=== PATIENT | female | born 1985 | race Caucasian/White ===

== ENCOUNTER 2020-11-23 03:04 | Emergency (ER) | payer MEDICAID, SELFPAY ==
[2020-11-23 03:16] VITALS: BP 142/90; PULSE 90; RESP 16; TEMP 36.8; O2SAT 96; BMI 31.1
--- NOTE | 2020-11-23 04:06 | ED.SKABFB ---
HPI - Skin/Abscess/Foreign Bdy General Chief complaint: Skin/Abscess/Foreign Body Stated complaint: abscess Time Seen by Provider: 11/23/20 04:06 Source: patient Mode of arrival: ambulatory History of Present Illness HPI narrative: 35-year-old female without significant past medical history presents with 1 month of noticing a small lump on her left back that has been evaluated by her primary care provider who states that they are unable to address it further. Patient states that this bump it is painful but has not been associated with any fevers, chills, shortness of breath. Related Data Allergies Allergy/AdvReac Type Severity Reaction Status Date / Time adhesive [ADHESIVE] Allergy Unknown RASH, SKIN Unverified 02/05/20 16:37 BREAKDOWN SEASONAL ALLERGIES Allergy Unknown RUNNY Uncoded 02/05/20 16:37 NOSE, CONGESTION, WATERY EYES Review of Systems Review of Systems: Pertinent positives and negatives as stated in HPI 10 point review of systems is otherwise negative. PMFSH Past Medical History Source: nursing notes reviewed Medical History No known health problems Social History Social History Advance Directives: No Patient : No Physical Exam Vital Signs: Vital Signs: Last Vital Signs Temp 98.3 F 11/23/20 03:16 Pulse 90 11/23/20 03:16 Resp 16 11/23/20 03:16 BP 142/90 H 11/23/20 03:16 Pulse Ox 96 11/23/20 03:16 Body Mass Index 31.1 VITAL SIGNS: Reviewed. GENERAL: Well developed, well nourished, in no acute distress. HEAD: Normocephalic/atraumatic EYES: PERRLA, EOMI EARS: Ext canals without abnormality OROPHARYNX: no oral lesions noted, posterior pharynx clear LUNGS: Normal breath sounds. No adventitious sounds or accessory muscle use. SpO2<96> CARDIOVASCULAR: Regular rate and rhythm without noted murmurs ABDOMEN: Soft, non-tender, non-distended with bowel sounds. BACK: There is a 1 cm, spherical bump to the lateral mid back without corresponding erythema, induration, fluctuance SKIN: Inspection of the skin reveals no rashes NEUROLOGIC: Alert and oriented x 4. Strength and sensation to light touch were grossly intact x 4. Course Course Course Narrative: 35-year-old female with history and clinical presence patient consistent with early lump, 1 cm, at left lateral mid back without evidence of infection or abscess and in consistent with lipoma or sebaceous cyst. Patient was reassured that she could follow-up with the referral to Surgical Services that we would provide. Discharge Plan Discharge Clinical Impression: Lump of skin of back Patient Disposition: Home, Self-Care Instructions: Soft Tissue Mass (ED) Additional Instructions: Please follow-up with the referral that is provided below by calling in the morning. Return to the ER for acute worsening of symptoms. Referrals: Rusty Tao MD [Physician] - 2 days ( Evaluation and treatment as indicated for approximate 1 cm, spherical, soft tissue mass that is located at left lateral mid back without evidence of infection and not consistent with lipoma/ sebaceous cyst.)
== END 2020-11-23 04:35 | disposition home or self-care (01) ==
PROVIDERS: Emergency Provider Student in an Organized Health Care Education/Training Program
DX: R22.2 Localized swelling, mass and lump, trunk (principal)
CPT/HCPCS: 99283

== ENCOUNTER → 2020-11-24 15:32 | Outpatient (BNVA) | payer MEDICAID, SELFPAY | PROVIDERS: PCP Family Medicine; Referring Provider Family Medicine; Visit Provider Surgery | DX: L98.9 Disorder of the skin and subcutaneous tissue, unspecified (principal) | CPT/HCPCS: 99202 ==

== ENCOUNTER 2020-12-15 12:24 | Outpatient (REF) | payer MEDICAID, SELFPAY ==
[2020-12-15 12:54] VITALS: BP 147/94; PULSE 91; RESP 18; TEMP 36.4; O2SAT 97; BMI 30.7
[2020-12-15 13:15] VITALS: BP 139/76; PULSE 95; RESP 16; O2SAT 96
--- NOTE | 2020-12-15 13:20 | W.PM.OPN ---
Operative Note Operative Note Date of Service: 12/15/20 Narrative: Preop diagnosis: Skin lesion, back Postop diagnose: Skin lesion, back, rule out epidermal inclusion cyst Procedure: Excision of skin lesion, from the back under local anesthesia Surgeon: Rusty Tao MD The patient is a 35-year-old female with a lesion on the back measuring about 1 cm in diameter, elevated, that appeared to be an inclusion cyst. She wanted to proceed with excision. She understood technique of excision under local anesthesia and was aware of the risks, benefits, and alternatives She was brought to the operating room placed in prone position. The area of the cyst on the back was prepped and draped. Lidocaine 1% was used for local anesthesia. I made an elliptical incision around this lesion using a blade 15. And this was carried down through the full-thickness skin subcutaneous fat to excise the entire indurated area. This was sent as specimen. The incision was closed with full-thickness nylon 3-0 interrupted sutures. Dressings were applied She tolerated procedure well. There were no complications noted.
--- NOTE | 2020-12-15 13:23 | P.BOP_ITS ---
Brief Operative Note Date of Service: 12/15/20 Pre-op diagnosis: Skin lesion back Post-op diagnosis: same (Rule out epidermal inclusion cyst) Procedure: Excision of skin lesion from the back under local anesthesia Surgeon: Rusty Tao MD Was an Senior Nuclear Medicine Technologist used for this Procedure?: No Estimated blood loss (mL): 1 Pathology: other (Skin lesion rule out cyst) Condition: stable Disposition: other (Home)
== END 2020-12-15 12:25 | disposition home or self-care (01) ==
LOC: HO.MS 12:24
PROVIDERS: Visit Provider Surgery
PROC: (CPT 11402; principal; 2020-12-15 12:30)
DX: L72.0 Epidermal cyst (principal); J30.2 Other seasonal allergic rhinitis; Z79.899 Other long term (current) drug therapy; Z91.040 Latex allergy status
CPT/HCPCS: 11402; 88304

== ENCOUNTER 2021-10-11 03:06 | Emergency (ER) | payer MEDICAID, SELFPAY ==
--- NOTE | ~2021-10-11 | XR_ITS ---
EXAMINATION: XR WRIST, LEFT CLINICAL INFORMATION: Pain after fall COMPARISON: None TECHNIQUE: Four views of the left wrist. FINDINGS: Alignment across the wrist is anatomic. No acute fracture is seen. No significant focal soft tissue abnormality identified. XR/XR wrist LT min 3V IMPRESSION: No acute findings identified.
--- NOTE | ~2021-10-11 | XR_ITS ---
EXAMINATION: XR ELBOW, LEFT CLINICAL INFORMATION: Pain after fall COMPARISON: None TECHNIQUE: AP, lateral, and oblique views of the left elbow. FINDINGS: Alignment appears anatomic. There is subtle cortical irregularity of the radial head and neck, suspicious for nondisplaced fractures in the setting of trauma. Associated joint effusion is present. XR/XR elbow LT min 3V IMPRESSION: Suspect nondisplaced fracture of the radial head/neck, with associated joint effusion.
[2021-10-11 03:40] VITALS: BP 140/86; PULSE 84; RESP 14; TEMP 36.8; O2SAT 96; BMI 30.7
--- NOTE | 2021-10-11 04:27 | ED.FALL ---
HPI - Fall General Chief Complaint: Fall Stated Complaint: Fall/Arm pain Time Seen by Provider: 10/11/21 03:44 Source: patient Mode of arrival: ambulatory Limitations: no limitations History of Present Illness MD complaint: fall Onset (ago): hour(s) (today) Fall from: standing Fall witnessed: no Place fall occurred: home Loss of consciousness: none Prolonged down time: no Symptoms prior to fall: none Context: other (was pulling at weeds - fell backwards) Location of injury - extremities: left: elbow (elbow and wrist) Severity: moderate Quality: dull and aching Associated symptoms (after fall): denies Related Data Home Medications Medication Instructions Recorded Confirmed colestipol 1 gram tablet 1 g PO BID 11/24/20 11/24/20 venlafaxine 75 mg capsule,extended 75 mg PO DAILY 11/24/20 11/24/20 release 24 hr Previous Rx's Medication Instructions Recorded cyclobenzaprine 10 mg tablet 10 mg PO TID PRN #14 tab 10/11/21 ibuprofen 600 mg tablet 600 mg PO Q6H PRN #30 tab 10/11/21 prednisone 20 mg tablet 40 mg PO DAILY 5 Days #10 tab 10/11/21 Allergies Allergy/AdvReac Type Severity Reaction Status Date / Time adhesive [ADHESIVE] Allergy Unknown RASH, SKIN Verified 11/24/20 16:05 BREAKDOWN SEASONAL ALLERGIES Allergy Unknown RUNNY Uncoded 02/05/20 16:37 NOSE, CONGESTION, WATERY EYES Review of Systems Review of Systems: Constitutional : No Fever, No Chills ENT/Mouth : No Ear Pain, No Hoarseness, No sore throat Eyes: No Eye Pain, No Swelling, No Redness, No Foreign Body Cardiovascular : No Chest Pain, No SOB Respiratory : No Cough, No Dyspnea Gastrointestinal : No Nausea, No Vomiting, No Diarrhea, No abdominal Pain Genitourinary : No Dysuria, No Hematuria Musculoskeletal : positive joint pain, No Myalgias, No Joint Swelling Skin : No Skin lacerations, No rash Neuro : No Weakness, No Numbness, No Loss of Consciousness, No Dizziness, No Headache PMFSH Past Medical History Attestation statement: The following information was validated with the patient. Medical History No known health problems Skin lesion of back Social History Social History (Updated 10/11/21 @ 04:30 by Yuni Jones DO) Patient Tobacco Use Status: Never used Tobacco Advance Directives: No Physical Exam Vital Signs: Vital Signs: Last Vital Signs Temp 98.3 F 10/11/21 03:40 Pulse 84 10/11/21 03:40 Resp 14 10/11/21 03:40 BP 140/86 H 10/11/21 03:40 Pulse Ox 96 10/11/21 03:40 BMI result Body Mass Index 30.7 Appearance: Alert. Oriented X3. No acute distress. Eyes: Pupils equal, round and reactive to light. ENT: Pharynx normal. R TM no erythema normal light reflex no perforation clear effusion seen Neck: Normal inspection. CVS: Pulses normal. Respiratory: No respiratory distress. Abdomen: Soft and nontender. Skin: Skin warm and dry. Normal skin color. Extremities: No lower extremity edema. L arm ttp along L wrist and L elbow - distal NV intact, no deformity of hand, L shoulder no ttp able to range the shoulder Neuro: Oriented X 3. No motor deficit. No sensory deficit. Procedures Orthopedic Splinting/Casting Injury #1: Side: left Upper Extremity Injury Location: upper arm and elbow Upper Extremity Immobilizer: sling/shoulder immobilizer Additional Comments: NV intact after application MDM - Fall MDM Narrative Medical decision making narrative: 36 yo female no sig PMH here with c/o L elbow and L wrist pain s/p fall with arm extended behind her. At this time she is NV intact - xrays of elbow and wrist for fracture ordered. Will give motrin and possible sling. Dispo per results and findings. Also just completed zpak for R AOM ? no prior ear infections still feels clogged has otitis effusion but no signs of infection will dose with prednisone Discharge Plan Discharge Clinical Impression: Acute effusion of right ear Closed fracture of radial head Qualifiers: Encounter type: initial encounter Fracture alignment: displaced Laterality: left Qualified Code(s): S52.122A - Displaced fracture of head of left radius, initial encounter for closed fracture Patient Disposition: Home, Self-Care Instructions: Arm Fracture in Adults (ED) Additional Instructions: return to ED for any worsening symptoms or concerns wear sling until you see orthopedic doctor rest ice elevate Prescriptions: New cyclobenzaprine 10 mg tablet 10 mg PO TID PRN (Reason: muscle spasm) Qty: 14 0RF prednisone 20 mg tablet 40 mg PO DAILY 5 Days Qty: 10 0RF ibuprofen 600 mg tablet 600 mg PO Q6H PRN (Reason: pain) Qty: 30 0RF No Action venlafaxine 75 mg capsule,extended release 24hr 75 mg PO DAILY 0RF colestipol 1 gram tablet 1 g PO BID 0RF Referrals: Kevin Gomez MD [Physician] - 1 week
[2021-10-11 04:59] VITALS: BP 142/86; PULSE 82; RESP 18; TEMP 36.8; O2SAT 97
== END 2021-10-11 05:00 | disposition home or self-care (01) ==
PROVIDERS: Emergency Provider Emergency Medicine; PCP Family Medicine
DX: S52.122A Displaced fracture of head of left radius, initial encounter for closed fracture (principal); W01.0XXA Fall on same level from slipping, tripping and stumbling without subsequent striking against object, initial encounter; Y93.9 Activity, unspecified; Y92.007 Garden or yard of unspecified non-institutional (private) residence as the place of occurrence of the external cause; Y99.9 Unspecified external cause status; Z79.899 Other long term (current) drug therapy
CPT/HCPCS: 29105; 73080; 73110; 99282; 99284

== ENCOUNTER 2021-10-24 07:38 | Outpatient (REF) | payer MEDICAID, SELFPAY | END 2021-10-24 07:39 | disposition home or self-care (01) | LOC: HO.HOSX 07:38 | PROVIDERS: Visit Provider Physician Assistant | DX: Z13.89 Encounter for screening for other disorder (principal) ==

== ENCOUNTER 2021-10-31 07:28 | Outpatient (REF) | payer MEDICAID, SELFPAY ==
--- NOTE | ~2021-10-31 | XR_ITS ---
EXAMINATION: XR ELBOW, LEFT CLINICAL INFORMATION: Pain COMPARISON: Previous x-ray September 2021 TECHNIQUE: AP, lateral, and oblique views of the left elbow. FINDINGS: There is again question of a nondisplaced fracture of the radial head and neck. This appears similar to September 2021 exam. No other fracture is seen. The joint spaces are normal. There is no joint effusion. XR/XR elbow LT min 3V IMPRESSION: Probable nondisplaced fracture of the radial head/neck.
== END 2021-10-31 07:29 | disposition home or self-care (01) ==
LOC: HO.HOSX 07:28
PROVIDERS: Visit Provider Physician Assistant
DX: S52.122A Displaced fracture of head of left radius, initial encounter for closed fracture (principal); F17.200 Nicotine dependence, unspecified, uncomplicated; Z71.6 Tobacco abuse counseling
CPT/HCPCS: 73080; 99202

== ENCOUNTER 2021-11-28 12:30 | Outpatient (REF) | payer MEDICAID, SELFPAY | END 2021-11-28 12:31 | disposition home or self-care (01) | LOC: HO.HOSX 12:30 | PROVIDERS: Visit Provider Physician Assistant | DX: Z13.89 Encounter for screening for other disorder (principal) ==

== ENCOUNTER 2022-09-10 00:24 | Emergency (ER) | payer OTHER, SELFPAY ==
--- NOTE | ~2022-09-10 | XR_ITS ---
EXAMINATION: XR LUMBOSACRAL SPINE CLINICAL INFORMATION: 1 week lumbar back pain COMPARISON: CT 10/06/2019 TECHNIQUE: Three views of the lumbosacral spine. FINDINGS: There is anatomic alignment of the lumbar vertebral bodies and posterior elements. Vertebral body heights are maintained. Intervertebral disc spaces appear relatively well-preserved. No acute fracture is seen. Sacroiliac joints are intact. Calcification noted along the aorta. Cholecystectomy clips are present in the right upper quadrant. XR/XR lumbar spine 2-3V IMPRESSION: No acute findings identified.
[2022-09-10 00:29] VITALS: BP 146/96; PULSE 97; RESP 20; TEMP 36.3; O2SAT 97; BMI 29.7
[2022-09-10] MEDS: Acetaminophen 325 MG TABLET 975 MG PO (01:50)
--- NOTE | 2022-09-10 02:35 | ED_ITS ---
HPI - Back Pain/Injury General Chief Complaint: Back Pain/Injury Stated Complaint: back pain radiates to hip pain Time Seen by Provider: 09/10/22 00:56 Source: patient Mode of arrival: ambulatory Limitations: no limitations History of Present Illness MD elicited complaint: back pain Onset (ago): week(s) (1) Timing: constant Severity: severe Similar Symptoms Previously: Yes Quality: aching Location: lumbar spine Radiation: left upper leg and right upper leg Exacerbating factors: movement and lifting Relieving factors: none Context: while lifting, turning/twisting and bending Associated symptoms: denies other symptoms Treatments prior to arrival: cold therapy, heat therapy, NSAIDS and acetaminophen Related Data Home Medications Medication Instructions Recorded Confirmed colestipol 1 gram tablet 1 g PO BID 11/24/20 11/24/20 venlafaxine 75 mg capsule,extended 75 mg PO DAILY 11/24/20 11/24/20 release 24 hr norethindrone (contraceptive) 0.35 0.35 mg PO DAILY 10/31/21 mg tablet Previous Rx's Medication Instructions Recorded cyclobenzaprine 10 mg tablet 10 mg PO TID PRN muscle spasm #14 10/11/21 tabs ibuprofen 600 mg tablet 600 mg PO Q6H PRN pain #30 tabs 10/11/21 cyclobenzaprine 10 mg tablet 10 mg PO TID PRN muscle spasm #10 09/10/22 tabs gabapentin 300 mg capsule 300 mg PO TID #14 caps 09/10/22 meloxicam 15 mg tablet 15 mg PO DAILY #14 tabs 09/10/22 prednisone 20 mg tablet 20 mg PO DAILY #7 tabs 09/10/22 Allergies Allergy/AdvReac Type Severity Reaction Status Date / Time adhesive [ADHESIVE] Allergy Unknown RASH, SKIN Verified 10/31/21 15:16 BREAKDOWN SEASONAL ALLERGIES Allergy Unknown RUNNY Uncoded 10/31/21 15:16 NOSE, CONGESTION, WATERY EYES PMFSH Past Medical History Medical History Multiple sclerosis No known health problems Skin lesion of back Surgical History H/O removal of cyst History of cholecystectomy Social History Social History Alcohol intake: current Alcohol intake frequency: holidays/special occasions only Patient Tobacco Use Status: Current everyday Tobacco user Smoked in Last 30 Days: Yes Use of substances other than those prescribed or required for medical reasons: No Advance Directives: No Advance Directives Information Provided: Yes Patient : No Current occupational status: employed 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, 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 Physical Exam Vital Signs: Vital Signs: Last Vital Signs Temp 97.4 F 09/10/22 00:29 Pulse 97 09/10/22 00:29 Resp 20 09/10/22 00:29 BP 146/96 H 09/10/22 00:29 Pulse Ox 97 09/10/22 00:29 O2 Del Method Room Air 09/10/22 00:29 BMI result Body Mass Index 29.7 GEN: Well developed, no acute distress, alert, oriented HEENT: Normocephalic, atraumatic, normal external ears, nose appears normal Eyes: Normal to appearance Neck: Supple, no lymphadenopathy Respiratory: Talks in complete sentences, no respiratory distress Extremities: No clubbing cyanosis or edema Neurologic: No focal neurologic deficits, cranial nerves 2-12 intact, gait normal, sensation intact bilaterally Skin: No rash Back: Mild midline tenderness, no paraspinous tenderness, no step-off, Course Course Course Narrative: 37-year-old female presents with low back pain, radiating to bilateral lower extremities, no loss of bowel or bladder control or saddle paresthesias. No intravenous drug abuse, no acute trauma. Doubt acute cauda equina syndrome or epidural abscess. Suspect lumbar radiculopathy, strain, sprain, spasm. Will obtain an x-ray to rule out fracture. Reevaluation(s) Reevaluation #1: X-ray reveals no acute fracture. Will discharge at this time with gabapentin meloxicam, Tylenol Time: 02:41 Medications Administered Discontinued Medications Generic Name Dose Route Start Last Admin Trade Name Freq PRN Reason Stop Dose Admin Acetaminophen 975 mg 09/10/22 01:42 09/10/22 01:50 Acetaminophen 325 Mg Tablet PO 09/10/22 01:43 975 mg ONCE ONE Administration Medical Decision Making Medical Decision Making MDM Narrative: 37-year-old female presents with low back pain radiating to the upper leg area bilaterally. Exam was benign. There is mild midline tenderness but no step- off. She has no history of IV drug abuse or fever to suggest epidural abscess. She denies any loss of bowel or bladder control or saddle paresthesias to suggest acute cauda equina syndrome. Her exam is nonfocal. Will obtain an x- ray to rule out compression fracture. Suspect lumbar radiculopathy. Differential Diagnosis Differential Diagnoses: The differential diagnosis associated with the presentation includes (Lumbar radiculopathy, sprain, strain, spasm, spinal stenosis, compression fracture, degenerative disc disease) Independent Interpretation I performed an independent interpretation of an: Plain X-Ray (XR lumbar no acute traumatic injury) Tests considered The following testing was considered but not selected: CT scan/MRI lumbar spine Prescription Management I considered prescription management with: Pain Medication Discharge Plan Discharge Clinical Impression: Lumbar radiculopathy Patient Disposition: Home, Self-Care Instructions: Lumbar Radiculopathy (ED) Prescriptions: New prednisone 20 mg tablet 20 mg PO DAILY Qty: 7 0RF gabapentin 300 mg capsule 300 mg PO TID Qty: 14 0RF cyclobenzaprine 10 mg tablet 10 mg PO TID PRN (Reason: muscle spasm) Qty: 10 0RF meloxicam 15 mg tablet 15 mg PO DAILY Qty: 14 0RF No Action cyclobenzaprine 10 mg tablet 10 mg PO TID PRN (Reason: muscle spasm) Qty: 14 0RF ibuprofen 600 mg tablet 600 mg PO Q6H PRN (Reason: pain) Qty: 30 0RF venlafaxine 75 mg capsule,extended release 24hr 75 mg PO DAILY colestipol 1 gram tablet 1 g PO BID norethindrone (contraceptive) 0.35 mg tablet 0.35 mg PO DAILY Referrals: Physician,Unknown J [Primary Care Provider] - 10 days
[2022-09-10] MEDS: predniSONE 20 MG TABLET 60 MG PO (03:05)
[2022-09-10 03:16] VITALS: BP 126/81; PULSE 74; RESP 16; TEMP 36.7; O2SAT 97
--- NOTE | 2022-09-10 03:17 | PC.NURSE ---
vss. pt medicated according to jul. pt reports 7/10 pain at this time. pt ambulatory at discharge. pt provided with discharge packet. pt verbalized understanding of discharge
== END 2022-09-10 03:18 | disposition home or self-care (01) ==
PROVIDERS: Emergency Provider Emergency Medicine
DX: M54.16 Radiculopathy, lumbar region (principal); M54.50 Low back pain, unspecified; M25.551 Pain in right hip; M79.604 Pain in right leg; F17.210 Nicotine dependence, cigarettes, uncomplicated; Z71.6 Tobacco abuse counseling; Z79.899 Other long term (current) drug therapy
CPT/HCPCS: 72100; 99283; 99284

== ENCOUNTER 2022-10-14 17:18 | Emergency (ER) | payer OTHER, SELFPAY ==
[2022-10-14 17:29] VITALS: BP 141/87; PULSE 121; RESP 20; TEMP 36.9; O2SAT 99; BMI 35.4
--- NOTE | 2022-10-14 17:31 | ED_ITS ---
HPI - General Adult General Chief complaint: Dental/Oral Stated complaint: tooth pain Time Seen by Provider: 10/14/22 17:34 Source: patient Mode of arrival: ambulatory Limitations: no limitations History of Present Illness HPI narrative: Patient is a 37 year old assigned female at with a history of anxiety pres enting to the emergency department today with right sided dental pain. Patient states that over the last few days she has had right sided dental pain. Patient denies any dizziness, lightheadedness, abdominal pain, nausea, vomiting, fever, chills, blurry vision, double vision, loss of vision, chest pain, difficulty breathing, shortness of breath, back pain, night sweats, pain with urination, increased urinary frequency, increased urinary urgency, blood in her urine or stool, syncope or a near syncopal episode, recent trauma or falls, bowel incontinence, bladder incontinence, bowel retention, bladder retention, or any other complaints at this time. Onset (ago): day(s) Location: mouth Severity: mild Severity scale (1-10): 2 Quality: dull Pain Consistency: constant Relieving factors: none Exacerbating factors: none Associated symptoms: denies other symptoms Treatments prior to arrival: none Related Data Home Medications Medication Instructions Recorded Confirmed colestipol 1 gram tablet 1 g PO BID 11/24/20 11/24/20 venlafaxine 75 mg capsule,extended 75 mg PO DAILY 11/24/20 11/24/20 release 24 hr norethindrone (contraceptive) 0.35 0.35 mg PO DAILY 10/31/21 mg tablet Previous Rx's Medication Instructions Recorded cyclobenzaprine 10 mg tablet 10 mg PO TID PRN muscle spasm #14 10/11/21 tabs ibuprofen 600 mg tablet 600 mg PO Q6H PRN pain #30 tabs 10/11/21 cyclobenzaprine 10 mg tablet 10 mg PO TID PRN muscle spasm #10 09/10/22 tabs gabapentin 300 mg capsule 300 mg PO TID #14 caps 09/10/22 meloxicam 15 mg tablet 15 mg PO DAILY #14 tabs 09/10/22 prednisone 20 mg tablet 20 mg PO DAILY #7 tabs 09/10/22 chlorhexidine gluconate 0.12 % 15 ml buccal BID #118 mL 10/14/22 mouthwash (Peridex) naproxen 500 mg tablet 500 mg PO BID 7 days #14 tabs 10/14/22 penicillin V potassium 500 mg 500 mg PO BID 10 days #20 tabs 10/14/22 tablet Allergies Allergy/AdvReac Type Severity Reaction Status Date / Time adhesive [ADHESIVE] Allergy Unknown RASH, SKIN Verified 10/31/21 15:16 BREAKDOWN SEASONAL ALLERGIES Allergy Unknown RUNNY Uncoded 10/31/21 15:16 NOSE, CONGESTION, WATERY EYES Review of Systems Constitutional: Constitutional: Reports no additional constitutional complaints, Denies chills, Denies fever(s) and Denies night sweats Eyes: Eyes: Reports no additional eye complaints, Denies blurry vision, Denies change in vision, Denies diplopia, Denies eye discharge, Denies loss of vision and Denies eye pain ENT: Denies dizziness and Reports mouth pain Cardiovascular: Cardiovascular: Reports no additional cardiovascular complaints, Denies chest pain, Denies lightheadedness, Denies Loss of Consciousness and Denies dyspnea Respiratory: Respiratory: Reports no additional respiratory complaints and Denies dyspnea Gastrointestinal: Gastrointestinal: Reports no additional gastrointestinal complaints, Denies abdominal pain, Denies melena, Denies hematochezia, Denies change in bowel habits and Denies change in stool character Genitourinary: Genitourinary: Denies hematuria, Denies urinary frequency, Denies dysuria, Denies urinary incontinence, Denies urinary hesitancy and Denies urinary urgency Musculoskeletal: Musculoskeletal: Reports no additional musculoskeletal complaints, Denies numbness and Denies tingling Neurologic: Denies dizziness, Denies loss of vision, Denies numbness and Denies tingling Psychiatric: Psychiatric: Reports no additional psychiatric complaints Endocrine: Endocrine: Reports no additional endocrine complaints Hematologic/Lymphatic: Hematologic/Lymphatic: Reports no additional hematologic/lymphatic complaints Allergic/Immunologic: Allergic/Immunologic: Reports no additional allergic/immunologic complaints PMF Past Medical History Attestation statement: The following information was validated with the patient. 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 Physical Exam ED Vital Signs: Vital Signs - 24 hr 10/14/22 17:29 Temperature 98.4 F Pulse Rate 121 H Respiratory Rate 20 Blood Pressure 141/87 H Pulse Oximetry 99 Oxygen Delivery Method Room Air BMI result Body Mass Index 35.4 Const General: cooperative, no acute distress, alert and awake Nutritional Appearance: well nourished Orientation/consciousness: patient oriented x3 Limitations: no limitations HENMT Head: Yes normal to inspection and Yes atraumatic Ears: hearing grossly normal bilaterally and external ears normal General nose exam: Normal external nose present, no nasal discharge noted and no epistaxis Face and sinus: Yes normal facial exam, No abrasion and No laceration Mouth: Normal oral and palatal mucosa present, no drooling and no muffled voice Teeth image: 1. swelling around tooth #1, no fluctuance felt Eyes General: appearance normal, both eyes and all related structures Periorbital: periorbital findings normal Eyelids: Yes eyelids normal Conjunctivae: conjunctivae normal Pupils: Equal, round and reactive pupils present EOM: EOMs intact bilaterally Neck Neck: Yes normal visual inspection, Yes full ROM and Yes no lymphadenopathy Chest Chest palpation & inspection: normal inspection of the chest Resp Effort & Inspection: normal respiratory effort and able to speak in complete sentences GI Inspection: Yes normal to inspection Neuro General: patient oriented x3 and moves all extremities Cranial nerves: Yes Equal, round and reactive pupils present Cognition (Neuro): normal cognition Motor exam (neuro): 5/5 motor strength present throughout Sensory Exam: Normal double simultaneous stimulation for sensation Coordination: [id number] test normal Extrem General: Yes normal to inspection, Yes full ROM and Yes capillary refill normal Psych Appearance: grossly normal Mental Status: mental status grossly normal Affect: normal affect Attitude: cooperative Thought process: Normal thought process present Thought content: Normal thought content present Insight: Good insight present (Psych) Medical Decision Making Medical Decision Making MDM Narrative: Patient is a 37 year old assigned female at with a history of anxiety presenting to the emergency department today with right sided mouth pain. Patient's physical exam showed minimal swelling around the #1 tooth, no fluctua nce felt. I explained my physical exam findings to the patient. I answered all questions asked by the patient. I stressed the importance of the patient taking her medication as prescribed. I stressed the importance of the patient following up with her primary care provider and a dentist. I stressed the importance of the patient returning to the emergency department immediately if her symptoms were to worsen or if she were to develop any dizziness, shortness of breath, difficulty breathing, chest pain, blurry vision, loss of vision, nausea, vomiting, abdominal pain, fever, chills, back pain, or any other complaints. Patient verbalized agreement and understanding with this treatment plan and d ischarge. Differential Diagnosis Differential Diagnoses: The differential diagnosis associated with the presentation includes Dental abscess Discharge Plan Discharge Clinical Impression: Abscess, dental Patient Disposition: Home, Self-Care Instructions: Dental Abscess (ED) Additional Instructions: Follow up with your primary care provider and your dentist. Return to the emergency department immediately if your symptoms worsen or if you develop any dizziness, shortness of breath, difficulty breathing, chest pain, blurry vision, loss of vision, nausea, vomiting, abdominal pain, fever, chills, back pain, or any other complaints. Call or visit any of the clinics below to establish with a dentist: [facility] [address] [place] [address] [address] [facility] [address] [place] [id number] [facility] [address] [place], [place] [id number] [place] [address] [place] [address] Prescriptions: New penicillin V potassium 500 mg tablet 500 mg PO BID 10 Days Qty: 20 0RF naproxen 500 mg tablet 500 mg PO BID 7 Days Qty: 14 0RF chlorhexidine gluconate [Peridex] 0.12 % mouthwash 15 ml buccal BID Qty: 118 0RF No Action cyclobenzaprine 10 mg tablet 10 mg PO TID PRN (Reason: muscle spasm) Qty: 14 0RF ibuprofen 600 mg tablet 600 mg PO Q6H PRN (Reason: pain) Qty: 30 0RF prednisone 20 mg tablet 20 mg PO DAILY Qty: 7 0RF gabapentin 300 mg capsule 300 mg PO TID Qty: 14 0RF cyclobenzaprine 10 mg tablet 10 mg PO TID PRN (Reason: muscle spasm) Qty: 10 0RF meloxicam 15 mg tablet 15 mg PO DAILY Qty: 14 0RF venlafaxine 75 mg capsule,extended release 24hr 75 mg PO DAILY colestipol 1 gram tablet 1 g PO BID norethindrone (contraceptive) 0.35 mg tablet 0.35 mg PO DAILY Referrals: [facility] Family Medicine [Provider Group] (Call to establish and follow up with a [facility] care provider. If you already have a primary care provider, please follow up with them.) [facility] Primary Care, [place] [Provider Group] (Call to establish and follow up with a primary care provider. If you already have a primary care provider, please follow up with them.) [facility] Primary Care,[place] [Provider Group] (Call to establish and follow up with a primary care provider. If you already have a primary care provider, please follow up with them.) [facility] [Physician] - (Call to establish and follow up with a primary care provider. If you already have a primary care provider, please follow up with them.) Interventions: ED Discharge Assessment Last Done: 10/14/22 17:42 Discharge Date/Time: 10/14/22 17:42 Print Language: Monegasque
--- OUTSIDE RECORDS SUMMARY | 2022-10-14 17:39 | XMS_ITS | Continuity of Care Document ---
Author Name Unknown Organization [facility] Tra[address] Address [address] [place] [address]- Care Team Providers Care Strength And Conditioning Coach Name Role Phone Jana MUNGUIA, Ian Mae Primary Care Physician [phone] Encounter [facility] Date(s): 09/15/21 - 10/15/21 [facility] Adult [address] [place] [address]- Allergies, Adverse Reactions, Alerts Substance Reaction Severity Status Adhesive Bandage HIVES Active Fish Active Immunizations Given and Recorded Vaccine Date Status Refusal Reason tetanus/diphtheria/pertussis, acel(Tdap) 08/10/14 Given Not Given Vaccine Date Status Refusal Reason Influenza Virus Vaccine (oldterm) 04/08/19 Not Giv en Parent Or Guardian Refuses Medications Azithromycin 5 Day Dose Pack 250 mg oral tablet 1 pack/packet, By Mouth, Once, # 1 pack/packet, 0 Refills, Soft Stop, 09/21/21 6:23:00 EDT, Tablet,[id number], Partial fill upon patient request if the prescription is for a schedule II opioid drug., 158, cm, 08/02/21 14:11:00 EDT, Height, 76... Start Date: 09/21/21 Status: Ordered colestipol 1 gm oral tablet 3 tablet, By Mouth, 2 times a day, # 540 tablet, 3 Refills, Maintenance, 07/20/21 11:29:00 EST, [id number], If insurance won't cover 90d fine to change to 30d supply, thx, 158, cm, 06/27/21 8:42:00 EST, Height, 76.1, kg, 03/19/21 10:19:00 EDT,... Start Date: 07/20/21 Stop Date: 07/15/22 Status: Ordered Daily Tamir oral tablet 1 tablet, By Mouth, Daily, # 90 tablet, 4 Refills, [id number], 90, TAKE 1 TABLET BY MOUTH EVERY DAY, 158, cm, 04/11/21 16:19:00 EST, Height, 76.1, kg, 03/19/21 10:19:00 EDT, Dry Weight Start Date: 06/14/21 Status: Ordered fluconazole 150 mg oral tablet 1 tablet = 150 mg, By Mouth, Once, # 1 tablet, 0 Refills, Soft Stop, 03/02/21 7:04:00 EDT, Tablet, [facility]/pharmacy #[id number], Partial fill upon patient request if the prescription is for a schedule II opioid drug., 158, cm, 03/02/21 6:37:00 EDT, Height, 73.2... Start Date: 03/02/21 Status: Ordered LORazepam 0.5 mg oral tablet 0.5 tablet = 0.25 mg, By Mouth, Daily, PRN as needed for anxiety, # 20 tablet, 0 Refills, Soft Stop, 11/25/20 17:12:00 EDT, Tablet, [facility]/pharmacy #[id number], Partial fill upon patient request if the prescription is for a schedule II opioid drug., 158, cm, 0... Start Date: 11/25/20 Status: Ordered Mirena 52 mg intrauteral device 1 each = 52 mg, Once, 0 Refills, Maintenance, 12/30/14 11:21:54 Start Date: 12/30/14 Status: Ordered omeprazole 20 mg oral delayed release tablet 1 tablet = 20 mg, By Mouth, Daily, # 30 tablet, 5 Refills, Maintenance, 09/06/21 10:59:00 EDT, CR Tablet, [facility]/pharmacy #[id number], Partial fill upon patient request if the prescription is for a schedule II opioid drug., 158, cm, 08/02/21 14:11:00 EDT, Heig... Start Date: 09/06/21 Status: Ordered traZODone 50 mg oral tablet 25 mg, 0.5, tablet, By Mouth, Daily at bedtime, PRN, after meals for sleep as needed, half a tabletat bedtime., # 15 tablet, Refills 2, Tot. Refills 2, Maintenance, Sleep, 11/25/20 17:20:00 EDT, Route to Pharmacy Electronically, [facility]/pharmacy #[id number], P... Start Date: 11/25/20 Status: Ordered venlafaxine 75 mg oral capsule, extended release 1 capsule, By Mouth, Daily, # 90 capsule, 1 Refills, 09/16/21 17:24:00 EDT, [facility]/pharmacy #[id number], 158, cm, 08/02/21 14:11:00 EDT, Height, 76.1, kg, 03/19/21 10:19:00 EDT, Dry Weight Start Date: 09/16/21 Status: Ordered Problem List Condition Effective Dates Status Health Status Inform ant Acute gastritis(Confirmed) Active Acute viral pharyngitis(Confirmed) Active Anterior chest wall pain(Confirmed) Active Anxiety(Confirmed) Active History of JUAN III (cervical intraepithelial neoplasia grade III) with severe dysplasia. Had CKC that showed JUAN II, ectocervical and endocervical margins negative. Endocervical curettage negative. Last pap smear 01/03/16 negative with negative HPV(Confirmed) Active Depression(Confirmed) Active Bile acid esophageal reflux(Confirmed) Active 4, para 3013. TAb at age 13 by D&C at 9 weeks. 03/08/04 . 09/30/08 . 10/27/14 .(Confirmed) Active S/P cholecystectomy(Confirmed) Active ASCUS with positive high ris k HPV(Confirmed) Active Low HDL (under 40)(Confirmed) Active IUD (intrauterine device) in place - Mirena 12/30/14(Confirmed) Active Multiple sclerosis - not on medications since 2009. Occasionally gets tingly fingers but it doesn't hold her back much(Confirmed) Active Obese class I(Confirmed) Active Otalgia(Confirmed) Active Panic attacks(Confirmed) Active Abdominal pain, acute, right lower quadrant(Confirmed) Active Seasonal allergies(Confirmed) Active Current smoker(Confirmed) Active Strain of left trapezius muscle(Confirmed) Active Left peroneal tendinosis(Confirmed) Active Otalgia of right ear(Confirmed) Active Social History Social History Type Response Smoking Status Current every day tameka andre entered on: 08/17/16 Sex Female
--- OUTSIDE RECORDS SUMMARY | 2022-10-14 17:39 | XMS_ITS | Continuity of Care Document ---
Author Name Unknown Organization [facility] Tra[address] Address [address] [place] [address]- Care Team Providers Care Special Inspector Name Role Phone Jana MUNGUIA, Ian Mae Primary Care Physician Encounter [facility] Date(s): 01/26/21 - 02/25/21 [facility] Adult [address] [place] [address]- Allergies, Adverse Reactions, Alerts Substance Reaction Severity Status Adhesive Bandage HIVES Active Fish Active Immunizations Given and Recorded Vaccine Date Status Refusal Reason tetanus/diphtheria/pertussis, acel(Tdap) 08/10/14 Given Not Given Vaccine Date Status Refusal Reason Influenza Virus Vaccine (oldterm) 04/08/19 Not Giv en Parent Or Guardian Refuses Medications cholestyramine 4 g/5.7 g oral powder for reconstitution = 4 Gm, By Mouth, 2 times a day, dissolve in water or juice May take 2-3x daily, # 60 each, 6 Refills, Maintenance, 11/12/20 12:49:00 EDT, REC Powder, [id number], Partial fill upon patient request if the prescription is for a schedule II opi... Start Date: 11/12/20 Status: Ordered colestipol 1 gm oral tablet 3 tablet, By Mouth, 2 times a day, # 180 tablet, 5 Refills, Maintenance, 01/21/21 11:29:00 EDT, [id number], 158, cm, 11/25/20 15:32:00 EDT, Height, 73.2, kg, 08/01/20 10:43:00 EDT, Dry Weight Start Date: 01/21/21 Stop Date: 07/20/21 Status: Ordered LORazepam 0.5 mg oral tablet 0.5 tablet = 0.25 mg, By Mouth, Daily, PRN as needed for anxiety, # 20 tablet, 0 Refills, Soft Stop, 11/25/20 17:12:00 EDT, Tablet, [facility]/pharmacy #[id number], Partial fill upon patient request if the prescription is for a schedule II opioid drug., 158, cm, 0... Start Date: 11/25/20 Status: Ordered Mirena 52 mg intrauteral device 1 each = 52 mg, Once, 0 Refills, Maintenance, 12/30/14 11:21:54 Start Date: 12/30/14 Status: Ordered multivitamin Multiple Vitamins oral tablet 1 tablet, By Mouth, Daily, # 100 tablet, 3 Refills, Maintenance, 08/23/20 15:33:00 EDT, Tablet, [facility]/pharmacy #[id number], Partial fill upon patient request if the prescription is for a schedule II opioid drug., 1 tablet By Mouth Daily, 158, cm, 08/01/20 15:... Start Date: 08/23/20 Status: Ordered traZODone 50 mg oral tablet 25 mg, 0.5, tablet, By Mouth, Daily at bedtime, PRN, after meals for sleep as needed, half a tabletat bedtime., # 15 tablet, Refills 2, Tot. Refills 2, Maintenance, Sleep, 11/25/20 17:20:00 EDT, Route to Pharmacy Electronically, [facility]/pharmacy #[id number], P... Start Date: 11/25/20 Status: Ordered venlafaxine 150 mg oral capsule, extended release 150 mg, 1, capsule, By Mouth, Daily, # 30 capsule, Refills 2, Tot. Refills 2, Maintenance, 09/21/2115:25:00 EDT, Route to Pharmacy Electronically, [facility]/pharmacy #[id number], Partial fill upon patient request if the prescription is for a schedule II opioid d... Start Date: 09/20/20 Status: Ordered venlafaxine 37.5 mg oral capsule, extended release 37.5 mg, 1, capsule, By Mouth, Daily, start at 112.5mg daily (one 75mg capsule + one 37.5mg capsule), for 4 weeks or until no withdrawal symptoms. Then alternate 112.5mg (75 + 37.5mg) and 75mg capsule every other day (one day 75mg, next day 112.5mg)... Start Date: 10/27/20 Status: Ordered venlafaxine 75 mg oral capsule, extended release 75 mg, 1, capsule, By Mouth, Daily, start at 112.5mg daily (one 75mg capsule + one 37.5mg capsule),for 4 weeks or until no withdrawal symptoms. Then alternate 112.5mg (75 + 37.5mg) and 75mg capsule every other day (one day 75mg, next day 112.5mg) fo... Start Date: 10/27/20 Status: Ordered venlafaxine 75 mg oral capsule, extended release 75 mg, 1, capsule, By Mouth, Daily, Replaces 150 mg, # 30 capsule, Refills 5, Tot. Refills 5, Maintenance, 08/23/20 15:32:00 EDT, Route to Pharmacy Electronically, [facility]/pharmacy #[id number], Partial fill upon patient request if the prescription is for a sche... Start Date: 08/23/20 Status: Ordered Problem List Condition Effective Dates [...] it doesn't hold her back much(Confirmed) Active Otalgia(Confirmed) Active Panic attacks(Confirmed) Active Abdominal pain, acute, right lower quadrant(Confirmed) Active Seasonal allergies(Confirmed) Active Current smoker(Confirmed) Active Strain of left trapezius muscle(Confirmed) Active Left peroneal tendinosis(Confirmed) Active Otalgia of right ear(Confirmed) Active Social History Social History Type Response Smoking Status Current every day tameka andre entered on: 08/17/16 Sex
--- OUTSIDE RECORDS SUMMARY | 2022-10-14 17:39 | XMS_ITS | Continuity of Care Document ---
Author Name Unknown Organization [facility] ter Address [address] [place] [address]- Care Team Providers Care Bar Gauger And Lubricator Tender Name Role Phone Jana MUNGUIA, Ian Mae Primary Care Physician [place] [facility] [id number] Date(s): 11/24/20 - 03/03/[address] [address] Attending Physician: Michael Lovett MD Admitting Physician: Michael Lovett MD Referring Physician: Michael Lovett MD Allergies, Adverse Reactions, Alerts Substance Reaction Severity Status Adhesive Bandage HIVES Active Fish Active Immunizations Given and Recorded Vaccine Date Status Refusal Reason tetanus/diphtheria/pertussis, acel(Tdap) 08/10/14 Given Not Given Vaccine Date Status Refusal Reason Influenza Virus Vaccine (oldterm) 04/08/19 Not Giv en Parent Or Guardian Refuses Medications Augmentin 875 mg-125 mg oral tablet 1 tablet, By Mouth, Every 12 hours, for 7 days, # 14 tablet, 0 Refills, Acute 03/09/21 7:00:00 EDT,03/02/21 7:00:00 EDT, Tablet, [facility]/pharmacy #[id number], Partial fill upon patient request if the prescription is for a schedule II opioid drug., 158, cm, .. Start Date: 03/02/21 Stop Date: 03/09/21 Status: Ordered cholestyramine 4 g/5.7 g oral powder for [...] Date: 01/21/21 Stop Date: 07/20/21 Status: Ordered fluconazole 150 mg oral tablet 1 tablet = 150 mg, By Mouth, Once, # 1 tablet, 0 Refills, Soft Stop, 03/02/21 7:04:00 EDT, Tablet, [facility]/pharmacy #[id number], Partial fill upon patient request if the prescription is for a schedule II opioid drug., 158, cm, 03/02/21 6:37:00 EDT, Height, 73.2... Start Date: 03/02/21 Status: Ordered LORazepam 0.5 mg oral tablet 0.5 tablet = 0.25 mg, By Mouth, Daily, PRN as needed for anxiety, # 20 tablet, 0 Refills, Soft Stop, 11/25/20 17:12:00 EDT, Tablet, [id number], Partial fill upon patient request [...] 3 Refills, Maintenance, 08/23/20 15:33:00 EDT, Tablet, [id number], Partial fill upon patient request [...] 11/25/20 17:20:00 EDT, Route to Pharmacy Electronically, [facility]/pharmacy #[id number], P... Start Date: 11/25/20 Status: Ordered venlafaxine 150 mg oral capsule, extended release 150 mg, 1, capsule, By Mouth, Daily, # 30 capsule, Refills 2, Tot. Refills 2, Maintenance, 09/21/2115:25:00 EDT, Route to Pharmacy Electronically, [facility]/pharmacy #[id number], Partial fill upon patient request [...] 08/23/20 15:32:00 EDT, Route to Pharmacy Electronically, [facility]/pharmacy #[id number], Partial fill upon patient request [...]
--- OUTSIDE RECORDS SUMMARY | 2022-10-14 17:39 | XMS_ITS | Continuity of Care Document ---
Author Name [facility] Organization [facility] Address [address] [place] [address]- Care Team Providers Care Oil Well Pumper Name Role Phone Jana MUNGUIA, Ian Mae Primary Care Physician [phone] [place] [facility] [place] 09/14/21 - 10/14/21 [facility] Adult [address] [place] [address]- Allergies, Adverse Reactions, Alerts Substance Reaction Severity [...] # 90 tablet, 4 Refills, [id number], 90, TAKE 1 TABLET BY MOUTH EVERY DAY, 158, cm, 04/11/21 16:19:00 EST, Height, 76.1, kg, 03/19/21 10:19:00 EDT, Dry Weight Start Date: 06/14/21 Status: Ordered fluconazole 150 mg oral tablet 1 tablet = 150 mg, By Mouth, Once, # 1 tablet, 0 Refills, Soft Stop, 03/02/21 7:04:00 EDT, Tablet, [facility]/pharmacy #[id number], Partial fill upon patient request if the prescription is for a schedule II opioid drug., 158, cm, 03/02/21 6:37:00 EDT, Height, 73.2... Start Date: 03/02/21 Status: Ordered LORazepam 0.5 mg oral tablet 0.5 tablet = 0.25 mg, By Mouth, Daily, PRN as needed for anxiety, # 20 tablet, 0 Refills, Soft Stop, 11/25/20 17:12:00 EDT, Tablet, [facility]/pharmacy #[id number], Partial fill upon patient request [...] Refills, Maintenance, 09/06/21 10:59:00 EDT, CR Tablet, [facility]/pharmacy #[id number], Partial fill upon patient request [...] 11/25/20 17:20:00 EDT, Route to Pharmacy Electronically, [facility]/pharmacy #[id number], P... Start Date: 11/25/20 Status: Ordered venlafaxine 75 mg oral capsule, extended release 1 capsule, By Mouth, Daily, # 90 capsule, 1 Refills, 09/16/21 17:24:00 EDT, [facility]/pharmacy #[id number], 158, cm, 08/02/21 14:11:00 EDT, [...]
--- OUTSIDE RECORDS SUMMARY | 2022-10-14 17:39 | XMS_ITS | Continuity of Care Document ---
Author Name Unknown Organization [facility] Address [address] [place] [address]- Care Team Providers Care Fruit Harvest Machine Operator Name Role Phone Jana MUNGUIA, Ian Mae Primary Care Physician [phone] Encounter [place] Date(s): 11/04/19 - 12/04/19 [facility] [address] [place] [address]- [facility] Attending Physician: Admtr, Ar8 Admitting Physician: Admtr, Ar8 Referring Physician: Admtr, Ar8 Allergies, Adverse Reactions, Alerts Substance Reaction Severity Status Adhesive Bandage HIVES Active Immunizations Given and Recorded Vaccine Date Status Refusal Reason tetanus/diphtheria/pertussis, acel(Tdap) 08/10/14 Given Not Given Vaccine Date Status Refusal Reason Influenza Virus Vaccine (oldterm) 04/08/19 Not Giv en Parent Or Guardian Refuses Medications albuterol CFC free 90 mcg/inh inhalation aerosol 2, puffs, Inhalation, 4 times a day, PRN, # 1 each, Refills 0, Tot. Refills 0, Soft Stop, 06/28/17 10:48:11, Aerosol, Route to Pharmacy Electronically, [id number], [facility]/pharmacy #[id number], Compound Start Date: 06/28/17 Stop Date: 07/28/17 Status: Ordered colestipol 1 gm oral tablet 3 tablets, By Mouth, Daily, # 90 tablet, 5 Refills, Maintenance, 11/20/19 14:09:00 EDT, Tablet, [facility]/pharmacy #[id number], 158, cm, 11/04/19 13:42:00 EDT, Height, 63.5, kg, 04/10/19 22:37:00 EST, Dry Weight Start Date: 11/20/19 Stop Date: 05/18/20 Status: Ordered duloxetine 20 mg oral enteric coated capsule 1 capsule = 20 mg, By Mouth, Daily, # 30 capsule, 0 Refills, Maintenance, 11/04/19 15:25:00 EDT Start Date: 11/04/19 Status: Ordered LORazepam 0.5 mg oral tablet 1 tablet, By Mouth, Daily, PRN NEEDED, # 30 tablet, 0 Refills, Acute 12/14/19 15:46:00 EDT, 11/14/19 15:46:00 EDT, [facility]/pharmacy #[id number], 158, cm, 11/04/19 13:42:00 EDT, Height, 63.5, kg, 04/10/19 22:37:00 EST, Dry Weight Start Date: 11/14/19 Stop Date: 12/14/19 Status: Ordered Mirena 52 mg intrauteral device 1 each = 52 mg, Once, 0 Refills, Maintenance, 12/30/14 11:21:54 Start Date: 12/30/14 Status: Ordered pantoprazole 40 mg oral delayed release tablet 1 tablet = 40 mg, By Mouth, Daily, # 30 tablet, 0 Refills, Maintenance, 11/09/19 9:24:00 EDT, EC Tablet, 158, cm, 11/04/19 13:42:00 EDT, Height, 63.5, kg, 04/10/19 22:37:00 EST, Dry Weight Start Date: 11/09/19 Status: Ordered predniSONE 20 mg oral tablet See Instructions, 3 tabs daily for 2 days, 2 tabs daily for 2 days, 1 tab daily for 2 days with food or milk, # 12 tablet, 0 Refills, Acute 12/10/19 16:54:00 EDT, 12/04/19 16:53:00 EDT, [id number], 158, cm, 11/04/19 13:42:00 EDT, Height, 63.5... Start Date: 12/04/19 Stop Date: 12/10/19 Status: Ordered ZyrTEC 10 mg oral tablet 1 tablet = 10 mg, By Mouth, Daily, PRN for allergy symptoms, # 30 tablet, 3 Refills, Maintenance, 10/04/18 15:22:16 EDT, Tablet Start Date: 10/04/18 Stop Date: 02/01/19 Status: Ordered Problem List Condition Effective Dates Status Health Status Inform ant Acute gastritis(Confirmed) Active Acute viral pharyngitis(Confirmed) Active Anterior chest wall pain(Confirmed) Active Anxiety(Confirmed) Active History of JUAN III (cervical intraepithelial neoplasia grade III) with severe dysplasia. Had CKC that showed JUAN II, ectocervical and endocervical margins negative. Endocervical curettage negative. Last pap smear 01/03/16 negative with negative HPV(Confirmed) Active Depression(Confirmed) Active 4, para 3013. TAb at age 13 by D&C at 9 weeks. 03/08/04 . 09/30/08 . 10/27/14 .(Confirmed) Active ASCUS with positive high ris k [...]
--- OUTSIDE RECORDS SUMMARY | 2022-10-14 17:39 | XMS_ITS | Continuity of Care Document ---
Author Name Unknown Organization [facility] Address [address] [facility], [address] Floor, [address] [place] [address]- Care Team Providers Care Literacy Teacher Name Role Phone Jana MUNGUIA, Ian Mae Primary Care Physician [phone] Encounter [facility] [place] Date(s): 12/28/21 - 01/27/22 [facility] [address], [address], [address] [place] [address]- Attending Physician: Cornelius Kelly Admitting Physician: Cornelius Kelly Referring Physician: AdmCornelius fragoso Allergies, Adverse Reactions, Alerts Substance Reaction Severity [...] Mouth, Daily, # 90 tablet, 4 Refills, [facility], 90, TAKE 1 TABLET BY MOUTH EVERY DAY, 158, cm, 04/11/21 16:19:00 EST, Height, 76.1, kg, 03/19/21 10:19:00 EDT, Dry Weight Start Date: 06/14/21 Status: Ordered fluconazole 150 mg oral tablet 1 tablet = 150 mg, By Mouth, Once, # 1 tablet, 0 Refills, Soft Stop, 03/02/21 7:04:00 EDT, Tablet, [id number], Partial fill upon [...] 12/30/14 11:21:54 Start Date: 12/30/14 Status: Ordered norethindrone 0.35 mg oral tablet 0 Refills, Maintenance, 12/09/21 16:10:00 EDT, Partial fill upon patient request if the prescription is for a schedule II opioid drug. Start Date: 12/09/21 Status: Ordered omeprazole 20 mg oral delayed release tablet 1 tablet = 20 mg, By Mouth, Daily, # 30 tablet, 5 Refills, Maintenance, 09/06/21 10:59:00 EDT, CR Tablet, [id number], Partial fill upon patient request if the prescription is for a schedule II opioid drug., 158, cm, 08/02/21 14:11:00 EDT, He[facility]... Start Date: 09/06/21 Status: Ordered predniSONE 20 mg oral tablet 1 tablet = 20 mg, By Mouth, Daily, take 3 tablets daily for 2 days, 2 tablets daily for 2 days, 1 tablet daily for 2 days for MS exacerbation with eye pain/pressure with food or milk, # 12 tablet, 0 Refills, Acute 02/05/22 6:28:00 EDT, 01/05/22 6:28:0... Start Date: 01/05/22 Stop Date: 02/05/22 Status: Ordered traZODone 50 mg oral tablet 25 mg, 0.5, tablet, By Mouth, Daily at bedtime, PRN, after meals for sleep as needed, half a tabletat bedtime., # 15 tablet, Refills 2, Tot. Refills 2, Maintenance, Sleep, 11/25/20 17:20:00 EDT, Route to Pharmacy Electronically, [facility]/pharmacy #[id number], P... Start Date: 11/25/20 Status: Ordered venlafaxine 75 mg oral capsule, extended release 1 capsule, By Mouth, Daily, # 90 capsule, 1 Refills, 09/16/21 17:24:00 EDT, [facility]/pharmacy #[id number], 158, cm, 08/02/21 14:11:00 EDT, Height, [...] tameka andre entered on: 08/17/16 Sex Female Care Team Personnel Name: Ian Bates MD Address: [address] [place] [address] [place] [address]-
--- OUTSIDE RECORDS SUMMARY | 2022-10-14 17:39 | XMS_ITS | Continuity of Care Document ---
Author Name Unknown Organization [facility] Address [address], [address], [address] [place] [address]- Care Team Providers Care Sales And Marketing Coordinator Name Role Phone Saul NAIK, Chandrika Yan Primary Care Physician [place] [facility] [place] 08/03/22 - 09/02/22 [facility] [address], [address], [address] [place] [address]- Attending Physician: Cornelius eKlly Admitting Physician: Cornelius Kelly Referring Physician: AdmCornelius fragoso Allergies, Adverse Reactions, Alerts Substance Reaction Severity Status Adhesive Bandage HIVES Active Fish Active Immunizations Given and Recorded Vaccine Date Status Refusal Reason tetanus/diphtheria/pertussis, acel(Tdap) 08/10/14 Given Not Given Vaccine Date Status Refusal Reason Influenza Virus Vaccine (oldterm) 04/08/19 Not Giv en Parent Or Guardian Refuses Medications chantix 1mg tablet See Instructions, take 1/2 tab daily for 3 days then increase to 1/2 tab twice daily for 3 days, then increase to 1 tab By Mouth 2 times a day x 12 weeks, # 168 tablet, 0 Refills, Acute 09/15/22 9:00:00 EDT, 06/30/22 8:58:00 EST, [id number] Start Date: 06/30/22 Stop Date: 09/15/22 Status: Ordered colestipol 1 gm oral tablet 3 tablet, By Mouth, 2 times a day, # 540 tablet, 3 Refills, Maintenance, 06/09/22 8:28:00 EST, [id number], If insurance won't cover 90d fine to change to 30d supply, thx, 158, cm, 12/09/21 16:02:00 EDT, Height, 76.1, kg, 03/19/21 10:19:00 EDT,... Start Date: 06/09/22 Status: Ordered Daily Tamir oral tablet 1 tablet, By Mouth, Daily, # 90 tablet, 3 Refills, Maintenance, 08/14/22 12:20:00 EDT, [facility], 90, TAKE 1 TABLET BY MOUTH EVERY DAY, 158, cm, 06/30/22 8:28:00 EST, Height, 76.1, kg, 03/19/2110:19:00 EDT, Dry Weight Start Date: 08/14/22 Status: Ordered LORazepam 0.5 mg oral tablet 0.5 tablet = 0.25 mg, By Mouth, Daily, PRN as needed for anxiety, # 15 tablet, 2 Refills, Soft Stop, 06/30/22 8:43:00 EST, Tablet, [facility]/pharmacy #[id number], Partial fill upon patient request if the prescription is for a schedule II opioid drug., 158, cm, 02... Start Date: 06/30/22 Stop Date: 09/28/22 Status: Ordered norethindrone 0.35 mg oral tablet 0 Refills, Maintenance, 12/09/21 16:10:00 EDT, Partial fill upon patient request if the prescription is for a schedule II opioid drug. Start Date: 12/09/21 Status: Ordered nystatin 311267 u/ml oral suspension 5 mL = 500,000 units, By Mouth, 4 times a day, for 7 days, swish and swallow, # 140 mL, 0 Refills, Acute 09/04/22 15:05:00 EDT, 08/28/22 15:05:00 EDT, Suspension, [facility]/pharmacy #[id number], Partial fill upon patient request if the prescription is for a sched... Start Date: 08/28/22 Stop Date: 09/04/22 Status: Ordered predniSONE 20 mg oral tablet See Instructions, take 3 tablets daily for 2 days, 2 tablets daily for 2 days, 1 tablet daily for 2days for MS exacerbation with eye pain/pressure with food or milk, # 12 tablet, 0 Refills, Acute 09/07/22 8:00:00 EDT, 08/31/22 13:38:00 EDT, [facility] Start Date: 08/31/22 Stop Date: 09/07/22 Status: Ordered venlafaxine 150 mg oral capsule, extended release 150 mg, 1, capsule, By Mouth, Daily, replace 75mg, # 30 capsule, Refills 3, Tot. Refills 3, Maintenance, 06/30/22 8:42:00 EST, Route to [facility], [id number], Partial fill upon patient request if the prescription is for a schedul... Start Date: 06/30/22 Status: Ordered Problem List Condition Confirmation Course Effective Dates Status H ealth Status Informant Anxiety Confirmed Active History of JUAN III (cervical intraepithelial neoplasia grade III) with severe dysplasia. Had CKC that showed JUAN II, ectocervical and endocervical margins negative. Endocervical curettage negative. Last pap smear 01/03/16 negative with negative HPV Confirmed Active Depression Confirmed Active S/P cholecystectomy Confirmed Active ASCUS with positive high risk HPV Confirmed Active Low HDL (under 40) Confirmed Active Multiple sclerosis - not on medications since 2009. Occasionally gets tingly fingers but it doesn't hold her back much Confirmed Active Panic attacks Confirmed Active Seasonal allergies Confirmed Active Current smoker Confirmed Active Social History Social History Type Response Smoking Status Current every day sm thai entered on: 08/17/16 Sex Female Patient Care team information Care Team Personnel Name: Anh Victoria RN Position: S RN Member Role: Primary Care Nurse Name: Iva Liu RN Position: S RN Member Role: Primary Care Nurse Name: Chandrika Hughes NP Position: [facility] Associate Professional Member Role: PCP Address: Address: [address] [place], [place] - Name: Merna Manzano RN Position: S RN Member Role: Primary Care Nurse Care Team Related Persons Name: HALIMA JARAMILLO Address: home [address], [place] Name: LISA AUGUST Address: home [address], [place] Name: NONE, NONE Name: CHATA EATON Address: home [address], [place] Name: REBECCA EATON Address: home [address], [place]
--- OUTSIDE RECORDS SUMMARY | 2022-10-14 17:39 | XMS_ITS | Continuity of Care Document ---
Author Name Unknown Organization [facility] Trae Address [address] [place] [address]- Care Team Providers Care Equine Pharmacology Technician Name Role Phone Jana MUNGUIA, Ian Mae Primary Care Physician [place] [facility] [place] 02[place]19/21 [facility] Adult [address] [place] [address]- Allergies, Adverse Reactions, Alerts Substance Reaction Severity [...] Refills, Soft Stop, 11/25/20 17:12:00 EDT, Tablet, [facility]/pharmacy #[id number], Partial fill upon patient request [...] 3 Refills, Maintenance, 08/23/20 15:33:00 EDT, Tablet, [facility]/pharmacy #[id number], Partial fill upon patient request [...] 11/25/20 17:20:00 EDT, Route to Pharmacy Electronically, [facility]/pharmacy #[id number], P... Start Date: 11/25/20 Status: Ordered venlafaxine 150 mg oral capsule, extended release 150 mg, 1, capsule, By Mouth, Daily, # 30 capsule, Refills 2, Tot. Refills 2, Maintenance, 09/21/2115:25:00 EDT, Route to Pharmacy Electronically, [facility]/pharmacy #[id number], Partial fill upon patient request [...] 08/23/20 15:32:00 EDT, Route to Pharmacy Electronically, [facility]/pharmacy #[id number], Partial fill upon patient request if the [...]
--- OUTSIDE RECORDS SUMMARY | 2022-10-14 17:39 | XMS_ITS | Continuity of Care Document ---
Author Name Unknown Organization [facility] Trae lt Address [address] [place] [address]- Care Team Providers Care High School Auto Repair Teacher Name Role Phone Jana MUNGUIA, Ian Mae Primary Care Physician En[place] [facility] [place] Date(s): 12/04/19 - 01/03/20 [facility] Adult [address] [place] [address]- [facility] Allergies, Adverse Reactions, Alerts Substance Reaction Severity [...] 06/28/17 10:48:11, Aerosol, Route to Pharmacy Electronically, [id number], [facility]/pharmacy #[id number], Compound Start Date: 06/28/17 Stop Date: 07/28/17 Status: Ordered colestipol 1 gm oral tablet 3 tablets, By Mouth, Daily, # 90 tablet, 5 Refills, Maintenance, 11/20/19 14:09:00 EDT, Tablet, [facility]/pharmacy #[id number], 158, cm, 11/04/19 13:42:00 EDT, Height, 63.5, kg, 04/10/19 22:37:00 EST, Dry Weight Start Date: 11/20/19 Stop Date: 05/18/20 Status: Ordered duloxetine 20 mg oral enteric coated capsule 1 capsule = 20 mg, By Mouth, Daily, # 30 capsule, 0 Refills, Maintenance, 11/04/19 15:25:00 EDT Start Date: 11/04/19 Status: Ordered Mirena 52 mg intrauteral device 1 each = 52 mg, Once, 0 Refills, Maintenance, 12/30/14 11:21:54 Start Date: 12/30/14 Status: Ordered pantoprazole 40 mg oral delayed release tablet 1 tablet = 40 mg, By Mouth, Daily, # 30 tablet, 2 Refills, Maintenance, 12/05/19 8:34:00 EDT, EC Tablet, 158, cm, 11/04/19 13:42:00 EDT, Height, 63.5, kg, 04/10/19 22:37:00 EST, Dry Weight Start Date: 12/05/19 Status: Ordered ZyrTEC 10 mg oral tablet [...]
--- OUTSIDE RECORDS SUMMARY | 2022-10-14 17:39 | XMS_ITS | Continuity of Care Document ---
Author Name Unknown Organization [facility] Trae lt Address [address] [place] [address]- Care Team Providers Care Linemarker Name Role Phone Saul NAIK, Chandrika Yan Primary Care Physician Encounter [facility] [place] Date(s): 08/25/22 - 09/24/22 [facility] Adult [address] [place] [address]- Allergies, Adverse Reactions, Alerts Substance Reaction Severity Status Adhesive Bandage HIVES Active Fish Active Immunizations Given and Recorded Vaccine Date Status Refusal Reason tetanus/diphtheria/pertussis, acel(Tdap) 08/10/14 Given Not Given Vaccine Date Status Refusal Reason Influenza Virus Vaccine (oldterm) 04/08/19 Not Giv en Parent Or Guardian Refuses Medications colestipol 1 gm oral tablet 3 tablet, [...] tablet, 3 Refills, Maintenance, 08/14/22 12:20:00 EDT, [facility], 90, TAKE 1 TABLET BY MOUTH EVERY DAY, 158, cm, 06/30/22 8:28:00 EST, Height, 76.1, kg, 03/19/2110:19:00 EDT, Dry Weight Start Date: 08/14/22 Status: Ordered LORazepam 0.5 mg oral tablet 0.5 tablet = 0.25 mg, By Mouth, Daily, PRN as needed for anxiety, # 15 tablet, 2 Refills, Soft Stop, 06/30/22 8:43:00 EST, Tablet, [facility]/pharmacy #[id number], Partial fill upon patient request if the prescription is for a schedule II opioid drug., 158, cm, 02... Start Date: 06/30/22 Stop Date: 09/28/22 Status: Ordered norethindrone 0.35 mg oral tablet 0 Refills, Maintenance, 12/09/21 16:10:00 EDT, Partial fill upon patient request if the prescription is for a schedule II opioid drug. Start Date: 12/09/21 Status: Ordered varenicline 1mg tablet See Instructions, TAKE 1/2 TAB BY MOUTH DAILY FOR 3 DAYS THEN INCREASE TO 1/2 TAB TWICE DAILY FOR 3DAYS, THEN INCREASE TO 1 TAB BY MOUTH 2 TIMES A DAY X 12 WEEKS, # 168 tablet, 0 Refills, Maintenance, 09/18/22 14:39:00 EDT, [id number], 158, cm,... Start Date: 09/18/22 Status: Ordered venlafaxine 150 mg oral capsule, extended release 150 mg, 1, capsule, By Mouth, Daily, replace 75mg, # 30 capsule, Refills 3, Tot. Refills 3, Maintenance, 09/19/22 16:33:00 EDT, Route to Pharmacy Electronically, [facility]/pharmacy #[id number], Partial fill uponpatient request if the prescription is for a schedu... Start Date: 09/19/22 Status: Ordered Problem List Condition Confirmation Course [...] tameka andre entered on: 08/17/16 Sex Female Patient Care team information Care Team Personnel Name: Anh Victoria RN Position: S RN Member Role: Primary Care Nurse Name: Iva Liu RN Position: S RN Member Role: Primary Care Nurse Name: Chandrika Hughes NP Position: [facility] Associate Professional Member Role: PCP Address: Address: [address] [place] [id number] Name: Merna Manzano RN Position: S RN Member Role: Primary Care Nurse Care Team Related Persons Name: HALIMA JARAMILLO Address: home [address] [place], [place] Name: LISA AUGUST Address: home [address] [place], [place] Name: NONE, NONE Name: CHATA EATON Address: home [address] [place], [place] Name: REBECCA EATON Address: home [address], [place]
--- OUTSIDE RECORDS SUMMARY | 2022-10-14 17:39 | XMS_ITS | Continuity of Care Document ---
Author Name Unknown Organization [facility] Angelantoni [employer] Address [address] [place] [address]- Care Team Providers Care Calker Name Role Phone Jana MUNGUIA, Ian Mae Primary Care Physician [phone] [id number] Date(s[facility]/07/19 - 02/29/20 [facility] [employer] [facility] [address], [address] [place] [address]- [facility] Attending Physician: Not on Staff, Attending MD Referring Physician: Not on Staff, Referring MD Allergies, Adverse Reactions, Alerts Substance Reaction Severity Status Adhesive Bandage HIVES Active Immunizations Given and Recorded Vaccine Date Status Refusal Reason tetanus/diphtheria/pertussis, acel(Tdap) 08/10/14 Given Not Given Vaccine Date Status Refusal Reason Influenza Virus Vaccine (oldterm) 04/08/19 Not Giv en Parent Or Guardian Refuses Medications colestipol 1 gm oral tablet 3 tablets, By Mouth, Daily, # 90 tablet, 5 Refills, Maintenance, 01/13/20 11:06:00 EDT, Tablet, [facility]/pharmacy #[id number], 158, cm, 01/13/20 10:02:00 EDT, Height, 63.5, kg, 04/10/19 22:37:00 EST, Dry Weight Start Date: 01/13/20 Stop Date: 07/11/20 Status: Ordered LORazepam 0.5 mg oral tablet 0.5 tablet = 0.25 mg, By Mouth, Once, 0 Refills, Maintenance, 01/10/20 9:27:00 EDT, Tablet Start Date: 01/10/20 Status: Ordered Mirena 52 mg intrauteral device 1 each = 52 mg, Once, 0 Refills, Maintenance, 12/30/14 11:21:54 Start Date: 12/30/14 Status: Ordered pantoprazole 40 mg oral delayed release tablet 1 tablet = 40 mg, By Mouth, Daily, # 30 tablet, 5 Refills, Maintenance, 01/13/20 11:05:00 EDT, EC Tablet, 158, cm, 01/13/20 10:02:00 EDT, Height, 63.5, kg, 04/10/19 22:37:00 EST, Dry Weight Start Date: 01/13/20 Status: Ordered venlafaxine 37.5 mg oral capsule, extended release See Instructions, 1 capsule By Mouth Daily for 2 weeks, then two caps daily, # 60 capsule, Refills 2, Tot. Refills 2, Maintenance, 01/13/20 11:07:00 EDT, Instructions Replace Required Details, Route to Pharmacy Electronically, [facility]/pharmacy #[id number], 158,... Start Date: 01/13/20 Status: Ordered ZyrTEC 10 mg oral tablet [...]
--- OUTSIDE RECORDS SUMMARY | 2022-10-14 17:39 | XMS_ITS | Continuity of Care Document ---
Author Name Unknown Organization [facility] Trae Address [address] [place] [address]- Care Team Providers Care Generation Engineer Name Role Phone Ian Bates MD Primary Care Physician [phone] [id number] Date(s): 01/27/21 - 02/03/21 [facility] Adult [address] [place] [address]- Attending Physician: Not on Staff, Attending MD Referring Physician: Ian Bates MD Allergies, Adverse Reactions, Alerts Substance Reaction [...] Refills, Soft Stop, 11/25/20 17:12:00 EDT, Tablet, [facility]/pharmacy #[id number], Partial fill upon patient request if [...] 11/25/20 17:20:00 EDT, Route to Pharmacy Electronically, [facility]/pharmacy #[id number], P... Start Date: 11/25/20 Status: Ordered venlafaxine 150 mg oral capsule, extended release 150 mg, 1, capsule, By Mouth, Daily, # 30 capsule, Refills 2, Tot. Refills 2, Maintenance, 09/21/2115:25:00 EDT, [facility], [id number], Partial fill upon patient request [...] 08/23/20 15:32:00 EDT, Route to Pharmacy Electronically, [facility]/pharmacy #[id number], Partial fill upon patient request if the [...] tendinosis(Confirmed) Active Otalgia of right ear(Confirmed) Active Vital Signs Most recent to oldest [Reference Range]: 1 Height 158 cm (01/27/21 2:24 PM) Weight 77.2 kg (01/27/21 2:24 PM) Body Mass Index [18.5-24.99] 30.92 *>HHI* (01/27/21 2:24 PM) Social History Social History Type Response Smoking Status Current every day tameka andre entered on: 08/17/16 Sex
--- OUTSIDE RECORDS SUMMARY | 2022-10-14 17:39 | XMS_ITS | Continuity of Care Document ---
Author Name Unknown Organization [facility] Jose Angelantoni Harris [facility] [email or web address] Address [address] [place] [address]- Care Team Providers Care Ice Cream Dispenser Name Role Phone Jana MUNGUIA, Ian Mae Primary Care Physician [place] [facility] [place] 10[place]/20 [facility] [address] [place] [address]- Allergies, Adverse Reactions, Alerts Substance Reaction Severity Status Adhesive Bandage HIVES Active Immunizations Given and Recorded Vaccine Date Status Refusal Reason tetanus/diphtheria/pertussis, acel(Tdap) 08/10/14 Given Not Given Vaccine Date Status Refusal Reason Influenza Virus Vaccine (oldterm) 04/08/19 Not Giv en Parent Or Guardian Refuses Medications colestipol 1 gm oral tablet 3 tablet, By Mouth, Daily, # 90 tablet, 5 Refills, Maintenance, 07/31/20 19:31:00 EST, [id number], 158, cm, 06/28/20 9:12:00 EST, Height, 63.5, kg, 04/10/19 22:37:00 EST, Dry Weight Start Date: 07/31/20 Status: Ordered LORazepam 0.5 mg oral tablet 0.5 tablet = 0.25 mg, By Mouth, Daily, PRN as needed for anxiety, # 15 tablet, 2 Refills, Soft Stop, 05/25/20 7:36:00 EST, Tablet, [id number], Partial fill upon patient request if the prescription is for a schedule II opioid drug., 158, cm, 09... Start Date: 05/25/20 Status: Ordered Mirena 52 mg intrauteral device [...] 08/01/20 15:... Start Date: 08/23/20 Status: Ordered venlafaxine 150 mg oral capsule, extended release 150 mg, 1, capsule, By Mouth, Daily, # 30 capsule, Refills 2, Tot. Refills 2, Maintenance, 09/21/2115:25:00 EDT, Route to Pharmacy Electronically, [id number], Partial fill upon patient request if the prescription is for a schedule II opioid d... Start Date: 09/20/20 Status: Ordered venlafaxine 75 mg oral capsule, extended release 75 mg, 1, capsule, By Mouth, Daily, Replaces 150 mg, # 30 capsule, Refills 5, Tot. Refills 5, Maintenance, 08/23/20 15:32:00 EDT, Route to Pharmacy Electronically, [id number], [...]
--- OUTSIDE RECORDS SUMMARY | 2022-10-14 17:39 | XMS_ITS | Continuity of Care Document ---
Author Name Unknown Organization [facility] Address [address] [place] [address]- Care Team Providers Care Channel Account Manager Name Role Phone Jana MUNGUIA, Ian Mae Primary Care Physician [phone] [place] [facility] [place](s): 06/02/19 - 06/09/19 [facility] Adult [address] [place] [address]- [facility] Encounter Diagnosis Strain of left trapezius muscle(Discharge Diagnosis) - 06/02/19 Attending Physician: Afshan PROGRAM MEDICAL DIRECTOR, Joana Doshi Allergies, Adverse Reactions, Alerts Substance Reaction Severity [...] 06/28/17 10:48:11, Aerosol, Route to Pharmacy Electronically, [id number], [facility]/pharmacy #[id number], Compound Start Date: 06/28/17 Stop Date: 07/28/17 Status: Ordered escitalopram 5 mg oral tablet 1 tablet = 5 mg, By Mouth, Daily, # 30 tablet, 5 Refills, Maintenance, 03/06/19 16:58:33 EDT, Tablet Start Date: 03/06/19 Status: Ordered LORazepam 0.5 mg oral tablet 1 tablet = 0.5 mg, By Mouth, Daily, PRN as needed for anxiety, # 30 tablet, 1 Refills, Acute 07/09/19 8:46:00 EST, 05/08/19 8:43:00 EST, [facility]/pharmacy #[id number], 158, cm, 05/08/19 8:17:00 EST, Height, 63.5, kg, 04/10/19 22:37:00 EST, Dry Weight Start Date: 05/08/19 Stop Date: 07/09/19 Status: Ordered Mirena 52 mg intrauteral device 1 each = 52 mg, Once, 0 Refills, Maintenance, 12/30/14 11:21:54 Start Date: 12/30/14 Status: Ordered Robaxin 500 mg oral tablet 2 tablet = 1,000 mg, By Mouth, 3 times a day, for 14 days, # 84 tablet, 0 Refills, Acute 06/16/19 16:32:00 EST, 06/02/19 16:32:00 EST, Tablet, [facility]/pharmacy #[id number], 158, cm, 06/02/19 15:58:00 EST, Height, 63.5, kg, 04/10/19 22:37:00 EST, Dry Weight Start Date: 06/02/19 Stop Date: 06/16/19 Status: Ordered ZyrTEC 10 mg oral tablet [...] tendinosis(Confirmed) Active Otalgia of right ear(Confirmed) Active Diagnosis Diagnosis Type Effective Dates Health Status Cl inical Service Informant Strain of left trapezius muscle Discharge Diagnosis 06/02/19 Vital Signs Most recent to oldest [Reference Range]: 1 Height 158 cm (06/02/19 3:58 PM) Weight 65.1 kg (06/02/19 3:58 PM) Oxygen Saturation [94-100 %] 98 % (06/02/19 3:58 PM) Pulse Rate [55-90 bpm] 74 bpm (06/02/19 3:58 PM) Body Mass Index [18.5-24.99] 26.08 *H* (06/02/19 3:58 PM) Blood Pressure [90-138/55-84 mm Hg] 108/ 74mm Hg (06/02/19 3:58 PM) Respiratory Rate [16-30 br/min] 12 br/mi n *L* (06/02/19 3:58 PM) Temperature [96.8-100.4 DegF] 98.1 DegF (06/02/19 3:58 PM) Mode of Delivery (Oxygen) Room air (06/02/19 3:58 PM) Blood pressure sites Arm, left (06/02/19 3:58 PM) Temperature Route Oral (06/02/19 3:58 PM) Weight Obtained Via Standing scale (06/02/19 3:58 PM) Social History Social History Type Response Smoking Status Current every day tameka andre entered on: 08/17/16 Sex
--- OUTSIDE RECORDS SUMMARY | 2022-10-14 17:39 | XMS_ITS | Continuity of Care Document ---
Author Name Unknown Organization [facility] Address [address] [place] [address]- Care Team Providers Care Production Floater Name Role Phone Jana MUNGUIA, Ian Mae Primary Care Physician [phone] Encounter [facility] [place] Date(s): 06/11/19 - 06/21/19 [facility] [place] Adult [address] [place] [address]- [facility] Attending Physician: Admtr, Ar8 Admitting [...] 06/28/17 10:48:11, Aerosol, Route to Pharmacy Electronically, [id number], [facility]/pharmacy #[id number], Compound Start Date: 06/28/17 Stop Date: [...] Acute 07/09/19 8:46:00 EST, 05/08/19 8:43:00 EST, [facility]/pharmacy #[id number], 158, cm, 05/08/19 8:17:00 EST, Height, 63.5, kg, 04/10/19 22:37:00 EST, Dry Weight Start Date: 05/08/19 Stop Date: 07/09/19 Status: Ordered Mirena 52 mg intrauteral device 1 each = 52 mg, Once, 0 Refills, Maintenance, 12/30/14 11:21:54 Start Date: 12/30/14 Status: Ordered ZyrTEC 10 mg oral tablet [...]
--- OUTSIDE RECORDS SUMMARY | 2022-10-14 17:39 | XMS_ITS | Continuity of Care Document ---
Author Name Unknown Organization [facility] Address [address] [place] [address]- Care Team Providers Care Journalism Teacher Name Role Phone Ian Bates MD Primary Care Physician Encounter [facility] [place] Date(s): 05/08/19 - 05/15/19 [facility] Adult [address] [place] [address]- [facility] Attending Physician: Ian Bates MD Allergies, Adverse Reactions, [...] 06/28/17 10:48:11, Aerosol, Route to Pharmacy Electronically, [id number], [facility]/pharmacy #[id number], Compound Start Date: 06/28/17 Stop Date: 07/28/17 Status: Ordered Colace sodium 100 mg oral capsule 100 mg, 1, capsule, By Mouth, 2 times a day, PRN, while taking oxycodone, # 8 capsule, Refills 0, Tot. Refills 0, Maintenance, for constipation, 04/12/19 7:35:04 EST, Print Requisition Start Date: 04/12/19 Stop Date: 04/16/19 Status: Ordered escitalopram 5 mg oral tablet 1 tablet = 5 mg, By Mouth, Daily, # 30 tablet, 5 Refills, Maintenance, 03/06/19 16:58:33 EDT, Tablet Start Date: 03/06/19 Status: Ordered FLUoxetine 40 mg oral capsule 1 capsule = 40 mg, By Mouth, Daily, # 30 capsule, 0 Refills, Maintenance, 12/12/18 15:06:44 EDT, Capsule Start Date: 12/12/18 Status: Ordered Lorazepam = 0.5 mg, By Mouth, Daily, PRN as needed for anxiety, 0 Refills, Maintenance, 04/10/19 22:21:12 EST Start Date: 04/10/19 Status: Ordered LORazepam 0.5 mg oral tablet 1 tablet = 0.5 mg, By Mouth, Daily, PRN as needed for anxiety, # 30 tablet, 1 Refills, Acute 07/09/19 8:46:00 EST, 05/08/19 8:43:00 EST, [facility]/pharmacy #[id number], 158, cm, 05/08/19 8:17:00 EST, Height, 63.5, kg, 04/10/19 22:37:00 EST, Dry Weight Start Date: 05/08/19 Stop Date: 07/09/19 Status: Ordered Metamucil 3.4 gm/5.2 gm oral powder for reconstitution = 1.7 Gm, By Mouth, 3 times a day, PRN as needed for constipation, # 1,042 Gm, 1 Refills, Maintenance, 05/08/19 14:30:00 EST, REC Powder Start Date: 05/08/19 Status: Ordered Mirena 52 mg intrauteral device 1 each = 52 mg, Once, 0 Refills, Maintenance, 12/30/14 11:21:54 Start Date: 12/30/14 Status: Ordered PriLOSEC OTC 20 mg oral delayed release tablet 1 tablet = 20 mg, By Mouth, 2 times a day, # 30 tablet, 0 Refills, Maintenance, 04/08/19 16:40:29 EST, EC Tablet Start Date: 04/08/19 Status: Ordered ZyrTEC 10 mg oral tablet [...] Active Seasonal allergies(Confirmed) Active Current smoker(Confirmed) Active Left peroneal tendinosis(Confirmed) Active Otalgia of right ear(Confirmed) Active Vital Signs Most recent to oldest [Reference Range]: 1 Height 158 cm (05/08/19 8:17 AM) Weight 63.7 kg (05/08/19 8:17 AM) Oxygen Saturation [94-100 %] 98 % (05/08/19 8:17 AM) Pulse Rate [55-90 bpm] 79 bpm (05/08/19 8:17 AM) Body Mass Index [18.5-24.99] 25.52 *H* (05/08/19 8:17 AM) Blood Pressure [90-138/55-84 mm Hg] 118/ 82mm Hg (05/08/19 8:17 AM) Mode of Delivery (Oxygen) Room air (05/08/19 8:17 AM) Blood pressure sites Arm, right (05/08/19 8:17 AM) Weight Obtained Via Standing scale (05/08/19 8:17 AM) Social History Social History Type Response Smoking Status Current every day tameka andre entered on: 08/17/16 Sex
--- OUTSIDE RECORDS SUMMARY | 2022-10-14 17:39 | XMS_ITS | Continuity of Care Document ---
Author Name Unknown Organization [facility] Address [address] [place] [address]- Care Team Providers Care Retail Beauty Specialist Name Role Phone Jana MUNGUIA, Ian Mae Primary Care Physician [phone] Encounter [facility] [place] Date(s): 03/01/21 - 03/31/21 [facility] Adult [address] [place] [address]- Allergies, Adverse Reactions, Alerts Substance Reaction Severity [...] 3 Refills, Maintenance, 08/23/20 15:33:00 EDT, Tablet, [facility]/pharmacy #[id number], Partial fill upon patient [...] 11/25/20 17:20:00 EDT, Route to Pharmacy Electronically, [facility]/pharmacy #[id number], P... Start Date: 11/25/20 [...] 08/23/20 15:32:00 EDT, Route to Pharmacy Electronically, [facility]/pharmacy #[id number], Partial fill upon patient request if the [...]
--- OUTSIDE RECORDS SUMMARY | 2022-10-14 17:39 | XMS_ITS | Continuity of Care Document ---
Author Name Unknown Organization [facility] Address [address] [place] [address]- Care Team Providers Care Glove Presser Name Role Phone Jana MUNGUIA, Ian Mae Primary Care Physician Encounter [facility] [place] [facility] [id number] Date(s): 05/31/22 - 06/30/22 [facility] Adult [address] [place] [address]- Allergies, Adverse Reactions, Alerts Substance Reaction Severity [...] Acute 09/15/22 9:00:00 EDT, 06/30/22 8:58:00 EST, [facility]/pharmacy #[id number],... Start Date: 06/30/22 Stop Date: 09/15/22 Status: Ordered colestipol 1 gm oral tablet 3 tablet, By Mouth, 2 times a day, # 540 tablet, 3 Refills, Maintenance, 06/09/22 8:28:00 EST, [id number], If insurance won't cover 90d fine to change to 30d supply, thx, 158, cm, 12/09/21 16:02:00 EDT, Height, 76.1, kg, 03/19/21 10:19:00 EDT,... Start Date: 06/09/22 Status: Ordered colestipol 1 gm oral tablet 3 tablet, By Mouth, 2 times a day, # 540 tablet, 3 Refills, Hard Stop 07/15/22 11:29:00 EST, 07/20/21 11:29:00 EST, [facility]/pharmacy #[id number], If insurance won't cover 90d fine to change to 30d supply, thx,158, cm, 06/27/21 8:42:00 EST, Height, 76.1, kg, 10... Start Date: 07/20/21 Stop Date: 07/15/22 Status: Ordered Daily Tamir oral tablet 1 tablet, By Mouth, Daily, # 90 tablet, 4 Refills, [id number], 90, TAKE 1 TABLET BY MOUTH EVERY DAY, 158, cm, 04/11/21 16:19:00 EST, Height, 76.1, kg, 03/19/21 10:19:00 EDT, Dry Weight Start Date: 06/14/21 Status: Ordered LORazepam 0.5 mg oral tablet 0.5 tablet = 0.25 mg, By Mouth, Daily, PRN as needed for anxiety, # 15 tablet, 2 Refills, Soft Stop, 06/30/22 8:43:00 EST, Tablet, [facility]/pharmacy #[id number], Partial fill upon patient request if the prescription is for a schedule II opioid drug., 158, cm, 02... Start Date: 06/30/22 Stop Date: 09/28/22 Status: Ordered norethindrone 0.35 mg oral tablet 0 Refills, Maintenance, 12/09/21 16:10:00 EDT, Partial fill upon patient request if the prescription is for a schedule II opioid drug. Start Date: 12/09/21 Status: Ordered venlafaxine 150 mg oral capsule, extended release 150 mg, 1, capsule, By Mouth, Daily, replace 75mg, # 30 capsule, Refills 3, Tot. Refills 3, Maintenance, 06/30/22 8:42:00 EST, Route to Pharmacy Electronically, [facility]/pharmacy #[id number], Partial fill upon patient request [...] RN Member Role: Primary Care Nurse Name: Ian Bates MD Position: [facility] Primary Care Physician Member Role: PCP Address: Address: [address] [place] [address] [facility] Name: Maggie Rogel RN Position: S RN Member Role: Primary Care Nurse Name: Merna Manzano RN Position: S RN Member Role: Primary Care Nurse Care Team Related Persons Name: HALIMA JARAMILLO Address: home [address], [place] Name: LISA LETY Address: home [address], [place] Name: NONE, NONE Name: CHATA EATON Address: home [address], [place] Name: REBECCA EATON Address: home [address], [place]
--- OUTSIDE RECORDS SUMMARY | 2022-10-14 17:39 | XMS_ITS | Continuity of Care Document ---
Author Name Unknown Organization [facility] Address [address] [place] [address]- Care Team Providers Care Computer Programming Manager Name Role Phone Ian Bates MD Primary Care Physician Encounter [facility] [place] Date(s): 05/08/19 - 07/11/19 [facility] Adult [address] [place] [address]- [facility] Attending Physician: Ian Bates MD Allergies, Adverse [...] 06/28/17 10:48:11, Aerosol, Route to Pharmacy Electronically, [id number], [facility]/pharmacy #[id number], Compound Start Date: 06/28/17 Stop Date: 07/28/17 Status: Ordered escitalopram 5 mg oral tablet 1 tablet = 5 mg, By Mouth, Daily, # 30 tablet, 5 Refills, Maintenance, 03/06/19 16:58:33 EDT, Tablet Start Date: 03/06/19 Status: Ordered Mirena 52 mg intrauteral device 1 each = 52 mg, Once, 0 Refills, Maintenance, 12/30/14 11:21:54 Start Date: 12/30/14 Status: Ordered pantoprazole 40 mg oral delayed release tablet 1 tablet = 40 mg, By Mouth, 2 times a day, # 60 tablet, 0 Refills, Maintenance, 06/30/19 7:47:00 EST, CR Tablet, 158, cm, 06/02/19 15:58:00 EST, Height, 63.5, kg, 04/10/19 22:37:00 EST, Dry Weight Start Date: 06/30/19 Status: Ordered ZyrTEC 10 mg oral tablet [...]
--- OUTSIDE RECORDS SUMMARY | 2022-10-14 17:39 | XMS_ITS | Continuity of Care Document ---
Author Name Unknown Organization [facility] Address [address] [place] [address]- Care Team Providers Care Outreach Associate Name Role Phone Jana MUNGUIA, Ian Mae Primary Care Physician [phone] En[place] [facility] [place] Date(s): 11/20/19 - 12/20/19 [facility] [address] [place] [address]- [facility] Allergies, Adverse Reactions, Alerts Substance Reaction Severity [...] 06/28/17 10:48:11, Aerosol, Route to Pharmacy Electronically, [id number], [facility]/pharmacy #[id number], Compound Start Date: 06/28/17 Stop Date: 07/28/17 Status: Ordered colestipol 1 gm oral tablet 3 tablets, By Mouth, Daily, # 90 tablet, 5 Refills, Maintenance, 11/20/19 14:09:00 EDT, Tablet, [facility]/pharmacy #[id number], 158, cm, 11/04/19 [...]
--- OUTSIDE RECORDS SUMMARY | 2022-10-14 17:39 | XMS_ITS | Continuity of Care Document ---
Author Name Unknown Organization [facility] Address [address] [place] [address]- Care Team Providers Care Synthetic Soil Blocks Pulper Name Role Phone Ian Bates MD Primary Care Physician [phone] [id number]25[facility] - 01/27/[facility] Adult [address] [place] [address]- Attending Physician: Ian Bates MD Allergies, Adverse [...] Refills, Maintenance, 11/12/20 12:49:00 EDT, REC Powder, [facility]/pharmacy #[id number], Partial fill upon patient request if the prescription is for a schedule II opi... Start Date: 11/12/20 Status: Ordered clotrimazole 10 mg oral lozenge 10 mg, 1, lozenge, By Mouth, 5 times a day, for 7 days, # 35 lozenge, Refills 0, Tot. Refills 0, Acute 02/03/21 14:37:00 EDT, 01/27/21 14:37:00 EDT, Route to Pharmacy Electronically, [facility]/pharmacy #[id number], Partial fill upon patient request if the prescri... Start Date: 01/27/21 Stop Date: 02/03/21 Status: Ordered colestipol 1 gm oral tablet 3 tablet, By Mouth, 2 times a day, # 180 tablet, 5 Refills, Maintenance, 01/21/21 11:29:00 EDT, [facility]/pharmacy #[id number], 158, cm, 11/25/20 15:32:00 EDT, Height, 73.2, kg, 08/01/20 10:43:00 EDT, Dry Weight Start Date: 01/21/21 Stop Date: 07/20/21 Status: Ordered LORazepam 0.5 mg oral tablet 0.5 tablet = 0.25 mg, By Mouth, Daily, PRN as needed for anxiety, # 20 tablet, 0 Refills, Soft Stop, 11/25/20 17:12:00 EDT, Tablet, [facility]/pharmacy #[id number], Partial fill upon patient request [...] 3 Refills, Maintenance, 08/23/20 15:33:00 EDT, Tablet, [facility]/pharmacy #[id number], Partial fill upon patient request if the prescription is for a schedule II opioid drug., 1 tablet By Mouth Daily, 158, cm, 08/01/20 15:... Start Date: 08/23/20 Status: Ordered predniSONE 20 mg oral tablet 1 tablet = 20 mg, By Mouth, Daily, take 3 tablets daily for 2 days, 2 tablets daily for 2 days, 1 tablet daily for 2 days for MS exacerbation with eye pain/pressure with food or milk, # 12 tablet, 0 Refills, Acute 01/28/21 18:00:00 EDT, 01/20/21 9:28:... Start Date: 01/20/21 Stop Date: 01/28/21 Status: Ordered traZODone 50 mg oral tablet 25 mg, 0.5, tablet, By Mouth, Daily at bedtime, PRN, after meals for sleep as needed, half a tabletat bedtime., # 15 tablet, Refills 2, Tot. Refills 2, Maintenance, Sleep, 11/25/20 17:20:00 EDT, Route to Pharmacy Electronically, [facility]/pharmacy #[id number], P... Start Date: 11/25/20 Status: Ordered venlafaxine 150 mg oral capsule, extended release 150 mg, 1, capsule, By Mouth, Daily, # 30 capsule, Refills 2, Tot. Refills 2, Maintenance, 09/21/2115:25:00 EDT, Route to Pharmacy Electronically, [facility]/pharmacy #[id number], Partial fill upon patient request [...] 15:32:00 EDT, Route to Pharmacy Electronically, [facility]/pharmacy #[id number], Partial fill upon patient request [...]
--- OUTSIDE RECORDS SUMMARY | 2022-10-14 17:39 | XMS_ITS | Continuity of Care Document ---
Author Name Unknown Organization [facility] Address [address] [place] [address]- Care Team Providers Care First Helper Name Role Phone Jana MUNGUIA, Ian Mae Primary Care Physician [phone] Encounter [facility] [place] Date(s): 09/22/19 - 09/29/19 [facility] Adult [address] [place] [address]- [facility] Encounter Diagnosis Sacroiliitis(Discharge Diagnosis) - 09/22/19 Attending Physician: Samuel Stephenson MD Allergies, Adverse Reactions, Alerts Substance Reaction [...] 06/28/17 10:48:11, Aerosol, Route to Pharmacy Electronically, [id number], [facility]/pharmacy #[id number], Compound Start Date: 06/28/17 Stop Date: 07/28/17 Status: Ordered duloxetine 20 mg oral enteric coated capsule 1 capsule = 20 mg, By Mouth, 2 times a day, Increase in dose, # 60 capsule, 5 Refills, Maintenance,09/23/19 17:25:00 EDT, [id number], 158, cm, 06/02/19 15:58:00 EST, Height, 63.5, kg, 04/10/19 22:37:00 EST, Dry Weight Start Date: 09/23/19 Status: Ordered LORazepam 0.5 mg oral tablet 1 tablet = 0.5 mg, By Mouth, Daily, PRN as needed for anxiety, # 30 tablet, 1 Refills, Acute 11/23/19 17:25:00 EDT, 09/23/19 17:25:00 EDT, [facility]/pharmacy #[id number], 158, cm, 06/02/19 15:58:00 EST, Height, 63.5, kg, 04/10/19 22:37:00 EST, Dry Weight Start Date: 09/23/19 Stop Date: 11/23/19 Status: Ordered Mirena 52 mg intrauteral device 1 each = 52 mg, Once, 0 Refills, Maintenance, 12/30/14 11:21:54 Start Date: 12/30/14 Status: Ordered pantoprazole 40 mg oral delayed release tablet 1 tablet = 40 mg, By Mouth, 2 times a day, # 180 tablet, 3 Refills, Maintenance, 07/29/19 7:31:00 EDT, CR Tablet, 158, cm, 06/02/19 15:58:00 EST, Height, 63.5, kg, 04/10/19 22:37:00 EST, Dry Weight Start Date: 07/29/19 Status: Ordered ZyrTEC 10 mg oral tablet [...] age 13 by D&C at 9 weeks. 10/19/04 . 09/30/08 . 10/27/14 .(Confirmed) Active ASCUS [...] Dates Health Status Cl inical Service Informant Sacroiliitis Discharge Diagnosis 09/22/19 Social History Social History Type Response Smoking Status Current every day tameka andre entered on: 08/17/16 Sex
--- OUTSIDE RECORDS SUMMARY | 2022-10-14 17:40 | XMS_ITS | Continuity of Care Document ---
Author Name Unknown Organization [facility] Address [address] [place] [address]- Care Team Providers Care Medical Billing Coordinator Name Role Phone Jana MUNGUIA, Ian Mae Primary Care Physician Encounter [facility] [place] Date(s): 07/01/21 - 07/31/21 [facility] [address] [place] [address]- Attending Physician: Cornelius Kelly Admitting Physician: Cornelius Kelly Referring Physician: AdmtrCornelius Allergies, Adverse Reactions, Alerts Substance Reaction Severity [...] # 90 tablet, 4 Refills, [id number], 90, TAKE 1 TABLET BY MOUTH EVERY DAY, 158, cm, 04/11/21 16:19:00 EST, Height, 76.1, kg, 03/19/21 10:19:00 EDT, Dry Weight Start Date: 06/14/21 Status: Ordered fluconazole 150 mg oral tablet 1 tablet = 150 mg, By Mouth, Once, # 1 tablet, 0 Refills, Soft Stop, 03/02/21 7:04:00 EDT, Tablet, [facility]/pharmacy #[id number], Partial fill upon patient request if the prescription is for a schedule II opioid drug., 158, cm, 03/02/21 6:37:00 EDT, Height, 73.2... Start Date: 03/02/21 Status: Ordered LORazepam 0.5 mg oral tablet 0.5 tablet = 0.25 mg, By Mouth, Daily, PRN as needed for anxiety, # 20 tablet, 0 Refills, Soft Stop, 11/25/20 17:12:00 EDT, Tablet, [facility]/pharmacy #[id number], Partial fill upon patient request if the prescription is for a schedule II opioid drug., 158, cm, 0... Start Date: 11/25/20 Status: Ordered Mirena 52 mg intrauteral device 1 each = 52 mg, Once, 0 Refills, Maintenance, 12/30/14 11:21:54 Start Date: 12/30/14 Status: Ordered traZODone 50 mg oral tablet 25 mg, 0.5, tablet, By Mouth, Daily at bedtime, PRN, after meals for sleep as needed, half a tabletat bedtime., # 15 tablet, Refills 2, Tot. Refills 2, Maintenance, Sleep, 11/25/20 17:20:00 EDT, Route to Pharmacy Electronically, [facility]/pharmacy #[id number], P... Start Date: 11/25/20 Status: Ordered venlafaxine 75 mg oral capsule, extended release 1 capsule, By Mouth, Daily, # 90 capsule, 0 Refills, [id number], 158, cm, 04/11/21 16:19:00 EST, Height, 76.1, kg, 03/19/21 10:19:00 EDT, Dry Weight Start Date: 04/26/21 Status: Ordered Problem List Condition Effective Dates [...]
--- OUTSIDE RECORDS SUMMARY | 2022-10-14 17:40 | XMS_ITS | Continuity of Care Document ---
Author Name Unknown Organization [facility] Trae lt Address [address] [place] [address]- Care Team Providers Care Alumni Coordinator Name Role Phone Jana MUNGUIA, Ian Mae Primary Care Physician En[place] [facility] [place] Date(s): 12/26/21 - 01/25/22 [facility] Adult [address] [place] [address]- Allergies, Adverse Reactions, Alerts Substance Reaction Severity [...] Mouth, Daily, # 90 tablet, 4 Refills, [facility] STORE 32220, 90, TAKE 1 TABLET BY MOUTH EVERY [...] 11/25/20 17:20:00 EDT, Route to Pharmacy Electronically, [facility]/pharmacy #[id number], P... Start Date: 11/25/20 Status: Ordered venlafaxine 75 mg oral capsule, extended release 1 capsule, By Mouth, Daily, # 90 capsule, 1 Refills, 09/16/21 17:24:00 EDT, [facility]/pharmacy #[id number], 158, cm, 08/02/21 14:11:00 EDT, Height, [...] 08/17/16 Sex Female Care Team Personnel Name: Jana MUNGUIA, Ian Mae Address: [address] [place] [address]-
--- OUTSIDE RECORDS SUMMARY | 2022-10-14 17:40 | XMS_ITS | Continuity of Care Document ---
Author Name Unknown Organization [facility] Trae Address [address] [place] [address]- Care Team Providers Care Ophthalmic Tech Name Role Phone aJna MUNGUIA, Ian Mae Primary Care Physician [phone] Encounter [facility] Date(s): 04/07/21 - 05/07/21 [facility] Adult [address] [place] [address]- Allergies, Adverse Reactions, Alerts Substance Reaction Severity [...] Refills, Soft Stop, 03/02/21 7:04:00 EDT, Tablet, [facility]/pharmacy #[id number], Partial fill upon patient request if the prescription is for a schedule II opioid drug., 158, cm, 03/02/21 6:37:00 EDT, Height, 73.2... Start Date: 03/02/21 Status: Ordered LORazepam 0.5 mg oral tablet 0.5 tablet = 0.25 mg, By Mouth, Daily, PRN as needed for anxiety, # 20 tablet, 0 Refills, Soft Stop, 11/25/20 17:12:00 EDT, Tablet, [facility]/pharmacy #[id number], Partial fill upon [...] 3 Refills, Maintenance, 08/23/20 15:33:00 EDT, Tablet, [facility]/pharmacy #[id number], Partial fill upon [...] 11/25/20 17:20:00 EDT, Route to Pharmacy Electronically, [facility]/pharmacy #[id number], P... Start Date: 11/25/20 Status: Ordered venlafaxine 75 mg oral capsule, extended release 1 capsule, By Mouth, Daily, # 90 capsule, 0 Refills, [facility] STORE 79244, 158, cm, 04/11/21 16:19:00 EST, Height, 76.1, [...]
--- OUTSIDE RECORDS SUMMARY | 2022-10-14 17:40 | XMS_ITS | Continuity of Care Document ---
Author Name Unknown Organization [facility] Trae Address [address] [place] [address]- Care Team Providers Care Instructor Wastewater Treatment Plant Name Role Phone Jana MUNGUIA, Ian Mae Primary Care Physician [phone] Encounter [facility] [place] Date(s): 09/07/20 - 10/07/20 [facility] Adult [address] [place] [address]- Allergies, Adverse Reactions, Alerts Substance Reaction Severity [...] Refills, Maintenance, 07/31/20 19:31:00 EST, [facility], 158, cm, 06/28/20 9:12:00 EST, Height, 63.5, kg, 04/10/19 22:37:00 EST, Dry Weight Start Date: 07/31/20 Status: Ordered LORazepam 0.5 mg oral tablet 0.5 tablet = 0.25 mg, By Mouth, Daily, PRN as needed for anxiety, # 15 tablet, 2 Refills, Soft Stop, 05/25/20 7:36:00 EST, Tablet, [id number], Partial fill upon patient [...]
--- OUTSIDE RECORDS SUMMARY | 2022-10-14 17:40 | XMS_ITS | Continuity of Care Document ---
Author Name Unknown Organization [facility] Trae Address [address] [place] [address]- Care Team Providers Care Golf Technician Name Role Phone Jana MUNGUIA, Ian Mae Primary Care Physician Encounter [facility] Date(s): 04/11/21 - 05/11/21 [facility] Adult [address] [place] [address]- Attending Physician: Cornelius Kelly Admitting Physician: AdmCornelius fragoso Referring Physician: AdmtrCornelius Allergies, Adverse Reactions, Alerts [...] Refills, Soft Stop, 03/02/21 7:04:00 EDT, Tablet, [facility]/pharmacy #[id number], Partial fill upon patient request if the prescription is for a schedule II opioid drug., 158, cm, 03/02/21 6:37:00 EDT, Height, 73.2... Start Date: 03/02/21 Status: Ordered LORazepam 0.5 mg oral tablet 0.5 tablet = 0.25 mg, By Mouth, Daily, PRN as needed for anxiety, # 20 tablet, 0 Refills, Soft Stop, 11/25/20 17:12:00 EDT, Tablet, [facility]/pharmacy #[id number], Partial fill upon patient request if [...] 3 Refills, Maintenance, 08/23/20 15:33:00 EDT, Tablet, [facility]/pharmacy #[id number], Partial fill upon patient request if [...] 11/25/20 17:20:00 EDT, Route to Pharmacy Electronically, [facility]/pharmacy #[id number], P... Start Date: 11/25/20 Status: Ordered venlafaxine 75 mg oral capsule, extended release 1 capsule, By Mouth, Daily, # 90 capsule, 0 Refills, [facility] STORE 34945, 158, cm, 04/11/21 16:19:00 EST, Height, 76.1, [...]
--- OUTSIDE RECORDS SUMMARY | 2022-10-14 17:40 | XMS_ITS | Continuity of Care Document ---
Author Name Unknown Organization [facility] Trae lt Address [address] [place] [address]- Care Team Providers Care Parts Counter Representative Name Role Phone Jana MUNGUIA, Ian Mae Primary Care Physician Encounter [facility] [place] Date(s): 11/24/20 - 12/24/20 [facility] Adult [address] [place] [address]- Allergies, Adverse Reactions, Alerts Substance Reaction Severity [...] Refills, Maintenance, 11/12/20 12:49:00 EDT, REC Powder, [facility]/pharmacy #[id number], Partial fill upon patient request if the prescription is for a schedule II opi... Start Date: 11/12/20 Status: Ordered colestipol 1 gm oral tablet 3 tablet, By Mouth, Daily, # 90 tablet, 5 Refills, Maintenance, 10/19/20 9:47:00 EDT, [id number], 158, cm, 08/01/20 15:12:00 EDT, Height, 73.2, kg, 08/01/20 10:43:00 EDT, Dry Weight Start Date: 10/19/20 Status: Ordered LORazepam 0.5 mg oral tablet 0.5 tablet = 0.25 mg, By Mouth, Daily, PRN as needed for anxiety, # 20 tablet, 0 Refills, Soft Stop, 11/25/20 17:12:00 EDT, Tablet, [facility]/pharmacy #[id number], Partial fill upon patient request [...] 3 Refills, Maintenance, 08/23/20 15:33:00 EDT, Tablet, [facility]/pharmacy #[id number], Partial fill upon patient request [...] milk, # 12 tablet, 0 Refills, Acute 11/25/21 18:00:00 EDT, 11/25/20 17:15... Start Date: 11/25/20 Stop Date: 11/25/21 Status: Ordered traZODone 50 mg oral tablet 25 mg, 0.5, tablet, By Mouth, Daily at bedtime, PRN, after meals for sleep as needed, half a tabletat bedtime., # 15 tablet, Refills 2, Tot. Refills 2, Maintenance, Sleep, 11/25/20 17:20:00 EDT, Route to Pharmacy Electronically, [facility]/pharmacy #[id number], P... Start Date: 11/25/20 Status: Ordered venlafaxine 150 mg oral capsule, extended release 150 mg, 1, capsule, By Mouth, Daily, # 30 capsule, Refills 2, Tot. Refills 2, Maintenance, 09/21/2115:25:00 EDT, Route to Pharmacy Electronically, [facility]/pharmacy #[id number], Partial fill upon patient request [...] 08/23/20 15:32:00 EDT, Route to Pharmacy Electronically, [facility]/pharmacy #[id number], Partial fill upon patient request if the [...]
--- OUTSIDE RECORDS SUMMARY | 2022-10-14 17:40 | XMS_ITS | Continuity of Care Document ---
Author Name Unknown Organization [facility] Trae Address [address] [place] [address]- Care Team Providers Care Mail Handler Name Role Phone Jana MUNGUIA, Ian Mae Primary Care Physician Encounter [facility] [id number] Date(s): 06/28/20 - 07/05/20 [facility] Adult [address] [place] [address]- Encounter Diagnosis Elevated blood pressure reading(Discharge Diagnosis) - 06/28/20 Attending Physician: Not on Staff, Attending MD Allergies, Adverse Reactions, Alerts Substance Reaction [...] 5 Refills, Maintenance, 01/13/20 11:06:00 EDT, Tablet, [id number], 158, cm, 01/13/20 10:02:00 EDT, Height, [...] 11:21:54 Start Date: 12/30/14 Status: Ordered pantoprazole 20 mg oral delayed release tablet 1 tablet = 20 mg, By Mouth, Daily, # 30 tablet, 5 Refills, Maintenance, 05/25/20 7:35:00 EST, CR Tablet, 158, cm, 02/13/20 11:47:00 EDT, Height, 63.5, kg, 04/10/19 22:37:00 EST, Dry Weight Start Date: 05/25/20 Status: Ordered venlafaxine 150 mg oral capsule, extended release 150 mg, 1, capsule, By Mouth, Daily, # 30 capsule, Refills 5, Tot. Refills 5, Maintenance, 03/24/2014:06:00 EST, Route to Pharmacy Electronically, [facility]/pharmacy #[id number], 158, cm, 02/13/20 11:47:00 EDT,Height, 63.5, kg, 04/10/19 22:37:00 EST, Dry Weight Start Date: 03/24/20 Status: Ordered ZyrTEC 10 mg oral tablet [...] Dates Health Status Cl inical Service Informant Elevated blood pressure reading Discharge Diagnosis 06/28/20 Vital Signs Most recent to oldest [Reference Range]: 1 Height 158 cm (06/28/20 9:12 AM) Blood Pressure [90-138/55-84 mm Hg] 121/ 90mm Hg (06/28/20 9:12 AM) Blood pressure sites Arm, left (06/28/20 9:12 AM) Social History Social History Type Response Smoking Status Current every day tameka andre entered on: 08/17/16 Sex
--- OUTSIDE RECORDS SUMMARY | 2022-10-14 17:40 | XMS_ITS | Continuity of Care Document ---
Author Name Unknown Organization [facility] Trae lt Address [address] [place] [address]- Care Team Providers Care Assembler Erector Name Role Phone Ian Bates MD Primary Care Physician [phone] [place] [facility] [place] Date(s): 10/02/19 - 10/09/19 [facility] Adult [address] [place] [address]- [facility] Attending Physician: Ian Bates MD Allergies, Adverse [...] 06/28/17 10:48:11, Aerosol, Route to Pharmacy Electronically, [id number], [id number], Compound Start Date: 06/28/17 Stop Date: 07/28/17 Status: Ordered Carafate 1 gm/10 ml oral suspension 10 mL = 1 Gm, By Mouth, 2 times a day, # 560 mL, 0 Refills, Maintenance, 10/02/19 14:45:00 EDT, [id number], 158, cm, 10/02/19 13:04:00 EDT, Height, 63.5, kg, 04/10/19 22:37:00 EST, Dry Weight Start Date: 10/02/19 Stop Date: 10/30/19 Status: Ordered colestipol 1 gm oral tablet 2 tablet = 2 Gm, By Mouth, Daily, take 1 tablet daily for a week and if no constipation can increase to 2 tablets daily, # 60 tablet, 5 Refills, Maintenance, 10/07/19 15:22:00 EDT, Tablet, [facility]/pharmacy #[id number], 158, cm, 10/02/19 13:04:00 EDT, Height, 63... Start Date: 10/07/19 Status: Ordered duloxetine 20 mg oral enteric coated capsule 1 capsule = 20 mg, By Mouth, 2 times a day, Increase in dose, # 60 capsule, 5 Refills, Maintenance,09/23/19 17:25:00 EDT, [facility]/pharmacy #[id number], 158, cm, 06/02/19 15:58:00 EST, Height, 63.5, kg, 04/10/19 22:37:00 EST, Dry Weight Start Date: 09/23/19 Status: Ordered LORazepam 0.5 mg oral tablet 1 tablet = 0.5 mg, By Mouth, Daily, PRN as needed for anxiety, # 30 tablet, 1 Refills, Acute 11/23/19 17:25:00 EDT, 09/23/19 17:25:00 EDT, [facility]/pharmacy #[id number], 158, cm, 06/02/19 15:58:00 EST, Height, [...] oldest [Reference Range]: 1 Height 158 cm (10/02/19 1:04 PM) Social History Social History Type Response Smoking Status Current every day tameka andre entered on: 08/17/16 Sex
--- OUTSIDE RECORDS SUMMARY | 2022-10-14 17:40 | XMS_ITS | Continuity of Care Document ---
Author Name Unknown Organization [facility] Address Unknown Care Team Providers Care Shot Man Name Role Phone Jana MUNGUIA, Ian Mae Primary Care Physician Encounter [facility] [place] Date(s): 06/22/21 - 10/20/21 [facility] Attending Physician: Jocelynn Coates NP Admitting Physician: Al Navarro NP, Jocelynn Referring Physician: Saul NAIK, Chandrika Yan Allergies, Adverse Reactions, Alerts Substance Reaction Severity [...] Mouth, Daily, # 90 tablet, 4 Refills, [facility] 30080, 90, TAKE 1 TABLET BY MOUTH EVERY DAY, 158, cm, 04/11/21 16:19:00 EST, Height, 76.1, kg, 03/19/21 10:19:00 EDT, Dry Weight Start Date: 06/14/21 Status: Ordered fluconazole 150 mg oral tablet 1 tablet = 150 mg, By Mouth, Once, # 1 tablet, 0 Refills, Soft Stop, 03/02/21 7:04:00 EDT, Tablet, [facility]/pharmacy #[id number], Partial fill upon patient request if the prescription is for a schedule II opioid drug., 158, cm, 03/02/21 6:37:00 EDT, Height, 73.2... Start Date: 03/02/21 Status: Ordered LORazepam 0.5 mg oral tablet 0.5 tablet = 0.25 mg, By Mouth, Daily, PRN as needed for anxiety, # 20 tablet, 0 Refills, Soft Stop, 11/25/20 17:12:00 EDT, Tablet, [facility]/pharmacy #[id number], Partial fill upon patient request if [...] Refills, Maintenance, 09/06/21 10:59:00 EDT, CR Tablet, [facility]/pharmacy #[id number], Partial fill upon patient request if [...] 17:20:00 EDT, Route to Pharmacy Electronically, [facility]/pharmacy #[id number], P... Start Date: 11/25/20 Status: Ordered venlafaxine 75 mg oral capsule, extended release 1 capsule, By Mouth, Daily, # 90 capsule, 1 Refills, 09/16/21 17:24:00 EDT, [facility]/pharmacy #[id number], 158, cm, 08/02/21 14:11:00 EDT, Height, [...]
--- OUTSIDE RECORDS SUMMARY | 2022-10-14 17:40 | XMS_ITS | Continuity of Care Document ---
Author Name Unknown Organization [facility] [place] Trae Address [address] [place] [address]- Care Team Providers Care Change Attendant Name Role Phone Jana MUNGUIA, Ian Mae Primary Care Physician [phone] Encounter [facility] [place] Date(s): 09/13/20 - 10/13/20 [facility] [place] Adult [address] [place] [address]- Allergies, Adverse Reactions, Alerts Substance Reaction Severity [...] Refills, Maintenance, 07/31/20 19:31:00 EST, [id number], 158, cm, 06/28/20 9:12:00 EST, Height, 63.5, [...]
--- OUTSIDE RECORDS SUMMARY | 2022-10-14 17:40 | XMS_ITS | Continuity of Care Document ---
Author Name Unknown Organization [facility] Trae Address [address] [place] [address]- Care Team Providers Care Information Security Director Name Role Phone Jana MUNGUIA, Ian Mae Primary Care Physician [phone] Encounter [facility] Date(s): 04/12/21 - 05/12/21 [facility] Adult [address] [place] [address]- Allergies, Adverse Reactions, Alerts Substance Reaction Severity [...] Refills, Soft Stop, 03/02/21 7:04:00 EDT, Tablet, [facility]/pharmacy #[id number], Partial fill upon patient request if the prescription is for a schedule II opioid drug., 158, cm, 03/02/21 6:37:00 EDT, Height, 73.2... Start Date: 03/02/21 Status: Ordered LORazepam 0.5 mg oral tablet 0.5 tablet = 0.25 mg, By Mouth, Daily, PRN as needed for anxiety, # 20 tablet, 0 Refills, Soft Stop, 11/25/20 17:12:00 EDT, Tablet, [facility]/pharmacy #[id number], Partial fill upon patient [...] Refills, Maintenance, 08/23/20 15:33:00 EDT, Tablet, [facility]/pharmacy #[id number], Partial fill upon patient [...] EDT, Route to Pharmacy Electronically, [facility]/pharmacy #[id number], P... Start Date: 11/25/20 Status: Ordered venlafaxine 75 mg oral capsule, extended release 1 capsule, By Mouth, Daily, # 90 capsule, 0 Refills, [facility] STORE [id number], 158, cm, 04/11/21 16:19:00 EST, Height, 76.1, [...]
--- OUTSIDE RECORDS SUMMARY | 2022-10-14 17:40 | XMS_ITS | Continuity of Care Document ---
Author Name Unknown Organization [facility] Address [address] [place] [address]- Care Team Providers Care Energy Crop Farmer Name Role Phone Jana MUNGUIA, Ian Mae Primary Care Physician Encounter [facility] Date(s): 04/09/20 - 05/09/20 [facility] [address] [place] [address]- Attending Physician: Cornelius Kelly Admitting Physician: Cornelius Kelly Referring Physician: AdmtrCornelius Allergies, Adverse Reactions, Alerts Substance Reaction Severity Status Adhesive Bandage HIVES Active Immunizations Given and Recorded Vaccine Date Status Refusal Reason tetanus/diphtheria/pertussis, acel(Tdap) 08/10/14 Given Not Given Vaccine Date Status Refusal Reason Influenza Virus Vaccine (oldterm) 04/08/19 Not Giv en Parent Or Guardian Refuses Medications azithromycin 250 mg oral tablet 1 tablet = 250 mg, By Mouth, Daily, 2 tablets on first day, then one tablet daily for 4 days, # 6 tablet, 0 Refills, Acute 09/21/20 14:06:00 EDT, 03/24/20 14:05:00 EST, Tablet, [id number], 158, cm, 02/13/20 11:47:00 EDT, Height, 63.5, kg, 03/22... Start Date: 03/24/20 Stop Date: 09/21/20 Status: Ordered colestipol 1 gm oral tablet [...] Weight Start Date: 01/13/20 Status: Ordered venlafaxine 150 mg oral capsule, extended release 150 mg, 1, capsule, By Mouth, Daily, # 30 capsule, Refills 5, Tot. Refills 5, Maintenance, 03/24/2014:06:00 EST, Route to Pharmacy Electronically, [facility]/pharmacy #[id number], 158, cm, 02/13/20 11:47:00 EDT,Height, 63.5, kg, 04/10/19 22:37:00 EST, Dry Weight Start Date: 03/24/20 Status: Ordered venlafaxine 37.5 mg oral capsule, extended release See Instructions, 1 capsule By Mouth Daily for 2 weeks, then two caps daily, # 60 capsule, Refills 2, Tot. Refills 2, Maintenance, 01/13/20 11:07:00 EDT, Instructions Replace Required Details, Route to Pharmacy Electronically, [facility]/pharmacy #[id number], 158,... Start Date: 01/13/20 Status: Ordered ZyrTEC [...]
--- OUTSIDE RECORDS SUMMARY | 2022-10-14 17:40 | XMS_ITS | Continuity of Care Document ---
Author Name Unknown Organization [facility] Trae lt Address [address] [place] [address]- Care Team Providers Care Butcher Chicken And Fish Name Role Phone Jana MUNGUIA, Ian Mae Primary Care Physician Encounter [facility] R [id number] Date(s): 05/26/20 - 06/02/20 [facility] Adult [address] [place] [address]- Attending Physician: Ben MUNGUIA, Dom Nielsen Allergies, Adverse Reactions, Alerts Substance Reaction Severity [...] 5 Refills, Maintenance, 01/13/20 11:06:00 EDT, Tablet, [facility]/pharmacy #[id number], 158, cm, 01/13/20 10:02:00 EDT, Height, 63.5, kg, 04/10/19 22:37:00 EST, Dry Weight Start Date: 01/13/20 Stop Date: 07/11/20 Status: Ordered gabapentin 100 mg oral capsule 100 mg, 1, capsule, By Mouth, Daily at bedtime, # 30 capsule, Refills 0, Tot. Refills 0, Maintenance, 06/02/20 8:49:00 EST, Route to Pharmacy Electronically, [facility]/pharmacy #[id number], Partial fill upon patient request if the prescription is for a schedule I... Start Date: 06/02/20 Status: Ordered LORazepam 0.5 mg oral tablet 0.5 tablet = 0.25 mg, By Mouth, Daily, PRN as needed for anxiety, # 15 tablet, 2 Refills, Soft Stop, 05/25/20 7:36:00 EST, Tablet, [facility]/pharmacy #[id number], Partial fill upon patient request if [...] Dry Weight Start Date: 05/25/20 Status: Ordered Tessalon Perles 100 mg oral capsule 1 capsule = 100 mg, By Mouth, 3 times a day, for 7 days, # 21 capsule, 0 Refills, Acute 06/09/20 8:50:00 EST, 06/02/20 8:50:00 EST, Capsule, [facility]/pharmacy #[id number], Partial fill upon patient request if the prescription is for a schedule II opioid drug., 1... Start Date: 06/02/20 Stop Date: 06/09/20 Status: Ordered venlafaxine 150 mg oral capsule, extended release 150 mg, 1, capsule, By Mouth, Daily, # 30 capsule, Refills 5, Tot. Refills 5, Maintenance, 03/24/2014:06:00 EST, Route to Pharmacy Electronically, [facility]/pharmacy #[id number], 158, cm, 02/13/20 11:47:00 EDT,Height, 63.5, [...] oldest [Reference Range]: 1 Height 158 cm (05/26/20 9:15 AM) Social History Social History Type Response Smoking Status Current every day tameka andre entered on: 08/17/16 Sex
--- OUTSIDE RECORDS SUMMARY | 2022-10-14 17:40 | XMS_ITS | Continuity of Care Document ---
Author Name Unknown Organization [facility] Address [address] [facility], [address], [address] [place] [address]- Care Team Providers Care Forensic Materials Engineer Name Role Phone Jana MUNGUIA, Ian R Primary Care Physician [phone] [id number] Date(s[facility] 10/21/21 - 01/27/22 [facility] [address], [address], [address] [place] [address]- Attending Physician: Lakisha Puga Admitting Physician: Lakisha Puga Referring Physician: Saul NAIK, Chandrika Yan Allergies, [...] # 90 tablet, 4 Refills, [facility], 90, TAKE 1 TABLET BY MOUTH EVERY [...] 11/25/20 17:20:00 EDT, Route to Pharmacy Electronically, [facility]/pharmacy #[id number], P... Start Date: 11/25/20 Status: Ordered venlafaxine 75 mg oral capsule, extended release 1 capsule, By Mouth, Daily, # 90 capsule, 1 Refills, 09/16/21 17:24:00 EDT, [facility]/pharmacy #[id number], 158, cm, 08/02/21 14:11:00 EDT, [...] Type Response Smoking Status Current every day taemka andre entered on: 08/17/16 Sex Female Care Team Personnel Name: Ian Bates MD Address: [address] [place] [id number]-
--- OUTSIDE RECORDS SUMMARY | 2022-10-14 17:40 | XMS_ITS | Continuity of Care Document ---
Author Name Unknown Organization [facility] Address [address] [place] [address]- Care Team Providers Care Cellophane Bag Machine Operator Name Role Phone Jana MUNGUIA, Ian Mae Primary Care Physician En[place] [facility] [place] Date(s): 05/31/21 - 06/30/21 [facility] Adult [address] [place] [address]- Allergies, Adverse Reactions, Alerts Substance Reaction Severity [...] Date: 01/21/21 Stop Date: 07/20/21 Status: Ordered cyclobenzaprine 5 mg oral tablet 1 tablet = 5 mg, By Mouth, 3 times a day, for 7 days, # 21 tablet, 0 Refills, Acute 07/04/21 9:13:00 EST, 06/27/21 9:13:00 EST, Tablet, [id number], Partial fill upon patient request if the prescription is for a schedule II opioid drug., 158, c... Start Date: 06/27/21 Stop Date: 07/04/21 Status: Ordered Daily Tamir oral tablet 1 tablet, By Mouth, Daily, # 90 tablet, 4 Refills, [facility] STORE 13442, 90, TAKE 1 TABLET BY MOUTH EVERY [...] 12/30/14 11:21:54 Start Date: 12/30/14 Status: Ordered predniSONE 20 mg oral tablet 1 tablet = 20 mg, By Mouth, 2 times a day, # 10 tablet, 0 Refills, Acute 07/02/21 9:12:00 EST, 06/27/21 9:11:00 EST, [id number], Partial fill upon patient request if the prescription is for aschedule II opioid drug., 158, cm, 06/27/21 8:42:00... Start Date: 06/27/21 Stop Date: 07/02/21 Status: Ordered traZODone 50 mg oral tablet 25 mg, 0.5, tablet, By Mouth, Daily at bedtime, PRN, after meals for sleep as needed, half a tabletat bedtime., # 15 tablet, Refills 2, Tot. Refills 2, Maintenance, Sleep, 11/25/20 17:20:00 EDT, Route to Pharmacy Electronically, [facility]/pharmacy #[id number], P... Start Date: 11/25/20 Status: Ordered venlafaxine 75 mg oral capsule, extended release 1 capsule, By Mouth, Daily, # 90 capsule, 0 Refills, [facility] ST[facility] [id number], 158, cm, 04/11/21 16:19:00 EST, Height, 76.1, [...]
--- OUTSIDE RECORDS SUMMARY | 2022-10-14 17:40 | XMS_ITS | Continuity of Care Document ---
Author Name Unknown Organization [facility] Tra[facility] Address [address] [place] [address]- Care Team Providers Care Cuff Setter Name Role Phone Ian Bates MD Primary Care Physician [place] [facility] [id number] Date(s): 01/13/20 - 01/20/20 [facility] Adult [address] [place] [address]- [facility] Attending Physician: Ian Bates MD Allergies, Adverse [...] Replace Required Details, Route to Pharmacy Electronically, [facility]/pharmacy #[id number], 158,... Start Date: 01/13/20 Status: Ordered ZyrTEC [...] oldest [Reference Range]: 1 Height 158 cm (01/13/20 10:02 AM) Social History Social History Type Response Smoking Status Current every day tameka andre entered on: 08/17/16 Sex
--- OUTSIDE RECORDS SUMMARY | 2022-10-14 17:40 | XMS_ITS | Continuity of Care Document ---
Author Name Unknown Organization [facility] Tra[facility] Address [address] [place] [address]- Care Team Providers Care Coil Winder Hand Name Role Phone Jana MUNGUIA, Ian Mae Primary Care Physician Encounter [facility] [place] Date(s): 01/05/21 - 02/04/21 [facility] Adult [address] [place] [address]- Allergies, Adverse Reactions, Alerts Substance Reaction Severity [...] Refills, Soft Stop, 11/25/20 17:12:00 EDT, Tablet, [facility]/pharmacy #[id number], Partial fill upon patient request [...] 3 Refills, Maintenance, 08/23/20 15:33:00 EDT, Tablet, [facility]/pharmacy #[id number], Partial fill upon patient request [...] 11/25/20 17:20:00 EDT, Route to Pharmacy Electronically, [facility]/pharmacy #[id number], P... Start Date: 11/25/20 Status: Ordered venlafaxine 150 mg oral capsule, extended release 150 mg, 1, capsule, By Mouth, Daily, # 30 capsule, Refills 2, Tot. Refills 2, Maintenance, 09/21/2115:25:00 EDT, Route to Pharmacy Electronically, [facility]/pharmacy #[id number], Partial fill upon patient request [...] 08/23/20 15:32:00 EDT, Route to Pharmacy Electronically, [facility]/pharmacy #[id number], Partial fill upon patient request if the [...]
--- OUTSIDE RECORDS SUMMARY | 2022-10-14 17:40 | XMS_ITS | Continuity of Care Document ---
Author Name Unknown Organization [facility] lt Address [address] [place] [address]- Care Team Providers Care Manager Hotel Name Role Phone Jana MUNGUIA, Ian Mae Primary Care Physician [phone] [place] [facility] [place]/22 [facility] [place] Adult [address] [place] [address]- Allergies, Adverse Reactions, Alerts Substance Reaction Severity [...] Mouth, Daily, # 90 tablet, 4 Refills, [facility] ST[facility] [id number], 90, TAKE 1 TABLET BY MOUTH EVERY [...] Route to Pharmacy Electronically, [facility]/pharmacy #[id number], P... Start Date: 11/25/20 Status: Ordered venlafaxine 75 mg oral capsule, extended release 1 capsule, By Mouth, Daily, # 90 capsule, 1 Refills, 09/16/21 17:24:00 EDT, [facility]/pharmacy #[id number], 158, cm, 08/02/21 14:11:00 EDT, Height, 76.1, kg, 03/19/21 10:19:00 EDT, Dry Weight Start Date: 09/16/21 Status: Ordered Problem List Condition Confirmation Course Effective Dates Status H ealth Status Informant Acute gastritis Confirmed Active Acute viral pharyngitis Confirmed Active Anterior chest wall pain Confirmed Active Anxiety Confirmed Active History of JUAN III (cervical intraepithelial neoplasia grade III) with severe dysplasia. Had CKC that showed JUAN II, ectocervical and endocervical margins negative. Endocervical curettage negative. Last pap smear 01/03/16 negative with negative HPV Confirmed Active Depression Confirmed Active Bile acid esophageal reflux Confirmed Active 4, para 3013. TAb at age 13 by D&C at 9 weeks. 03/08/04 . 09/30/08 . 10/27/14 . Confirmed Active S/P cholecystectomy Confirmed Active ASCUS with positive high risk HPV Confirmed Active Low HDL (under 40) Confirmed Active IUD (intrauterine device) in place - Mirena 12/30/14 Confirmed Active Multiple sclerosis - not on medications since 2009. Occasionally gets tingly fingers but it doesn't hold her back much Confirmed Active Obese class I Confirmed Active Otalgia Confirmed Active Panic attacks Confirmed Active Abdominal pain, acute, right lower quadrant Confirmed Active Seasonal allergies Confirmed Active Current smoker Confirmed Active Strain of left trapezius muscle Confirmed Active Left peroneal tendinosis Confirmed Active Otalgia of right ear Confirmed Active Social History Social History Type Response Smoking Status Current every day tameka andre entered on: 08/17/16 Sex Female Patient Care team information Care Team Personnel Name: Anh Victoria RN Position: S RN Member Role: Primary Care Nurse Name: Iva Liu RN Position: S RN Member Role: Primary Care Nurse Name: Ian Bates MD Position: [facility] Primary Care Physician Member Role: PCP Address: Address: [address] [place] [id number] Name: Maggie Rogel RN Position: S RN Member Role: Primary Care Nurse Name: Merna Manzano RN Position: [facility] RN Member Role: Primary Care Nurse Care Team Related Persons Name: HALIMA JARAMILLO Address: home [address], [place] Name: LISA AUGUST Address: home [address], [place] Name: NONE, NONE Name: CHATA EATON Address: home [address], [place] Name: REBECCA EATON Address: home [address], [place]
--- OUTSIDE RECORDS SUMMARY | 2022-10-14 17:40 | XMS_ITS | Continuity of Care Document ---
Author Name Unknown Organization [facility] Address [address] [place] [address]- Care Team Providers Care Healthcare Representative Name Role Phone Jana MUNGUIA, Ian Mae Primary Care Physician Encounter [facility] Date(s): 03/01/21 - 03/31/21 [facility] Adult [address] [place] [address]- Allergies, Adverse Reactions, Alerts Substance Reaction Severity [...] 3 Refills, Maintenance, 08/23/20 15:33:00 EDT, Tablet, [facility]/pharmacy #[id number], Partial fill upon patient request [...] 11/25/20 17:20:00 EDT, Route to Pharmacy Electronically, [facility]/pharmacy #[id number], P... Start Date: 11/25/20 Status: [...] 08/23/20 15:32:00 EDT, Route to Pharmacy Electronically, [facility]/pharmacy #[id number], Partial fill upon patient request if the [...]
--- OUTSIDE RECORDS SUMMARY | 2022-10-14 17:40 | XMS_ITS | Continuity of Care Document ---
Author Name Unknown Organization [facility] Tra[facility] lt Address [address] [place] [address]- Care Team Providers Care Donor Technician Name Role Phone Jana MUNGUIA, Ian Mae Primary Care Physician [phone] [place] [facility] [place]21 - 02/26/21 [facility] Adult [address] [place] [address]- Attending Physician: Cornelius Kelly Admitting Physician: AdmCornelius [...] Refills, Soft Stop, 11/25/20 17:12:00 EDT, Tablet, [facility]/pharmacy #[id number], Partial fill upon patient request [...] 11/25/20 17:20:00 EDT, Route to Pharmacy Electronically, [facility]/pharmacy #[id number], P... Start Date: 11/25/20 Status: [...] 08/23/20 15:32:00 EDT, Route to Pharmacy Electronically, [facility]/pharmacy #[id number], Partial fill upon patient request if the [...]
--- OUTSIDE RECORDS SUMMARY | 2022-10-14 17:40 | XMS_ITS | Continuity of Care Document ---
Author Name Unknown Organization [facility] Tra[facility] Address [address] [place] [address]- Care Team Providers Care Professor Of Philosophy Name Role Phone Jana MUNGUIA, Ian Mae Primary Care Physician Encounter [facility] [place] Date(s): 06/28/20 - 07/28/20 [facility] Adult [address] [place] [address]- Allergies, Adverse Reactions, Alerts Substance Reaction Severity [...] Maintenance, 03/24/2014:06:00 EST, Route to Pharmacy Electronically, [facility]/pharmacy #[id number], 158, cm, 02/13/20 11:47:00 EDT,Height, 63.5, [...]
--- OUTSIDE RECORDS SUMMARY | 2022-10-14 17:40 | XMS_ITS | Continuity of Care Document ---
Author Name Unknown Organization [facility] Tra[facility] Address [address] [place] [address]- Care Team Providers Care Reeling And Tubing Machine Operator Name Role Phone Jana MUNGUIA, Ian Mae Primary Care Physician En[facility] [id number] Date(s): 06/30/22 - 07/07/22 [facility] Adult [address] [place] [address]- Encounter Diagnosis Anxiety(Discharge Diagnosis) - 06/30/22 Tobacco abuse(Discharge Diagnosis) - 06/30/22 Attending Physician: Not on Staff, Attending MD [...] change to 30d supply, thx, 158, cm, 07/22/22 16:02:00 EDT, Height, 76.1, kg, 03/19/21 10:19:00 EDT,... Start Date: 06/09/22 Status: Ordered colestipol 1 gm oral tablet 3 tablet, By Mouth, 2 times a day, # 540 tablet, 3 Refills, Hard Stop 07/15/22 11:29:00 EST, 07/20/21 11:29:00 EST, [facility]/pharmacy #[id number], If insurance won't cover 90d fine to change to 30d supply, thx,158, cm, 06/27/21 8:42:00 EST, Height, 76.1, kg, 10... Start Date: 07/20/21 Stop Date: 07/15/22 Status: Ordered Daily Tamir oral tablet 1 tablet, By Mouth, Daily, # 90 tablet, 4 Refills, [facility] STORE 97938, 90, TAKE 1 TABLET BY MOUTH EVERY DAY, 158, cm, 04/11/21 16:19:00 EST, Height, 76.1, kg, 03/19/21 10:19:00 EDT, Dry Weight Start Date: 06/14/21 Status: Ordered LORazepam 0.5 mg oral tablet 0.5 tablet = 0.25 mg, By Mouth, Daily, PRN as needed for anxiety, # 15 tablet, 2 Refills, Soft Stop, 06/30/22 8:43:00 EST, Tablet, [facility]/pharmacy #[id number], Partial fill upon patient [...] 06/30/22 8:42:00 EST, Route to Pharmacy Electronically, [facility]/pharmacy #[id number], Partial fill upon patient [...] allergies Confirmed Active Current smoker Confirmed Active Diagnosis Diagnosis Type Effective Dates Health Status Cl inical Service Informant Anxiety Discharge Diagnosis 06/30/22 Tobacco abuse Discharge Diagnosis 06/30/22 Vital Signs Most recent to oldest [Reference Range]: 1 Height 158 cm (06/30/22 8:28 AM) Weight 74.2 kg (06/30/22 8:28 AM) Oxygen Saturation [94-100 %] 97 % (06/30/22 8:28 AM) Pulse Rate [55-90 bpm] 119 bpm *H* (06/30/22 8:28 AM) Body Mass Index [18.5-24.99 kg/m2] 29.72 kg/m2 *H* (06/30/22 8:28 AM) Blood Pressure [90-138/55-84 mm Hg] 135/ 85mm Hg (06/30/22 8:28 AM) Blood pressure sites Arm, right (06/30/22 8:28 AM) Weight Obtained Via Standing scale (06/30/22 8:28 AM) Social History Social History Type Response Smoking Status Current every day tameka andre entered on: 08/17/16 Sex Female Note * Effie Bee: PERFORM, SIGN, VERIFY Event Display: Patient Education/Instruction Authored Date: [id number] [facility] *ALO Brizuela Clinical Summary Name EL PRADO Age 37 Years 1985 PCP Jana MUNGUIA, Ian Mae PCP Visit Date 06/30/2022 08:24:00 Additional Instructions: Scheduled Appointments?? Future Appointments ?*[facility] ?[address]??[facility] ?Phone:??--?Fax:??-- ?Appt. Date:??07/21/2022?11:05 AM ?Scheduled Provider:??Jana MUNGUIA, Ian Mae ?*[facility] ?[address] ?[place],??[place],??[address] ?Phone:??--?Fax:??-- ?Appt. Date:??08/03/2022?8:00 AM ?Scheduled Provider:??Ramon NAIK, Jocelynn Melendez Follow-Up Instructions ?? With: Address: When: Félix NAIK, Leta Calderón [address] [facility] [place] [facility] GUERA Williamson [id number] 06/30/2022 12:00 AM Comments: 6 week f/u anxiety, phone visit Diagnosis Tobacco use; Anxiety disorder, unspecified Medications: Please continue your medications until treatment is completed or stopped by your provider. Discuss any questions related to medications with your provider. New Medications [id number], [address] [place] [id number], [phone] Varenicline (chantix 1mg tablet) take 1/2 tab daily for 3 days then increase to 1/2 tab twice dailyfor 3 days, then increase to 1 tab By Mouth 2 times a day x 12 weeks. Refills: 0. Next Dose: Medications to Continue Taking That Have Changed [facility]/pharmacy #[id number], [address] [place], [place] [id number], [phone] - Lorazepam (LORazepam 0.5 mg oral tablet) 0.5 tab(s) Oral Daily as needed as needed for anxiety for 30 Days. Refills: 2. Next Dose: - Venlafaxine (venlafaxine 150 mg oral capsule, extended release) 1 capsule Oral Daily. replace 75mg. Refills: 3. Next Dose: Medications to Continue with No Changes These medications were not printed or sent to your pharmacy Amoxicillin-Clavulanate (Augmentin 875 mg-125 mg oral tablet) 1 tab(s) Oral every 12 hours for 7 Days. Refills: 0. Next Dose: Colestipol (colestipol 1 gm oral tablet) 3 tab(s) Oral twice a day. Refills: 3. Next Dose: Colestipol (colestipol 1 gm oral tablet) 3 tab(s) Oral twice a day. Refills: 3. Next Dose: Multivitamin (Daily Tamir oral tablet) 1 tab(s) Oral Daily. Refills: 4. Next Dose: Norethindrone (norethindrone 0.35 mg oral tablet) Next Dose: No Longer Take the Following Medications Azithromycin (Azithromycin 5 Day Dose Pack 250 mg oral tablet) 1 pack/packet Oral once. Refills: 0. Fluconazole (fluconazole 150 mg oral tablet) 1 tab(s) Oral once. Refills: 0. Levonorgestrel (Mirena 52 mg intrauteral device) 1 Each once. Omeprazole (omeprazole 20 mg oral delayed release tablet) 1 tab(s) Oral Daily. Refills: 5. Trazodone (traZODone 50 mg oral tablet) 0.5 tab(s) Oral Daily at Bedtime as needed Sleep. after meals for sleep as needed, half a tablet at bedtime.. Refills: 2. Allergy Info:?? Fish; Adhesive Bandage Medications Given This Visit Future Orders ?No future orders Vital Signs Height 158 cm Weight 74.2 kg BMI 29.72 kg/m2 Blood Pressure 135 mm Hg/85 mm Hg Temperature Pulse Rate 119 bpm Respiratory Rate 02 Sat Mode of Delivery 97 %/ You can now view a summary of your hospital visit from the comfort of your home through a free online portal called [employer]. [employer] is a website that allows you to securely view your medical information including discharge summary, medications and follow-up visits. ??You can alsosend a secure electronic message to your doctor???s office to request appointments, renew medications or just ask a question. You can enroll at [email or web address] or register during your next office visit. Disclaimer:?? The information provided is of a general nature and is intended to be used in conjunction with the recommendations and advice of your health care practitioner. ??Every effort has been made to ensure that the information provided is accurate and complete at the time it is provided to you however, as your needs change, or, as new ??information becomes available, different or additional instructions may be required. If you have questions, please consult with your primary care provider or pharmacist, as appropriate. ??This information is not intended to serve as substitution for assessment and evaluation by a qualified health care provider. If you do not have a primary care provider, you may find a [facility] provider by calling [facility] at [phone]. For information about the plan of care including goals and instructions for your diagnosis, please see the patient education orders section of this document. Patient Education Materials?? The content of this educational material or handout may have been modified, supplemented, or adapted from its original content and format to support your individualized medical care. * Janina Arrieta: PERFORM, SIGN, VERIFY Event Display: Patient Education/Instruction Authored Date: [id number] [facility] *BMP So [place] Brizuela Clinical Summary Name EL PRADO Age 37 Years 1985 PCP Jana MUNGUIA, Ian Mae PCP Visit Date 06/30/2022 08:24:00 Additional Instructions: Scheduled Appointments?? Future Appointments ?*[facility] ?[address] ?Phone:??--?Fax:??-- ?Appt. Date:??07/21/2022?11:05 AM ?Scheduled Provider:??Ian Bates MD ?*[facility] ?[address] ?[place],??[place],??[address] ?Phone:??--?Fax:??-- ?Appt. Date:??08/03/2022?8:00 AM ?Scheduled Provider:??Ramon NAIK, Jocelynn Melendez Follow-Up Instructions ?? With: Address: When: Félix NAIK, Leta Calderón [address] [place] [address] [place] [address] 06/30/2022 12:00 AM Comments: 6 week f/u anxiety, phone visit Diagnosis Tobacco use; Anxiety disorder, unspecified Medications: Please continue your medications until treatment is completed or stopped by your provider. Discuss any questions related to medications with your provider. Medications to Continue Taking That Have Changed [facility]/pharmacy #[id number], [address] [place] [phone], [phone] - Lorazepam (LORazepam 0.5 mg oral tablet) 0.5 tab(s) Oral Daily as needed as needed for anxiety for 30 Days. Refills: 2. Next Dose: - Venlafaxine (venlafaxine 150 mg oral capsule, extended release) 1 capsule Oral Daily. replace 75mg. Refills: 3. Next Dose: Medications to Continue with No Changes These medications were not printed or sent to your pharmacy Amoxicillin-Clavulanate (Augmentin 875 mg-125 mg oral tablet) 1 tab(s) Oral every 12 hours for 7 Days. Refills: 0. Next Dose: Colestipol (colestipol 1 gm oral tablet) 3 tab(s) Oral twice a day. Refills: 3. Next Dose: Colestipol (colestipol 1 gm oral tablet) 3 tab(s) Oral twice a day. Refills: 3. Next Dose: Multivitamin (Daily Tamir oral tablet) 1 tab(s) Oral Daily. Refills: 4. Next Dose: Norethindrone (norethindrone 0.35 mg oral tablet) Next Dose: No Longer Take the Following Medications Azithromycin (Azithromycin 5 Day Dose Pack 250 mg oral tablet) 1 pack/packet Oral once. Refills: 0. Fluconazole (fluconazole 150 mg oral tablet) 1 tab(s) Oral once. Refills: 0. Levonorgestrel (Mirena 52 mg intrauteral device) 1 Each once. Omeprazole (omeprazole 20 mg oral delayed release tablet) 1 tab(s) Oral Daily. Refills: 5. Trazodone (traZODone 50 mg oral tablet) 0.5 tab(s) Oral Daily at Bedtime as needed Sleep. after meals for sleep as needed, half a tablet at bedtime.. Refills: 2. Allergy Info:?? Fish; Adhesive Bandage Medications Given This Visit Future Orders ?No future orders Vital Signs Height 158 cm Weight 74.2 kg BMI 29.72 kg/m2 Blood Pressure 135 mm Hg/85 mm Hg Temperature Pulse Rate 119 bpm Respiratory Rate 02 Sat Mode of Delivery 97 %/ You can now view a summary of your hospital visit from the comfort of your home through a free online portal called [employer]. [employer] is a website that allows you to securely view your medical information including discharge summary, medications and follow-up visits. ??You can alsosend a secure electronic message to your doctor???s office to request appointments, renew medications or just ask a question. You can enroll at [email or web address] or register during your next office visit. Disclaimer:?? The information provided is of a general nature and is intended to be used in conjunction with the recommendations and advice of your health care practitioner. ??Every effort has been made to ensure that the information provided is accurate and complete at the time it is provided to you however, as your needs change, or, as new ??information becomes available, different or additional instructions may be required. If you have questions, please consult with your primary care provider or pharmacist, as appropriate. ??This information is not intended to serve as substitution for assessment and evaluation by a qualified health care provider. If you do not have a primary care provider, you may find a [facility] provider by calling [facility] at [phone]. For information about the plan of care including goals and instructions for your diagnosis, please see the patient education orders section of this document. Patient Education Materials?? The content of this educational material or handout may have been modified, supplemented, or adapted from its original content and format to support your individualized medical care. Patient Care team information Care Team Personnel Name: Anh Victoria RN Position: S RN Member Role: Primary Care Nurse Name: Iva Liu RN Position: [facility] RN Member Role: Primary Care Nurse Name: Ian Bates MD Position: [facility] Primary Care Physician Member Role: PCP Address: Address: [address] [place] [address] [facility] Name: Maggie Rogel RN Position: [facility] RN Member Role: Primary Care Nurse Name: Merna Manzano RN Position: [facility] RN Member Role: Primary Care Nurse Care Team Related Persons Name: HALIMA JARAMILLO Address: home [address] [place], [place] Name: LISA AUGUST Address: home [address], [place] Name: NONE, NONE Name: CHATA EATON Address: home [address], [place] Name: REBECCA EATON Address: home [address] [place], [place]
--- OUTSIDE RECORDS SUMMARY | 2022-10-14 17:40 | XMS_ITS | Continuity of Care Document ---
Author Name Unknown Organization [facility] Tra[facility] Address [address] [place] [address]- Care Team Providers Care Help Desk Analyst Name Role Phone Jana MUNGUIA, Ian Mae Primary Care Physician Encounter [facility] [place] Date(s): 01/04/21 - 02/03/21 [facility] Adult [address] [place] [address]- Allergies, Adverse Reactions, Alerts Substance Reaction Severity [...] 09/21/2115:25:00 EDT, [facility] #[id number], Partial fill upon patient request if the [...]
--- OUTSIDE RECORDS SUMMARY | 2022-10-14 17:40 | XMS_ITS | Continuity of Care Document ---
Author Name Unknown Organization [facility] lt Address [address] [place] [address]- Care Team Providers Care Painter Set Name Role Phone Jana MUNGUIA, Ian Mae Primary Care Physician Encounter [facility] [place] Date(s): 08/02/21 - 09/01/21 [facility] Adult [address] [place] [address]- Attending Physician: Cornelius Kelly Admitting Physician: AdmCornelius [...] tablet 1 pack/packet, By Mouth, Once, # 6 tablet, 0 Refills, Soft Stop, 08/02/21 14:47:00 EDT, Tablet, [id number], Partial fill upon patient request if the prescription is for a schedule II opioid drug., 158, cm, 08/02/21 14:11:00 EDT, Height, 76.1,... Start Date: 08/02/21 Status: Ordered colestipol 1 gm oral tablet [...] # 90 tablet, 4 Refills, [facility], 90, TAKE 1 TABLET BY MOUTH EVERY DAY, 158, cm, 04/11/21 16:19:00 EST, Height, 76.1, kg, 03/19/21 10:19:00 EDT, Dry Weight Start Date: 06/14/21 Status: Ordered fluconazole 150 mg oral tablet 1 tablet = 150 mg, By Mouth, Once, # 1 tablet, 0 Refills, Soft Stop, 03/02/21 7:04:00 EDT, Tablet, [facility]/pharmacy #[id number], Partial fill upon patient request if the prescription is for a schedule II opioid drug., 158, cm, 03/02/21 6:37:00 EDT, Height, 73.2... Start Date: 03/02/21 Status: Ordered LORazepam 0.5 mg oral tablet 0.5 tablet = 0.25 mg, By Mouth, Daily, PRN as needed for anxiety, # 20 tablet, 0 Refills, Soft Stop, 11/25/20 17:12:00 EDT, Tablet, [facility]/pharmacy #[id number], Partial fill upon [...] 11/25/20 17:20:00 EDT, Route to Pharmacy Electronically, [facility]/pharmacy #[id number], P... Start Date: 11/25/20 Status: Ordered venlafaxine 75 mg oral capsule, extended release 1 capsule, By Mouth, Daily, # 90 capsule, 0 Refills, [facility], 158, cm, 04/11/21 16:19:00 EST, Height, 76.1, [...]
--- OUTSIDE RECORDS SUMMARY | 2022-10-14 17:40 | XMS_ITS | Continuity of Care Document ---
Author Name Unknown Organization [facility] Trae lt Address [address] [place] [address]- Care Team Providers Care Boat Worker Name Role Phone Ian Bates MD Primary Care Physician [phone] Encounter [facility] [place] Date(s): 11/25/20 - 12/02/20 [facility] Adult [address] [place] [address]- Encounter Diagnosis Elevated blood pressure, situational(Discharge Diagnosis) - 11/28/20 Attending Physician: Ian Bates MD Allergies, Adverse [...] Refills, Soft Stop, 11/25/20 17:12:00 EDT, Tablet, [facility]/pharmacy #[id number], Partial fill upon patient request [...] 3 Refills, Maintenance, 08/23/20 15:33:00 EDT, Tablet, [facility]/pharmacy #[id number], Partial fill upon patient request [...] 11/25/20 17:20:00 EDT, Route to Pharmacy Electronically, [facility]/pharmacy #[id number], P... Start Date: 11/25/20 Status: Ordered venlafaxine 150 mg oral capsule, extended release 150 mg, 1, capsule, By Mouth, Daily, # 30 capsule, Refills 2, Tot. Refills 2, Maintenance, 09/21/2115:25:00 EDT, Route to Pharmacy Electronically, [facility]/pharmacy #[id number], Partial fill upon patient request if the [...] 08/23/20 15:32:00 EDT, Route to Pharmacy Electronically, [facility]/pharmacy #[id number], Partial fill upon patient request if the [...] at 9 weeks. 03/08/04 . 09/30/08 . 6/9/15 .(Confirmed) Active S/P cholecystectomy(Confirmed) Active ASCUS with [...] Diagnosis Diagnosis Type Effective Dates Health Status Clinical Service Informant Elevated blood pressure, situational Discharge Diagnosis 11/28/20 Vital Signs Most recent to oldest [Reference Range]: 1 Height 158 cm (11/25/20 3:32 PM) Weight 76.7 kg (11/25/20 3:32 PM) Oxygen Saturation [94-100 %] 97 % (11/25/20 3:32 PM) Pulse Rate [55-90 bpm] 100 bpm *H* (11/25/20 3:32 PM) Body Mass Index [18.5-24.99] 30.72 *>HHI* (11/25/20 3:32 PM) Blood Pressure [90-138/55-84 mm Hg] 116/ 78mm Hg (11/25/20 3:32 PM) Temperature [96.8-100.4 DegF] 98.6 DegF (11/25/20 3:32 PM) Mode of Delivery (Oxygen) Room air (11/25/20 3:32 PM) Blood pressure sites Arm, left (11/25/20 3:32 PM) Temperature Route Oral (11/25/20 3:32 PM) Weight Obtained Via Standing scale (11/25/20 3:32 PM) Social History Social History Type Response Smoking Status Current every day tameka andre entered on: 08/17/16 Sex
--- OUTSIDE RECORDS SUMMARY | 2022-10-14 17:40 | XMS_ITS | Continuity of Care Document ---
Author Name Unknown Organization [facility] Trae Address [address] [place] [address]- Care Team Providers Care Data Management Consultant Name Role Phone Ian Bates MD Primary Care Physician [id number]09[facility] Adult [address] [place] [address]- Encounter Diagnosis Current smoker(Discharge Diagnosis) - 06/02/20 Post herpetic neuralgia(Discharge Diagnosis) - 06/02/20 Cough(Discharge Diagnosis) - 06/02/20 Attending Physician: Rebekah Mccracken NP Referring Physician: Ian Bates MD Allergies, Adverse [...] days, # 6 tablet, 0 Refills, Acute 06/13/20 17:01:00 EST, 06/08/20 17:01:00 EST, Tablet, [id number], 158, cm, 06/02/20 8:10:00 EST, Height, 63.5, kg, 04/10... Start Date: 06/08/20 Stop Date: 06/13/20 Status: Ordered colestipol 1 gm oral tablet 3 tablets, By Mouth, Daily, # 90 tablet, 5 Refills, Maintenance, 01/13/20 11:06:00 EDT, Tablet, [facility]/pharmacy #[id number], 158, cm, 01/13/20 10:02:00 EDT, Height, 63.5, kg, 04/10/19 22:37:00 EST, Dry Weight Start Date: 01/13/20 Stop Date: 07/11/20 Status: Ordered gabapentin 100 mg oral capsule 100 mg, 1, capsule, By Mouth, Daily at bedtime, # 30 capsule, Refills 0, Tot. Refills 0, Maintenance, 06/02/20 8:49:00 EST, Route to Pharmacy Electronically, [facility]/pharmacy #[id number], Partial fill upon patient request if the prescription is for a schedule I... Start Date: 06/02/20 Status: Ordered LORazepam 0.5 mg oral tablet 0.5 tablet = 0.25 mg, By Mouth, Daily, PRN as needed for anxiety, # 15 tablet, 2 Refills, Soft Stop, 05/25/20 7:36:00 EST, Tablet, [facility]/pharmacy #[id number], Partial fill upon patient [...] Maintenance, 03/24/2014:06:00 EST, Route to Pharmacy Electronically, [facility]/pharmacy #[id number], 158, cm, 02/13/20 11:47:00 [...] Dates Health Status Cl inical Service Informant Current smoker Discharge Diagnosis 06/02/20 Post herpetic neuralgia Discharge Diagnosis 06/02/20 Cough Discharge Diagnosis 06/02/20 Vital Signs Most recent to oldest [Reference Range]: 1 Height 158 cm (06/02/20 8:10 AM) Social History Social History Type Response Smoking Status Current every day tameka andre entered on: 08/17/16 Sex
--- OUTSIDE RECORDS SUMMARY | 2022-10-14 17:40 | XMS_ITS | Continuity of Care Document ---
Author Name Unknown Organization [facility] Address [address] [place] [address]- Care Team Providers Care Drywall Hanger Framer Name Role Phone Jana MUNGUIA, Ian Mae Primary Care Physician [phone] [place] [facility] Date[place]s): 10/07/19 - 11/06/19 [facility] [address] [place] [address]- [facility] Attending Physician: Cornelius Kelly Admitting Physician: Cornelius Kelly Referring Physician: Cornelius Kelly Allergies, Adverse Reactions, Alerts Substance Reaction Severity [...] 06/28/17 10:48:11, Aerosol, Route to Pharmacy Electronically, [id number], [facility]/pharmacy #[id number], Compound Start Date: 06/28/17 Stop Date: 07/28/17 Status: Ordered colestipol 1 gm oral tablet 2 tablet = 2 Gm, By Mouth, Daily, take 1 tablet daily for a week and if no constipation can increase to 2 tablets daily, # 60 tablet, 5 Refills, Maintenance, 10/07/19 15:22:00 EDT, Tablet, [id number], 158, cm, 10/02/19 13:04:00 EDT, [...] Acute 11/23/19 17:25:00 EDT, 09/23/19 17:25:00 EDT, [facility]/pharmacy #[id number], 158, cm, 06/02/19 15:58:00 EST, Height, [...] Daily, # 30 tablet, 0 Refills, Maintenance, 11/04/19 15:24:00 EDT, EC Tablet Start Date: 11/04/19 Status: Ordered ZyrTEC 10 mg oral tablet [...]
--- OUTSIDE RECORDS SUMMARY | 2022-10-14 17:40 | XMS_ITS | Continuity of Care Document ---
Author Name Unknown Organization [facility] Tra[facility] Address [address] [place] [address]- Care Team Providers Care Storeroom Supervisor Name Role Phone Jana MUNGUIA, Ian Mae Primary Care Physician [place] [facility] [place] Date(s): 11/12/20 - 12/12/20 [facility] Adult [address] [place] [address]- Allergies, Adverse Reactions, Alerts Substance Reaction Severity [...] Refills, Maintenance, 11/12/20 12:49:00 EDT, REC Powder, [facility]/pharmacy #[id number], Partial fill upon patient request [...] Refills, Soft Stop, 11/25/20 17:12:00 EDT, Tablet, [facility]/pharmacy #[id number], Partial fill upon patient request [...] 3 Refills, Maintenance, 08/23/20 15:33:00 EDT, Tablet, [facility]/pharmacy #[id number], Partial fill upon patient request [...] 11/25/20 17:20:00 EDT, Route to Pharmacy Electronically, [facility]/pharmacy #[id number], P... Start Date: 11/25/20 Status: Ordered venlafaxine 150 mg oral capsule, extended release 150 mg, 1, capsule, By Mouth, Daily, # 30 capsule, Refills 2, Tot. Refills 2, Maintenance, 09/21/2115:25:00 EDT, Route to Pharmacy Electronically, [facility]/pharmacy #[id number], Partial fill upon patient request [...] 08/23/20 15:32:00 EDT, Route to Pharmacy Electronically, [facility]/pharmacy #[id number], Partial fill upon patient request if the [...]
--- OUTSIDE RECORDS SUMMARY | 2022-10-14 17:40 | XMS_ITS | Continuity of Care Document ---
Author Name Unknown Organization [facility] Trae Address [address] [place] [address]- Care Team Providers Care Colleter Name Role Phone Ian Bates MD Primary Care Physician Encounter [facility] Date(s): 04/06/21 - 05/06/21 [facility] Adult [address] [place] [address]- Attending Physician: Saul NAIK, Chandrika Yan Referring Physician: Ian Bates MD Allergies, Adverse [...] Refills, Soft Stop, 03/02/21 7:04:00 EDT, Tablet, [facility]/pharmacy #[id number], Partial fill upon patient request if the prescription is for a schedule II opioid drug., 158, cm, 03/02/21 6:37:00 EDT, Height, 73.2... Start Date: 03/02/21 Status: Ordered LORazepam 0.5 mg oral tablet 0.5 tablet = 0.25 mg, By Mouth, Daily, PRN as needed for anxiety, # 20 tablet, 0 Refills, Soft Stop, 11/25/20 17:12:00 EDT, Tablet, [facility]/pharmacy #[id number], Partial fill upon patient request if [...] 3 Refills, Maintenance, 08/23/20 15:33:00 EDT, Tablet, [facility]/pharmacy #[id number], Partial fill upon patient request if [...] 11/25/20 17:20:00 EDT, Route to Pharmacy Electronically, [facility]/pharmacy #[id number], P... Start Date: 11/25/20 Status: Ordered venlafaxine 75 mg oral capsule, extended release 1 capsule, By Mouth, Daily, # 90 capsule, 0 Refills, [id number], 158, cm, 04/11/21 16:19:00 EST, Height, 76.1, [...]
--- OUTSIDE RECORDS SUMMARY | 2022-10-14 17:40 | XMS_ITS | Continuity of Care Document ---
Author Name Unknown Organization [facility] Address [address] [facility] [address] [facility], [address], [address] [place] [address]- Care Team Providers Care Sales Representative Meats Name Role Phone Saul NAIK, Chandrika Yan Primary Care Physician Encounter [facility] Date(s): 06/27/22 - 09/02/22 [facility] [address], [address], [address] [place] [address]- Attending Physician: Jocelynn Norton NP Admitting Physician: Jocelynn Norton NP Referring Physician: Ian Bates MD Allergies, [...] Refills, Maintenance, 08/14/22 12:20:00 EDT, [facility], 90, TAKE 1 TABLET BY MOUTH EVERY DAY, 158, cm, 06/30/22 8:28:00 EST, Height, 76.1, kg, 03/19/2110:19:00 EDT, Dry Weight Start Date: 08/14/22 Status: Ordered LORazepam 0.5 mg oral tablet 0.5 tablet = 0.25 mg, By Mouth, Daily, PRN as needed for anxiety, # 15 tablet, 2 Refills, Soft Stop, 06/30/22 8:43:00 EST, Tablet, [facility]/pharmacy #[id number], Partial fill upon patient request if the prescription is for a schedule II opioid drug., 158, cm, 02... Start Date: 06/30/22 Stop Date: 09/28/22 Status: Ordered norethindrone 0.35 mg oral tablet 0 Refills, Maintenance, 12/09/21 16:10:00 EDT, Partial fill upon patient request if the prescription is for a schedule II opioid drug. Start Date: 12/09/21 Status: Ordered nystatin 010853 u/ml oral suspension 5 mL = 500,000 units, By Mouth, 4 times a day, for 7 days, swish and swallow, # 140 mL, 0 Refills, Acute 09/04/22 15:05:00 EDT, 08/28/22 15:05:00 EDT, Suspension, [facility]/pharmacy #[id number], Partial fill upon patient request if [...] 06/30/22 8:42:00 EST, Route to Pharmacy Electronically, [facility]/pharmacy #[id number], Partial fill upon patient request if the [...] Response Smoking Status Current every day tameka thai entered on: 08/17/16 Sex Female Patient Care team information Care Team Personnel Name: Anh Victoria RN Position: S RN Member Role: Primary Care Nurse Name: Iva Liu RN Position: S RN Member Role: Primary Care Nurse Name: Chandrika Hughes NP Position: [facility] PCO Associate Professional Member Role: PCP Address: Address: [address] [place] [address] - Name: Merna Manzano RN Position: S RN Member Role: Primary Care Nurse Care Team Related Persons Name: HALIMA JARAMILLO Address: home [address], [place] Name: LISA AUGUST Address: home [address], [place] Name: NONE, NONE Name: CHATA EATON Address: home [address], [place] Name: REBECCA EATON Address: home [address], [place]
--- OUTSIDE RECORDS SUMMARY | 2022-10-14 17:40 | XMS_ITS | Continuity of Care Document ---
Author Name Unknown Organization [facility] Trae Address [address] [place] [address]- Care Team Providers Care Transportation Coordinator Name Role Phone Jana MUNGUIA, Ian Mae Primary Care Physician Encounter [facility] Date(s): 09/20/20 - 10/20/20 [facility] Adult [address] [place] [address]- Allergies, Adverse Reactions, Alerts Substance Reaction Severity [...] = 52 mg, Once, 0 Refills, Maintenance, 08/12/15 11:21:54 Start Date: 12/30/14 Status: Ordered multivitamin [...] Type Response Smoking Status Current every day tmaeka andre entered on: 08/17/16 Sex
--- OUTSIDE RECORDS SUMMARY | 2022-10-14 17:40 | XMS_ITS | Continuity of Care Document ---
Author Name Unknown Organization [facility] Trae Address [address] [place] [address]- Care Team Providers Care Lorry Weigher Name Role Phone Jana MUNGUIA, Ian Mae Primary Care Physician Encounter [facility] [place] Date(s): 03/02/21 - 04/01/21 [facility] Adult [address] [place] [address]- Allergies, Adverse Reactions, Alerts Substance Reaction Severity [...] 3 Refills, Maintenance, 08/23/20 15:33:00 EDT, Tablet, [facility]/pharmacy #[id number], Partial fill upon patient request [...] 11/25/20 17:20:00 EDT, Route to Pharmacy Electronically, [facility]/pharmacy #[id number], P... Start Date: 11/25/20 Status: [...] 08/23/20 15:32:00 EDT, Route to Pharmacy Electronically, [facility]/pharmacy #[id number], Partial fill upon patient request if the [...]
--- OUTSIDE RECORDS SUMMARY | 2022-10-14 17:40 | XMS_ITS | Continuity of Care Document ---
Author Name Unknown Organization [facility] Address [address] [place] [address]- Care Team Providers Care Legal Analyst Name Role Phone Ian Bates MD Primary Care Physician [facility] Date(s): 10/07/19 - 10/14/19 [facility] [address] [place] [address]- [facility] Attending Physician: Kenny MUNGUIA, Isela Referring Physician: Ian Bates MD Allergies, Adverse [...] 06/28/17 10:48:11, Aerosol, Route to Pharmacy Electronically, [id number], [id number], Compound Start Date: 06/28/17 Stop [...] Refills, Maintenance, 10/07/19 15:22:00 EDT, Tablet, [facility]/pharmacy #[id number], 158, cm, 10/02/19 13:04:00 EDT, Height, 63... Start Date: 10/07/19 Status: Ordered duloxetine 20 mg oral enteric coated capsule 1 capsule = 20 mg, By Mouth, 2 times a day, Increase in dose, # 60 capsule, 5 Refills, Maintenance,09/23/19 17:25:00 EDT, [facility]/pharmacy #[id number], 158, cm, 06/02/19 15:58:00 EST, Height, 63.5, kg, 04/10/19 22:37:00 EST, Dry Weight Start Date: 09/23/19 Status: Ordered LORazepam 0.5 mg oral tablet 1 tablet = 0.5 mg, By Mouth, Daily, PRN as needed for anxiety, # 30 tablet, 1 Refills, Acute 11/23/19 17:25:00 EDT, 09/23/19 17:25:00 EDT, [facility]/pharmacy #[id number], 158, cm, 06/02/19 15:58:00 EST, Height, [...]
--- OUTSIDE RECORDS SUMMARY | 2022-10-14 17:40 | XMS_ITS | Continuity of Care Document ---
Author Name Unknown Organization [facility] Trae lt Address [address] [place] [address]- Care Team Providers Care Geographic Information Systems Director Name Role Phone Jana MUNGUIA, Ian Mae Primary Care Physician [place] [facility] [place] 12/09/21 - 01/08/22 [facility] Adult [address] [place] [address]- Allergies, Adverse Reactions, Alerts Substance Reaction Severity [...] Mouth, Daily, # 90 tablet, 4 Refills, [facility], 90, TAKE 1 TABLET BY MOUTH EVERY [...] 11/25/20 17:20:00 EDT, Route to Pharmacy Electronically, [facility]/pharmacy #[id number], P... Start Date: 11/25/20 Status: Ordered venlafaxine 75 mg oral capsule, extended release 1 capsule, By Mouth, Daily, # 90 capsule, 1 Refills, 09/16/21 17:24:00 EDT, [facility]/pharmacy #[id number], 158, cm, 08/02/21 14:11:00 EDT, Height, 76.1, kg, 03/19/21 10:19:00 EDT, Dry Weight Start Date: 09/16/21 Status: Ordered Problem List Condition Effective Dates Status Health Status Inform ant Acute gastritis(Confirmed) Active Acute viral pharyngitis(Confirmed) Active Anterior chest wall pain(Confirmed) Active Anxiety(Confirmed) Active History of JUAN III (cervical intraepithelial neoplasia grade III) with severe dysplasia. Had CKC that showed UJAN II, ectocervical and endocervical margins negative. Endocervical [...]
--- OUTSIDE RECORDS SUMMARY | 2022-10-14 17:40 | XMS_ITS | Continuity of Care Document ---
Author Name Unknown Organization [facility] Address [address] [place] [address]- Care Team Providers Care Roads Supervisor Name Role Phone Jana MUNGUIA, Ian Mae Primary Care Physician En[facility] Date(s): 01/12/21 - 02/11/21 [facility] [address] [place] [address]- [place] Allergies, Adverse Reactions, Alerts Substance Reaction Severity [...] Soft Stop, 11/25/20 17:12:00 EDT, Tablet, [facility]/pharmacy #0693, Partial fill upon patient [...] Refills, Maintenance, 08/23/20 15:33:00 EDT, Tablet, [facility]/pharmacy #0693, Partial fill upon patient [...] 17:20:00 EDT, Route to Pharmacy Electronically, [facility]/pharmacy #[id number], P... Start Date: 11/25/20 Status: Ordered venlafaxine 150 mg oral capsule, extended release 150 mg, 1, capsule, By Mouth, Daily, # 30 capsule, Refills 2, Tot. Refills 2, Maintenance, 09/21/2115:25:00 EDT, Route to Pharmacy Electronically, [facility]/pharmacy #[id number], Partial fill upon patient [...] 15:32:00 EDT, Route to Pharmacy Electronically, [facility]/pharmacy #[id number], Partial fill upon patient request if the [...]
--- OUTSIDE RECORDS SUMMARY | 2022-10-14 17:40 | XMS_ITS | Continuity of Care Document ---
Author Name Unknown Organization [facility] Trae lt Address [address] [place] [address]- Care Team Providers Care Air Cargo Agent Name Role Phone Jana MUNGUIA, Ian Mae Primary Care Physician [phone] Encounter [place] Date(s): 03/02/21 - 03/09/21 [facility] Adult [address] [place] [address]- Attending Physician: Not on Staff, Attending MD [...] Refills, Soft Stop, 03/02/21 7:04:00 EDT, Tablet, [facility]/pharmacy #[id number], Partial fill upon patient request if the prescription is for a schedule II opioid drug., 158, cm, 03/02/21 6:37:00 EDT, Height, 73.2... Start Date: 03/02/21 Status: Ordered LORazepam 0.5 mg oral tablet 0.5 tablet = 0.25 mg, By Mouth, Daily, PRN as needed for anxiety, # 20 tablet, 0 Refills, Soft Stop, 11/25/20 17:12:00 EDT, Tablet, [facility]/pharmacy #[id number], Partial fill upon patient request [...] 3 Refills, Maintenance, 08/23/20 15:33:00 EDT, Tablet, [facility]/pharmacy #0693, Partial fill upon patient request [...] Maintenance, 09/21/2115:25:00 EDT, Route to Pharmacy Electronically, [facility]/pharmacy #[id number], Partial fill upon patient request if the [...] 08/23/20 15:32:00 EDT, Route to Pharmacy Electronically, [facility]/pharmacy #[id number], Partial fill upon patient request if the [...] oldest [Reference Range]: 1 Height 158 cm (03/02/21 6:37 AM) Temperature [96.8-100.4 DegF] 98.7 DegF (03/02/21 6:37 AM) Temperature Route Oral (03/02/21 6:37 AM) Social History Social History Type Response Smoking Status Current every day tameka andre entered on: 08/17/16 Sex
--- OUTSIDE RECORDS SUMMARY | 2022-10-14 17:40 | XMS_ITS | Continuity of Care Document ---
Author Name Unknown Organization [facility] [employer] Address [address] [place] [address]- Care Team Providers Care Skid Man Name Role Phone Jana MUNGUIA, Ian Mae Primary Care Physician [phone] [place] [facility] [id number] Date(s): 01/30/20 - 02/29/20 [facility] [employer] [facility] [address] [place] [address]- [facility] Attending Physician: Admtr, Ar8 Allergies, Adverse Reactions, Alerts [...] 5 Refills, Maintenance, 01/13/20 11:06:00 EDT, Tablet, [facility]/pharmacy #[id number], 158, cm, 01/13/20 10:02:00 [...] Replace Required Details, Route to Pharmacy Electronically, [facility]/pharmacy #[id number], 158,... Start Date: 01/13/20 Status: Ordered ZyrTEC [...] recent to oldest [Reference Range]: 1 Height 157.48 cm (03/25/14 10:08 AM) Weight 53 kg (03/25/14 10:08 AM) Body Mass Index [18.50-24.99] 21.37 (03/25/14 10:08 AM) Blood Pressure [90-138/55-84 mm Hg] 118/ 75mm Hg (03/25/14 10:08 AM) Weight Obtained Via Standing scale (03/25/14 10:08 AM) Social History Social History Type Response Smoking Status Current every day tameka andre entered on: 08/17/16 Sex
--- OUTSIDE RECORDS SUMMARY | 2022-10-14 17:40 | XMS_ITS | Continuity of Care Document ---
Author Name Unknown Organization [facility] Address [address] [place] [address]- Care Team Providers Care Gun Perforator Loader Name Role Phone Jana MUNGUIA, Ian Mae Primary Care Physician Encounter [facility] [place]CT R [id number] Date(s): 10/27/19 - 11/28/[address] [address] [facility] Attending Physician: Michael Lovett MD Admitting Physician: [...] 06/28/17 10:48:11, Aerosol, Route to Pharmacy Electronically, [id number], [facility]/pharmacy #[id number], Compound Start Date: 06/28/17 Stop Date: 07/28/17 Status: Ordered colestipol 1 gm oral tablet 3 tablets, By Mouth, Daily, # 90 tablet, 5 Refills, Maintenance, 11/20/19 14:09:00 EDT, Tablet, [facility]/pharmacy #[id number], 158, cm, 11/04/19 13:42:00 EDT, [...] Acute 12/14/19 15:46:00 EDT, 11/14/19 15:46:00 EDT, [facility]/pharmacy #[id number], 158, cm, 11/04/19 13:42:00 EDT, [...] Dry Weight Start Date: 11/09/19 Status: Ordered ZyrTEC 10 mg oral tablet [...]
--- OUTSIDE RECORDS SUMMARY | 2022-10-14 17:41 | XMS_ITS | Continuity of Care Document ---
Author Name Unknown Organization [facility] Address [address] [place] [address]- Care Team Providers Care Reducer Name Role Phone Saul NAIK, Chandrika Yan Primary Care Physician [place] [facility] [place] [id number] Date(s): 05/31/22 - 08/20/22 [facility] Adult [address] [place] [address]- Attending Physician: Jana MUNGUIA, Ian Mae Allergies, Adverse Reactions, Alerts Substance Reaction Severity [...] tablet, 3 Refills, Maintenance, 08/14/22 12:20:00 EDT, [facility] STORE 78443, 90, TAKE 1 TABLET BY MOUTH EVERY DAY, 158, cm, 06/30/22 8:28:00 EST, Height, 76.1, kg, 03/19/2110:19:00 EDT, Dry Weight Start Date: 08/14/22 Status: Ordered LORazepam 0.5 mg oral tablet 0.5 tablet = 0.25 mg, By Mouth, Daily, PRN as needed for anxiety, # 15 tablet, 2 Refills, Soft Stop, 06/30/22 8:43:00 EST, Tablet, [facility]/pharmacy #[id number], Partial [...] 06/30/22 8:42:00 EST, Route to Pharmacy Electronically, [facility]/pharmacy #[id number], Partial fill [...] Care Nurse Name: Chandrika Hughes NP Position: [facility] PCO Associate Professional Member Role: PCP Address: Address: [address] [place] [id number] Name: Merna Manzano RN Position: [facility] RN Member Role: Primary Care Nurse Care Team Related Persons Name: HALIMA JARAMILLO Address: home [address] [place], [place] Name: LISA AUGUST Address: home [address], [place] Name: NONE, NONE Name: CHATA EATON Address: home [address], [place] Name: REBECCA EATON Address: home [address] [place] [address]
--- OUTSIDE RECORDS SUMMARY | 2022-10-14 17:41 | XMS_ITS | Continuity of Care Document ---
Author Name Unknown Organization [facility] lt Address [address] [place] [address]- Care Team Providers Care Emergency Room Orderly Name Role Phone Jana MUNGUIA, Ian Mae Primary Care Physician [phone] En[place] [facility] [place] Date(s): 12/05/19 - 01/04/20 [facility] Adult [address] [place] [address]- [facility] Allergies, Adverse Reactions, Alerts Substance [...] 06/28/17 10:48:11, Aerosol, Route to Pharmacy Electronically, [id number], [facility]/pharmacy #[id number], Compound Start Date: 06/28/17 Stop Date: 07/28/17 Status: Ordered colestipol 1 gm oral tablet 3 tablets, By Mouth, Daily, # 90 tablet, 5 Refills, Maintenance, 11/20/19 14:09:00 EDT, Tablet, [facility]/pharmacy #[id number], 158, cm, 11/04/19 13:42:00 EDT, Height, [...]
--- OUTSIDE RECORDS SUMMARY | 2022-10-14 17:41 | XMS_ITS | Continuity of Care Document ---
Author Name Unknown Organization [facility] Tra[facility] lt Address [address] [place] [address]- Care Team Providers Care Key Operator Name Role Phone Ian Bates MD Primary Care Physician [id number] 06/27/21 - 07/04/21 [facility] Adult [address] [place] [address]- Attending Physician: Ian Bates MD Allergies, Adverse [...] tablet, By Mouth, 2 times a day, for 30 days, # 180 tablet, 5 Refills, Hard Stop 07/20/21 11:29:00 EST, 01/21/21 11:29:00 EDT, [id number], 158, cm, 11/25/20 15:32:00 EDT, Height, 73.2, kg, 08/01/20 10:43:00 EDT, Dry Weight Start Date: 01/21/21 Stop Date: 07/20/21 Status: Ordered colestipol 1 gm oral tablet [...] 90 tablet, 4 Refills, [facility]38, 90, TAKE 1 TABLET BY MOUTH EVERY [...] # 90 capsule, 0 Refills, [facility], 158, cm, 04/11/21 16:19:00 EST, Height, 76.1, [...] oldest [Reference Range]: 1 Height 158 cm (06/27/21 8:42 AM) Weight 78.63 kg (06/27/21 8:42 AM) Body Mass Index [18.5-24.99] 31.5 *>HHI* (06/27/21 8:42 AM) Social History Social History Type Response Smoking Status Current every day tameka andre entered on: 08/17/16 Sex Female
--- OUTSIDE RECORDS SUMMARY | 2022-10-14 17:41 | XMS_ITS | Continuity of Care Document ---
Author Name Unknown Organization [facility] Address [address], [address], [address] [place] [address]- Care Team Providers Care Meteorology Teacher Name Role Phone Jana MUNGUIA, Ian Mae Primary Care Physician [place] [facility] [place] - 07/29/22 [facility] [address], [address], [address] [place] [address]- Attending Physician: Koby Wright MD Admitting Physician: Koby Wright MD Referring Physician: Ian Bates MD Allergies, [...] 90d fine to change to 30d supply, x, 158, cm, 12/09/21 16:02:00 EDT, Height, 76.1, kg, 03/19/21 10:19:00 EDT,... Start Date: 06/09/22 Status: Ordered Daily Tamir oral tablet 1 tablet, By Mouth, Daily, # 90 tablet, 4 Refills, [facility], 90, TAKE 1 TABLET BY MOUTH EVERY DAY, 158, cm, 04/11/21 16:19:00 EST, Height, 76.1, kg, 03/19/21 10:19:00 EDT, Dry Weight Start Date: 06/14/21 Status: Ordered LORazepam 0.5 mg oral tablet 0.5 tablet = 0.25 mg, By Mouth, Daily, PRN as needed for anxiety, # 15 tablet, 2 Refills, Soft Stop, 06/30/22 8:43:00 EST, Tablet, [facility]/pharmacy #[id number], Partial fill upon patient [...] 06/30/22 8:42:00 EST, Route to Pharmacy Electronically, [facility]/pharmacy #[id number], Partial fill upon patient [...] Care Nurse Name: Ian Bates MD Position: [facility] Primary Care Physician Member Role: PCP Address: Address: [address] [place] [address]- Name: Merna Manzano RN Position: [facility] RN Member Role: Primary Care Nurse Care Team Related Persons Name: HALIMA JARAMILLO Address: home [address] [place] [address] Name: LISAAugust Address: home [address] [place], [place] Name: NONE, NONE Name: CHATA EATON Address: home [address] [place] [address] Name: REBECCA EATON Address: home [address] [place] [address]
--- OUTSIDE RECORDS SUMMARY | 2022-10-14 17:41 | XMS_ITS | Continuity of Care Document ---
Author Name Unknown Organization [facility] Address [address] [place] [address]- Care Team Providers Care Sales Representative Sales Manager Name Role Phone Jana MUNGUIA, Ian Mae Primary Care Physician En[place] [facility] [place]s): 02/13/20 - 03/14/20 [facility] Adult [address] [place] [address]- [facility] Attending Physician: Cornelius Kelly Admitting Physician: Cornelius [...] Refills, Maintenance, 01/13/20 11:06:00 EDT, Tablet, [facility]/pharmacy #[id number], 158, cm, 01/13/20 10:02:00 EDT, [...] Replace Required Details, Route to Pharmacy Electronically, [facility]/pharmacy #[id number], 158,... Start Date: 01/13/20 Status: Ordered ZyrTEC [...]
--- OUTSIDE RECORDS SUMMARY | 2022-10-14 17:41 | XMS_ITS | Continuity of Care Document ---
Author Name Unknown Organization [facility] Address [address] [place] [address]- Care Team Providers Care Mailing Machine Helper Name Role Phone Jana MUNGUIA, Ian Mae Primary Care Physician [phone] [place] [facility] [place] 11/10/20 - 12/10/20 [facility] Adult [address] [place] [address]- Allergies, Adverse Reactions, Alerts Substance Reaction Severity [...] Refills, Maintenance, 11/12/20 12:49:00 EDT, REC Powder, [facility]/pharmacy #[id number], Partial fill upon patient [...] Refills, Soft Stop, 11/25/20 17:12:00 EDT, Tablet, [facility]/pharmacy #[id number], Partial fill upon patient [...] 3 Refills, Maintenance, 08/23/20 15:33:00 EDT, Tablet, [facility]/pharmacy #[id number], Partial fill upon patient [...] 11/25/20 17:20:00 EDT, Route to Pharmacy Electronically, [facility]/pharmacy #[id number], P... Start Date: 11/25/20 Status: Ordered venlafaxine 150 mg oral capsule, extended release 150 mg, 1, capsule, By Mouth, Daily, # 30 capsule, Refills 2, Tot. Refills 2, Maintenance, 09/21/2115:25:00 EDT, Route to Pharmacy Electronically, [facility]/pharmacy #[id number], Partial fill upon patient [...] 08/23/20 15:32:00 EDT, Route to Pharmacy Electronically, [facility]/pharmacy #[id number], Partial fill upon patient request if the [...]
--- OUTSIDE RECORDS SUMMARY | 2022-10-14 17:41 | XMS_ITS | Continuity of Care Document ---
Author Name Unknown Organization [facility] Address [address] [place] [address]- Care Team Providers Care Desktop Publishing Specialist Name Role Phone Jana MUNGUIA, Ian Mae Primary Care Physician [place] [facility] [place] Date(s): 05/20/19 - 05/27/19 [facility] Adult [address] [place] [address]- [facility] Encounter Diagnosis Sinusitis, acute(Discharge Diagnosis) - 05/20/19 Attending Physician: Eleuterio Linares MD Allergies, Adverse Reactions, Alerts Substance Reaction [...] 06/28/17 10:48:11, Aerosol, Route to Pharmacy Electronically, [id number], [facility]/pharmacy #[id number], Compound Start Date: 06/28/17 Stop Date: 07/28/17 Status: Ordered amoxicillin 500 mg oral tablet 1 tablet = 500 mg, By Mouth, 3 times a day, for 10 days, # 30 tablet, 0 Refills, Acute 05/30/19 14:57:00 EST, 05/20/19 14:57:00 EST, Tablet, [facility]/pharmacy #[id number], 158, cm, 05/20/19 14:37:00 EST, Height, 63.5, kg, 04/10/19 22:37:00 EST, Dry Weight Start Date: 05/20/19 Stop Date: 05/30/19 Status: Ordered escitalopram 5 mg oral tablet 1 tablet = 5 mg, By Mouth, Daily, # 30 tablet, 5 Refills, Maintenance, 03/06/19 16:58:33 EDT, Tablet Start Date: 03/06/19 Status: Ordered LORazepam 0.5 mg oral tablet 1 tablet = 0.5 mg, By Mouth, Daily, PRN as needed for anxiety, # 30 tablet, 1 Refills, Acute 07/09/19 8:46:00 EST, 05/08/19 8:43:00 EST, [facility]/pharmacy #[id number], 158, cm, 05/08/19 8:17:00 EST, Height, [...] Dates Health Status Cl inical Service Informant Sinusitis, acute Discharge Diagnosis 05/20/19 Vital Signs Most recent to oldest [Reference Range]: 1 Height 158 cm (05/20/19 2:37 PM) Weight 64.2 kg (05/20/19 2:37 PM) Oxygen Saturation [94-100 %] 98 % (05/20/19 2:37 PM) Pulse Rate [55-90 bpm] 81 bpm (05/20/19 2:37 PM) Body Mass Index [18.5-24.99] 25.72 *H* (05/20/19 2:37 PM) Blood Pressure [90-138/55-84 mm Hg] 110/ 74mm Hg (05/20/19 2:37 PM) Temperature [96.8-100.4 DegF] 98.2 DegF (05/20/19 2:37 PM) Blood pressure sites Arm, right (05/20/19 2:37 PM) Social History Social History Type Response Smoking Status Current every day tameka andre entered on: 08/17/16 Sex
--- OUTSIDE RECORDS SUMMARY | 2022-10-14 17:41 | XMS_ITS | Continuity of Care Document ---
Author Name Unknown Organization [facility] Address [address] [place] [address]- Care Team Providers Care Shipping Weigher Name Role Phone Ian Bates MD Primary Care Physician [phone] [place] [facility] [place] Date(s): 10/26/20 - 11/02/20 [facility] Adult [address] [place] [address]- Encounter Diagnosis Weight gain(Discharge Diagnosis) - 10/29/20 Lipoma of back(Discharge Diagnosis) - 10/29/20 Attending Physician: Chandrika Hughes NP Referring Physician: Ian Bates MD Allergies, [...] 3 Refills, Maintenance, 08/23/20 15:33:00 EDT, Tablet, [facility]/pharmacy #[id number], Partial fill upon patient request if the prescription is for a schedule II opioid drug., 1 tablet By Mouth Daily, 158, cm, 08/01/20 15:... Start Date: 08/23/20 Status: Ordered venlafaxine 150 mg oral capsule, extended release 150 mg, 1, capsule, By Mouth, Daily, # 30 capsule, Refills 2, Tot. Refills 2, Maintenance, 09/21/2115:25:00 EDT, Route to Pharmacy Electronically, [facility]/pharmacy #[id number], Partial fill upon patient [...] 08/23/20 15:32:00 EDT, Route to Pharmacy Electronically, [facility]/pharmacy #[id number], Partial fill upon patient request if the [...] Dates Health Status Cl inical Service Informant Weight gain Discharge Diagnosis 10/29/20 Lipoma of back Discharge Diagnosis 10/29/20 Vital Signs Most recent to oldest [Reference Range]: 1 2 Height 158 cm (10/26/20 2:40 PM) 158 cm (10/26/20 2:00 PM) Weight 75.2 kg (10/26/20 2:00 PM) Oxygen Saturation [94-100 %] 97 % (10/26/20 2:00 PM) Pulse Rate [55-90 bpm] 102 bpm *H* (10/26/20 2:00 PM) Body Mass Index [18.5-24.99] 30.12 *>HHI* (10/26/20 2:00 PM) Blood Pressure [90-138/55-84 mm Hg] 120/ 82mm Hg (10/26/20 2:40 PM) 131/84mm Hg (10/26/20 2:00 PM) Temperature [96.8-100.4 DegF] 97.8 DegF (10/26/20 2:00 PM) Blood pressure sites Arm, right (10/26/20 2:00 PM) Temperature Route Oral (10/26/20 2:00 PM) Weight Obtained Via Standing scale (10/26/20 2:00 PM) Social History Social History Type Response Smoking Status Current every day tameka andre entered on: 08/17/16 Sex
--- OUTSIDE RECORDS SUMMARY | 2022-10-14 17:41 | XMS_ITS | Continuity of Care Document ---
Author Name Unknown Organization [facility] Address [address] [place] [address]- Care Team Providers Care Recreation Coordinator Name Role Phone Saul NAIK, Chandrika Yan Primary Care Physician En[facility] [place] Date(s): 08/28/22 - 09/27/22 [facility] Adult [address] [place] [address]- Allergies, Adverse Reactions, Alerts Substance Reaction Severity [...] Refills, Maintenance, 08/14/22 12:20:00 EDT, [facility], 90, TAKE 1 TABLET BY MOUTH EVERY DAY, 158, cm, 06/30/22 8:28:00 EST, Height, 76.1, kg, 03/19/2110:19:00 EDT, Dry Weight Start Date: 08/14/22 Status: Ordered LORazepam 0.5 mg oral tablet 0.5 tablet = 0.25 mg, By Mouth, Daily, PRN as needed for anxiety, # 15 tablet, 2 Refills, Soft Stop, 06/30/22 8:43:00 EST, Tablet, [facility]/pharmacy #[id number], Partial fill upon patient request if the [...] Refills, Maintenance, 09/18/22 14:39:00 EDT, [facility], 158, cm,... Start Date: 09/18/22 Status: Ordered venlafaxine 150 mg oral capsule, extended release 150 mg, 1, capsule, By Mouth, Daily, replace 75mg, # 30 capsule, Refills 3, Tot. Refills 3, Maintenance, 09/19/22 16:33:00 EDT, Route to Pharmacy Electronically, [facility]/pharmacy #[id number], Partial fill uponpatient request if the prescription [...] Care Nurse Name: Chandrika Hughes NP Position: [facility] PCO Associate Professional Member Role: PCP Address: Address: [address] [place] [id number] Name: Merna Manzano RN Position: S RN Member Role: Primary Care Nurse Care Team Related Persons Name: HALIMA JARAMILLO Address: home [address] [place], [place] Name: LISA AUGUST Address: [address], [place] Name: NONE, NONE Name: CHATA EATON Address: home [address], [place] Name: REBECCA EATON Address: home [address] [place], [place]
--- OUTSIDE RECORDS SUMMARY | 2022-10-14 17:41 | XMS_ITS | Continuity of Care Document ---
Author Name Unknown Organization [facility] Address [address] [place] [address]- Care Team Providers Care Cone Trucker Name Role Phone Jana MUNGUIA, Ian Mae Primary Care Physician En[place] [facility] [place] Date(s): 11/27/19 - 01/02/[address] [address]- [facility] Attending Physician: Michael Lovett MD Admitting Physician: Michael Lovett MD Referring Physician: Not on Staff, Referring [...] 06/28/17 10:48:11, Aerosol, Route to Pharmacy Electronically, [id number], [facility]/pharmacy #[id number], Compound Start Date: 06/28/17 Stop Date: 07/28/17 Status: Ordered colestipol 1 gm oral tablet 3 tablets, By Mouth, Daily, # 90 tablet, 5 Refills, Maintenance, 11/20/19 14:09:00 EDT, Tablet, [facility]/pharmacy #[id number], 158, cm, 11/04/19 13:42:00 EDT, Height, [...]
--- OUTSIDE RECORDS SUMMARY | 2022-10-14 17:41 | XMS_ITS | Continuity of Care Document ---
Author Name Unknown Organization [facility] lt Address [address] [place] [address]- Care Team Providers Care Service Learning Coordinator Name Role Phone Jana MUNGUIA, Ian Mae Primary Care Physician [place] [facility] [place] Date(s): 03/02/21 - 04/01/21 [facility] Adult [address] [place] [address]- Attending Physician: Cornelius Kelly Admitting Physician: Cornelius [...] Refills, Soft Stop, 03/02/21 7:04:00 EDT, Tablet, [facility]/pharmacy #[id number], Partial fill upon patient request if the prescription is for a schedule II opioid drug., 158, cm, 03/02/21 6:37:00 EDT, Height, 73.2... Start Date: 03/02/21 Status: Ordered LORazepam 0.5 mg oral tablet 0.5 tablet = 0.25 mg, By Mouth, Daily, PRN as needed for anxiety, # 20 tablet, 0 Refills, Soft Stop, 11/25/20 17:12:00 EDT, Tablet, [facility]/pharmacy #[id number], Partial fill upon patient [...] 3 Refills, Maintenance, 08/23/20 15:33:00 EDT, Tablet, [facility]/pharmacy #[id number], Partial fill upon patient [...] 11/25/20 17:20:00 EDT, Route to Pharmacy Electronically, [facility]/pharmacy #[id number], P... Start Date: 11/25/20 Status: Ordered venlafaxine 150 mg oral capsule, extended release 150 mg, 1, capsule, By Mouth, Daily, # 30 capsule, Refills 2, Tot. Refills 2, Maintenance, 09/21/2115:25:00 EDT, Route to Pharmacy Electronically, [facility]/pharmacy #[id number], Partial fill upon patient request if the [...] 08/23/20 15:32:00 EDT, Route to Pharmacy Electronically, [facility]/pharmacy #0631, Partial fill upon patient request if the [...]
--- OUTSIDE RECORDS SUMMARY | 2022-10-14 17:41 | XMS_ITS | Continuity of Care Document ---
Author Name Unknown Organization [facility] Address [address] [place] [address]- Care Team Providers Care Television Specialist Name Role Phone Ian Bates MD Primary Care Physician [phone] [place] [facility] [place] [id number] Date(s): 01/10/20 - 05/09/20 [facility] [address] [place] [address] Attending Physician: Isela Cox MD Admitting Physician: Isela Cox MD Referring Physician: Ian Bates MD Allergies, [...] Maintenance, 03/24/2014:06:00 EST, Route to Pharmacy Electronically, [facility]/pharmacy #[id number], 158, cm, 02/13/20 11:47:00 EDT,Height, 63.5, kg, 04/10/19 22:37:00 EST, Dry Weight Start Date: 03/24/20 Status: Ordered venlafaxine 37.5 mg oral capsule, extended release See Instructions, 1 capsule By Mouth Daily for 2 weeks, then two caps daily, # 60 capsule, Refills 2, Tot. Refills 2, Maintenance, 01/13/20 11:07:00 EDT, Instructions Replace Required Details, Route to Pharmacy Electronically, [facility]/pharmacy #[id number], 158,... Start Date: 01/13/20 Status: Ordered ZyrTEC [...]
--- OUTSIDE RECORDS SUMMARY | 2022-10-14 17:41 | XMS_ITS | Continuity of Care Document ---
Author Name Unknown Organization [facility] Address [address] [place] [address]- Care Team Providers Care Die Stamping Press Operator Name Role Phone Jana MUNGUIA, Ian Mae Primary Care Physician Encounter [facility] [place] Date(s): 03/09/21 - 04/08/21 [facility] Adult [address] [place] [address]- Allergies, Adverse Reactions, Alerts Substance Reaction Severity [...] 3 Refills, Maintenance, 08/23/20 15:33:00 EDT, Tablet, [facility]/pharmacy #[id number], Partial fill upon patient [...] 11/25/20 17:20:00 EDT, Route to Pharmacy Electronically, [facility]/pharmacy #[id number], P... Start Date: 11/25/20 [...] 08/23/20 15:32:00 EDT, Route to Pharmacy Electronically, [facility]/pharmacy #[id number], Partial fill upon patient request if the [...]
--- OUTSIDE RECORDS SUMMARY | 2022-10-14 17:41 | XMS_ITS | Continuity of Care Document ---
Author Name Unknown Organization [facility] Address [address] [place] [address]- Care Team Providers Care Pump Operator Name Role Phone Jana MUNGUIA, Ian Mae Primary Care Physician [id number] Date(s[facility] 09/20/20 - 10/20/20 [facility] Adult [address] [place] [address]- Allergies, Adverse Reactions, Alerts Substance Reaction Severity [...]
--- OUTSIDE RECORDS SUMMARY | 2022-10-14 17:41 | XMS_ITS | Continuity of Care Document ---
Author Name Unknown Organization [facility] Address [address] [place] [address]- Care Team Providers Care White Goods Appliance Tech Name Role Phone Ian Bates MD Primary Care Physician [phone] [place] [facility] [place] [id number] Date(s): 02/13/20 - 02/20/20 [facility] Adult [address] [place] [address]- [facility] Attending Physician: Ian Bates MD Allergies, [...] Refills, Maintenance, 01/13/20 11:06:00 EDT, Tablet, [facility]/pharmacy #[id number], 158, cm, 01/13/20 10:02:00 EDT, [...] Replace Required Details, Route to Pharmacy Electronically, [facility]/pharmacy #[id number], 158,... Start Date: 01/13/20 Status: Ordered ZyrTEC [...] oldest [Reference Range]: 1 Height 158 cm (02/13/20 11:47 AM) Social History Social History Type Response Smoking Status Current every day tameka andre entered on: 08/17/16 Sex
--- OUTSIDE RECORDS SUMMARY | 2022-10-14 17:41 | XMS_ITS | Continuity of Care Document ---
Author Name Unknown Organization [facility] Address [address] [place] [address]- Care Team Providers Care Compliance Officer Name Role Phone Jana MUNGIUA, Ian Mae Primary Care Physician [place] [facility] [place] 09/06/21 - 10/06/21 [facility] Adult [address] [place] [address]- Allergies, Adverse Reactions, Alerts Substance Reaction Severity [...] # 90 tablet, 4 Refills, [facility], 90, TAKE 1 TABLET BY MOUTH EVERY DAY, 158, cm, 04/11/21 16:19:00 EST, Height, 76.1, kg, 03/19/21 10:19:00 EDT, Dry Weight Start Date: 06/14/21 Status: Ordered fluconazole 150 mg oral tablet 1 tablet = 150 mg, By Mouth, Once, # 1 tablet, 0 Refills, Soft Stop, 03/02/21 7:04:00 EDT, Tablet, [facility]/pharmacy #[id number], Partial fill upon patient request if the prescription is for a schedule II opioid drug., 158, cm, 03/02/21 6:37:00 EDT, Height, 73.2... Start Date: 03/02/21 Status: Ordered LORazepam 0.5 mg oral tablet 0.5 tablet = 0.25 mg, By Mouth, Daily, PRN as needed for anxiety, # 20 tablet, 0 Refills, Soft Stop, 11/25/20 17:12:00 EDT, Tablet, [facility]/pharmacy #[id number], Partial fill upon patient request if [...] Refills, Maintenance, 09/06/21 10:59:00 EDT, CR Tablet, [facility]/pharmacy #[id number], Partial fill upon patient request if [...] 11/25/20 17:20:00 EDT, Route to Pharmacy Electronically, [facility]/pharmacy #[id number], P... Start Date: 11/25/20 Status: Ordered venlafaxine 75 mg oral capsule, extended release 1 capsule, By Mouth, Daily, # 90 capsule, 1 Refills, 09/16/21 17:24:00 EDT, [facility]/pharmacy #[id number], 158, cm, 08/02/21 14:11:00 EDT, Height, [...]
--- OUTSIDE RECORDS SUMMARY | 2022-10-14 17:41 | XMS_ITS | Continuity of Care Document ---
Author Name Unknown Organization [facility] Address [address] [place] [address]- Care Team Providers Care Pre Parole Counseling Aide Name Role Phone Jana MUNGUIA, Ian Mae Primary Care Physician [phone] Encounter [facility] Date(s): 10/08/20 - 11/07/20 [facility] Adult [address] [place] [address]- Allergies, Adverse Reactions, Alerts Substance Reaction Severity [...] 3 Refills, Maintenance, 08/23/20 15:33:00 EDT, Tablet, [facility]/pharmacy #[id number], Partial fill upon patient request if the prescription is for a schedule II opioid drug., 1 tablet By Mouth Daily, 158, cm, 08/01/20 15:... Start Date: 08/23/20 Status: Ordered venlafaxine 150 mg oral capsule, extended release 150 mg, 1, capsule, By Mouth, Daily, # 30 capsule, Refills 2, Tot. Refills 2, Maintenance, 09/21/2115:25:00 EDT, Route to Pharmacy Electronically, [facility]/pharmacy #[id number], Partial fill upon [...] 08/23/20 15:32:00 EDT, Route to Pharmacy Electronically, [facility]/pharmacy #[id number], Partial fill upon [...]
--- OUTSIDE RECORDS SUMMARY | 2022-10-14 17:41 | XMS_ITS | Continuity of Care Document ---
Author Name Unknown Organization [facility] Address [address] [place] [address]- Care Team Providers Care Paper And Pulp Mill Worker Name Role Phone Jana MUNGUIA, Ian Mae Primary Care Physician [phone] Encounter [facility] Date(s): 01/13/21 - 02/12/21 [facility] [address] [place] [address]- [place] Allergies, Adverse Reactions, Alerts Substance Reaction [...] Refills, Soft Stop, 11/25/20 17:12:00 EDT, Tablet, [facility]/pharmacy #[id number], Partial fill upon patient request if [...] 3 Refills, Maintenance, 08/23/20 15:33:00 EDT, Tablet, [facility]/pharmacy #0693, Partial fill upon patient request if [...] 11/25/20 17:20:00 EDT, Route to Pharmacy Electronically, [facility]/pharmacy #[id number], P... Start Date: 11/25/20 Status: Ordered venlafaxine 150 mg oral capsule, extended release 150 mg, 1, capsule, By Mouth, Daily, # 30 capsule, Refills 2, Tot. Refills 2, Maintenance, 09/21/2115:25:00 EDT, Route to Pharmacy Electronically, [facility]/pharmacy #[id number], Partial fill upon patient request if [...] 08/23/20 15:32:00 EDT, Route to Pharmacy Electronically, [facility]/pharmacy #[id number], Partial fill upon patient request if the [...]
--- OUTSIDE RECORDS SUMMARY | 2022-10-14 17:41 | XMS_ITS | Continuity of Care Document ---
Author Name Unknown Organization [facility] Address [address] [place] [address]- Care Team Providers Care Coal Unloader Name Role Phone Saul NAIK, Chandrika Yan Primary Care Physician Encounter [facility] Date(s): 08/30/22 - 09/29/22 [facility] Adult [address] [place] [address]- Allergies, Adverse Reactions, Alerts Substance Reaction Severity [...] Refills, Maintenance, 08/14/22 12:20:00 EDT, [id number], 90, TAKE 1 TABLET BY MOUTH EVERY DAY, 158, cm, 06/30/22 8:28:00 EST, Height, 76.1, kg, 03/19/2110:19:00 EDT, Dry Weight Start Date: 08/14/22 Status: Ordered LORazepam 0.5 mg oral tablet 0.5 tablet = 0.25 mg, By Mouth, Daily, PRN as needed for anxiety, # 15 tablet, 2 Refills, Soft Stop, 06/30/22 8:43:00 EST, Tablet, [facility]/pharmacy #0676, Partial fill upon patient request if the [...] Refills, Maintenance, 09/18/22 14:39:00 EDT, [facility], 158, cm,... Start Date: 09/18/22 Status: Ordered venlafaxine 150 mg oral capsule, extended release 150 mg, 1, capsule, By Mouth, Daily, replace 75mg, # 30 capsule, Refills 3, Tot. Refills 3, Maintenance, 09/19/22 16:33:00 EDT, Route to Pharmacy Electronically, [facility]/pharmacy #0657, Partial fill uponpatient request if the prescription [...] Care Nurse Name: Chandrika Hughes NP Position: [facility] PCO Associate Professional Member Role: PCP Address: Address: [address] [place] [id number] Name: Merna Manzano RN Position: S RN Member Role: Primary Care Nurse Care Team Related Persons Name: HALIMA JARAMILLO Address: home [address], [place] Name: LISA AUGUST Address: home [address], [place] Name: NONE, NONE Name: CHATA EATON Address: home [address] [place], [place] Name: REBECCA EATON Address: home [address], [place]
--- OUTSIDE RECORDS SUMMARY | 2022-10-14 17:41 | XMS_ITS | Continuity of Care Document ---
Author Name Unknown Organization [facility] Address [address] [place] [address]- Care Team Providers Care Ground Crewman Aircraft Support Name Role Phone Ian Bates MD Primary Care Physician [id number]10[facility] - 11/10/21 [facility] Adult [address] [place] [address]- Attending Physician: Rebekah Mccracken NP Referring Physician: [...] Mouth, Daily, # 90 tablet, 4 Refills, [facility], 90, TAKE 1 TABLET BY MOUTH EVERY DAY, 158, cm, 04/11/21 16:19:00 EST, Height, 76.1, kg, 03/19/21 10:19:00 EDT, Dry Weight Start Date: 06/14/21 Status: Ordered fluconazole 150 mg oral tablet 1 tablet = 150 mg, By Mouth, Once, # 1 tablet, 0 Refills, Soft Stop, 03/02/21 7:04:00 EDT, Tablet, [facility]/pharmacy #[id number], Partial fill upon patient request if the prescription is for a schedule II opioid drug., 158, cm, 03/02/21 6:37:00 EDT, Height, 73.2... Start Date: 03/02/21 Status: Ordered LORazepam 0.5 mg oral tablet 0.5 tablet = 0.25 mg, By Mouth, Daily, PRN as needed for anxiety, # 20 tablet, 0 Refills, Soft Stop, 11/25/20 17:12:00 EDT, Tablet, [facility]/pharmacy #0693, Partial fill upon patient request [...] Refills, Maintenance, 09/06/21 10:59:00 EDT, CR Tablet, [facility]/pharmacy #0693, Partial fill upon patient request [...] 11/25/20 17:20:00 EDT, Route to Pharmacy Electronically, [facility]/pharmacy #[id number], P... Start Date: 11/25/20 Status: Ordered venlafaxine 75 mg oral capsule, extended release 1 capsule, By Mouth, Daily, # 90 capsule, 1 Refills, 09/16/21 17:24:00 EDT, [facility]/pharmacy #[id number], 158, cm, 08/02/21 14:11:00 EDT, [...]
--- OUTSIDE RECORDS SUMMARY | 2022-10-14 17:41 | XMS_ITS | Continuity of Care Document ---
Author Name Unknown Organization [facility] Address [address] [place] [address]- Care Team Providers Care Annual Giving Manager Name Role Phone Jana MUNGUIA, Ian Mae Primary Care Physician En[facility] Date(s): 02/17/21 - 03/28/[address] [address]- Attending Physician: Michael Lovett MD Admitting Physician: [...] Refills, Soft Stop, 03/02/21 7:04:00 EDT, Tablet, [facility]/pharmacy #[id number], Partial fill upon patient request if the prescription is for a schedule II opioid drug., 158, cm, 03/02/21 6:37:00 EDT, Height, 73.2... Start Date: 03/02/21 Status: Ordered LORazepam 0.5 mg oral tablet 0.5 tablet = 0.25 mg, By Mouth, Daily, PRN as needed for anxiety, # 20 tablet, 0 Refills, Soft Stop, 11/25/20 17:12:00 EDT, Tablet, [facility]/pharmacy #[id number], Partial fill upon patient [...] 3 Refills, Maintenance, 08/23/20 15:33:00 EDT, Tablet, [facility]/pharmacy #0693, Partial fill upon patient [...] 11/25/20 17:20:00 EDT, Route to Pharmacy Electronically, [facility]/pharmacy #[id number], P... Start Date: 11/25/20 Status: Ordered venlafaxine 150 mg oral capsule, extended release 150 mg, 1, capsule, By Mouth, Daily, # 30 capsule, Refills 2, Tot. Refills 2, Maintenance, 09/21/2115:25:00 EDT, Route to Pharmacy Electronically, [facility]/pharmacy #[id number], Partial fill upon patient [...] 08/23/20 15:32:00 EDT, Route to Pharmacy Electronically, [facility]/pharmacy #[id number], Partial fill upon patient [...]
--- OUTSIDE RECORDS SUMMARY | 2022-10-14 17:41 | XMS_ITS | Continuity of Care Document ---
Author Name Unknown Organization [facility] Address [address] [place] [address]- Care Team Providers Care Underground Mine Superintendent Name Role Phone Jana MUNGUIA, Ian Mae Primary Care Physician [place] [facility] Date(s): 12/09/21 - 01/08/22 [facility] Adult [address] [place] [address]- Attending Physician: Cornelius Kelly Admitting Physician: AdmCornelius [...] # 90 tablet, 4 Refills, [facility], 90, TAKE 1 TABLET BY MOUTH EVERY [...] 11/25/20 17:20:00 EDT, Route to Pharmacy Electronically, [facility]/pharmacy #[id number], P... Start Date: 11/25/20 Status: Ordered venlafaxine 75 mg oral capsule, extended release 1 capsule, By Mouth, Daily, # 90 capsule, 1 Refills, 09/16/21 17:24:00 EDT, [facility]/pharmacy #[id number], 158, cm, 08/02/21 14:11:00 EDT, [...]
--- OUTSIDE RECORDS SUMMARY | 2022-10-14 17:41 | XMS_ITS | Continuity of Care Document ---
Author Name Unknown Organization [facility] Address [address] [place] [address]- Care Team Providers Care Director Speech And Hearing Name Role Phone Jana MUNGUIA, Ian Mae Primary Care Physician Encounter [place] Date(s): 03/30/20 - 04/29/20 [facility] Adult [address] [place] [address]- Allergies, Adverse Reactions, Alerts Substance Reaction Severity [...] Maintenance, 03/24/2014:06:00 EST, Route to Pharmacy Electronically, [facility]/pharmacy #[id number], 158, cm, 02/13/20 11:47:00 EDT,Height, 63.5, kg, 04/10/19 22:37:00 EST, Dry Weight Start Date: 03/24/20 Status: Ordered venlafaxine 37.5 mg oral capsule, extended release See Instructions, 1 capsule By Mouth Daily for 2 weeks, then two caps daily, # 60 capsule, Refills 2, Tot. Refills 2, Maintenance, 01/13/20 11:07:00 EDT, Instructions Replace Required Details, Route to Pharmacy Electronically, [facility]/pharmacy #[id number], 158,... Start Date: 01/13/20 Status: Ordered ZyrTEC [...]
--- OUTSIDE RECORDS SUMMARY | 2022-10-14 17:41 | XMS_ITS | Continuity of Care Document ---
Author Name Unknown Organization [facility] Address [address] [place] [address]- Care Team Providers Care River Pilot Name Role Phone Jana MUNGUIA, Ian Mae Primary Care Physician [phone] En[place] [facility] Date(s): 01/12/21 - 02/11/21 [facility] Adult [address] [place] [address]- Allergies, Adverse Reactions, Alerts Substance Reaction Severity [...] Soft Stop, 11/25/20 17:12:00 EDT, Tablet, [facility]/pharmacy #[id number], Partial fill upon patient [...] 3 Refills, Maintenance, 08/23/20 15:33:00 EDT, Tablet, [facility]/pharmacy #0693, Partial fill upon patient [...] 17:20:00 EDT, Route to Pharmacy Electronically, [facility]/pharmacy #[id number], P... Start Date: 11/25/20 Status: Ordered venlafaxine 150 mg oral capsule, extended release 150 mg, 1, capsule, By Mouth, Daily, # 30 capsule, Refills 2, Tot. Refills 2, Maintenance, 09/21/2115:25:00 EDT, Route to Pharmacy Electronically, [facility]/pharmacy #[id number], Partial fill upon patient [...] 08/23/20 15:32:00 EDT, Route to Pharmacy Electronically, [facility]/pharmacy #[id number], Partial fill upon patient request if the [...]
--- OUTSIDE RECORDS SUMMARY | 2022-10-14 17:41 | XMS_ITS | Continuity of Care Document ---
Author Name Unknown Organization [facility] lt Address [address] [place] [address]- Care Team Providers Care Macadam Raker Name Role Phone Ian Bates MD Primary Care Physician [phone] [id number] - 06/01/20 [facility] Adult [address] [place] [address]- Attending Physician: Ian Bates MD Allergies, Adverse [...] Dry Weight Start Date: 05/25/20 Status: Ordered valacyclovir 1 gm oral tablet 1 tablet = 1 Gm, By Mouth, 3 times a day, for 7 days, # 21 tablet, 0 Refills, Acute 06/02/20 11:02:00 EST, 05/26/20 11:02:00 EST, Tablet, [facility]/pharmacy #[id number], Partial fill upon patient request if the prescription is for a schedule II opioid drug., 158,... Start Date: 05/26/20 Stop Date: 06/02/20 Status: Ordered venlafaxine 150 mg oral capsule, extended release 150 mg, 1, capsule, By Mouth, Daily, # 30 capsule, Refills 5, Tot. Refills 5, Maintenance, 03/24/2014:06:00 EST, Route to Pharmacy Electronically, [facility]/pharmacy #[id number], 158, cm, 02/13/20 11:47:00 [...]
--- OUTSIDE RECORDS SUMMARY | 2022-10-14 17:41 | XMS_ITS | Continuity of Care Document ---
Author Name Unknown Organization [facility] Address [address] [place] [address]- Care Team Providers Care Industrial Equipment Mechanic Name Role Phone Ian Bates MD Primary Care Physician [id number]23[facility]20 - 08/30/20 [facility] [address] [place] [address]- Attending Physician: Ian Bates MD Allergies, Adverse [...] Refills, Maintenance, 07/31/20 19:31:00 EST, [facility], 158, cm, 06/28/20 9:12:00 EST, Height, 63.5, kg, 04/10/19 22:37:00 EST, Dry Weight Start Date: 07/31/20 Status: Ordered LORazepam 0.5 mg oral tablet 0.5 tablet = 0.25 mg, By Mouth, Daily, PRN as needed for anxiety, # 15 tablet, 2 Refills, Soft Stop, 05/25/20 7:36:00 EST, Tablet, [facility], Partial fill upon patient request if the [...] Refills, Maintenance, 08/23/20 15:33:00 EDT, Tablet, [facility]/pharmacy #[id number], Partial fill upon patient request if the prescription is for a schedule II opioid drug., 1 tablet By Mouth Daily, 158, cm, 08/01/20 15:... Start Date: 08/23/20 Status: Ordered venlafaxine 75 mg oral capsule, extended release 75 mg, 1, capsule, By Mouth, Daily, Replaces 150 mg, # 30 capsule, Refills 5, Tot. Refills 5, Maintenance, 08/23/20 15:32:00 EDT, Route to Pharmacy Electronically, [facility]/pharmacy #0619, Partial fill upon patient request if the [...]
--- OUTSIDE RECORDS SUMMARY | 2022-10-14 17:41 | XMS_ITS | Continuity of Care Document ---
Author Name Unknown Organization [facility] Address [address] [place] [address]- Care Team Providers Care Genomics Scientist Name Role Phone Ian Bates MD Primary Care Physician Encounter [facility] Date(s): 11/04/19 - 11/11/19 [facility] Adult [address] [place] [address]- [facility] Attending Physician: Ian Bates MD Allergies, [...] 06/28/17 10:48:11, Aerosol, Route to Pharmacy Electronically, [id number], [id number], Compound Start Date: 06/28/17 Stop [...] Acute 11/23/19 17:25:00 EDT, 09/23/19 17:25:00 EDT, [facility]/pharmacy #[id number], 158, cm, 06/02/19 15:58:00 [...] oldest [Reference Range]: 1 Height 158 cm (11/04/19 1:42 PM) Social History Social History Type Response Smoking Status Current every day tameka andre entered on: 08/17/16 Sex
--- OUTSIDE RECORDS SUMMARY | 2022-10-14 17:41 | XMS_ITS | Continuity of Care Document ---
Author Name Unknown Organization [facility] lt Address [address] [place] [address]- Care Team Providers Care Restaurant Line Cook Name Role Phone Jana MUNGUIA, Ian Mae Primary Care Physician Encounter [facility] Date(s): 11/11/20 - 12/11/20 [facility] Adult [address] [place] [address]- Allergies, Adverse Reactions, Alerts Substance Reaction Severity [...] Refills, Maintenance, 11/12/20 12:49:00 EDT, REC Powder, [facility]/pharmacy #[id number], Partial fill upon patient [...] Refills, Soft Stop, 11/25/20 17:12:00 EDT, Tablet, [facility]/pharmacy #[id number], Partial fill upon patient [...] Refills, Maintenance, 08/23/20 15:33:00 EDT, Tablet, [facility]/pharmacy #[id number], Partial fill upon patient [...] 17:20:00 EDT, Route to Pharmacy Electronically, [facility]/pharmacy #[id number], P... Start Date: 11/25/20 Status: Ordered venlafaxine 150 mg oral capsule, extended release 150 mg, 1, capsule, By Mouth, Daily, # 30 capsule, Refills 2, Tot. Refills 2, Maintenance, 09/21/2115:25:00 EDT, Route to Pharmacy Electronically, [facility]/pharmacy #[id number], Partial fill upon patient [...] 15:32:00 EDT, Route to Pharmacy Electronically, [facility]/pharmacy #[id number], Partial fill upon patient request if the [...]
--- OUTSIDE RECORDS SUMMARY | 2022-10-14 17:41 | XMS_ITS | Continuity of Care Document ---
Author Name Unknown Organization [facility] [employer] Address [address], [address] [place] [address]- Care Team Providers Care Straightener Name Role Phone Ian Bates MD Primary [id number] 12[facility]16/20 [facility] [employer] [facility] [address], [address] [place], [place] [address] Attending Physician: Not on Staff, Attending MD [...] Soft Stop, 11/25/20 17:12:00 EDT, Tablet, [facility]/pharmacy #0693, Partial fill upon patient request if [...] 3 Refills, Maintenance, 08/23/20 15:33:00 EDT, Tablet, [facility]/pharmacy #0693, Partial fill upon patient request if [...] 17:20:00 EDT, Route to Pharmacy Electronically, [facility]/pharmacy #0693, P... Start Date: 11/25/20 Status: Ordered venlafaxine 150 mg oral capsule, extended release 150 mg, 1, capsule, By Mouth, Daily, # 30 capsule, Refills 2, Tot. Refills 2, Maintenance, 09/21/2115:25:00 EDT, Route to Pharmacy Electronically, [facility]/pharmacy #0652, Partial fill upon patient request if [...] 08/23/20 15:32:00 EDT, Route to Pharmacy Electronically, [facility]/pharmacy #0626, Partial fill upon patient request if the [...]
--- OUTSIDE RECORDS SUMMARY | 2022-10-14 17:41 | XMS_ITS | Continuity of Care Document ---
Author Name Unknown Organization [facility] Address [address] [place] [address]- Care Team Providers Care Sales Special Agent Name Role Phone Jana MUNGUIA, Ian Mae Primary Care Physician [phone] [place] [facility] [place] 09/11/19 - 10/11/19 [facility] Adult [address] [place] [address]- [facility] Attending Physician: Samuel Stephenson MD Allergies, Adverse [...] 06/28/17 10:48:11, Aerosol, Route to Pharmacy Electronically, [id number], [id number], Compound Start Date: 06/28/17 Stop Date: 07/28/17 Status: Ordered Carafate 1 gm/10 ml oral suspension 10 mL = 1 Gm, By Mouth, 2 times a day, # 560 mL, 0 Refills, Maintenance, 10/02/19 14:45:00 EDT, [id number], 158, cm, 10/02/19 13:04:00 EDT, Height, 63.5, kg, 11/21/19 22:37:00 EST, Dry Weight Start Date: 10/02/19 Stop Date: 10/30/19 Status: Ordered colestipol 1 gm oral tablet 2 tablet = 2 Gm, By Mouth, Daily, take 1 tablet daily for a week and if no constipation can increase to 2 tablets daily, # 60 tablet, 5 Refills, Maintenance, 10/07/19 15:22:00 EDT, Tablet, [facility]/pharmacy #[id number], 158, cm, 10/02/19 13:04:00 EDT, Height, 63... Start Date: 10/07/19 Status: Ordered duloxetine 20 mg oral enteric coated capsule 1 capsule = 20 mg, By Mouth, 2 times a day, Increase in dose, # 60 capsule, 5 Refills, Maintenance,09/23/19 17:25:00 EDT, [facility]/pharmacy #[id number], 158, cm, 06/02/19 15:58:00 EST, Height, 63.5, kg, 04/10/19 22:37:00 EST, Dry Weight Start Date: 09/23/19 Status: Ordered LORazepam 0.5 mg oral tablet 1 tablet = 0.5 mg, By Mouth, Daily, PRN as needed for anxiety, # 30 tablet, 1 Refills, Acute 11/23/19 17:25:00 EDT, 09/23/19 17:25:00 EDT, [facility]/pharmacy #[id number], 158, cm, 06/02/19 15:58:00 EST, [...]
--- OUTSIDE RECORDS SUMMARY | 2022-10-14 17:41 | XMS_ITS | Continuity of Care Document ---
Author Name Unknown Organization [facility] [employer] Address [address], [address] [place] [address]- Care Team Providers Care Plaster Helper Name Role Phone Jana MUNGUIA, Ian Mae Primary Care Physician En[place] [facility] Date(s): 11/16/20 - 12/16/20 [facility] [employer] [facility] [address] [place], [place] [address] Attending Physician: Admtr, Ar8 Allergies, Adverse Reactions, [...] Refills, Soft Stop, 11/25/20 17:12:00 EDT, Tablet, [facility]/pharmacy #[id number], Partial fill upon patient request [...] 3 Refills, Maintenance, 08/23/20 15:33:00 EDT, Tablet, [facility]/pharmacy #[id number], Partial fill upon patient request [...] 11/25/20 17:20:00 EDT, Route to Pharmacy Electronically, [facility]/pharmacy #[id number], P... Start Date: 11/25/20 Status: Ordered venlafaxine 150 mg oral capsule, extended release 150 mg, 1, capsule, By Mouth, Daily, # 30 capsule, Refills 2, Tot. Refills 2, Maintenance, 09/21/2115:25:00 EDT, Route to Pharmacy Electronically, [facility]/pharmacy #[id number], Partial fill upon patient request if the [...] 08/23/20 15:32:00 EDT, Route to Pharmacy Electronically, [facility]/pharmacy #0614, Partial fill upon patient request if the [...] by D&C at 9 weeks. 03/08/04 . 5/13/09 . 10/27/14 .(Confirmed) Active S/P cholecystectomy(Confirmed) Active [...]
--- OUTSIDE RECORDS SUMMARY | 2022-10-14 17:41 | XMS_ITS | Continuity of Care Document ---
Author Name Unknown Organization [facility] Trae Address [address] [place] [address]- Care Team Providers Care Office Nurse Name Role Phone Saul NAIK, Chandrika Yan Primary Care Physician Encounter [facility] [place] Date(s): 07/21/22 - 08/20/22 [facility] Adult [address] [place] [address]- Attending Physician: Cornelius Kelly Admitting Physician: Cornelius [...] Refills, Maintenance, 08/14/22 12:20:00 EDT, [facility], 90, TAKE 1 TABLET BY MOUTH EVERY DAY, 158, cm, 06/30/22 8:28:00 EST, Height, 76.1, kg, 03/19/2110:19:00 EDT, Dry Weight Start Date: 08/14/22 Status: Ordered LORazepam 0.5 mg oral tablet 0.5 tablet = 0.25 mg, By Mouth, Daily, PRN as needed for anxiety, # 15 tablet, 2 Refills, Soft Stop, 06/30/22 8:43:00 EST, Tablet, [facility]/pharmacy #[id number], Partial fill upon [...] 06/30/22 8:42:00 EST, Route to Pharmacy Electronically, [facility]/pharmacy #[id number], Partial fill upon patient [...] tameka andre entered on: 08/17/16 Sex Female EKG study * Event Display: EKG Authored Date: Note * Event Display: Non BH Lab Results Authored Date: * Event Display: Non BH Lab Results Authored Date: * Event Display: Non BH Lab Results Authored Date: * Event Display: Non BH Lab Results Authored Date: * Sandi Mejia: VERIFY, PERFORM aSndi Mejia: PERFORM, SIGN Sandi Mejia: SIGN Afshan MUSIC TYPOGRAPHER, Joana T: REVIEW Event Display: Case Management Discharge Plan Authored Date: Patient: EL PRADO Age: 33 years Sex: Female : 1985 Associated Diagnoses: None Author: Sandi Mejia Care Management Discharge Call Note Discharge date 02/04/2018 Date of contact 02/05/2018 Diagnosis chest pain Discharge instructions were reviewed with the patient? Yes Medication reconciliation performed Yes Looks like you were recently discharged from the hospital (ED), how are you feeling? [place] [facility] [place]. she reports she was diagnosed with acid reflux, she was given Tagamet 400mg once every 12 hours to take she reports high anxiety. pt is coming in to see SARAH 02/11 for ERF chest pain is better Do you know what to do in case of an emergency? if chest pain returns she should return to ER Were you given any prescriptions to fill? Yes. Do you understand how to take your medication? Yes Do you have an appointment already scheduled with your PCP? No Is date appropriate: 02/11 SARAH. * Event Display: MRI Head, Non- BH Authored Date: Patient Care team information Care Team Personnel Name: Anh Vicotria RN Position: [facility] RN Member Role: Primary Care Nurse Name: Iva Liu RN Position: [facility] RN Member Role: Primary Care Nurse Name: Chandrika Hughes NP Position: [facility] PCO Associate Professional Member Role: PCP Address: Address: [address] [place] [address]- Name: Merna Manzano RN Position: [facility] RN Member Role: Primary Care Nurse Care Team Related Persons Name: CLINT HALIMA Address: home [address], [place] Name: LISA AUGUST Address: home [address], [place] Name: NONE, NONE Name: CHATA EATON Address: home [address] [place] [address] Name: REBECCA EATON Address: [address] [place] [address]
--- OUTSIDE RECORDS SUMMARY | 2022-10-14 17:41 | XMS_ITS | Continuity of Care Document ---
Author Name Unknown Organization [facility] Trae lt Address [address] [place] [address]- Care Team Providers Care Alarm Mechanic Name Role Phone Ian Bates MD Primary Care Physician [phone] [id number]21/[facility] Adult [address] [place] [address]- Attending Physician: Ian Bates MD Allergies, Adverse [...] Maintenance, 03/24/2014:06:00 EST, Route to Pharmacy Electronically, [facility]/pharmacy #[id number], 158, cm, 02/13/20 11:47:00 EDT,Height, 63.5, kg, 04/10/19 22:37:00 EST, Dry Weight Start Date: 03/24/20 Status: Ordered venlafaxine 37.5 mg oral capsule, extended release See Instructions, 1 capsule By Mouth Daily for 2 weeks, then two caps daily, # 60 capsule, Refills 2, Tot. Refills 2, Maintenance, 01/13/20 11:07:00 EDT, Instructions Replace Required Details, Route to Pharmacy Electronically, [facility]/pharmacy #[id number], 158,... Start Date: 01/13/20 Status: Ordered [...]
--- OUTSIDE RECORDS SUMMARY | 2022-10-14 17:41 | XMS_ITS | Continuity of Care Document ---
Author Name Unknown Organization [facility] Trae lt Address [address] [place] [address]- Care Team Providers Care Operations Team Leader Name Role Phone Jana MUNGUIA, Ian Mae Primary Care Physician [place] [facility] [place]27[place]21 - 07/27/21 [facility] Adult [address] [place] [address]- Attending Physician: Cornelius Kelly Admitting Physician: Cornelius [...] tablet, 3 Refills, Maintenance, 07/20/21 11:29:00 EST, [facility]/pharmacy #[id number], If insurance won't cover 90d fine to change to 30d supply, thx, 158, cm, 06/27/21 8:42:00 EST, Height, 76.1, kg, 03/19/21 10:19:00 EDT,... Start Date: 07/20/21 Stop Date: 07/15/22 Status: Ordered Daily Tamir oral tablet 1 tablet, By Mouth, Daily, # 90 tablet, 4 Refills, [facility], 90, TAKE 1 TABLET BY MOUTH EVERY DAY, 158, cm, 04/11/21 16:19:00 EST, Height, 76.1, kg, 03/19/21 10:19:00 EDT, Dry Weight Start Date: 06/14/21 Status: Ordered fluconazole 150 mg oral tablet 1 tablet = 150 mg, By Mouth, Once, # 1 tablet, 0 Refills, Soft Stop, 03/02/21 7:04:00 EDT, Tablet, [facility]/pharmacy #[id number], Partial fill upon patient request if the prescription is for a schedule II opioid drug., 158, cm, 03/02/21 6:37:00 EDT, Height, 73.2... Start Date: 03/02/21 Status: Ordered LORazepam 0.5 mg oral tablet 0.5 tablet = 0.25 mg, By Mouth, Daily, PRN as needed for anxiety, # 20 tablet, 0 Refills, Soft Stop, 11/25/20 17:12:00 EDT, Tablet, [facility]/pharmacy #[id number], Partial fill upon [...] 11/25/20 17:20:00 EDT, Route to Pharmacy Electronically, [facility]/pharmacy #[id number], P... Start Date: 11/25/20 Status: Ordered venlafaxine 75 mg oral capsule, extended release 1 capsule, By Mouth, Daily, # 90 capsule, 0 Refills, [facility], 158, cm, 04/11/21 16:19:00 EST, Height, 76.1, [...]
--- OUTSIDE RECORDS SUMMARY | 2022-10-14 17:41 | XMS_ITS | Continuity of Care Document ---
Author Name Unknown Organization [facility] Tra[facility] Address [address] [place] [address]- Care Team Providers Care Kitchen Runner Name Role Phone Jana MUNGUIA, Ian Mae Primary Care Physician [place] [facility] [place] Date(s): 06/08/20 - 07/08/20 [facility] Adult [address] [place] [address]- Allergies, Adverse Reactions, Alerts Substance Reaction Severity [...] Maintenance, 03/24/2014:06:00 EST, Route to Pharmacy Electronically, [facility]/pharmacy #[id number], 158, cm, 02/13/20 11:47:00 EDT,Height, [...]
--- OUTSIDE RECORDS SUMMARY | 2022-10-14 17:41 | XMS_ITS | Continuity of Care Document ---
Author Name Unknown Organization [facility] ter Address [address] [place] [address]- Care Team Providers Care Obgyn Specialist Name Role Phone Jana MUNGUIA, Ian Mae Primary Care Physician Encounter [facility] [place] Date(s): 01/31/21 - 03/18/[address] [address]- Attending Physician: Michael Lovett MD Admitting Physician: [...] Refills, Soft Stop, 03/02/21 7:04:00 EDT, Tablet, [facility]/pharmacy #[id number], Partial fill upon patient request if the prescription is for a schedule II opioid drug., 158, cm, 03/02/21 6:37:00 EDT, Height, 73.2... Start Date: 03/02/21 Status: Ordered LORazepam 0.5 mg oral tablet 0.5 tablet = 0.25 mg, By Mouth, Daily, PRN as needed for anxiety, # 20 tablet, 0 Refills, Soft Stop, 11/25/20 17:12:00 EDT, Tablet, [facility]/pharmacy #[id number], Partial fill upon patient [...] 3 Refills, Maintenance, 08/23/20 15:33:00 EDT, Tablet, [facility]/pharmacy #[id number], Partial fill upon patient [...] 11/25/20 17:20:00 EDT, Route to Pharmacy Electronically, [facility]/pharmacy #[id number], P... Start Date: 11/25/20 Status: Ordered venlafaxine 150 mg oral capsule, extended release 150 mg, 1, capsule, By Mouth, Daily, # 30 capsule, Refills 2, Tot. Refills 2, Maintenance, 09/21/2115:25:00 EDT, Route to Pharmacy Electronically, [facility]/pharmacy #[id number], Partial fill upon patient [...] 08/23/20 15:32:00 EDT, Route to Pharmacy Electronically, [facility]/pharmacy #[id number], Partial fill upon patient [...]
--- OUTSIDE RECORDS SUMMARY | 2022-10-14 17:41 | XMS_ITS | Continuity of Care Document ---
Author Name Unknown Organization [facility] Trae Address [address] [place] [address]- Care Team Providers Care Industrial Mechanic Name Role Phone Ian Bates MD Primary [facility] Phys[id number] - 06[facility]24/20 [facility] Adult [address] [place] [address]- Attending Physician: Ian Bates MD Allergies, Adverse Reactions, Alerts Substance Reaction Severity Status Adhesive Bandage HIVES Active Immunizations Given and Recorded Vaccine Date Status Refusal Reason tetanus/diphtheria/pertussis, acel(Tdap) 08/10/14 Given Not Given Vaccine Date Status Refusal Reason Influenza Virus Vaccine (oldterm) 04/08/19 Not Giv en Parent Or Guardian Refuses Medications amoxicillin 500 mg oral tablet 1 tablet = 500 mg, By Mouth, 3 times a day, for 10 days, # 30 tablet, 0 Refills, Acute 06/27/20 8:17:00 EST, 06/17/20 8:17:00 EST, [facility]t, [id number], 158, cm, 06/02/20 8:10:00 EST, Height, 63.5, kg, 04/10/19 22:37:00 EST, Dry Weight Start Date: 06/17/20 Stop Date: 06/27/20 Status: Ordered colestipol 1 gm oral tablet 3 tablets, By Mouth, Daily, # 90 tablet, 5 Refills, Maintenance, 01/13/20 11:06:00 EDT, Tablet, [id number], 158, cm, 01/13/20 10:02:00 EDT, Height, 63.5, kg, 04/10/19 22:37:00 EST, Dry Weight Start Date: 01/13/20 Stop Date: 07/11/20 Status: Ordered fluconazole 150 mg oral tablet 1 tablet = 150 mg, By Mouth, Once, epeat dose if still having symptoms in 72 hours, # 2 tablet, 0 Refills, Soft Stop, 06/17/20 8:18:00 EST, Tablet, [facility]/pharmacy #[id number], Partial fill upon patient request if the prescription is for a schedule II opioid d... Start Date: 06/17/20 Status: Ordered gabapentin 100 mg oral capsule 100 mg, 1, capsule, By Mouth, Daily at bedtime, # 30 capsule, Refills 0, Tot. Refills 0, Maintenance, 06/02/20 8:49:00 EST, Route to Pharmacy Electronically, [facility]/pharmacy #[id number], Partial fill upon patient request if the prescription is for a schedule I... Start Date: 06/02/20 Status: Ordered LORazepam 0.5 mg oral tablet 0.5 tablet = 0.25 mg, By Mouth, Daily, PRN as needed for anxiety, # 15 tablet, 2 Refills, Soft Stop, 05/25/20 7:36:00 EST, Tablet, [facility]/pharmacy #[id number], Partial fill upon patient [...] Maintenance, 03/24/2014:06:00 EST, Route to Pharmacy Electronically, [facility]/pharmacy #[id number], 158, cm, 02/13/20 11:47:00 [...]
--- OUTSIDE RECORDS SUMMARY | 2022-10-14 17:42 | XMS_ITS | Continuity of Care Document ---
Author Name Unknown Organization [facility] Tra[facility] Address [address] [place] [address]- Care Team Providers Care Crime Analyst Name Role Phone Milagros MUNGUIA, Eleuterio Nielsen Primary Care Physician Encounter [facility] [place] Date(s): 09/11/19 - 09/18/19 [facility] Adult [address] [place] [address]- [place] Encounter Diagnosis Irritable bowel syndrome with diarrhea(Discharge Diagnosis) - 09/15/19 Attending Physician: Samuel Stephenson MD Allergies, Adverse [...] 06/28/17 10:48:11, Aerosol, Route to Pharmacy Electronically, [id number], [facility]/pharmacy #[id number], Compound Start Date: 06/28/17 Stop Date: 07/28/17 Status: Ordered duloxetine 20 mg oral enteric coated capsule 1 capsule = 20 mg, By Mouth, Daily, # 30 capsule, 1 Refills, Maintenance, 07/22/19 12:20:00 EST, [id number], 158, cm, 06/02/19 15:58:00 EST, Height, 63.5, kg, 04/10/19 22:37:00 EST, Dry Weight Start Date: 07/22/19 Status: Ordered Mirena 52 mg intrauteral device [...] Dates Health Status Cl inical Service Informant Irritable bowel syndrome with diarrhea Discharge Diagnosis 09/15/19 Social History Social History Type Response Smoking Status Current every day tameka andre entered on: 08/17/16 Sex
--- OUTSIDE RECORDS SUMMARY | 2022-10-14 17:42 | XMS_ITS | Continuity of Care Document ---
Author Name Unknown Organization [facility] ter Address [address] [place] [address]- Care Team Providers Care American History Teacher Name Role Phone Jana MUNGUIA, Ian Mae Primary Care Physician [phone] Encounter [facility] Date(s): 09/05/19 - 10/12/[address] [address]- [facility] Attending Physician: Michael Lovett MD Admitting Physician: [...] 06/28/17 10:48:11, Aerosol, Route to Pharmacy Electronically, [id number], [facility]/pharmacy #[id number], Compound Start Date: [...] 5 Refills, Maintenance, 10/07/19 15:22:00 EDT, Tablet, [facility]/pharmacy #[id number], 158, cm, 10/02/19 13:04:00 EDT, Height, 63... Start Date: 10/07/19 Status: Ordered duloxetine 20 mg oral enteric coated capsule 1 capsule = 20 mg, By Mouth, 2 times a day, Increase in dose, # 60 capsule, 5 Refills, Maintenance,09/23/19 17:25:00 EDT, [facility]/pharmacy #[id number], 158, cm, 06/02/19 15:58:00 EST, Height, 63.5, kg, 04/10/19 22:37:00 EST, Dry Weight Start Date: 09/23/19 Status: Ordered LORazepam 0.5 mg oral tablet 1 tablet = 0.5 mg, By Mouth, Daily, PRN as needed for anxiety, # 30 tablet, 1 Refills, Acute 11/23/19 17:25:00 EDT, 09/23/19 17:25:00 EDT, [facility]/pharmacy #[id number], 158, cm, 06/02/19 15:58:00 EST, [...]
--- OUTSIDE RECORDS SUMMARY | 2022-10-14 17:42 | XMS_ITS | Continuity of Care Document ---
Author Name Unknown Organization [facility] Trae lt Address [address] [place] [address]- Care Team Providers Care Room Cleaner Name Role Phone Ian Bates MD Primary Care Physician [id number] Date(s[facility] 04/11/21 - 04/18/21 [facility] Adult [address] [place] [address]- Attending Physician: Ian Bates MD Allergies, Adverse [...] Refills, Soft Stop, 03/02/21 7:04:00 EDT, Tablet, [facility]/pharmacy #[id number], Partial fill upon patient request if the prescription is for a schedule II opioid drug., 158, cm, 03/02/21 6:37:00 EDT, Height, 73.2... Start Date: 03/02/21 Status: Ordered LORazepam 0.5 mg oral tablet 0.5 tablet = 0.25 mg, By Mouth, Daily, PRN as needed for anxiety, # 20 tablet, 0 Refills, Soft Stop, 11/25/20 17:12:00 EDT, Tablet, [facility]/pharmacy #[id number], Partial fill upon patient request [...] 3 Refills, Maintenance, 08/23/20 15:33:00 EDT, Tablet, [facility]/pharmacy #[id number], Partial fill upon patient request [...] 11/25/20 17:20:00 EDT, Route to Pharmacy Electronically, [facility]/pharmacy #[id number], P... Start Date: 11/25/20 Status: Ordered venlafaxine 150 mg oral capsule, extended release 150 mg, 1, capsule, By Mouth, Daily, # 30 capsule, Refills 2, Tot. Refills 2, Maintenance, 09/21/2115:25:00 EDT, Route to Pharmacy Electronically, [facility]/pharmacy #0630, Partial fill upon patient request if the [...] 08/23/20 15:32:00 EDT, Route to Pharmacy Electronically, [facility]/pharmacy #[id number], Partial fill upon patient request if the [...] oldest [Reference Range]: 1 Height 158 cm (04/11/21 4:19 PM) Weight 76.2 kg (04/11/21 4:19 PM) Oxygen Saturation [94-100 %] 98 % (04/11/21 4:19 PM) Pulse Rate [55-90 bpm] 117 bpm *H* (04/11/21 4:19 PM) Body Mass Index [18.5-24.99] 30.52 *>HHI* (04/11/21 4:19 PM) Blood Pressure [90-138/55-84 mm Hg] 128/ 88mm Hg (04/11/21 4:19 PM) Temperature [96.8-100.4 DegF] 97.8 DegF (04/11/21 4:19 PM) Blood pressure sites Arm, right (04/11/21 4:19 PM) Temperature Route Oral (04/11/21 4:19 PM) Weight Obtained Via Standing scale (04/11/21 4:19 PM) Social History Social History Type Response Smoking Status Current every day tameka andre entered on: 08/17/16 Sex Female
--- OUTSIDE RECORDS SUMMARY | 2022-10-14 17:42 | XMS_ITS | Continuity of Care Document ---
Author Name Unknown Organization [facility] Trae Address [address] [place] [address]- Care Team Providers Care Brood Hatchery Manager Name Role Phone Ian Bates MD Primary Care Physician [phone] [id number] 12/09[facility]21 - 12/16/21 [facility] Adult [address] [place] [address]- Attending Physician: Ian Bates MD Allergies, Adverse [...] Mouth, Daily, # 90 tablet, 4 Refills, [facility], 90, TAKE 1 TABLET BY MOUTH EVERY [...] day, # 10 tablet, 0 Refills, Acute 12/19/21 12:45:00 EDT, 12/14/21 12:44:00 EDT, [facility]/pharmacy #[id number], Partial fill upon patient request if the prescription is fora schedule II opioid drug., 158, cm, 12/09/21 16:02... Start Date: 12/14/21 Stop Date: 12/19/21 Status: Ordered traZODone 50 mg oral tablet [...] 90 capsule, 1 Refills, 09/16/21 17:24:00 EDT, [facility]/pharmacy #[id number], 158, cm, 08/02/21 14:11:00 EDT, [...] oldest [Reference Range]: 1 Height 158 cm (12/09/21 4:02 PM) Weight 75.0 kg (12/09/21 4:02 PM) Body Mass Index [18.5-24.99] 30.04 *>HHI* (12/09/21 4:02 PM) Weight Obtained Via Standing scale (12/09/21 4:02 PM) Social History Social History Type Response Smoking Status Current every day tameka andre entered on: 08/17/16 Sex Female
--- OUTSIDE RECORDS SUMMARY | 2022-10-14 17:42 | XMS_ITS | Continuity of Care Document ---
Author Name Unknown Organization [facility] Trae Address [address] [place] [address]- Care Team Providers Care Air Quality Consultant Name Role Phone Ian Bates MD Primary Care Physician [place] [facility] [place]/20[place] 06/25/19 [facility] Adult [address] [place] [address]- [facility] Attending Physician: Ian Bates MD Allergies, Adverse [...] 06/28/17 10:48:11, Aerosol, Route to Pharmacy Electronically, [id number], [facility]/pharmacy #[id number], Compound Start Date: 06/28/17 Stop [...] Acute 07/09/19 8:46:00 EST, 05/08/19 8:43:00 EST, [facility]/pharmacy #[id number], 158, cm, 05/08/19 8:17:00 EST, [...]
--- OUTSIDE RECORDS SUMMARY | 2022-10-14 17:42 | XMS_ITS | Continuity of Care Document ---
Author Name Unknown Organization [facility] lt Address [address] [place] [address]- Care Team Providers Care Solid Waste Disposal Manager Name Role Phone Jana MUNGUIA, Ian Mae Primary Care Physician [phone] [place] [facility] [place] 04/21/20 - 05/21/20 [facility] Adult [address] [place] [address]- Attending Physician: Cornelius Kelly Admitting Physician: Cornelius [...] Maintenance, 03/24/2014:06:00 EST, Route to Pharmacy Electronically, [facility]/pharmacy #[id number], 158, cm, 02/13/20 11:47:00 EDT,Height, 63.5, kg, 04/10/19 22:37:00 EST, Dry Weight Start Date: 03/24/20 Status: Ordered venlafaxine 37.5 mg oral capsule, extended release See Instructions, 1 capsule By Mouth Daily for 2 weeks, then two caps daily, # 60 capsule, Refills 2, Tot. Refills 2, Maintenance, 01/13/20 11:07:00 EDT, Instructions Replace Required Details, Route to Pharmacy Electronically, [facility]/pharmacy #[id number], 158,... Start Date: 01/13/20 Status: Ordered ZyrTEC [...]
--- OUTSIDE RECORDS SUMMARY | 2022-10-14 17:42 | XMS_ITS | Continuity of Care Document ---
Author Name Unknown Organization [facility] Trae Address [address] [place] [address]- Care Team Providers Care Volunteer Recruiter Name Role Phone Jana MUNGUIA, Ian Mae Primary Care Phys[id number] 01/20/21 - 02/19/21 [facility] Adult [address] [place] [address]- Allergies, Adverse Reactions, Alerts Substance Reaction Severity [...] Refills, Soft Stop, 11/25/20 17:12:00 EDT, Tablet, [facility]/pharmacy #[id number], Partial fill upon patient [...] 3 Refills, Maintenance, 08/23/20 15:33:00 EDT, Tablet, [facility]/pharmacy #[id number], Partial fill upon patient [...] 11/25/20 17:20:00 EDT, Route to Pharmacy Electronically, [facility]/pharmacy #[id number], P... Start Date: 11/25/20 Status: Ordered venlafaxine 150 mg oral capsule, extended release 150 mg, 1, capsule, By Mouth, Daily, # 30 capsule, Refills 2, Tot. Refills 2, Maintenance, 09/21/2115:25:00 EDT, Route to Pharmacy Electronically, [facility]/pharmacy #[id number], Partial fill upon patient [...] 08/23/20 15:32:00 EDT, Route to Pharmacy Electronically, [facility]/pharmacy #[id number], Partial fill upon patient request if the [...]
--- OUTSIDE RECORDS SUMMARY | 2022-10-14 17:42 | XMS_ITS | Continuity of Care Document ---
Author Name Unknown Organization [facility] Trae lt Address [address] [place] [address]- Care Team Providers Care Room Cleaner Name Role Phone Jana MUNGUIA, Ian Mae Primary Care Physician [place] [facility] [place] Date(s): 12/09/21 - 01/08/22 [facility] Adult [address] [place] [address]- Allergies, Adverse Reactions, Alerts Substance Reaction Severity [...] Mouth, Daily, # 90 tablet, 4 Refills, [id number], 90, TAKE 1 TABLET BY MOUTH EVERY [...] 11/25/20 17:20:00 EDT, Route to Pharmacy Electronically, [facility]/pharmacy #[id number], P... Start Date: 11/25/20 Status: Ordered venlafaxine 75 mg oral capsule, extended release 1 capsule, By Mouth, Daily, # 90 capsule, 1 Refills, 09/16/21 17:24:00 EDT, [facility]/pharmacy #[id number], 158, cm, 08/02/21 [...]
== END 2022-10-14 17:42 | disposition home or self-care (01) ==
PROVIDERS: Emergency Provider Emergency Medicine; PCP Family Medicine
DX: K12.2 Cellulitis and abscess of mouth (principal)
CPT/HCPCS: 99282; 99283

== ENCOUNTER 2022-11-17 03:26 | Emergency (ER) | payer OTHER, SELFPAY ==
--- NOTE | ~2022-11-17 | XR_ITS ---
EXAMINATION: XR ELBOW, RIGHT CLINICAL INFORMATION: Fall, pain COMPARISON: None available. TECHNIQUE: AP, lateral, and oblique views of the right elbow. FINDINGS: There is an essentially nondisplaced fracture of the radial head. Associated joint effusion is present. Articular alignment across the elbow appears maintained. XR/XR elbow RT min 3V IMPRESSION: Essentially nondisplaced fracture of the radial head with associated joint effusion.
--- NOTE | ~2022-11-17 | XR_ITS ---
EXAMINATION: XR WRIST, RIGHT CLINICAL INFORMATION: Fall COMPARISON: None available. TECHNIQUE: PA, lateral, and oblique views of the right wrist. FINDINGS: Osseous alignment is anatomic. No acute fracture is seen. No significant focal soft tissue abnormality identified. XR/XR wrist RT 2V IMPRESSION: No acute findings identified.
--- NOTE | ~2022-11-17 | XR_ITS ---
EXAMINATION: XR SHOULDER, RIGHT CLINICAL INFORMATION: Fall COMPARISON: None available. TECHNIQUE: Three views of the right shoulder. FINDINGS: Glenohumeral alignment is anatomic. No acute fracture is seen. The acromioclavicular joint appears intact. XR/XR shoulder RT 1V IMPRESSION: No acute findings.
[2022-11-17 03:35] VITALS: BP 180/104; PULSE 113; RESP 18; TEMP 36.7; O2SAT 99; BMI 28.7
[2022-11-17 04:11] VITALS: RESP 14
--- NOTE | 2022-11-17 04:14 | PC.NURSE ---
Pt ambulated with a steady gait to bathroom. Urine collected.
--- NOTE | 2022-11-17 04:15 | PC.NURSE ---
Pt requested and given ice pack for arm. [email or web address].
--- NOTE | 2022-11-17 04:15 | PC.NURSE ---
Pt with ct scan.
--- NOTE | 2022-11-17 04:16 | PC.NURSE ---
Pt reports taking 800mg ibuprofen @ 0100 but pain is unrelieved.
--- NOTE | 2022-11-17 04:22 | ED_ITS ---
HPI - Fall General Chief Complaint: Fall Stated Complaint: Right Shoulder/Arm Pain Time Seen by Provider: 11/17/22 04:13 Source: patient Mode of arrival: ambulatory Limitations: no limitations History of Present Illness HPI Narrative: Patient comes to the emergency room complaining of right arm pain. Patient states that approximately 9 hours ago, patient was in her backyard, walked over some berries, started slipping/rolling trying to prevent from falling but eventually she tripped over a cord from her daugher's tent, patient fell forward, to break the fall and protect her face, patient landed on her right arm. Patient states that she has severe pains especially in the elbow, moderate pain in the wrist and shoulder. Denies hitting her head or losing consciousness, denies being on blood thinners, denies any other injuries. Earlier today, patient took 800 mg of ibuprofen, pain and swelling still present. Related Data Home Medications Medication Instructions Recorded Confirmed colestipol 1 gram tablet 1 g PO BID 11/24/20 11/24/20 venlafaxine 75 mg capsule,extended 75 mg PO DAILY 11/24/20 11/24/20 release 24 hr norethindrone (contraceptive) 0.35 0.35 mg PO DAILY 10/31/21 mg tablet Previous Rx's Medication Instructions Recorded cyclobenzaprine 10 mg tablet 10 mg PO TID PRN muscle spasm #14 10/11/21 tabs ibuprofen 600 mg tablet 600 mg PO Q6H PRN pain #30 tabs 10/11/21 cyclobenzaprine 10 mg tablet 10 mg PO TID PRN muscle spasm #10 09/10/22 tabs gabapentin 300 mg capsule 300 mg PO TID #14 caps 09/10/22 meloxicam 15 mg tablet 15 mg PO DAILY #14 tabs 09/10/22 prednisone 20 mg tablet 20 mg PO DAILY #7 tabs 09/10/22 chlorhexidine gluconate 0.12 % 15 ml buccal BID #118 mL 10/14/22 mouthwash (Peridex) naproxen 500 mg tablet 500 mg PO BID 7 days #14 tabs 10/14/22 penicillin V potassium 500 mg 500 mg PO BID 10 days #20 tabs 10/14/22 tablet tramadol 50 mg tablet 50 mg PO BID PRN pain #7 tabs 11/17/22 Allergies Allergy/AdvReac Type Severity Reaction Status Date / Time adhesive [ADHESIVE] Allergy Unknown RASH, SKIN Verified 11/17/22 03:40 BREAKDOWN SEASONAL ALLERGIES Allergy Unknown RUNNY Uncoded 11/17/22 03:40 NOSE, CONGESTION, WATERY EYES Review of Systems Review of Systems: Constitutional : No Weight loss, No Fever, No Chills, No Night Sweats, No Fatigue, No Malaise ENT/Mouth : No Hearing loss, No Ear Pain, No Nasal Congestion, No Sinus Pain, No Hoarseness, No sore throat, No Rhinorrhea, No Swallowing Difficulty Eyes: No Eye Pain, No Swelling, No Redness, No Foreign Body, No Discharge, No Vision Changes Cardiovascular : No Chest Pain, No SOB, No Dyspnea on Exertion, No Orthopnea, No Edema, No Palpitations Respiratory : No Cough, No Sputum, No Wheezing, No Smoke Exposure, No Dyspnea Gastrointestinal : No Nausea, No Vomiting, No Diarrhea, No Constipation, No abdominal Pain, No Hematochezia, No Melena Genitourinary : no irregular bleeding, No Dysuria, No Urinary Frequency, No Hematuria, No Urinary Incontinence, No Urgency, No Flank Pain, No Urinary Flow Changes, No Hesitancy Musculoskeletal : Complaining of right wrist/elbow/shoulder pain No Myalgias, No Joint Swelling Skin : No Skin Lesions, No rash Neuro : No Weakness, No Numbness, No Paresthesias, No Loss of Consciousness, No Dizziness, No Headache Psych : No Anxiety/Panic, No Depression, No SI/HI/AH/VH, No Social Issues, Heme/Lymph: No Bruising, No Bleeding,No Lymphadenopathy Endocrine : No Polyuria, No Polydipsia, No Temperature Intolerance [facility] Past Medical History Medical History Multiple sclerosis No known health problems Skin lesion of back Surgical History H/O removal of cyst History of cholecystectomy Social History Social History Alcohol intake: current Alcohol intake frequency: does not drink Patient Tobacco Use Status: Current everyday Tobacco user Smoked in Last 30 Days: Yes Use of substances other than those prescribed or required for medical reasons: Yes Substance Use Type: Marijuana Advance Directives: No Advance Directives Information Provided: No Current occupational status: employed 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 Oriented X3. No acute distress. Eyes: Pupils equal, round and reactive to light. ENT: Pharynx normal. Neck: Normal inspection. Neck supple. No lymph nodes noted. No crepitus CVS: Normal heart rate and rhythm. Pulses normal. Normal S1 and S2 Respiratory: No respiratory distress. Breath sounds normal. No Wheezing. No rales Abdomen: Soft and nontender. No rigidity. No distention. Skin: Skin warm and dry. Normal skin color. Normal skin turgor. Extremities: No lower extremity edema. No Lacerations. No Rash patient able to abduct the arm, patient has tenderness to palpation over the olecranon, able to flex and extend all fingers and the wrist. However doing so hurts the elbow. Neuro: Oriented X 3. No motor deficit. No sensory deficit. Moving all extremities. No slurred speech. CN 2 through 12 grossly intact Psych: calm, cooperative, normal affect Course Course Course Narrative: -patient has x-rays pending -patient given p.o. tramadol Medications Administered Discontinued Medications Generic Name Dose Route Start Last Admin Trade Name Freq PRN Reason Stop Dose Admin Acetaminophen 975 mg 11/17/22 04:27 11/17/22 04:30 Acetaminophen 325 Mg Tablet PO 11/17/22 04:28 975 mg ONCE ONE Administration Tramadol HCl 50 mg 11/17/22 04:21 11/17/22 04:32 Tramadol Hcl 50 Mg Tablet PO 11/17/22 04:22 Not Given ONCE ONE Medical Decision Making Medical Decision Making MDM Narrative: -my interpretation of shoulder and wrist x-ray: No fracture -my interpretation of x-ray of the elbow: Positive for cell sign, there is likely a radial head fracture, not displaced, reduction not indicated at this time -patient states that she feels much better after a p.o. dose of Tylenol. Patient declined taking tramadol under cardiacs at this time, but will accept a prescription of tramadol and will only use it if Tylenol and ibuprofen do not work. -patient's arm will be put in a posterior long-arm splint and a sling -patient instructed to follow-up with orthopedics Radiology Impression Discussion of test interpretation with radiology: I have reviewed the radiologist's reading. Radiologist Impression: FINDINGS: There is an essentially nondisplaced fracture of the radial head. Associated joint effusion is present. Articular alignment across the elbow appears maintained.? XR/XR elbow RT min 3V IMPRESSION: Essentially nondisplaced fracture of the radial head with associated joint effusion. FINDINGS: Osseous alignment is anatomic. No acute fracture is seen. No significant focal soft tissue abnormality identified.? XR/XR wrist RT 2V IMPRESSION: No acute findings identified. ? FINDINGS: Glenohumeral alignment is anatomic. No acute fracture is seen. The acromioclavicular joint appears intact. XR/XR shoulder RT 1V IMPRESSION: No acute findings. ? Discharge Plan Discharge Clinical Impression: Closed fracture of radial head Patient Disposition: Home, Self-Care Instructions: Elbow Fracture (ED) Additional Instructions: Please follow-up with your primary care physician tomorrow. If you have any worsening or new symptoms, please return to the emergency room or call 911 Prescriptions: New tramadol 50 mg tablet 50 mg PO BID PRN (Reason: pain) Qty: 7 0RF No Action cyclobenzaprine 10 mg tablet 10 mg PO TID PRN (Reason: muscle spasm) Qty: 14 0RF ibuprofen 600 mg tablet 600 mg PO Q6H PRN (Reason: pain) Qty: 30 0RF prednisone 20 mg tablet 20 mg PO DAILY Qty: 7 0RF gabapentin 300 mg capsule 300 mg PO TID Qty: 14 0RF cyclobenzaprine 10 mg tablet 10 mg PO TID PRN (Reason: muscle spasm) Qty: 10 0RF meloxicam 15 mg tablet 15 mg PO DAILY Qty: 14 0RF penicillin V potassium 500 mg tablet 500 mg PO BID 10 Days Qty: 20 0RF naproxen 500 mg tablet 500 mg PO BID 7 Days Qty: 14 0RF chlorhexidine gluconate [Peridex] 0.12 % mouthwash 15 ml buccal BID Qty: 118 0RF venlafaxine 75 mg capsule,extended release 24hr 75 mg PO DAILY colestipol 1 gram tablet 1 g PO BID norethindrone (contraceptive) 0.35 mg tablet 0.35 mg PO DAILY Referrals: Carleen Akbar PA-C [Physician Frothing Machine Operator] - 11/20/22 Stand Alone Forms: Work/School Release
[2022-11-17] MEDS: Acetaminophen 325 MG TABLET 975 MG PO (04:30)
--- NOTE | 2022-11-17 05:22 | PC.NURSE ---
Pt ca&ox4, splint and sling placed.
== END 2022-11-17 05:31 | disposition home or self-care (01) ==
PROVIDERS: Emergency Provider Emergency Medicine; PCP Family Medicine
DX: S52.124A Nondisplaced fracture of head of right radius, initial encounter for closed fracture (principal); W18.09XA Striking against other object with subsequent fall, initial encounter; G35 Multiple sclerosis; F17.200 Nicotine dependence, unspecified, uncomplicated; F12.90 Cannabis use, unspecified, uncomplicated; Y93.89 Activity, other specified; Y92.017 Garden or yard in single-family (private) house as the place of occurrence of the external cause; Y99.9 Unspecified external cause status
CPT/HCPCS: 29105; 73020; 73080; 73100; 99284

== ENCOUNTER 2022-11-28 09:15 | Outpatient (REF) | payer OTHER, SELFPAY ==
--- NOTE | ~2022-11-28 | XR_ITS ---
EXAMINATION: XR ELBOW, RIGHT CLINICAL INFORMATION: Pain COMPARISON: 11/17/2022 TECHNIQUE: AP, lateral, and oblique views of the right elbow. FINDINGS: Small joint effusion remains. Intra-articular fracture through the radial head is again noted with minimal step-off to the articular surface. No significant angulation. No new bony abnormality. XR/XR elbow RT min 3V IMPRESSION: Intra-articular radial head fracture again noted with minimal step-off to the articular surface.
== END 2022-11-28 09:16 | disposition home or self-care (01) ==
LOC: HO.HOSX 09:15
PROVIDERS: Visit Provider Physician Assistant
DX: S52.121A Displaced fracture of head of right radius, initial encounter for closed fracture (principal); W01.0XXA Fall on same level from slipping, tripping and stumbling without subsequent striking against object, initial encounter; Y93.9 Activity, unspecified; Y92.9 Unspecified place or not applicable; Y99.9 Unspecified external cause status
CPT/HCPCS: 73080; 99212

== ENCOUNTER 2022-11-28 09:57 | Outpatient (AMB) | payer OTHER, SELFPAY ==
--- NOTE | 2022-11-28 10:02 | A.OFFVIS_ITS ---
Intake Intake Visit Reasons: FC-Closed fracture of radial head newprob Intake Note: Eneida is a 37 year old right hand dominant female who presents today for a fracture care appointment. On 11/17/22 she was in her backyard when she slipped and fell landing on the elbow. Patient reports that she is having pain, she has occasionaly tinling in the right hand. Accompanied by: Spouse Allergies adhesive [ADHESIVE] Allergy (Unknown, Verified 11/28/22 10:03) RASH, SKIN BREAKDOWN SEASONAL ALLERGIES Allergy (Unknown, Uncoded 11/28/22 10:03) RUNNY NOSE, CONGESTION, WATERY EYES HPI FC-Closed fracture of radial head newprob HPI Details 37-year-old right hand dominant female who presents to the office today for an FC follow-up of radial head fracture s/p fall on her elbow in the backyard, 11/17/22. She states she has pain in her elbow and she also experiences occasional numbness and tingling in her right hand. 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 Mild tenderness over the radial head. No pain over the olecranon. No difficulty with flexion or extension, mild discomfort with supination and pronation. No pain along the distal radius or proximal humerus. Sensation and peripheral pulses present. Office Procedures Fracture Care Fracture Billing Code: Fracture Billing Code Results Reviewed Results Reviewed: X-rays of the right elbow obtained in the office today show minimally displaced intraarticular fracture of the radial head. Assessment & Plan Assessment & Plan (1) Right radial head fracture: Code(s): S52.121A - Displaced fracture of head of right radius, initial encounter for cl osed fracture Plan She will work on very gentle extension of her right elbow where she is allowing the arm to just hang and rest at her side. I do not want her lifting anything more than a cellphone and she should avoid supinating beyond neutral. She will continue to use the splint for comfort and I would like to see her back in 2 weeks with new x-rays, sooner if needed. Patient Instructions: Scribed for Chucho Glover PA-C, by Morgan Holland medical laboratory technician, on 11/28/2022 at 10:00 AM MARICEL. Chucho Brito PA-C, have personally reviewed and agree with the information entered by the scribe. Coding Level of Care Code Est Pt Level 3 (64135) Diagnoses Right radial head fracture S52.121A CPT Codes Fracture Care - Fracture Billing Code: Fracture Billing Code ([id number])
== END 2022-11-28 10:56 | disposition home or self-care (01) ==
PROVIDERS: PCP Family Medicine; Visit Provider Physician Assistant
DX: S52.121A Displaced fracture of head of right radius, initial encounter for closed fracture (principal); W01.0XXA Fall on same level from slipping, tripping and stumbling without subsequent striking against object, initial encounter
CPT/HCPCS: 99213

== ENCOUNTER 2022-12-12 10:52 | Outpatient (REF) | payer OTHER, SELFPAY | END 2022-12-12 10:53 | disposition home or self-care (01) | LOC: HO.HOSX 10:52 | PROVIDERS: Visit Provider Physician Assistant | DX: Z13.89 Encounter for screening for other disorder (principal) ==

== ENCOUNTER 2023-01-04 03:19 | Emergency (ER) | payer OTHER, SELFPAY ==
--- NOTE | 2023-01-04 | ECG_ITS ---
Test Reason : CHEST PAIN Blood Pressure : / mmHG Vent. Rate : 106 BPM Atrial Rate : 106 BPM P-R Int : 118 ms QRS Dur : 104 ms QT Int : 368 ms P-R-T Axes : 068 082 047 degrees QTc Int : 488 ms Sinus tachycardia Incomplete right bundle branch block Borderline ECG When compared with ECG of 04-FEB-2018 20:29, No significant change was found Referred By: Generic ED Physician Electronically Signed By:SALO STONE
[2023-01-04 03:27] VITALS: BP 140/86; BP 142/80; PULSE 110; RESP 18; TEMP 36.6; O2SAT 98; O2SAT 99
[2023-01-04 03:40] VITALS: PULSE 101
[2023-01-04 03:56] LABS: MANUAL DIFF FLAG NO
[2023-01-04 03:58] LABS: Basophils Percent Auto 0.5 % (0-2); Eosinophils Absolute Auto 0.1 X10*3/uL (0.0-0.4); Eosinophils Percent Auto 1.3 % (0-4); Hematocrit 40.2 % (37.0-47.0); Imm Gran Abs Auto 0.02 X10*3/uL (0.00-0.03); Imm Gran Pct Auto 0.2 % (0.0-0.4); Lymphocytes Absolute Auto 3.1 X10*3/uL (1.2-4.9); Lymphocytes Percent Auto 36.9 % (20-40); Mean Corpuscular HGB Conc 34.8 g/dl (31.0-35.0); Mean Corpuscular Hemoglobin 30.9 pg (27.0-33.0); Mean Corpuscular Volume 88.7 fL (80.0-98.0); Mean Platelet Volume 8.1 fL (9.4-12.3); Monocytes Absolute Auto 0.5 X10*3/uL (0.1-1.2); Neutrophils Absolute Auto 4.7 x10*3/uL (2.0-8.3); Neutrophils Percent Auto 55.1 % (45-73); Platelet Count 345 X10*3/uL (160-400); Red Blood Count 4.53 X10*6/uL (4.20-5.50); Red Cell Distribution Width 12.4 % (11.0-16.0); White Blood Count 8.5 X10*3/uL (4.8-10.8)
[2023-01-04 04:14] LABS: Alanine Aminotransferase 24 U/L (0-31); Albumin Level 4.1 g/dL (3.5-5.0); Alkaline Phosphatase 72 U/L (39-117); Anion Gap 13 (12-20); Aspartate Amino Transferase 17 U/L (5-31); Bilirubin Direct 0.2 mg/dL (0.0-0.5); Bilirubin Total 0.4 mg/dL (0.0-1.0); Blood Urea Nitrogen 5 mg/dL (9-16); Calcium 9.4 mg/dL (8.4-10.2); Carbon Dioxide 26 mmol/L (22-29); Chloride 102 mmol/L (96-108); Creatinine Clr Calc Pharmacy 88.8; Estimated Glomerular Filt Rate > 60; Glucose Random 124 mg/dL (60-115); Lipase 41 U/L (8-78); Potassium 3.7 mmol/L (3.3-5.1); Sodium 137 mmol/L (135-145); Total Protein 6.7 g/dL (6.5-8.0)
[2023-01-04 04:21] LABS: Troponin-I High Sensitivity < 2.7 ng/L (<3.5-17.0)
[2023-01-04 06:10] VITALS: BP 136/82; PULSE 90; RESP 12; TEMP 36.6; O2SAT 98
[2023-01-04 06:31] LABS: Appearance Urine Clear; Color Urine Yellow; Glucose Urine UA Negative (Negative); Leukocyte Esterase Urine Negative (Negative); Nitrite Urine Negative (Negative); PH 5.5 (5.0-9.0); Specific Gravity - Urine <= 1.005 (1.005-1.025); UPreg QC Valid YES; Urine Blood Negative (Negative); Urine Ketones Negative (Negative); Urine Pregnancy NEGATIVE (NEGATIVE); Urine Protein Negative (Neg-Trace)
[2023-01-04 06:36] LABS: Bacteria Urine None Seen (None Seen); Hyaline Casts Urine 0-2 /LPF (0-2); RBC Urine 0-2 /HPF (0-2); Squamous Epithelial Cell Urine 0-2 /HPF (0-2); WBC Urine 0-5 /HPF (0-5)
[2023-01-04 07:01] VITALS: BP 122/80; PULSE 76; RESP 19; TEMP 36.8; O2SAT 98
--- NOTE | 2023-01-04 07:21 | ED.CHESTPAIN ---
HPI - Chest Pain General Chief Complaint: Chest Pain Stated Complaint: cp for 2 month Time Seen by Provider: 01/04/23 06:56 Source: patient Mode of arrival: ambulatory Limitations: no limitations History of Present Illness HPI narrative: 37-year-old female presents with chest pain. Chest pain has been intermittent. Started 1 week ago. Not associated with exertion. Symptoms are moderate to severe in nature. When she gets the symptoms they can last anywhere from 30 minutes to an hour. They typically occur in the evening. It is not associated with shortness of breath, lightheadedness or palpitations. The pain does not radiate. It tends to be in the left upper chest area. Does not associated with numbness or tingling left arm or jaw pain or dental pain. She has no history of cardiac disease. She has no recent surgery or long distance travel. She has no history of PE or DVT. She denies any nausea vomiting. She does have a history of reflux and is on [id number] omeprazole. She does get a nasty taste in the back of her throat as well. Patient denies any fevers, chills, upper respiratory symptoms. Related Data Home Medications Medication Instructions Recorded Confirmed colestipol 1 gram tablet 1 g PO BID 11/24/20 11/24/20 venlafaxine 75 mg capsule,extended 75 mg PO DAILY 11/24/20 11/24/20 release 24 hr norethindrone (contraceptive) 0.35 0.35 mg PO DAILY 10/31/21 mg tablet Previous Rx's Medication Instructions Recorded ibuprofen 600 mg tablet 600 mg PO Q6H PRN pain #30 tabs 10/11/21 meloxicam 15 mg tablet 15 mg PO DAILY #14 tabs 09/10/22 chlorhexidine gluconate 0.12 % 15 ml buccal BID #118 mL 10/14/22 mouthwash (Peridex) naproxen 500 mg tablet 500 mg PO BID 7 days #14 tabs 10/14/22 famotidine 20 mg tablet 20 mg PO BEDTIME #30 tabs 01/04/23 pantoprazole 40 mg tablet,delayed 40 mg PO DAILY #30 tabs 01/04/23 release Allergies Allergy/AdvReac Type Severity Reaction Status Date / Time adhesive [ADHESIVE] Allergy Unknown RASH, SKIN Verified 11/28/22 10:03 BREAKDOWN SEASONAL ALLERGIES Allergy Unknown RUNNY Uncoded 11/28/22 10:03 NOSE, CONGESTION, WATERY EYES Review of Systems Review of Systems: CONSTITUTIONAL: Denies weight loss, fever and chills. HEENT: Denies changes in vision and hearing. RESPIRATORY: Denies SOB and cough. CV: Denies palpitations + CP. GI: Denies abdominal pain, nausea, vomiting and diarrhea. : Denies dysuria and urinary frequency. MSK: Denies myalgia and joint pain. SKIN: Denies rash and pruritus. NEUROLOGICAL: Denies headache and syncope. PSYCHIATRIC: Denies recent changes in mood. Denies anxiety and depression. All other ROS are negative unless in HPI PMFSH Past Medical History Medical History Multiple sclerosis No known health problems Skin lesion of back Surgical History H/O removal of cyst History of cholecystectomy Social History Social History Alcohol intake: former Patient Tobacco Use Status: Current everyday Tobacco user Smoked in Last 30 Days: Yes Use of substances other than those prescribed or required for medical reasons: Yes Substance Use Type: Marijuana Last Used Substance: Hours (ago) Advance Directives: No Advance Directives Information Provided: No Patient : No Current occupational status: employed 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, 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 Physical Exam Vital Signs: Vital Signs: Last Vital Signs Temp 98.2 F 01/04/23 07:01 Pulse 76 01/04/23 07:01 Resp 19 01/04/23 07:01 BP 122/80 01/04/23 07:01 Pulse Ox 98 01/04/23 07:01 O2 Del Method Room Air 01/04/23 07:01 BMI result Body Mass Index 30.0 GEN: Well developed, no acute distress, alert, oriented HEENT: Normocephalic, atraumatic, normal external ears, nose appears normal, no oropharyngeal edema or exudates Eyes: Normal to appearance Neck: Supple, no lymphadenopathy Respiratory: Talks in complete sentences, no respiratory distress, clear to auscultation bilaterally Cardiovascular: Regular rate and rhythm, no murmurs rubs or gallops Abdomen: Soft, nontender, nondistended, no guarding, no rebound Back: No CVA tenderness Extremities: No clubbing cyanosis or edema Neurologic: No focal neurologic deficits, cranial nerves 2-12 intact, strength is 5/5 bilaterally Skin: No rash Course Course Course Narrative: It is 8:00 a.m. in the morning. The workup is complete. Patient is having chest pain. Story is atypical for cardiac ischemia. EKG does show an incomplete right bundle branch block but no acute ischemic changes. She has no history or risk factors for pulmonary embolus or perc score is 0. Her examination is unremarkable. Cardiac enzymes are negative. Is atypical for cardiac ischemia, will refer patient to cardiology for further workup and evaluation. In the meantime, will increase her treatment for reflux. She was instructed to return for any worsening, progression or any other concerning symptoms. I also spent an extensive amount of time counseling regarding smoking cessation. Medical Decision Making Medical Decision Making [facility] Narrative: 37-year-old female presents with chest pain. The chest pain is nonexertional. Has been intermittent for 1 week. Differential diagnosis includes cardiac, reflux, atypical chest pain, neuro anxiety, panic, esophageal spasm, musculoskeletal, costochondritis. Examination is unremarkable. EKG done upon arrival shows an incomplete right bundle-branch block without acute ischemic changes. She has no history of PE or DVT. Her PERC score is 0. Doubt pulmonary embolus. Doubt acute coronary syndrome. Symptoms are also atypical for aortic dissection. There are no additional red flag findings. Workup will include cardiac enzymes, routine laboratory analysis, cardiac monitoring and re-evaluation. Should any testing show any significant abnormalities, would consider hospitalization otherwise, further outpatient workup would be appropriate. Differential Diagnosis Differential Diagnoses: The differential diagnosis associated with the presentation includes (See above) Admission/Observation Consideration of admission/observation: Escalation of care including admission/observation considered Lab Data [facility] Lab Attestation statement: I reviewed the patient's lab results. 01/04/23 03:51 01/04/23 03:51 Labs: Lab Results 01/04/23 01/04/23 01/04/23 Range/Units 03:51 03:51 03:51 WBC 8.5 (4.8-10.8) X10*3/uL RBC 4.53 (4.20-5.50) X10*6/uL Hgb 14.0 (12.0-16.0) g/dl Hct 40.2 (37.0-47.0) % MCV 88.7 (80.0-98.0) fL MCH 30.9 (27.0-33.0) pg MCHC 34.8 (31.0-35.0) g/dl RDW 12.4 (11.0-16.0) % Plt Count 345 (160-400) X10*3/uL MPV 8.1 L (9.4-12.3) fL Immature Gran % (Auto) 0.2 (0.0-0.4) % Neut % (Auto) 55.1 (45-73) % Lymph % (Auto) 36.9 (20-40) % Hardy % (Auto) 6.0 (2-11) % Eos % (Auto) 1.3 (0-4) % Baso % (Auto) 0.5 (0-2) % Lymph # (Auto) 3.1 (1.2-4.9) X10*3/uL Hardy # (Auto) 0.5 (0.1-1.2) X10*3/uL Eos # (Auto) 0.1 (0.0-0.4) X10*3/uL Baso # (Auto) 0.0 (0.0-0.2) X10*3/uL Abs Immat Gran (auto) 0.02 (0.00-0.03) X10*3/uL Absolute Neuts (auto) 4.7 (2.0-8.3) x10*3/uL Absolute Nucleated RBC 0.000 (0.0-0.012) X10*3/uL Nucleated RBC % (auto) 0.0 (0.0-0.2) /100WBC Sodium 137 (135-145) mmol/L Potassium 3.7 (3.3-5.1) mmol/L Chloride 102 (96-108) mmol/L Carbon Dioxide 26 (22-29) mmol/L Anion Gap 13 (12-20) BUN 5 L (9-16) mg/dL Creatinine 0.81 (0.5-1.4) mg/dL Estim Creat Clear Calc 88.8 Estimated GFR > 60 Random Glucose 124 H (60-115) mg/dL Calcium 9.4 (8.4-10.2) mg/dL Total Bilirubin 0.4 (0.0-1.0) mg/dL Direct Bilirubin 0.2 (0.0-0.5) mg/dL AST 17 (5-31) U/L ALT 24 (0-31) U/L Alkaline Phosphatase 72 (39-117) U/L Troponin I High Sens < 2.7 (<3.5-17.0) ng/L Total Protein 6.7 (6.5-8.0) g/dL Albumin 4.1 (3.5-5.0) g/dL Lipase 41 (8-78) U/L Urine Color Urine Appearance Urine pH (5.0-9.0) Ur Specific [place] (1.005-1.025) Urine Protein (Neg-Trace) mg/dL Urine Glucose (UA) (Negative) mg/dL Urine Ketones (Negative) mg/dL Urine Blood (Negative) Urine Nitrite (Negative) Ur Leukocyte Esterase (Negative) Urine RBC (0-2) /HPF Urine WBC (0-5) /HPF Ur Squamous Epith Cells (0-2) /HPF Urine Bacteria (None Seen) Hyaline Casts (0-2) /LPF Urine Test (NEGATIVE) 01/04/23 01/04/23 Range/Units 06:20 06:20 WBC (4.8-10.8) X10*3/uL RBC (4.20-5.50) X10*6/uL Hgb (12.0-16.0) g/dl Hct (37.0-47.0) % MCV (80.0-98.0) fL MCH (27.0-33.0) pg MCHC (31.0-35.0) g/dl RDW (11.0-16.0) % Plt Count (160-400) X10*3/uL MPV (9.4-12.3) fL Immature Gran % (Auto) (0.0-0.4) % Neut % (Auto) (45-73) % Lymph % (Auto) (20-40) % Hardy % (Auto) (2-11) % Eos % (Auto) (0-4) % Baso % (Auto) (0-2) % Lymph # (Auto) (1.2-4.9) X10*3/uL Hardy # (Auto) (0.1-1.2) X10*3/uL Eos # (Auto) (0.0-0.4) X10*3/uL Baso # (Auto) (0.0-0.2) X10*3/uL Abs Immat Gran (auto) (0.00-0.03) X10*3/uL Absolute Neuts (auto) (2.0-8.3) x10*3/uL Absolute Nucleated RBC (0.0-0.012) X10*3/uL Nucleated RBC % (auto) (0.0-0.2) /100WBC Sodium (135-145) mmol/L Potassium (3.3-5.1) mmol/L Chloride (96-108) mmol/L Carbon Dioxide (22-29) mmol/L Anion Gap (12-20) BUN (9-16) mg/dL Creatinine (0.5-1.4) mg/dL Estim Creat Clear Calc Estimated GFR Random Glucose (60-115) mg/dL Calcium (8.4-10.2) mg/dL Total Bilirubin (0.0-1.0) mg/dL Direct Bilirubin (0.0-0.5) mg/dL AST (5-31) U/L ALT (0-31) U/L Alkaline Phosphatase (39-117) U/L Troponin I High Sens (<3.5-17.0) ng/L Total Protein (6.5-8.0) g/dL Albumin (3.5-5.0) g/dL Lipase (8-78) U/L Urine Color Yellow Urine Appearance Clear Urine pH 5.5 (5.0-9.0) Ur Specific [place] <= 1.005 (1.005-1.025) Urine Protein Negative (Neg-Trace) mg/dL Urine Glucose (UA) Negative (Negative) mg/dL Urine Ketones Negative (Negative) mg/dL Urine Blood Negative (Negative) Urine Nitrite Negative (Negative) Ur Leukocyte Esterase Negative (Negative) Urine RBC 0-2 (0-2) /HPF Urine WBC 0-5 (0-5) /HPF Ur Squamous Epith Cells 0-2 (0-2) /HPF Urine Bacteria None Seen (None Seen) Hyaline Casts 0-2 (0-2) /LPF Urine Test NEGATIVE (NEGATIVE) Independent Interpretation I performed an independent interpretation of an: EKG (Sinus tachycardia heart rate 106, incomplete right bundle-branch block, no acute ST elevations depressions) Prescription Management I considered prescription management with: Pain Medication Discharge Plan Discharge Clinical Impression: Chest pain, Smoking Patient Disposition: Home, Self-Care Instructions: Chest Pain (DC), How to Stop Smoking (ED), Gastroesophageal Reflux Disease (DC) Prescriptions: New pantoprazole 40 mg tablet,delayed release (DR/EC) 40 mg PO DAILY Qty: 30 0RF famotidine 20 mg tablet 20 mg PO BEDTIME Qty: 30 0RF No Action ibuprofen 600 mg tablet 600 mg PO Q6H PRN (Reason: pain) Qty: 30 0RF meloxicam 15 mg tablet 15 mg PO DAILY Qty: 14 0RF naproxen 500 mg tablet 500 mg PO BID 7 Days Qty: 14 0RF chlorhexidine gluconate [Peridex] 0.12 % mouthwash 15 ml buccal BID Qty: 118 0RF venlafaxine 75 mg capsule,extended release 24hr 75 mg PO DAILY colestipol 1 gram tablet 1 g PO BID norethindrone (contraceptive) 0.35 mg tablet 0.35 mg PO DAILY Referrals: Nic Beltran MD [Physician] - 1 week
--- NOTE | 2023-01-04 07:38 | PC.NURSE ---
pt sleeping comfortably. repsirations even and unlabored.
== END 2023-01-04 08:31 | disposition home or self-care (01) ==
PROVIDERS: Emergency Provider Emergency Medicine; PCP Family Medicine
DX: R07.9 Chest pain, unspecified (principal); F17.200 Nicotine dependence, unspecified, uncomplicated; F12.90 Cannabis use, unspecified, uncomplicated; Z79.899 Other long term (current) drug therapy
CPT/HCPCS: 36415; 80053; 81001; 81025; 82248; 83690; 84484; 85025; 93005; 99283; 99285

== ENCOUNTER 2023-06-05 06:22 | Emergency (ER) | payer OTHER, SELFPAY ==
[2023-06-05 06:48] VITALS: BP 157/99; PULSE 100; RESP 18; TEMP 36.6; O2SAT 96; BMI 28.0
--- NOTE | 2023-06-05 07:23 | ED.GENADULT ---
HPI - General Adult General Chief complaint: Dental/Oral Stated complaint: dental pain facial swelling Time Seen by Provider: 06/05/23 07:23 Source: patient Mode of arrival: ambulatory Limitations: no limitations History of Present Illness HPI narrative: Patient is a 38 year old assigned female at with a history of anxiety presenting to the emergency department today with left sided dental pain. Patient states that over the last few days she has had left sided dental pain. Patient states that she has an appointment next with a dentist. Patient denies any dizziness, lightheadedness, abdominal pain, nausea, vomiting, fever, chills, blurry vision, double vision, loss of vision, chest pain, difficulty breathing, shortness of breath, back pain, night sweats, pain with urination, increased urinary frequency, increased urinary urgency, blood in her urine or stool, syncope or a near syncopal episode, recent trauma or falls, bowel incontinence, bladder incontinence, bowel retention, bladder retention, or any other complaints at this time. Onset (ago): day(s) Location: mouth Severity: mild Severity scale (1-10): 3 Relieving factors: none Exacerbating factors: none Associated symptoms: denies other symptoms Treatments prior to arrival: none Related Data Home Medications Medication Instructions Recorded Confirmed colestipol 1 gram tablet 1 g PO BID 11/24/20 11/24/20 venlafaxine 75 mg capsule,extended 75 mg PO DAILY 11/24/20 11/24/20 release 24 hr norethindrone (contraceptive) 0.35 0.35 mg PO DAILY 10/31/21 mg tablet Previous Rx's Medication Instructions Recorded ibuprofen 600 mg tablet 600 mg PO Q6H PRN pain #30 tabs 10/11/21 meloxicam 15 mg tablet 15 mg PO DAILY #14 tabs 09/10/22 chlorhexidine gluconate 0.12 % 15 ml buccal BID #118 mL 10/14/22 mouthwash (Peridex) naproxen 500 mg tablet 500 mg PO BID 7 days #14 tabs 10/14/22 famotidine 20 mg tablet 20 mg PO BEDTIME #30 tabs 01/04/23 pantoprazole 40 mg tablet,delayed 40 mg PO DAILY #30 tabs 01/04/23 release chlorhexidine gluconate 0.12 % 15 ml buccal BID #118 mL 06/05/23 mouthwash (Peridex) naproxen 500 mg tablet 500 mg PO BID 7 days #14 tabs 06/05/23 penicillin V potassium 500 mg 500 mg PO BID 10 days #20 tabs 06/05/23 tablet Allergies Allergy/AdvReac Type Severity Reaction Status Date / Time adhesive [ADHESIVE] Allergy Unknown RASH, SKIN Verified 06/05/23 06:51 BREAKDOWN SEASONAL ALLERGIES Allergy Unknown RUNNY Uncoded 11/28/22 10:03 NOSE, CONGESTION, WATERY EYES Review of Systems Constitutional: Constitutional: Reports no additional constitutional complaints, Denies chills, Denies fever(s) and Denies night sweats Eyes: Eyes: Reports no additional eye complaints, Denies blurry vision, Denies change in vision, Denies diplopia, Denies eye discharge, Denies loss of vision and Denies eye pain ENT: Denies dizziness Cardiovascular: Cardiovascular: Reports no additional cardiovascular complaints, Denies chest pain, Denies lightheadedness, Denies Loss of Consciousness and Denies dyspnea Respiratory: Respiratory: Reports no additional respiratory complaints and Denies dyspnea Gastrointestinal: Gastrointestinal: Reports no additional gastrointestinal complaints, Denies abdominal pain, Denies melena, Denies hematochezia, Denies change in bowel habits and Denies change in stool character Genitourinary: Genitourinary: Denies hematuria, Denies urinary frequency, Denies dysuria, Denies urinary incontinence, Denies urinary hesitancy and Denies urinary urgency Musculoskeletal: Musculoskeletal: Reports no additional musculoskeletal complaints, Denies numbness and Denies tingling Neurologic: Denies dizziness, Denies loss of vision, Denies numbness and Denies tingling Psychiatric: Psychiatric: Reports no additional psychiatric complaints Endocrine: Endocrine: Reports no additional endocrine complaints Hematologic/Lymphatic: Hematologic/Lymphatic: Reports no additional hematologic/lymphatic complaints Allergic/Immunologic: Allergic/Immunologic: Reports no additional allergic/immunologic complaints PMFSH Past Medical History Attestation statement: The following information was validated with the patient. Source: old records reviewed and nursing notes reviewed Onset Date is defined in the Problem List Problems that require an onset date and time if occurred within 24 hrs of arrival to the ED Aortic Dissection and Rupture; Neurologic impairment; Cardiopulmonary Arrest; Endotracheal Intubation; Insertion or Replacement of Mechanical Circulatory Assist Device Medical History Multiple sclerosis Tobacco abuse (06/30/22) Seasonal allergies Sacroiliitis (09/22/19) Depression ASCUS with positive high risk HPV cervical Anxiety (06/30/22) Right radial head fracture Left radial head fracture Skin lesion of back Multiple sclerosis No known health problems Surgical History History of cholecystectomy H/O removal of cyst Social History Social History Alcohol intake: former Patient Tobacco Use Status: Current everyday Tobacco user Substance Use Type: Marijuana Advance Directives: No Advance Directives Information Provided: Yes Current occupational status: employed 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, 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 Physical Exam ED Vital Signs: Vital Signs - 24 hr 06/05/23 06:48 Temperature 97.9 F Pulse Rate 100 Respiratory Rate 18 Blood Pressure 157/99 H Pulse Oximetry 96 Oxygen Delivery Method Room Air BMI result Body Mass Index 28.0 Const General: cooperative, no acute distress, alert and awake Nutritional Appearance: well nourished Orientation/consciousness: patient oriented x3 Limitations: no limitations HENMT Head: Yes normal to inspection and Yes atraumatic Ears: hearing grossly normal bilaterally and external ears normal General nose exam: Normal external nose present, no nasal discharge noted and no epistaxis Face and sinus: Yes normal facial exam, No abrasion and No laceration Mouth: no drooling and no muffled voice Teeth and gingiva: poor dentition Teeth image: 1. erythema of the gums around tooth #17 and 18, no fluctuance Eyes General: appearance normal, both eyes and all related structures Periorbital: periorbital findings normal Eyelids: Yes eyelids normal Conjunctivae: conjunctivae normal Pupils: Equal, round and reactive pupils present EOM: EOMs intact bilaterally Neck Neck: Yes normal visual inspection, Yes full ROM and Yes no lymphadenopathy Chest Chest palpation & inspection: normal inspection of the chest Resp Effort & Inspection: normal respiratory effort and able to speak in complete sentences GI Inspection: Yes normal to inspection Neuro General: patient oriented x3 and moves all extremities Cranial nerves: Yes Equal, round and reactive pupils present Cognition (Neuro): normal cognition Motor exam (neuro): 5/5 motor strength present throughout Sensory Exam: Normal double simultaneous stimulation for sensation Coordination: [id number] test normal Extrem General: Yes normal to inspection, Yes full ROM and Yes capillary refill normal Psych Appearance: grossly normal Mental Status: mental status grossly normal Affect: normal affect Attitude: cooperative Thought process: Normal thought process present Thought content: Normal thought content present Insight: Good insight present (Psych) Medical Decision Making Medical Decision Making MDM Narrative: Patient is a 38 year old assigned female at with a history of anxiety presenting to the emergency department today with left lower dental pain. Patient's physical exam was as noted in the physical exam portion of this note. I explained my physical exam findings to the patient. I answered all questions asked by the patient. I stressed the importance of the patient taking her medication as prescribed. I stressed the importance of the patient following up with her primary care provider and dentist. I stressed the importance of the patient returning to the emergency department immediately if her symptoms were to worsen or if she were to develop any dizziness, shortness of breath, difficulty breathing, chest pain, blurry vision, loss of vision, nausea, vomiting, abdominal pain, fever, chills, back pain, or any other complaints. Patient verbalized agreement and understanding with this treatment plan and discharge. Differential Diagnosis Differential Diagnoses: The differential diagnosis associated with the presentation includes Dental infection Dental abscess Poor dentition Dental caries Admission/Observation Consideration of admission/observation: Escalation of care including admission/observation considered Patient would have been admitted to the hospital had her clinical presentation warranted hospital admission. Prescription Management I considered prescription management with: Pain Medication (patient prescribed pain medication) and Antibiotic (patient prescribed an antibiotic for her dental infection) Discharge Plan Discharge Clinical Impression: Dental infection Patient Disposition: Home, Self-Care Instructions: Dental Abscess (ED) Additional Instructions: Follow up with your primary care provider and your dentist. Return to the emergency department immediately if your symptoms worsen or if you develop any dizziness, shortness of breath, difficulty breathing, chest pain, blurry vision, loss of vision, nausea, vomiting, abdominal pain, fever, chills, back pain, or any other complaints. Call or visit any of the clinics below to establish with a dentist: [facility] [address] [place] [address] [facility] [address] [facility], [address] Elias Yuen [address] [place] [id number] [facility] [address] [facility] [address] [place], [place] [id number] [place] [address] [place] [address] Prescriptions: New penicillin V potassium 500 mg tablet 500 mg PO BID 10 Days Qty: 20 0RF naproxen 500 mg tablet 500 mg PO BID 7 Days Qty: 14 0RF chlorhexidine gluconate [Peridex] 0.12 % mouthwash 15 ml buccal BID Qty: 118 0RF No Action ibuprofen 600 mg tablet 600 mg PO Q6H PRN (Reason: pain) Qty: 30 0RF meloxicam 15 mg tablet 15 mg PO DAILY Qty: 14 0RF pantoprazole 40 mg tablet,delayed release (DR/EC) 40 mg PO DAILY Qty: 30 0RF famotidine 20 mg tablet 20 mg PO BEDTIME Qty: 30 0RF naproxen 500 mg tablet 500 mg PO BID 7 Days Qty: 14 0RF chlorhexidine gluconate [Peridex] 0.12 % mouthwash 15 ml buccal BID Qty: 118 0RF venlafaxine 75 mg capsule,extended release 24hr 75 mg PO DAILY colestipol 1 gram tablet 1 g PO BID norethindrone (contraceptive) 0.35 mg tablet 0.35 mg PO DAILY Referrals: Ian Bates MD [Primary Care Provider] - Print Language: Albanian
--- NOTE | 2023-06-05 07:58 | PC.NURSE ---
PT WAS SEEN AND DISCHARGE PLAN WAS REVIEWED
== END 2023-06-05 08:06 | disposition home or self-care (01) ==
PROVIDERS: Emergency Provider Emergency Medicine; PCP Family Medicine
DX: K04.7 Periapical abscess without sinus (principal); F17.200 Nicotine dependence, unspecified, uncomplicated
CPT/HCPCS: 99282; 99283

== ENCOUNTER 2024-03-04 12:57 | Outpatient (REF) | payer OTHER, SELFPAY ==
--- NOTE | ~2024-03-04 | MR_ITS ---
EXAMINATION: MR CERVICAL SPINE WITHOUT AND WITH CONTRAST CLINICAL INFORMATION: MS, follow-up. COMPARISON: 08/01/2017. TECHNIQUE: MRI of the cervical spine was obtained using routine sequences with and without contrast. Intravenous contrast: Gadavist 7.5 mL. Examination was performed on a 1.5 Malu Siemens unit, using standard sequences. Exam submitted for review 05/01/2024 11:51 AM [employer]. FINDINGS: -Images are moderately degraded due to patient motion. This limits the sensitivity of the study particularly on the axial sequences are there is abundant motion blurring. CORONAL ALIGNMENT: -There is a mild levoconvex scoliosis. SAGITTAL ALIGNMENT: -Mild straightening of the normal lordosis, nonspecific. -No subluxations. CRANIOCERVICAL JUNCTION/C1-2 ARTICULATIONS: -Intact and aligned. VERTEBRAL BODIES/BONE MARROW: -Intact and normal in signal. No edema or infiltrating abnormal bone marrow signal identified. DISCS: -Mild loss of disc height and signal C3-C7, most significant at C6-7. CERVICAL CORD: Numerous regions of signal abnormality are present throughout the cord. Most notable as follows: -Dorsal column lesion inferior C1 level (series 22, image 3). -Left lateral column lesion C1-2 level (series 22, image 5). -Dorsal and left lateral column lesions spanning the inferior endplate of C2 through inferior endplate of C3. -Central cord lesions spanning the mid C4 through the inferior endplate of C6, with involvement of the anterior column is wall, associated mild cord thinning at these levels, new from the prior study. -Anterior column lesion inferior endplate of C6. -Central cord lesion mid T1 level. -Anterior cord lesion spanning the inferior one half of T2. -After the administration of contrast no abnormal enhancing lesions are identified. No abnormal intra-axial or extra medullary enhancing present. PARAVERTEBRAL SOFT TISSUES: -Normal. VISUALIZED INTRACRANIAL STRUCTURES: -No definite posterior fossa lesions. AXIAL DISC SPACE IMAGING: C2-C3: No central canal narrowing. Mild bilateral facet spurring present, contributing to mild bilateral neural foraminal narrowing. No change. C3-C4: Motion limited. No central canal or neural foraminal narrowing. Mild hypertrophic facet changes. C4-C5: Motion limited. Mild to moderate hypertrophic facet changes and mild uncinate spurring bilaterally. No central canal narrowing. There is mild to moderate neural foraminal narrowing left greater than right. C5-C6: Motion limited. Minimal bulging disc without mass effect. Mild bilateral facet hypertrophic changes, and more prominent uncinate spurring bilaterally. No central canal stenosis. Moderate bilateral neural foraminal narrowing. C6-C7: Shallow left lateral and foraminal disc bulge present, resulting in minimal central canal narrowing. No lateral recess narrowing. Mild to moderate left greater than right facet hypertrophy, and moderate bilateral uncinate hypertrophy contribute to moderate to severe left and moderate right neural foraminal narrowing. C7-T1: Mild uncinate spurring. No central or neural foraminal narrowing. MR/MR cervical spine wo/w con IMPRESSION: 1. Somewhat motion limited exam, limiting sensitivity. 2. Numerous cord lesions present, throughout the cervical cord, overall similar in appearance when compared with the prior exam. There has been progression of mild thinning of the cervical cord spanning the C3-4 to the upper C6 levels. No definite enhancing lesions seen to suggest active demyelination. 3. Mild spondylosis as detailed. No significant central canal narrowing or cord impingement. Electronically signed by: Shyam Souza MD 05/01/2024 12:52 PM [facility]
--- NOTE | ~2024-03-04 | MR_ITS ---
EXAMINATION: MR BRAIN WITHOUT AND WITH CONTRAST CLINICAL INFORMATION: Multiple sclerosis, follow-up. Evaluate for progression. COMPARISON: MR brain 08/01/2017. TECHNIQUE: Multiplanar, multisequence MRI of the brain was obtained before and after the intravenous administration of 7.5 mL Gadavist. Exam performed on a 1.5 Malu Siemens high-field unit. FINDINGS: There is no diffusion restriction. There is no intracranial hemorrhage, acute infarction, mass effect, or edema. Ventricles, sulci, and cisterns are normal in size and configuration for patient age. No shift of midline. No abnormal hemosiderin deposition is identified. There are a numerous scattered punctate and somewhat confluent foci of white matter T2 hyperintensity in the periventricular, pericallosal, callosal marginal, callosal septal, subcortical, and hemispheric deep white matter, with configuration in keeping with inflammatory demyelination. There is T2 hyperintense callosal septal signal extending into the splenium of the corpus callosum. This is a very specific finding for inflammatory demyelination. There is mild to moderate callosal atrophy. The overall number and morphology of lesions appears unchanged from 2014. No definite new lesions are seen. There are several periventricular T1 hypointense lesions. After the administration of contrast, there is an lentiform enhancement of a white matter lesion in the left periatrial white matter (series 27, image 14; series 28, image 14). Tiny focus of enhancement in the left paramedian posterior callosal body (328, image 17). Findings suggest active demyelinating foci. No additional abnormal enhancement. Midline structures appear normally formed. The pituitary gland appears normal. Posterior fossa structures appear normal. Cerebellar tonsils are appropriately located. Major flow voids are preserved within the skull base. The globes appear normal. Orbital contents demonstrate apparent atrophy of the left optic nerve. There is no significant paranasal sinus disease. The mastoids and tympanic cavities are normally aerated. Extracranial soft tissues demonstrate no abnormalities. No suspicious bone marrow changes are evident. Moderate degenerative arthrosis left greater than right TM joints. Atlantoaxial joint is normal. MR/MR head/brain wo/w con IMPRESSION:\ 1. There is a new linear enhancing focus involving left lateral periatrial white matter, and new punctate focus of enhancement left posterior body of the corpus callosum, suggesting active demyelination. 2. Otherwise, there has been no additional significant interval change in the number, extent, or appearance/morphology of numerous demyelinating white matter lesions in the supratentorial brain. 3. There is mild to moderate callosal atrophy. 4. There appears to be some degree of atrophy of the left optic nerve. 5. No evidence of intracranial hemorrhage, acute infarction, mass effect, or edema. No additional abnormal contrast enhancement. 6. Ancillary findings as discussed. Electronically signed by: Shyam Souza MD 05/01/2024 12:16 PM [facility]
[2024-03-04] MEDS: gadobutroL 7.5 ML VIAL IVPUSH (14:25)
== END 2024-03-04 12:58 | disposition home or self-care (01) ==
LOC: HO.MRI 12:57
PROVIDERS: PCP Family Medicine; Visit Provider Psychiatry & Neurology Neurology
DX: G35 Multiple sclerosis (principal)
CPT/HCPCS: 70553; 72156; A9585

== ENCOUNTER → 2024-03-04 13:09 | Outpatient (BNV) | payer OTHER, SELFPAY | PROVIDERS: PCP Family Medicine; Visit Provider Radiology Diagnostic Radiology | DX: G35 Multiple sclerosis (principal) | CPT/HCPCS: 70553; 72156 ==

== ENCOUNTER 2025-02-23 00:55 | Emergency (ER) | payer OTHER, SELFPAY ==
--- NOTE | ~2025-02-23 | CT_ITS ---
CLINICAL HISTORY: RLQ pain, sigmoid diverticulitis? CT abdomen and pelvis with contrast Comparison: CT - CT ABDOMEN PELVIS W IV CON - 02/23/25 03:06 EDT Findings: No consolidation or effusion. Gallbladder is surgically absent. No focal hepatic lesion. Pancreas, spleen and adrenal glands are within normal limits. Kidneys enhance symmetrically and are non hydronephrotic. No bowel obstruction, pneumoperitoneum, or pneumatosis. Scattered sigmoid diverticula are present without diverticulitis. Visualized appendix is normal. Urinary bladder and pelvic structures are within normal limits. No acute fracture. IMPRESSION: No acute findings. This document has been electronically signed by: Tod Nickerson MD, PHD on 02/23/2025 04:19:48
[2025-02-23 01:01] VITALS: BP 167/108; PULSE 108; O2SAT 100
[2025-02-23 01:04] VITALS: BP 143/86; PULSE 91; RESP 22; TEMP 36.6; O2SAT 100; BMI 30.7
[2025-02-23 01:37] VITALS: BP 162/89; PULSE 84; RESP 20; O2SAT 98
--- OUTSIDE RECORDS SUMMARY | 2025-02-23 01:40 | XMS_ITS | Clinical Summary ---
Author Organization [employer] [facility] it Address [address] [place] [address] Care Team Providers Care Cardiac Rehab Nurse Name Role Phone Eleuterio Linares MD Primary Care Provider [phone] Surgical History Surgery Date Site/Laterality Comments OTHER SURGICAL HISTORY PROCEDURE: PA COLPOSCOPY CERVIX VAG ELTRD CONIZATION CERVIX; COMMENT: h/o HPV normal pap smears since CYST REMOVAL PROCEDURE: PA EXCISION PILONIDAL CYST/SINUS SIMPLE Medical History Medical History Date Comments Depression DX:Depression Multiple sclerosis 07/23/2010 DX:Multiple s clerosis (HCC) Family History Medical History Relation Name Comments Cataracts Maternal Grandmother great Macular degeneration Mother Blindness Neg Hx Glaucoma Neg Hx Strabismus Neg Hx Relation Name Status Comments Brother Alive sleep apnea Father Alive ?PMH Maternal Grandfather Alive HTN Maternal Grandmother great Alive Mother Alive MS Sister Alive asthma Uncle [place] at 60's, CVA Social History Tobacco Use Types Packs/Day Years Used Date Smoking Tobacco: Every Day Cigarettes Smokeless Tobacco: Never Alcohol Use Standard Drinks/Week Comments Yes 0 (1 standard drink = 0.6 oz pur e alcohol) Comments Unknown Sex and Gender Information Value Date Recorded Sex Assigned at Not on file Legal Sex Female 11:11 PM EST Gender Identity Not on file Sexual Orientation Not on file Obstetrics History Plan of Treatment Health Maintenance Due Date Last Done Comments Breast Cancer Screening 1984 Hepatitis B Vaccines (1 of 3 - 19+ 3-dose series) 01/16/2003 Cervical Cancer Screening: P ap Smear 01/16/2005 HPV Vaccines (1 - 3-dose SCD M series) 01/16/2011 DTaP,Tdap,and Td Vaccines (2 - Td or Tdap) 11/09/2018 11/09/2008 Depression Screening 05/21/2024 COVID-19 Vaccine (1 - 2023-2 5 season) 2025 Influenza Vaccine (#1) 2025 RSV Immunization Adult Patie nts (1 - 1-dose 75+ series) 01/16/2059 HIB Vaccines Aged Out No longer eligi ble based on patient's age to complete this topic Hepatitis A Vaccines Aged Out No long er eligible based on patient's age to complete this topic IPV Vaccines Aged Out No longer eligi ble based on patient's age to complete this topic MMR Vaccines Aged Out No longer eligi ble based on patient's age to complete this topic Meningococcal ACWY Vaccine Aged Out N o longer eligible based on patient's age to complete this topic Meningococcal B Vaccine Aged Out No l onger eligible based on patient's age to complete this topic Pneumococcal Vaccine: Pediat rics (0 to 5 Years) and At-Risk Patients (6 to 49 Years) Aged Out No longer eligi ble based on patient's age to complete this topic RSV Immunization Patients Un antonio 20 months Aged Out No longer eligible b ased on patient's age to complete this topic Varicella Vaccines Aged Out No longer eligible based on patient's age to complete this topic Care Teams Cardiac Rehab Nurse Relationship Specialty Start Date End Date Eleuterio Linares MD [address] [place] [address] PCP - General 01/31/23
[2025-02-23 01:53] LABS: Hematocrit 40.8 % (37.0-47.0); Hemoglobin 14.6 g/dl (12.0-16.0); Imm Gran Abs Auto 0.05 X10*3/uL (0.00-0.03); Imm Gran Pct Auto 0.3 % (0.0-0.4); Lymphocytes Absolute Auto 1.9 X10*3/uL (1.2-4.9); MANUAL DIFF FLAG NO; Mean Corpuscular HGB Conc 35.8 g/dl (31.0-35.0); Mean Corpuscular Hemoglobin 30.9 pg (27.0-33.0); Mean Corpuscular Volume 86.3 fL (80.0-98.0); NRBC Abs Auto 0.000 X10*3/uL (0.0-0.012); NRBC Pct Auto 0.0 /100WBC (0.0-0.2); Platelet Count 425 X10*3/uL (160-400); Red Blood Count 4.73 X10*6/uL (4.20-5.50); White Blood Count 16.7 X10*3/uL (4.8-10.8)
[2025-02-23 02:00] LABS: Appearance Urine Clear; Glucose Urine UA Negative (Negative); PH 8.0 (5.0-9.0); Specific Gravity - Urine <= 1.005 (1.005-1.025)
[2025-02-23 02:15] LABS: Anion Gap 13 (12-20); Blood Urea Nitrogen 6 mg/dL (9-16); Carbon Dioxide 25 mmol/L (22-29); Chloride 104 mmol/L (96-108); Creatinine Clr Calc Pharmacy 91.9; Estimated Glomerular Filt Rate > 60; Potassium 3.7 mmol/L (3.3-5.1); Sodium 138 mmol/L (135-145)
[2025-02-23] MEDS: iohexoL 350 MG/ML 100 ML INFUS..BTL 85 ML IV (03:20)
[2025-02-23 03:38] LABS: Alanine Aminotransferase 28 U/L (0-31); Albumin Level 4.6 g/dL (3.5-5.0); Alkaline Phosphatase 71 U/L (39-117); Aspartate Amino Transferase 26 U/L (5-31); Calcium 9.7 mg/dL (8.4-10.2); Lipase 62 U/L (8-78); Magnesium 1.8 mg/dL (1.6-2.6); Total Protein 7.1 g/dL (6.5-8.0)
--- NOTE | 2025-02-23 03:39 | ED.GENADULT ---
HPI - General Adult General Chief complaint: Abdominal Pain Stated complaint: abd pain Time Seen by Provider: 02/23/25 01:31 Source: patient Limitations: no limitations History of Present Illness ED Provider: Edel Ibrahim PA-C HPI narrative: 40-year-old female with a history of multiple sclerosis, anxiety and depression presents with abdominal pain x1 day. Patient developed severe right lower abdominal discomfort, unable to describe the nature of her pain. It is focal, nonradiating, with the associated nausea vomiting diarrhea. Denies fever. Denies recent travel, hospitalization. The patient has been on antibiotics for dental infection. She is not having copious amounts of diarrhea, she has had 4 episodes since her pain began. No sick contacts with similar symptoms. Related Data Home Medications ?Medication ?Instructions ?Recorded ?Confirmed colestipol 1 gram tablet 1 g PO BID 11/24/20 11/24/20 venlafaxine 75 mg capsule,extended 75 mg PO DAILY 11/24/20 11/24/20 release 24 hr norethindrone (contraceptive) 0.35 0.35 mg PO DAILY 10/31/21 mg tablet Previous Rx's ?Medication ?Instructions ?Recorded ibuprofen 600 mg tablet 600 mg PO Q6H PRN pain #30 tabs 10/11/21 meloxicam 15 mg tablet 15 mg PO DAILY #14 tabs 09/10/22 chlorhexidine gluconate 0.12 % 15 ml buccal BID #118 mL 10/14/22 mouthwash (Peridex) naproxen 500 mg tablet 500 mg PO BID 7 days #14 tabs 10/14/22 famotidine 20 mg tablet 20 mg PO BEDTIME #30 tabs 01/04/23 pantoprazole 40 mg tablet,delayed 40 mg PO DAILY #30 tabs 01/04/23 release chlorhexidine gluconate 0.12 % 15 ml buccal BID #118 mL 06/05/23 mouthwash (Peridex) naproxen 500 mg tablet 500 mg PO BID 7 days #14 tabs 06/05/23 penicillin V potassium 500 mg 500 mg PO BID 10 days #20 tabs 06/05/23 tablet prednisone 20 mg tablet 20 mg PO .COMPLEX 7 days #15 tabs 12/31/24 dicyclomine 20 mg tablet 20 mg PO BID PRN abdominal pain #7 02/23/25 tabs ondansetron 4 mg disintegrating 4 mg PO Q8H PRN nausea and 02/23/25 tablet vomiting #10 tabs Allergies Allergy/AdvReac Type Severity Reaction Status Date / Time adhesive (ADHESIVE) Allergy Unknown RASH, SKIN Verified 02/23/25 01:10 BREAKDOWN SEASONAL ALLERGIES Allergy Unknown RUNNY Uncoded 02/23/25 01:10 NOSE, CONGESTION, WATERY EYES Review of Systems Review of Systems: Yes all other systems are reviewed and are negative Constitutional: Constitutional: Denies fatigue and Denies fever(s) Cardiovascular: Cardiovascular: Denies chest pain and Denies dyspnea Respiratory: Respiratory: Denies cough and Denies dyspnea Gastrointestinal: Gastrointestinal: Reports abdominal pain, Reports diarrhea, Reports nausea and Reports vomiting Genitourinary: Genitourinary: Denies dysuria Endocrine: Endocrine: Denies fatigue PMFSH Past Medical History Attestation statement: The following information was validated with the patient. Medical History Multiple sclerosis Tobacco abuse (06/30/22) Seasonal allergies Sacroiliitis (09/22/19) Depression ASCUS with positive high risk HPV cervical Anxiety (06/30/22) Right radial head fracture Left radial head fracture Skin lesion of back Multiple sclerosis No known health problems Surgical History History of cholecystectomy H/O removal of cyst Social History Social History Alcohol intake: former Patient Tobacco Use Status: Current everyday Tobacco user Smoked in Last 30 Days: Yes Use of substances other than those prescribed or required for medical reasons: Yes Substance Use Type: Marijuana Substance Use Frequency: Occasionally Advance Directives: No Advance Directives Information Provided: No Patient : No Current occupational status: employed 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, 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 Physical Exam ED Vital Signs: Vital Signs - 24 hr 02/23/25 01:04 02/23/25 01:37 02/23/25 04:35 Temperature 97.9 F 98.3 F Pulse Rate 91 84 95 Respiratory Rate 22 H 20 16 Blood Pressure 143/86 H 162/89 H 137/83 Pulse Oximetry 100 98 95 Oxygen Delivery Method Room Air Room Air Room Air BMI result Body Mass Index 30.7 Const Other: Alert, ill-appearing appears older than stated age Orientation/consciousness: patient oriented x3 Resp Effort & Inspection: normal respiratory effort Cardio Other: Normal peripheral perfusion GI Other: Abdomen is soft, obese, nondistended, mild to moderate tenderness right lower abdomen with mild involuntary guarding, some degree of referred pain with palpation of left abdomen, left to right Skin Other: Warm dry no rash Neuro General: patient oriented x3, gait normal, no focal motor deficits and CN's II-XI intact bilaterally Psych Other: Cooperative Medications Administered Discontinued Medications Generic Name Dose Route Start Last Admin Trade Name Lorenzoq PRN Reason Stop Dose Admin Dicyclomine HCl 20 mg 02/23/25 04:38 02/23/25 04:49 Dicyclomine Hcl 10 Mg Capsule PO 02/23/25 04:39 20 mg ONCE ONE Administration Sodium Chloride 1,000 mls @ 999 mls/hr 02/23/25 01:45 02/23/25 04:42 Ns IV 02/23/25 02:45 Infused .Q1H1M CARMEL Infusion Iohexol 85 ml 02/23/25 03:19 02/23/25 03:20 Iohexol 350 Mg/Ml 100 Ml Infus..Btl IV 02/23/25 03:20 85 ml ONCE ONE Administration Morphine Sulfate 4 mg 02/23/25 01:39 02/23/25 01:53 Morphine Sulfate 4 Mg/Ml Cartridge IVPUSH 02/23/25 01:40 4 mg ONCE ONE Administration Protocol Morphine Sulfate 4 mg 02/23/25 03:07 02/23/25 03:31 Morphine Sulfate 4 Mg/Ml Cartridge IVPUSH 02/23/25 03:08 4 mg ONCE ONE Administration Protocol Ondansetron HCl 4 mg 02/23/25 01:31 02/23/25 01:52 Ondansetron Hcl 4 Mg/2 Ml Vial IVPUSH 02/23/25 01:32 4 mg ONCE ONE Administration Ondansetron HCl 4 mg 02/23/25 03:07 02/23/25 03:31 Ondansetron Hcl 4 Mg/2 Ml Vial IVPUSH 02/23/25 03:08 4 mg ONCE ONE Administration Medical Decision Making Medical Decision Making MDM Narrative: 40-year-old female with a history of multiple sclerosis, anxiety and depression presents with abdominal pain x1 day. Patient developed severe right lower abdominal discomfort, unable to describe the nature of her pain. It is focal, nonradiating, with the associated nausea vomiting diarrhea. Denies fever. Denies recent travel, hospitalization. The patient has been on antibiotics for dental infection. She is not having copious amounts of diarrhea, she has had 4 episodes since her pain began. No sick contacts with similar symptoms. Problem: MS, psychiatric illness History: Per patient I have considered the following differential diagnoses: Diverticulitis, colitis, C diff, traveler's diarrhea, viral gastroenteritis Plan: Patient appears uncomfortable she is actively vomiting, we will obtain a CT scan. She technically has risk factors for C diff, although she is not having copious amounts of diarrhea, holding on a stool culture, the CT scan should reveal bryan colitis if she has C diff. likely not viral gastroenteritis given concurrent pain and she has no sick contacts with same symptoms. She has no risk factors for traveler's diarrhea. Giving morphine Zofran and fluid. Obtaining screening labs I have independently reviewed the following tests: Labs: Leukocytosis with left shift, not anemic, no electrolyte abnormality, not , urine not infected CT abdomen and pelvis:Findings: No consolidation or effusion. Gallbladder is surgically absent. No focal hepatic lesion. Pancreas, spleen and adrenal glands are within normal limits. Kidneys enhance symmetrically and are non hydronephrotic. No bowel obstruction, pneumoperitoneum, or pneumatosis. Scattered sigmoid diverticula are present without diverticulitis. Visualized appendix is normal. Urinary bladder and pelvic structures are within normal limits. No acute fracture. IMPRESSION: No acute findings. Differential Diagnosis Differential Diagnoses: The differential diagnosis associated with the presentation includes See medical decision-making Admission/Observation Consideration of admission/observation: Escalation of care including admission/observation considered Lab Data MDM Lab Attestation statement: I reviewed the patient's lab results. 02/23/25 01:48 02/23/25 01:48 Labs: Lab Results 02/23/25 02/23/25 Range/Units 01:46 01:48 WBC 16.7 H (4.8-10.8) X10*3/uL RBC 4.73 (4.20-5.50) X10*6/uL Hgb 14.6 (12.0-16.0) g/dl Hct 40.8 (37.0-47.0) % MCV 86.3 (80.0-98.0) fL MCH 30.9 (27.0-33.0) pg MCHC 35.8 H (31.0-35.0) g/dl RDW 12.5 (11.0-16.0) % Plt Count 425 H (160-400) X10*3/uL MPV 8.3 L (9.4-12.3) fL Immature Gran % (Auto) 0.3 (0.0-0.4) % Neut % (Auto) 82.1 H (45-73) % Lymph % (Auto) 11.2 L (20-40) % [place] % (Auto) 5.4 (2-11) % Eos % (Auto) 0.5 (0-4) % Baso % (Auto) 0.5 (0-2) % Lymph # (Auto) 1.9 (1.2-4.9) X10*3/uL [place] # (Auto) 0.9 (0.1-1.2) X10*3/uL Eos # (Auto) 0.1 (0.0-0.4) X10*3/uL Baso # (Auto) 0.1 (0.0-0.2) X10*3/uL Abs Immat Gran (auto) 0.05 H (0.00-0.03) X10*3/uL Absolute Neuts (auto) 13.7 H (2.0-8.3) x10*3/uL Absolute Nucleated RBC 0.000 (0.0-0.012) X10*3/uL Nucleated RBC % (auto) 0.0 (0.0-0.2) /100WBC Sodium 138 (135-145) mmol/L Potassium 3.7 (3.3-5.1) mmol/L Chloride 104 (96-108) mmol/L Carbon Dioxide 25 (22-29) mmol/L Anion Gap 13 (12-20) BUN 6 L (9-16) mg/dL Creatinine 0.77 (0.5-1.4) mg/dL Estim Creat Clear Calc 91.9 Estimated GFR > 60 Random Glucose 123 H (60-115) mg/dL Calcium 9.7 (8.4-10.2) mg/dL Magnesium 1.8 (1.6-2.6) mg/dL Total Bilirubin 0.4 (0.0-1.0) mg/dL AST 26 (5-31) U/L ALT 28 (0-31) U/L Alkaline Phosphatase 71 (39-117) U/L Total Protein 7.1 (6.5-8.0) g/dL Albumin 4.6 (3.5-5.0) g/dL Lipase 62 (8-78) U/L Beta HCG, Quant < 2 mIU/mL Urine Color Yellow Urine Appearance Clear Urine pH 8.0 (5.0-9.0) Ur Specific [place] <= 1.005 (1.005-1.025) Urine Protein Negative (Neg-Trace) mg/dL Urine Glucose (UA) Negative (Negative) mg/dL Urine Ketones Negative (Negative) mg/dL Urine Blood Negative (Negative) Urine Nitrite Negative (Negative) Ur Leukocyte Esterase Negative (Negative) Urine RBC 0-2 (0-2) /HPF Urine WBC 0-5 (0-5) /HPF Ur Squamous Epith Cells 3-5 (0-2) /HPF Urine Bacteria None Seen (None Seen) Hyaline Casts 0-2 (0-2) /LPF Radiology Impression Discussion of test interpretation with radiology: I have reviewed the radiologist's reading. Discharge Plan Discharge Clinical Impression: Viral gastroenteritis Patient Disposition: Home, Self-Care Instructions: Gastroenteritis (ED) Additional Instructions: You are being treated for suspect viral gastroenteritis. See home care instructions. Use the dicyclomine as needed for abdominal cramping and diarrhea, uses Zofran as needed for nausea. Overall your screening labs were normal, you were found to have a slight elevation in your white blood cell count. The CT scan was negative for acute intra-abdominal infection. Follow up with your primary care provider as needed. Prescriptions: New ondansetron 4 mg tablet,disintegrating 4 mg PO Q8H PRN (Reason: nausea and vomiting) Qty: 10 0RF dicyclomine 20 mg tablet 20 mg PO BID PRN (Reason: abdominal pain) Qty: 7 0RF No Action prednisone 20 mg tablet 20 mg PO .COMPLEX 7 Days Qty: 15 0RF Rx Instructions: 20 mg orally 3 tabs x3 days, 2 tabs x2 days, 1 tab x2 days; ibuprofen 600 mg tablet 600 mg PO Q6H PRN (Reason: pain) Qty: 30 0RF meloxicam 15 mg tablet 15 mg PO DAILY Qty: 14 0RF pantoprazole 40 mg tablet,delayed release (DR/EC) 40 mg PO DAILY Qty: 30 0RF famotidine 20 mg tablet 20 mg PO BEDTIME Qty: 30 0RF naproxen 500 mg tablet 500 mg PO BID 7 Days Qty: 14 0RF chlorhexidine gluconate [Peridex] 0.12 % mouthwash 15 ml buccal BID Qty: 118 0RF penicillin V potassium 500 mg tablet 500 mg PO BID 10 Days Qty: 20 0RF naproxen 500 mg tablet 500 mg PO BID 7 Days Qty: 14 0RF chlorhexidine gluconate [Peridex] 0.12 % mouthwash 15 ml buccal BID Qty: 118 0RF venlafaxine 75 mg capsule,extended release 24hr 75 mg PO DAILY colestipol 1 gram tablet 1 g PO BID norethindrone (contraceptive) 0.35 mg tablet 0.35 mg PO DAILY Print Language: Azerbaijani
[2025-02-23 04:35] VITALS: BP 137/83; PULSE 95; RESP 16; TEMP 36.8; O2SAT 95
[2025-02-23 05:02] VITALS: BP 137/83; PULSE 95; RESP 16; TEMP 36.8; O2SAT 95
== END 2025-02-23 05:05 | disposition home or self-care (01) ==
PROVIDERS: Emergency Provider Emergency Medicine; PCP Family Medicine
DX: A08.4 Viral intestinal infection, unspecified (principal); R10.31 Right lower quadrant pain; R11.2 Nausea with vomiting, unspecified
CPT/HCPCS: 36415; 74177; 80053; 81001; 83690; 83735; 84702; 85025; 96361; 96374; 96375; 99284; J2270; J2405; Q9967

== ENCOUNTER → 2025-02-23 01:39 | Outpatient (BNV) | payer OTHER, SELFPAY | PROVIDERS: Emergency Provider Emergency Medicine; PCP Family Medicine; Visit Provider General Practice | DX: R10.31 Right lower quadrant pain (principal) | CPT/HCPCS: 74177 ==

== ENCOUNTER 2025-03-19 18:36 | Emergency (ER) | payer OTHER, SELFPAY ==
--- NOTE | ~2025-03-19 | CT_ITS ---
CLINICAL HISTORY: lower abdominal CT abdomen and pelvis with contrast Comparison: CT/REG/SR - CT ABDOMEN PELVIS W IV CON - 02/23/25 03:15 EDT Findings: The lung bases are clear. Previous cholecystectomy. No intrahepatic biliary ductal dilatation. Common bile duct within normal limits post cholecystectomy. Low-attenuation of liver parenchyma suggestive of steatosis. The spleen, pancreas, adrenal glands and kidneys are unremarkable. No ureteral stones and no hydronephrosis or hydroureter. No perinephric stranding. No bowel obstruction, pneumoperitoneum, or pneumatosis. Normal appendix. No free fluid. Uterus is retroverted. 4.2 cm x 2.8 cm right ovarian cyst. 1.4 cm left ovarian cyst. Urinary bladder is unremarkable. Mild atherosclerotic vascular disease with no aneurysm of the abdominal aorta. The bones are intact. IMPRESSION: 1. No acute findings. 2. 4.2 cm x 2.8 cm right ovarian cyst. If clinically indicated follow-up pelvic ultrasound could be obtained to further evaluate. 3. Additional nonacute findings as described. This document has been electronically signed by: Adilene Wolff MD on 03/19/2025 23:05:12
[2025-03-19 18:55] VITALS: BP 146/74; PULSE 115; RESP 16; TEMP 36.6; O2SAT 97; BMI 30.3
--- NOTE | 2025-03-19 19:05 | ED_ITS ---
HPI - General Adult General Chief complaint: Abdominal Pain Stated complaint: black stool, shaky, severe abd pain Time Seen by Provider: 03/19/25 20:57 Source: patient, RN notes reviewed and old records reviewed Mode of arrival: ambulatory Limitations: no limitations History of Present Illness ED Provider: Rancho HPI narrative: 40-year-old female presents for evaluation of abdominal pain. Patient reports that she has had chronic lower abdominal pain for the last 8 months. She reports some intermittent diarrhea but currently does not have any diarrhea. She reports it took to Pepto-Bismol last night. She had 1 episode of black stool this afternoon. She denies any previous abdominal surgeries. She was seen here about 3 weeks ago and was diagnosed with gastroenteritis. Denies any fevers or chills Denies any burning with urination, vaginal bleeding or discharge No other complaints or concerns at this time Related Data Home Medications ?Medication ?Instructions ?Recorded ?Confirmed colestipol 1 gram tablet 1 g PO BID 11/24/20 11/24/20 venlafaxine 75 mg capsule,extended 75 mg PO DAILY 12/0811/24/20 release 24 hr norethindrone (contraceptive) 0.35 0.35 mg PO DAILY mg tablet Previous Rx's ?Medication ?Instructions ?Recorded ibuprofen 600 mg tablet 600 mg PO Q6H PRN pain #30 t abs 10/11/21 meloxicam 15 mg tablet 15 mg PO DAILY #14 tabs 08/20 08/10 chlorhexidine gluconate 0.12 % 15 ml buccal BID #118 m L 10/14/22 mouthwash (Peridex) naproxen 500 mg tablet 500 mg PO BID 7 days #14 tab s 10/14/22 famotidine 20 mg tablet 20 mg PO BEDTIME #30 tabs pantoprazole 40 mg tablet,delayed 40 mg PO DAILY #30 t abs 01/04/23 release chlorhexidine gluconate 0.12 % 15 ml buccal BID #118 m L 06/05/23 mouthwash (Peridex) naproxen 500 mg tablet 500 mg PO BID 7 days #14 tab s 06/05/23 penicillin V potassium 500 mg 500 mg PO BID 10 days #2 0 tabs 06/05/23 tablet prednisone 20 mg tablet 20 mg PO .COMPLEX 7 days #15 tabs 12/31/24 dicyclomine 20 mg tablet 20 mg PO BID PRN abdominal p ain #7 02/23/25 tabs ondansetron 4 mg disintegrating 4 mg PO Q8H PRN nausea and 02/23/25 tablet vomiting #10 tabs doxycycline hyclate 100 mg tablet 100 mg PO BID 14 day s #28 tabs 03/21/25 ketorolac 10 mg tablet 10 mg PO Q8H PRN pain #14 ta bs 03/21/25 metronidazole 500 mg tablet 500 mg PO BID #14 tabs 06/14 Allergies Allergy/AdvReac Type Severity Reaction Status Date / Time adhesive (ADHESIVE) Allergy Unknown RASH, SKIN Verified 03/21/25 00:19 BREAKDOWN SEASONAL ALLERGIES Allergy Unknown RUNNY Uncoded 03/21/25 00:19 NOSE, CONGESTION, WATERY EYES Review of Systems 2 Constitutional: Constitutional: Denies body ache(s), Denies chills and Denies fever(s) Eyes: Eyes: Denies blurry vision ENT: Denies vertigo and Denies dizziness Cardiovascular: Cardiovascular: Denies chest pain and Denies dyspnea on exertion Respiratory: Respiratory: Denies cough and Denies dyspnea on exertion Gastrointestinal: Gastrointestinal: Reports abdominal pain, Denies belching, Reports melena, Denies hematochezia, Denies heartburn, Denies diarrhea, Reports loose stools, Denies nausea, Denies vomiting and Denies hematemesis Genitourinary: Genitourinary: Denies flank pain Musculoskeletal: Musculoskeletal: Denies back pain Integumentary/Breasts: Skin/Breast: Denies rash Neurologic: Denies vertigo and Denies dizziness Psychiatric: Psychiatric: Denies anxiety [facility] Past Medical History Medical History Multiple sclerosis Tobacco abuse (06/30/22) Seasonal allergies Sacroiliitis (09/22/19) Depression ASCUS with positive high risk HPV cervical Anxiety (06/30/22) Right radial head fracture Left radial head fracture Skin lesion of back Multiple sclerosis No known health problems Surgical History History of cholecystectomy H/O removal of cyst Social History Social History Alcohol intake: former Patient Tobacco Use Status: Current everyday Tobacco user Substance Use Type: Marijuana Current occupational status: employed 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, 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 Physical Exam ED Vital Signs: Vital Signs - 24 hr 03/19/25 18:55 03/19/25 20:58 03/19/25 22:12 Temperature 97.9 F 98.1 F Pulse Rate 115 H 100 Respiratory Rate 16 16 16 Blood Pressure 146/74 H 128/78 Pulse Oximetry 97 100 Oxygen Delivery Method Room Air Room Air 03/19/25 22:39 03/19/25 22:42 Temperature 98.1 F Pulse Rate 90 90 Respiratory Rate 18 20 Blood Pressure 120/73 Pulse Oximetry 100 Oxygen Delivery Method Room Air BMI result Body Mass Index 30.3 Const General: healthy appearing, comfortable, no acute distress, alert and awake Nutritional Appearance: well nourished Orientation/consciousness: patient oriented x3 HENMT Head: Yes normocephalic and Yes atraumatic Throat: Yes posterior oropharynx normal Eyes Eyelids: Yes eyelids normal Conjunctivae: conjunctivae normal Sclerae: sclerae normal Corneas: corneas normal Pupils: Equal, round and reactive pupils present EOM: EOMs intact bilaterally Neck Neck: Yes full ROM Resp Effort & Inspection: normal respiratory effort, able to speak in complete sentences and not labored Cardio Rate: regular rate Rhythm: regular rhythm GI Inspection: No distended Palpation (GI): Soft to palpation, not firm, Tenderness to palpation present (GI) in the LLQ and in the RLQ; not in the epigastrum, not in the LUQ and not in the RUQ, Guarding due to palpation present (GI) in the LLQ and in the RLQ and not rigid Skin General skin exam: no rashes or lesions noted and elasticity normal Neuro General: patient oriented x3 Cranial nerves: Yes Equal, round and reactive pupils present and Yes Bilaterally intact EOM present Cognition (Neuro): normal cognition Extrem Other: Moving all extremities well without any obvious deformities Course Course Course Narrative: NAN; 40-year-old female presents to ED for lower abdominal pain diarrhea and after taking Pepto-Bismol started having black stool. Patient feeling weak. Patient states history of chronic abdominal issues. Labs ordered Medications Administered Discontinued Medications Generic Name Dose Route Start Last Admin Trade Name Freq PRN Reason Stop Dose Admin Sodium Chloride 1,000 mls @ 999 mls/hr 03/19/25 21:45 03/19/25 23:53 Ns IV 03/19/25 22:45 Infused .Q1H1M CARMEL Infusion Iohexol 85 ml 03/19/25 22:03 03/19/25 22:04 Iohexol 350 Mg/Ml 100 Ml Infus..Btl IV 03/19/25 22:04 85 ml ONCE ONE Administration Morphine Sulfate 4 mg 03/19/25 21:33 03/19/25 22:12 Morphine Sulfate 4 Mg/Ml Cartridge IVPUSH 03/19/25 21:34 4 mg ONCE ONE Administration Protocol Ondansetron HCl 4 mg 03/19/25 21:33 03/19/25 22:12 Ondansetron Hcl 4 Mg/2 Ml Vial IVPUSH 03/19/25 21:34 4 mg ONCE ONE Administration Medical Decision Making Medical Decision Making MDM Narrative: 40-year-old female presents for evaluation of lower abdominal pain. She reports black stool. She is not on any anticoagulation. She is quite tender in the left lower abdomen and suprapubic region. This is a somewhat chronic issues with the patient does have a white count of 19.9 1000 with a left shift. She was seen here a [place] [address]. Given her significant tenderness and guarding on exam I do think it is appropriate to get a repeat CT scan to evaluate for any changes. Despite the patient's report of black stools, her hemoglobin today is 15.5 with a hematocrit of 44.9. This is higher than she has been dating back to June of 2018. I do not think she has a GI bleed. I still offered a rectal examination for guaiac testing and the patient declines. Her black stools most likely a side effect of Pepto-Bismol use. The patient is also not having any upper abdominal pain but rather lower abdominal pain and I would expect maroon or bright red blood if she had a GI bleed. Differential Diagnosis Differential Diagnoses: The differential diagnosis associated with the presentation includes Abdominal pain Colitis Diverticulitis GI bleed Lab Data MDM Lab Attestation statement: I reviewed the patient's lab results. Mild leukocytosis with a left shift as described above. Normal hemoglobin and hematocrit. No significant chemistry abnormalities warranting dimension. Urinalysis appears contaminated with greater than 20 epithelial cells, no white cells, no nitrites 03/19/25 19:26 03/19/25 19:25 Labs: Lab Results 03/19/25 03/19/25 03/19/25 Range/Units 19:25 19:26 21:36 WBC 19.9 H (4.8-10.8) X10*3/uL RBC 5.09 (4.20-5.50) X10*6/uL Hgb 15.5 (12.0-16.0) g/dl Hct 44.9 (37.0-47.0) % MCV 88.2 (80.0-98.0) fL MCH 30.5 (27.0-33.0) pg MCHC 34.5 (31.0-35.0) g/dl RDW 12.7 (11.0-16.0) % Plt Count 436 H (160-400) X10*3/uL MPV 8.3 L (9.4-12.3) fL Immature Gran % (Auto) 0.5 H (0.0-0.4) % Neut % (Auto) 84.0 H (45-73) % Lymph % (Auto) 10.3 L (20-40) % [place] % (Auto) 4.7 (2-11) % Eos % (Auto) 0.3 (0-4) % Baso % (Auto) 0.2 (0-2) % Lymph # (Auto) 2.1 (1.2-4.9) X10*3/uL [place] # (Auto) 0.9 (0.1-1.2) X10*3/uL Eos # (Auto) 0.1 (0.0-0.4) X10*3/uL Baso # (Auto) 0.0 (0.0-0.2) X10*3/uL Abs Immat Gran (auto) 0.09 H (0.00-0.03) X10*3/uL Absolute Neuts (auto) 16.7 H (2.0-8.3) x10*3/uL Absolute Nucleated RBC 0.000 (0.0-0.012) X10*3/uL Nucleated RBC % (auto) 0.0 (0.0-0.2) /100WBC PT 11.4 (10.9-12.4) SEC INR 1.0 (0.9-1.1) APTT 28.1 (26.7-34.1) SEC Sodium 138 (135-145) mmol/L Potassium 4.2 (3.3-5.1) mmol/L Chloride 102 (96-108) mmol/L Carbon Dioxide 25 (22-29) mmol/L Anion Gap 15 (12-20) BUN 6 L (9-16) mg/dL Creatinine 0.78 (0.5-1.4) mg/dL Estim Creat Clear Calc 90.1 Estimated GFR > 60 Random Glucose 121 H (60-115) mg/dL Calcium 9.8 (8.4-10.2) mg/dL Total Bilirubin 0.9 (0.0-1.0) mg/dL AST 33 H (5-31) U/L ALT 50 H (0-31) U/L Alkaline Phosphatase 68 (39-117) U/L Total Protein 7.4 (6.5-8.0) g/dL Albumin 4.8 (3.5-5.0) g/dL Lipase 34 (8-78) U/L Beta HCG, Quant < 2 mIU/mL Urine Color Yellow Urine Appearance Clear Urine pH 5.5 (5.0-9.0) Ur Specific [place] 1.015 (1.005-1.025) Urine Protein Negative (Neg-Trace) mg/dL Urine Glucose (UA) Negative (Negative) mg/dL Urine Ketones 40 (Negative) mg/dL Urine Blood Trace H (Negative) Urine Nitrite Negative (Negative) Ur Leukocyte Esterase Trace H (Negative) Urine RBC 0-2 (0-2) /HPF Urine WBC 0-5 (0-5) /HPF Ur Squamous Epith Cells >20 (0-2) /HPF Urine Bacteria Trace (None Seen) Hyaline Casts 0-2 (0-2) /LPF Urine Test NEGATIVE (NEGATIVE) Independent Interpretation I performed an independent interpretation of an: CT Scan Interpretation: Agree with Radiology interpretation, large ovarian cyst Radiology Impression Discussion of test interpretation with radiology: I have reviewed the radiologist's reading. Radiologist Impression: Findings: The lung bases are clear. Previous cholecystectomy. No intrahepatic biliary ductal dilatation. Common bile duct within normal limits post cholecystectomy. Low-attenuation of liver parenchyma suggestive of steatosis. The spleen, pancreas, adrenal glands and kidneys are unremarkable. No ureteral stones and no hydronephrosis or hydroureter. No perinephric stranding. No bowel obstruction, pneumoperitoneum, or pneumatosis. Normal appendix. No free fluid. Uterus is retroverted. 4.2 cm x 2.8 cm right ovarian cyst. 1.4 cm left ovarian cyst. Urinary bladder is unremarkable. Mild atherosclerotic vascular disease with no aneurysm of the abdominal aorta. The bones are intact. IMPRESSION: 1. No acute findings. 2. 4.2 cm x 2.8 cm right ovarian cyst. If clinically indicated follow-up pelvic ultrasound could be obtained to further evaluate. 3. Additional nonacute findings as described. This document has been electronically signed by: Adilene Wolff MD on 03/19/2025 23:05:12 Discharge Plan Discharge Clinical Impression: Abdominal pain Patient Disposition: Home, Self-Care Instructions: Ovarian Cyst (ED) Additional Instructions: Your workup today showed a 4.2 x 2.8 cm ovarian cyst. The remainder of your workup was largely unremarkable You did not have any evidence of a UTI. Recommend Tylenol for your pain. You may use ibuprofen but I would take it with food and make sure you are using a PPI such as omeprazole given your history of heartburn Follow up with your OBGYN doctor, return for new or worsening symptoms Prescriptions: No Action prednisone 20 mg tablet 20 mg PO .COMPLEX 7 Days Qty: 15 0RF Rx Instructions: 20 mg orally 3 tabs x3 days, 2 tabs x2 days, 1 tab x2 days; ibuprofen 600 mg tablet 600 mg PO Q6H PRN (Reason: pain) Qty: 30 0RF meloxicam 15 mg tablet 15 mg PO DAILY Qty: 14 0RF pantoprazole 40 mg tablet,delayed release (DR/EC) 40 mg PO DAILY Qty: 30 0RF famotidine 20 mg tablet 20 mg PO BEDTIME Qty: 30 0RF doxycycline hyclate 100 mg tablet 100 mg PO BID 14 Days Qty: 28 0RF metronidazole 500 mg tablet 500 mg PO BID Qty: 14 0RF ketorolac 10 mg tablet 10 mg PO Q8H PRN (Reason: pain) Qty: 14 0RF Rx Instructions: Do not take this medication with naproxen, ibuprofen, only Tylenol if needed. naproxen 500 mg tablet 500 mg PO BID 7 Days Qty: 14 0RF chlorhexidine gluconate [Peridex] 0.12 % mouthwash 15 ml buccal BID Qty: 118 0RF penicillin V potassium 500 mg tablet 500 mg PO BID 10 Days Qty: 20 0RF naproxen 500 mg tablet 500 mg PO BID 7 Days Qty: 14 0RF chlorhexidine gluconate [Peridex] 0.12 % mouthwash 15 ml buccal BID Qty: 118 0RF ondansetron 4 mg tablet,disintegrating 4 mg PO Q8H PRN (Reason: nausea and vomiting) Qty: 10 0RF dicyclomine 20 mg tablet 20 mg PO BID PRN (Reason: abdominal pain) Qty: 7 0RF venlafaxine 75 mg capsule,extended release 24hr 75 mg PO DAILY colestipol 1 gram tablet 1 g PO BID norethindrone (contraceptive) 0.35 mg tablet 0.35 mg PO DAILY Interventions: ED Discharge Assessment Last Done: 03/20/25 01:00 Discharge Date/Time: 03/20/25 01:03 Print Language: Serbian
[2025-03-19 19:31] LABS: MANUAL DIFF FLAG NO
[2025-03-19 19:32] LABS: Hematocrit 44.9 % (37.0-47.0); Hemoglobin 15.5 g/dl (12.0-16.0); Imm Gran Abs Auto 0.09 X10*3/uL (0.00-0.03); Imm Gran Pct Auto 0.5 % (0.0-0.4); Lymphocytes Absolute Auto 2.1 X10*3/uL (1.2-4.9); Mean Corpuscular HGB Conc 34.5 g/dl (31.0-35.0); Mean Corpuscular Hemoglobin 30.5 pg (27.0-33.0); Mean Corpuscular Volume 88.2 fL (80.0-98.0); NRBC Abs Auto 0.000 X10*3/uL (0.0-0.012); NRBC Pct Auto 0.0 /100WBC (0.0-0.2); Platelet Count 436 X10*3/uL (160-400); Red Blood Count 5.09 X10*6/uL (4.20-5.50); White Blood Count 19.9 X10*3/uL (4.8-10.8)
[2025-03-19 19:38] LABS: INTERNATIONAL NORM RATIO 1.0 (0.9-1.1); Prothrombin Time 11.4 SEC (10.9-12.4)
[2025-03-19 19:41] LABS: Partial Thromboplastin Time 28.1 SEC (26.7-34.1)
[2025-03-19 19:46] LABS: Alanine Aminotransferase 50 U/L (0-31); Albumin Level 4.8 g/dL (3.5-5.0); Alkaline Phosphatase 68 U/L (39-117); Anion Gap 15 (12-20); Aspartate Amino Transferase 33 U/L (5-31); Blood Urea Nitrogen 6 mg/dL (9-16); Calcium 9.8 mg/dL (8.4-10.2); Carbon Dioxide 25 mmol/L (22-29); Chloride 102 mmol/L (96-108); Creatinine Clr Calc Pharmacy 90.1; Estimated Glomerular Filt Rate > 60; Lipase 34 U/L (8-78); Potassium 4.2 mmol/L (3.3-5.1); Sodium 138 mmol/L (135-145); Total Protein 7.4 g/dL (6.5-8.0)
[2025-03-19 20:58] VITALS: BP 128/78; PULSE 100; RESP 16; TEMP 36.7; O2SAT 100
--- OUTSIDE RECORDS SUMMARY | 2025-03-19 21:03 | XMS_ITS | Clinical Summary ---
Author Organization [facility] it Address [address] [place] [address] Care Team Providers Care Podiatrist Assistant Name Role Phone Eleuterio Linares MD Primary Care Provider [phone] Surgical History Surgery Date Site/Laterality Comments OTHER SURGICAL HISTORY PROCEDURE: [place] COLPOSCOPY CERVIX VAG ELTRD CONIZATION CERVIX; COMMENT: h/o HPV normal pap smears since CYST REMOVAL PROCEDURE: [place] EXCISION PILONIDAL CYST/SINUS SIMPLE Medical History Medical [...] Mother Alive MS Sister Alive asthma Uncle [place] at 60's, CVA Social History Tobacco Use [...] age to complete this topic Care Teams Podiatrist Assistant Relationship Specialty Start Date End Date Eleuterio Linares MD [address] [place] [address] PCP - General 01/31/23
--- NOTE | 2025-03-19 21:10 | PC.NURSE ---
this RN assumed care of this pt approximately @2100, pt A+Ox4, changed over into hospital gown, placed on black leather trimmer, IV line placed to L.AC, call light given for safety, pt appears to be in no apparent distress
[2025-03-19 21:44] LABS: Appearance Urine Clear; Glucose Urine UA Negative (Negative); PH 5.5 (5.0-9.0); Specific Gravity - Urine 1.015 (1.005-1.025); UMIC TRIGGER UACC YES
[2025-03-19 21:45] LABS: UPreg QC Valid YES
[2025-03-19] MEDS: iohexoL 350 MG/ML 100 ML INFUS..BTL 85 ML IV (22:04)
[2025-03-19 22:12] VITALS: RESP 16
[2025-03-19 22:39] VITALS: BP 120/73; PULSE 90; RESP 18; TEMP 36.7; O2SAT 100
[2025-03-19 22:42] VITALS: PULSE 90; RESP 20
[2025-03-20 01:00] VITALS: BP 144/79; PULSE 93; RESP 15; TEMP 36.9; O2SAT 97
== END 2025-03-20 01:03 | disposition home or self-care (01) ==
PROVIDERS: Physician Assistant; Emergency Provider Student in an Organized Health Care Education/Training Program
DX: R10.9 Unspecified abdominal pain (principal); N83.201 Unspecified ovarian cyst, right side; G35.D Multiple sclerosis, unspecified; Z79.899 Other long term (current) drug therapy
CPT/HCPCS: 36415; 74177; 80053; 81001; 81025; 83690; 84702; 85025; 85610; 85730; 96361; 96374; 96375; 99284; 99285; J2270; J2405; Q9967

== ENCOUNTER → 2025-03-19 21:33 | Outpatient (BNV) | payer OTHER, SELFPAY | PROVIDERS: Emergency Provider Student in an Organized Health Care Education/Training Program; Visit Provider Specialist | DX: N83.201 Unspecified ovarian cyst, right side (principal) | CPT/HCPCS: 74177 ==

== ENCOUNTER 2025-03-21 00:16 | Emergency (ER) | payer OTHER, SELFPAY ==
--- NOTE | ~2025-03-21 | US_ITS ---
CLINICAL HISTORY: worsening RLQ pain, known cyst, r o torsion US pelvis transabdominal and transvaginal with Doppler Comparison: CT/REG/SR - CT ABDOMEN PELVIS W IV CON - 03/19/25 21:59 EDT Findings: Transabdominal scanning performed for overall anatomy. Transvaginal scanning performed for additional detail. Anteverted uterus is 6.2 cm length. Normal myometrium. Endometrium 2 mm thickness. The IUD is within the cervix. Right ovary 4.4 x 3.1 x 3.2 cm. Simple cyst 3.5 x 3.3 x 3.0 cm. Left ovary 3.2 x 1.3 x 2.1 cm. Small follicles. Normal color Doppler with arterial/venous spectral tracing of both ovaries. No free fluid. IMPRESSION: 1. Simple right ovarian cyst. No suspicious features. No follow-up required. 2. No evidence of ovarian torsion bilaterally. 3. Low position of IUD within the cervix. This document has been electronically signed by: Ryan Khan MD on 03/21/2025 03:59:07
[2025-03-21 00:18] VITALS: BP 170/89; PULSE 112; RESP 20; TEMP 36.6; O2SAT 98; BMI 29.8
[2025-03-21 01:19] VITALS: BP 156/97; PULSE 98; RESP 16; TEMP 36.9; O2SAT 98
--- OUTSIDE RECORDS SUMMARY | 2025-03-21 01:23 | XMS_ITS | Clinical Summary ---
Author Organization [facility] it Address [address] [place] [address] Care Team Providers Care Treatment Plant Operator Name Role Phone Eleuterio Linares MD Primary Care Provider [phone] Surgical History Surgery Date Site/Laterality Comments OTHER SURGICAL HISTORY PROCEDURE: ID COLPOSCOPY CERVIX VAG ELTRD CONIZATION CERVIX; COMMENT: h/o HPV normal pap smears since CYST REMOVAL PROCEDURE: ID EXCISION PILONIDAL CYST/SINUS SIMPLE Medical History Medical [...] Mother Alive MS Sister Alive asthma Uncle [place] at 60's, CVA Social History Tobacco Use [...] age to complete this topic Care Teams Treatment Plant Operator Relationship Specialty Start Date End Date Eleuterio Linares MD [address] [place] [address] PCP - General 01/31/23
--- NOTE | 2025-03-21 02:16 | ED.ABDPAIN ---
HPI - Abdominal Pain General Chief Complaint: Abdominal Pain Stated Complaint: Stomach/ovary cyst Time Seen by Provider: 03/21/25 01:46 Source: patient and family Mode of arrival: ambulatory Limitations: no limitations History of Present Illness ED Provider: Dr. Ana Freed HPI narrative: Patient comes to the emergency room complaining of pelvic pain. Patient states that she has been having suprapubic pain/pelvic pain still for about a week. Patient states that she was not here yesterday, she was diagnosed with an ovarian cyst on the right side. Patient states that earlier today at home she had a fever of 100.8 took Tylenol and now she is afebrile. Patient states that she has been having pelvic discharge for a few days. Do Related Data Home Medications ?Medication ?Instructions ?Recorded ?Confirmed colestipol 1 gram tablet 1 g PO BID 11/24/20 11/24/20 venlafaxine 75 mg capsule,extended 75 mg PO DAILY 11/24/20 11/24/20 release 24 hr norethindrone (contraceptive) 0.35 0.35 mg PO DAILY 10/31/21 mg tablet Previous Rx's ?Medication ?Instructions ?Recorded ibuprofen 600 mg tablet 600 mg PO Q6H PRN pain #30 tabs 10/11/21 meloxicam 15 mg tablet 15 mg PO DAILY #14 tabs 09/10/22 chlorhexidine gluconate 0.12 % 15 ml buccal BID #118 mL 10/14/22 mouthwash (Peridex) naproxen 500 mg tablet 500 mg PO BID 7 days #14 tabs 10/14/22 famotidine 20 mg tablet 20 mg PO BEDTIME #30 tabs 01/04/23 pantoprazole 40 mg tablet,delayed 40 mg PO DAILY #30 tabs 01/04/23 release chlorhexidine gluconate 0.12 % 15 ml buccal BID #118 mL 06/05/23 mouthwash (Peridex) naproxen 500 mg tablet 500 mg PO BID 7 days #14 tabs 06/05/23 penicillin V potassium 500 mg 500 mg PO BID 10 days #20 tabs 06/05/23 tablet prednisone 20 mg tablet 20 mg PO .COMPLEX 7 days #15 tabs 12/31/24 dicyclomine 20 mg tablet 20 mg PO BID PRN abdominal pain #7 02/23/25 tabs ondansetron 4 mg disintegrating 4 mg PO Q8H PRN nausea and 02/23/25 tablet vomiting #10 tabs doxycycline hyclate 100 mg tablet 100 mg PO BID 14 days #28 tabs 03/21/25 ketorolac 10 mg tablet 10 mg PO Q8H PRN pain #14 tabs 03/21/25 metronidazole 500 mg tablet 500 mg PO BID #14 tabs 03/21/25 Allergies Allergy/AdvReac Type Severity Reaction Status Date / Time adhesive (ADHESIVE) Allergy Unknown RASH, SKIN Verified 03/21/25 00:19 BREAKDOWN SEASONAL ALLERGIES Allergy Unknown RUNNY Uncoded 03/21/25 00:19 NOSE, CONGESTION, WATERY EYES Review of Systems Review of Systems Constitutional : No Weight loss, complaining of fever, No Chills, No Night Sweats, No Fatigue, No Malaise ENT/Mouth : No Hearing loss, No Ear Pain, No Nasal Congestion, No Sinus Pain, No Hoarseness, No sore throat, No Rhinorrhea, No Swallowing Difficulty Eyes: No Eye Pain, No Swelling, No Redness, No Foreign Body, No Discharge, No Vision Changes Cardiovascular : No Chest Pain, No SOB, No Dyspnea on Exertion, No Orthopnea, No Edema, No Palpitations Respiratory : No Cough, No Sputum, No Wheezing, No Smoke Exposure, No Dyspnea Gastrointestinal : No Nausea, No Vomiting, No Diarrhea, No Constipation, complaining of suprapubic pain, no hematochezia melena Genitourinary : Complaining of deep pelvic pain. No Dysuria, No Urinary Frequency, No Hematuria, No Urinary Incontinence, No Urgency, No Flank Pain, No Urinary Flow Changes, No Hesitancy Musculoskeletal : No joint pain, No Myalgias, No Joint Swelling Skin : No Skin Lesions, No rash Neuro : No Weakness, No Numbness, No Paresthesias, No Loss of Consciousness, No Dizziness, No Headache Psych : No Anxiety/Panic, No Depression, No SI/HI/AH/VH, No Social Issues, Heme/Lymph: No Bruising, No Bleeding,No Lymphadenopathy Endocrine : No Polyuria, No Polydipsia, No Temperature Intolerance [facility] Past Medical History Medical History Multiple sclerosis Tobacco abuse (06/30/22) Seasonal allergies Sacroiliitis (09/22/19) Depression ASCUS with positive high risk HPV cervical Anxiety (06/30/22) Right radial head fracture Left radial head fracture Skin lesion of back Multiple sclerosis No known health problems Surgical History History of cholecystectomy H/O removal of cyst Social History Social History Alcohol intake: former Patient Tobacco Use Status: Current everyday Tobacco user Smoked in Last 30 Days: Yes Use of substances other than those prescribed or required for medical reasons: Yes Substance Use Type: Marijuana Advance Directives: No Advance Directives Information Provided: Yes Patient : No Current occupational status: employed 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 Oriented X3. No acute distress. Eyes: Pupils equal, round and reactive to light. ENT: Pharynx normal. Neck: Normal inspection. Neck supple. No lymph nodes noted. No crepitus CVS: Normal heart rate and rhythm. Pulses normal. Normal S1 and S2 Respiratory: No respiratory distress. Breath sounds normal. No Wheezing. No rales Abdomen: Soft and nontender. No rigidity. No distention. : Normal female genitalia, no rashes, no significant amount of discharge. Patient did have positive chandelier sign Skin: Skin warm and dry. Normal skin color. Normal skin turgor. Extremities: No lower extremity edema. No Lacerations. No Rash Neuro: Oriented X 3. No motor deficit. No sensory deficit. Moving all extremities. No slurred speech. CN 2 through 12 grossly intact Psych: calm, cooperative, normal affect Vital Signs: Vital Signs - 24 hr 03/21/25 00:18 03/21/25 01:19 03/21/25 04:00 Temperature 97.9 F 98.5 F 97.7 F Pulse Rate 112 H 98 84 Respiratory Rate 20 16 Blood Pressure 170/89 H 156/97 H 128/85 Pulse Oximetry 98 98 99 Oxygen Delivery Method Room Air Room Air Room Air BMI result Body Mass Index 29.8 Course Course Course Narrative: Patient was seen here yesterday for abdominal/pelvic pain. Patient was diagnosed with an ovarian cyst. Patient states that she has worsening pelvic pain at this time. We will obtain an ultrasound, we will do a pelvic exam, test for gonorrhea, chlamydia, Trichomonas and bacterial vaginosis. Patient agreeable with plan. Medical Decision Making Medical Decision Making [facility] Narrative: Yesterday, patient's white blood cell count was 90.9, today improved to 9.9. No significant abnormality in patient's chemistry, normal LFTs As mentioned above, pelvic exam, patient did have a positive chandelier sign. Given her symptoms and physical exam and reported fever today, we will treat as PID. Patient was given a dose of IM ceftriaxone, p.o. metronidazole and doxycycline. Patient was given IM ketorolac for the pain. Here in the emergency room patient does not have any fever, no hypotension, sepsis is not suspected. Also patient known to have a fairly large ovarian cyst, we will obtain an ultrasound to rule out ovarian torsion. Pelvic ultrasound: Simple ovarian cyst, low position IUD. However, patient states that she does not have an IUD CT of the abdomen done yesterday, did not mentioned anything about an IUD. I discussed the above-mentioned with radiology techs. In the imaging of the ultrasound, there is an abnormality in the uterus that does look like an IUD. However it is not in the CAT scan as mentioned above. Maybe calcification. Patient has a prior IUDs in the past. The radiologist did compare both CAT scans and ultrasound. I discussed the above-mentioned with the patient, unfortunately, we do not have clear answers. Patient will follow-up with her OBGYN at [facility]. I discussed with the patient that we will treat her for PID given her physical exam. I discussed with the patient that 70% of pelvic inflammatory disease is not an STD. Swabs/serology for STDs pending Patient feeling better. Differential Diagnosis Differential Diagnoses: The differential diagnosis associated with the presentation includes (As above) Admission/Observation Consideration of admission/observation: Escalation of care including admission/observation considered (Given patient's pain and recurrent symptoms, admission/observation was considered) Lab Data [facility] Lab Attestation statement: I reviewed the patient's lab results. 03/21/25 02:18 03/21/25 02:18 Labs: Lab Results 03/21/25 03/21/25 Range/Units 02:18 03:28 WBC 9.9 (4.8-10.8) X10*3/uL RBC 4.56 (4.20-5.50) X10*6/uL Hgb 13.8 (12.0-16.0) g/dl Hct 40.1 (37.0-47.0) % MCV 87.9 (80.0-98.0) fL MCH 30.3 (27.0-33.0) pg MCHC 34.4 (31.0-35.0) g/dl RDW 12.5 (11.0-16.0) % Plt Count 398 (160-400) X10*3/uL MPV 8.3 L (9.4-12.3) fL Immature Gran % (Auto) 0.3 (0.0-0.4) % Neut % (Auto) 75.4 H (45-73) % Lymph % (Auto) 17.7 L (20-40) % [place] % (Auto) 6.2 (2-11) % Eos % (Auto) 0.2 (0-4) % Baso % (Auto) 0.2 (0-2) % Lymph # (Auto) 1.8 (1.2-4.9) X10*3/uL [place] # (Auto) 0.6 (0.1-1.2) X10*3/uL Eos # (Auto) 0.0 (0.0-0.4) X10*3/uL Baso # (Auto) 0.0 (0.0-0.2) X10*3/uL Abs Immat Gran (auto) 0.03 (0.00-0.03) X10*3/uL Absolute Neuts (auto) 7.4 (2.0-8.3) x10*3/uL Absolute Nucleated RBC 0.000 (0.0-0.012) X10*3/uL Nucleated RBC % (auto) 0.0 (0.0-0.2) /100WBC Sodium 141 (135-145) mmol/L Potassium 3.6 (3.3-5.1) mmol/L Chloride 106 (96-108) mmol/L Carbon Dioxide 25 (22-29) mmol/L Anion Gap 14 (12-20) BUN 5 L (9-16) mg/dL Creatinine 0.70 (0.5-1.4) mg/dL Estim Creat Clear Calc 99.5 Estimated GFR > 60 Random Glucose 97 (60-115) mg/dL Calcium 9.2 D (8.4-10.2) mg/dL Total Bilirubin 0.7 (0.0-1.0) mg/dL Direct Bilirubin 0.2 (0.0-0.5) mg/dL AST 32 H (5-31) U/L ALT 48 H (0-31) U/L Alkaline Phosphatase 63 (39-117) U/L Total Protein 6.8 (6.5-8.0) g/dL Albumin 4.5 (3.5-5.0) g/dL Urine Color Yellow Urine Appearance Clear Urine pH 6.0 (5.0-9.0) Ur Specific [place] <= 1.005 (1.005-1.025) Urine Protein Negative (Neg-Trace) mg/dL Urine Glucose (UA) Negative (Negative) mg/dL Urine Ketones Negative (Negative) mg/dL Urine Blood Negative (Negative) Urine Nitrite Negative (Negative) Ur Leukocyte Esterase Negative (Negative) Independent Interpretation I performed an independent interpretation of an: EKG, Ultrasound and CT Scan Radiology Impression Discussion of test interpretation with radiology: I have reviewed the radiologist's reading. Radiologist Impression: 1. Simple right ovarian cyst. No suspicious features. No follow-up required. 2. No evidence of ovarian torsion bilaterally. 3. Low position of IUD within the cervi Medications Administered Discontinued Medications Generic Name Dose Route Start Last Admin Trade Name Freq PRN Reason Stop Dose Admin Ceftriaxone Sodium 500 mg/ 0 mg 03/21/25 02:34 03/21/25 03:23 Lidocaine HCl 1 ml IM 03/21/25 02:35 1 kit ONCE ONE Administration Doxycycline Monohydrate 100 mg 03/21/25 02:34 03/21/25 03:23 Doxycycline Monohydrate 100 Mg Capsule PO 03/21/25 02:35 100 mg ONCE ONE Administration Ketorolac Tromethamine 60 mg 03/21/25 02:34 03/21/25 03:23 Ketorolac Tromethamine 60 Mg/2 Ml Vial IM 03/21/25 02:35 60 mg ONCE ONE Administration Metronidazole 500 mg 03/21/25 02:34 03/21/25 03:23 Metronidazole 500 Mg Tablet PO 03/21/25 02:35 500 mg ONCE ONE Administration Discharge Plan Discharge Clinical Impression: Acute pelvic inflammatory disease (PID) Patient Disposition: Home, Self-Care Additional Instructions: Please follow-up with your primary care physician tomorrow. If you have any worsening or new symptoms, please return to the emergency room or call 911 Prescriptions: New doxycycline hyclate 100 mg tablet 100 mg PO BID 14 Days Qty: 28 0RF metronidazole 500 mg tablet 500 mg PO BID Qty: 14 0RF ketorolac 10 mg tablet 10 mg PO Q8H PRN (Reason: pain) Qty: 14 0RF Rx Instructions: Do not take this medication with naproxen, ibuprofen, only Tylenol if needed. No Action prednisone 20 mg tablet 20 mg PO .COMPLEX 7 Days Qty: 15 0RF Rx Instructions: 20 mg orally 3 tabs x3 days, 2 tabs x2 days, 1 tab x2 days; ibuprofen 600 mg tablet 600 mg PO Q6H PRN (Reason: pain) Qty: 30 0RF meloxicam 15 mg tablet 15 mg PO DAILY Qty: 14 0RF pantoprazole 40 mg tablet,delayed release (DR/EC) 40 mg PO DAILY Qty: 30 0RF famotidine 20 mg tablet 20 mg PO BEDTIME Qty: 30 0RF naproxen 500 mg tablet 500 mg PO BID 7 Days Qty: 14 0RF chlorhexidine gluconate [Peridex] 0.12 % mouthwash 15 ml buccal BID Qty: 118 0RF penicillin V potassium 500 mg tablet 500 mg PO BID 10 Days Qty: 20 0RF naproxen 500 mg tablet 500 mg PO BID 7 Days Qty: 14 0RF chlorhexidine gluconate [Peridex] 0.12 % mouthwash 15 ml buccal BID Qty: 118 0RF ondansetron 4 mg tablet,disintegrating 4 mg PO Q8H PRN (Reason: nausea and vomiting) Qty: 10 0RF dicyclomine 20 mg tablet 20 mg PO BID PRN (Reason: abdominal pain) Qty: 7 0RF venlafaxine 75 mg capsule,extended release 24hr 75 mg PO DAILY colestipol 1 gram tablet 1 g PO BID norethindrone (contraceptive) 0.35 mg tablet 0.35 mg PO DAILY Print Language: Dominican
[2025-03-21 02:24] LABS: Hematocrit 40.1 % (37.0-47.0); Hemoglobin 13.8 g/dl (12.0-16.0); Imm Gran Abs Auto 0.03 X10*3/uL (0.00-0.03); Imm Gran Pct Auto 0.3 % (0.0-0.4); Lymphocytes Absolute Auto 1.8 X10*3/uL (1.2-4.9); MANUAL DIFF FLAG NO; Mean Corpuscular HGB Conc 34.4 g/dl (31.0-35.0); Mean Corpuscular Hemoglobin 30.3 pg (27.0-33.0); Mean Corpuscular Volume 87.9 fL (80.0-98.0); NRBC Abs Auto 0.000 X10*3/uL (0.0-0.012); NRBC Pct Auto 0.0 /100WBC (0.0-0.2); Platelet Count 398 X10*3/uL (160-400); Red Blood Count 4.56 X10*6/uL (4.20-5.50); White Blood Count 9.9 X10*3/uL (4.8-10.8)
[2025-03-21 02:40] LABS: Alanine Aminotransferase 48 U/L (0-31); Albumin Level 4.5 g/dL (3.5-5.0); Alkaline Phosphatase 63 U/L (39-117); Anion Gap 14 (12-20); Aspartate Amino Transferase 32 U/L (5-31); Blood Urea Nitrogen 5 mg/dL (9-16); Calcium 9.2 mg/dL (8.4-10.2); Carbon Dioxide 25 mmol/L (22-29); Chloride 106 mmol/L (96-108); Creatinine Clr Calc Pharmacy 99.5; Estimated Glomerular Filt Rate > 60; Potassium 3.6 mmol/L (3.3-5.1); Sodium 141 mmol/L (135-145); Total Protein 6.8 g/dL (6.5-8.0)
[2025-03-21] MEDS: cefTRIAXone sodium 500 MG, Lidocaine HCl 1 % MPF 1 ML IM (03:23)
[2025-03-21 03:37] LABS: Appearance Urine Clear; Glucose Urine UA Negative (Negative); PH 6.0 (5.0-9.0); Specific Gravity - Urine <= 1.005 (1.005-1.025)
[2025-03-21 04:00] VITALS: BP 128/85; PULSE 84; TEMP 36.5; O2SAT 99
[2025-03-21 05:29] VITALS: BP 128/85; PULSE 84; RESP 16; TEMP 36.5; O2SAT 99
[2025-03-21 10:56] LABS: Bacterial Vaginosis PCR NEGATIVE (Negative); Candida Group PCR NOT DETECTED (Not Detect); Candida glab krusei PCR NOT DETECTED (Not Detect); Trichomonas vaginalis PCR NOT DETECTED (Not Detect)
[2025-03-21 11:26] LABS: CT PCR NOT DETECTED (Not Detect.); NG PCR NOT DETECTED (Not Detect.)
== END 2025-03-21 05:29 | disposition home or self-care (01) ==
PROVIDERS: Emergency Provider Emergency Medicine
DX: N73.0 Acute parametritis and pelvic cellulitis (principal); R10.21 Pelvic and perineal pain right side; N89.8 Other specified noninflammatory disorders of vagina; F17.210 Nicotine dependence, cigarettes, uncomplicated; Z79.899 Other long term (current) drug therapy
CPT/HCPCS: 36415; 76830; 76856; 80048; 80076; 81003; 81515; 85025; 87491; 87591; 93975; 96372; 99284; J0696; J1885; J2003

== ENCOUNTER → 2025-03-21 02:07 | Outpatient (BNV) | payer OTHER, SELFPAY | PROVIDERS: Emergency Provider Emergency Medicine; Visit Provider Radiology Diagnostic Radiology | DX: N83.201 Unspecified ovarian cyst, right side (principal) | CPT/HCPCS: 76830; 76856 ==

== ENCOUNTER 2025-03-22 15:33 | Emergency (ER) | payer OTHER, SELFPAY ==
--- OUTSIDE RECORDS SUMMARY | 2025-03-18 22:59 | XMS_ITS | Continuity of Care Document ---
Author Organization [facility] Address [address] [place] [address]- Care Team Providers Care Supervisor Particleboard Name Role Phone Yesica Castillo Primary Care Physician Encounter [facility] NBR [id number] Date(s): 02/16/25 - 03/18/25 [facility] [address], [place] [address] Encounter Type: Triage Allergies, Adverse Reactions, Alerts Substance Criticality Severity Reaction Reaction Severity Status Adhesive Bandage HIVES Act janet Fish Active Immunizations Given and Recorded Vaccine Date Status Refusal Reason tetanus/diphtheria/pertussis, acel(Tdap) 08/10/14 Given Medications cholecalciferol 50,000 intl units oral capsule 1 capsule = 1,250 mcg, By Mouth, Every week, # 12 capsule, 0 Refills, Maintenance, 05/13/24 8:53:00AM EST, Capsule, [id number], Partial fill upon patient request if the prescription is for aschedule II opioid drug., 158, cm, 05/13/24 8:47:00 EST, Height Start Date: 05/13/24 Status: Ordered Medication Dispense Status: Completed Quantity: 12.0 Unit: capsule Total Allowed Fills: 1 Fills Dispensed: 0 colestipol 1 gm oral tablet 4 tablet, By Mouth, 2 times a day, WITH A FULL GLASS OF WATER., # 720 tablet, 3 Refills, Maintenance, 03/12/25 10:33:00 AM EDT, [id number], 158, cm, 06/12/24 9:21:00 EST, Height Start Date: 03/12/25 Status: Ordered Medication Dispense Status: Completed Quantity: 720.0 Unit: tablet Total Allowed Fills: 1 Fills Dispensed: 0 cyclobenzaprine 5 mg oral tablet See Instructions, Take 1 tablet every 8 hours as needed for muscle spasm, # 21 capsule, 0 Refills, Maintenance, 05/02/23 10:18:00 AM EST, Tablet, [facility] #[id number], Partial fill upon patient requestif the prescription is for a schedule II opioid drug., 158, cm, 03/16/23 13:26:00 EDT, Height Start Date: 05/02/23 Status: Ordered Medication Dispense Status: Completed Quantity: 21.0 Unit: capsule Total Allowed Fills: 1 Fills Dispensed: 0 Indications: Dorsalgia, unspecified; Daily Tamir oral tablet 1 tablet, By Mouth, Daily, # 90 tablet, 3 Refills, Maintenance, 03/09/25 3:56:00 PM EDT, [id number], 90, TAKE 1 TABLET BY MOUTH EVERY DAY, 158, cm, 06/12/24 9:21:00 EST, Height Start Date: 03/09/25 Status: Ordered Medication Dispense Status: Completed Quantity: 90.0 Unit: tablet Total Allowed Fills: 1 Fills Dispensed: 0 famotidine 20 mg oral tablet 1, tablet, By Mouth, Daily at bedtime, # 90 tablet, Refills 0, Maintenance, 03/06/24 11:07:00 AM EDT, Route to Pharmacy Electronically, [id number], 158, cm, 10/04/23 12:42:00 EDT, Height Start Date: 03/06/24 Status: Ordered Medication Dispense Status: Completed Quantity: 90.0 Unit: tablet Total Allowed Fills: 1 Fills Dispensed: 0 Kesimpta 20 mg/0.4 mL subcutaneous solution = 20 mg, Subcutaneous Injection, Every 28 days, Maintenance Dose, # 3 kit, 5 Refills, Maintenance, 05/05/24 8:20:00 AM EST, Partial fill upon patient request if the prescription is for a schedule II opioid drug. Start Date: 05/05/24 Status: Ordered Medication Dispense Status: Completed Quantity: 3.0 Unit: kit Total Allowed Fills: 1 Fills Dispensed: 0 LORazepam 0.5 mg oral tablet 0.5 tablet = 0.25 mg, By Mouth, Daily, PRN as needed for anxiety, # 15 tablet, 0 Refills, Soft Stop, 02/10/25 8:11:00 AM EDT, Tablet, [id number], Partial fill upon patient request if the prescription is for a schedule II opioid drug., 158, cm, 06/12/24 9:21:00 EST, Height Start Date: 02/10/25 Stop Date: 03/12/25 Status: Ordered Medication Dispense Status: Completed Quantity: 15.0 Unit: tablet Total Allowed Fills: 1 Fills Dispensed: 0 Indications: Panic disorder [episodic paroxysmal anxiety]; losartan 25 mg oral tablet 25 mg, 1, tablet, By Mouth, Daily, # 90 tablet, Refills 3, Tot. Refills 3, Maintenance, 06/04/24 12:08:00 PM EST, Route to Pharmacy Electronically, [facility]/pharm[facility] #[id number], Partial fill upon patient request if the prescription is for a schedule II opioid drug., 158, cm, 06/04/24 11:56:00 EST, Height Start Date: 06/04/24 Status: Ordered Medication Dispense Status: Completed Quantity: 90.0 Unit: tablet Total Allowed Fills: 4 Fills Dispensed: 0 meloxicam 15 mg oral tablet 1 tablet = 15 mg, By Mouth, Daily, # 30 tablet, 0 Refills, Maintenance, 06/11/23 7:39:00 PM EST, Tablet, [id number], Partial fill upon patient request if the prescription is for a schedule II opioid drug., 158, cm, 06/11/23 15:44:00 EST, Height Start Date: 06/11/23 Status: Ordered Medication Dispense Status: Completed Quantity: 30.0 Unit: tablet Total Allowed Fills: 1 Fills Dispensed: 0 norethindrone 0.35 mg oral tablet 1 tablet = 0.35 mg, By Mouth, Daily, # 84 tablet, 3 Refills, Maintenance, 07/04/24 12:05:00 PM EST, Tablet, [id number], Partial fill upon patient request if the prescription is for a schedule II opioid drug., 158, cm, 06/12/24 9:21:00 EST, Height Start Date: 07/04/24 Status: Ordered Medication Dispense Status: Completed Quantity: 84.0 Unit: tablet Total Allowed Fills: 4 Fills Dispensed: 0 pantoprazole 40 mg oral delayed release tablet 1 tablet, By Mouth, Daily, # 90 tablet, 1 Refills, Maintenance, 06/06/24 7:52:00 AM EST, 158, cm, 06/04/24 11:56:00 EST, Height Start Date: 06/06/24 Status: Ordered Medication Dispense Status: Completed Quantity: 90.0 Unit: tablet Total Allowed Fills: 1 Fills Dispensed: 0 traZODone 50 mg oral tablet 25 mg, 0.5, tablet, By Mouth, Daily at bedtime, Can increase to 1 tablet after 3 days if needed, # 15 tablet, Refills 3, Tot. Refills 3, Maintenance, 07/31/23 1:22:00 PM EDT, Route to Pharmacy Electronically, [facility]/pharm[facility] #[id number], Partial fill upon patient request if the prescription is for a scheduleII opioid drug., 158, cm, 07/31/23 13:13:00 EDT, Height Start Date: 07/31/23 Status: Ordered Medication Dispense Status: Completed Quantity: 15.0 Unit: tablet Total Allowed Fills: 4 Fills Dispensed: 0 Indications: Insomnia, unspecified; varenicline 0.5 mg-1 mg oral tablet See Instructions, TAKE DIRECTED, # 53 each, 0 Refills, Maintenance, 05/29/24 6:51:00 AM EST, [id number], 158, cm, 05/13/24 8:47:00 EST, Height Start Date: 05/29/24 Status: Ordered Medication Dispense Status: Completed Quantity: 53.0 Unit: each Total Allowed Fills: 1 Fills Dispensed: 0 venlafaxine 37.5 mg oral capsule, extended release See Instructions, TAKE 1 CAPSULE BY MOUTH DAILY, TAKE TOGETHER WITH 75MG FOR TOTAL DOSE OF 112.5MG,# 90 capsule, 0 Refills, Maintenance, 02/25/25 4:28:00 PM EDT, [facility]/pharm[facility] #[id number], Refills require visit. Please contact office to schedule it if you have not already done so., 158, cm, 06/12/24 9:21:00 EST, Height Start Date: 02/25/25 Status: Ordered Medication Dispense Status: Completed Quantity: 90.0 Unit: capsule Total Allowed Fills: 1 Fills Dispensed: 0 venlafaxine 75 mg oral capsule, extended release See Instructions, TAKE 1 CAPSULE BY MOUTH DAILY, TAKE TOGETHER WITH 37.5MG FOR TOTAL DOSE OF 112.5MG, # 90 capsule, 0 Refills, Maintenance, 02/25/25 4:28:00 PM EDT, [id number], Refills requirevisit. Please contact office to schedule it if you have not already done so., 158, cm, 06/12/24 9:21:00 EST, Height Start Date: 02/25/25 Status: Ordered Medication Dispense Status: Completed Quantity: 90.0 Unit: capsule Total Allowed Fills: 1 Fills Dispensed: 0 Vitamin D2 2000 intl units oral capsule 1 capsule = 50 mcg, By Mouth, Daily, with food, # 30 capsule, 5 Refills, Maintenance, 01/15/25 11:42:00 AM EDT, Capsule, [id number], Partial fill upon patient request if the prescription is for a schedule II opioid drug., 158, cm, 06/12/24 9:21:00 EST, Height Start Date: 01/15/25 Stop Date: 07/14/25 Status: Ordered Medication Dispense Status: Completed Quantity: 30.0 Unit: capsule Total Allowed Fills: 6 Fills Dispensed: 0 Problem List Condition Confirmation Course Effective Dates Status H ealth Status Informant Anxiety Confirmed Active Blepharitis Confirmed Active History of JUAN III (cervical intraepithelial neoplasia grade III) with severe dysplasia. Had CKC that showed JUAN II, ectocervical and endocervical margins negative. Endocervical curettage negative. Last pap smear 01/03/16 negative with negative HPV Confirmed Active Depression Confirmed Active Essential hypertension Confirmed Active S/P cholecystectomy Confirmed Active ASCUS with positive high risk HPV Confirmed Active Low HDL (under 40) Confirmed Active Multiple sclerosis - not on medications since 2009. Occasionally gets tingly fingers but it doesn't hold her back much Confirmed Active Obese class I Confirmed Active Panic attacks Confirmed Active Seasonal allergies Confirmed Active Current smoker Confirmed Active Sore throat Confirmed Active Social History Social History Type Response Smoking Status 10 or more cigarette s (1/2 pack or more)/day in last 30 days entered on: 11/13/22 Sex Female Sex Representation Female (finding) Patient Care team information Care Team Personnel Name: Anh Victoria RN Position: [facility] RN Member Role: Primary Care Nurse Name: Yesica Castillo Position: [facility] PCO Associate Professional Member Role: PCP Address: [address] [place] [id number]- Telecom: Name: Maggie Rogel RN Position: [facility] AMB Nurse Member Role: Primary Care Nurse Name: Merna Manzano RN Position: [facility] RN Member Role: Primary Care Nurse Name: Iva Martinez RN Position: [facility] RN Member Role: Primary Care Nurse Care Team Related Persons Name: HALIMA JARAMILLO Name: LETY GONZALEZ Name: NONE, NONE Name: CHATA EATON Name: REBECCA EATON Insurance Providers Guarantor name: [facility] Information #: 1 Payer: [facility] Payer Identifier: NA Member Number: [id number] Group Number: [id number] Subscriber Identifier: HOSSEIN Relationship to Subscriber: self Coverage Type: Medicaid (Managed Care) Coverage Verification Date: NA Telecom: NA Address: NA
--- NOTE | ~2025-03-22 | XR_ITS ---
CLINICAL HISTORY: pain constipation 1 view abdomen Comparison: Prior abdominal and pelvic CTs most recently on 03/19/2025 Findings: No gas distended loops of small bowel. No air-fluid levels. Increased rectal and colonic stool burden. Cholecystectomy. No definite free air. No acute findings within visualized lung bases. No acute osseous abnormality. Impression: 1. Mild constipation. 2. Additional findings as above. This document has been electronically signed by: Canidda Jiménez MD on 03/22/2025 20:56:33
[2025-03-22 15:49] VITALS: BP 195/94; PULSE 119; RESP 20; TEMP 36.1; O2SAT 98; BMI 30.4
--- NOTE | 2025-03-22 15:49 | ED.ABDPAIN ---
HPI - Abdominal Pain General Chief Complaint: Abdominal Pain Stated Complaint: cyst in ovaries, pain + shaking Time Seen by Provider: 03/22/25 20:06 Source: patient Limitations: no limitations History of Present Illness ED Provider: Edel Ibrahim PA-C HPI narrative: 40-year-old female presents with a ongoing abdominal pain for weeks. Patient states she was seen on March 19, had a negative CT scan. She returned on March 21, had a pelvic exam, was screened for gonorrhea chlamydia with a wet prep, had transvaginal ultrasound, she states she discovered she had a retained IUD. Patient states she was supposed to have had her IUD removed 5 years ago, she has been having ongoing pelvic pain since. 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 Related Data Home Medications ?Medication ?Instructions ?Recorded ?Confirmed colestipol 1 gram tablet 1 g PO BID 11/24/20 11/24/20 venlafaxine 75 mg capsule,extended 75 mg PO DAILY 11/24/20 11/24/20 release 24 hr norethindrone (contraceptive) 0.35 0.35 mg PO DAILY 10/31/21 mg tablet Previous Rx's ?Medication ?Instructions ?Recorded ibuprofen 600 mg tablet 600 mg PO Q6H PRN pain #30 tabs 10/11/21 chlorhexidine gluconate 0.12 % 15 ml buccal BID #118 mL 10/14/22 mouthwash (Peridex) naproxen 500 mg tablet 500 mg PO BID 7 days #14 tabs 10/14/22 pantoprazole 40 mg tablet,delayed 40 mg PO DAILY #30 tabs 01/04/23 release chlorhexidine gluconate 0.12 % 15 ml buccal BID #118 mL 06/05/23 mouthwash (Peridex) dicyclomine 20 mg tablet 20 mg PO BID PRN abdominal pain #7 03/24/25 tabs ondansetron 4 mg disintegrating 4 mg PO Q8H PRN nausea and 03/24/25 tablet vomiting #20 tabs oxycodone 5 mg tablet 5 mg PO Q6H PRN severe pain (scale 03/24/25 score 7-10) #8 tabs Allergies Allergy/AdvReac Type Severity Reaction Status Date / Time adhesive (ADHESIVE) Allergy Unknown RASH, SKIN Verified 03/24/25 20:47 BREAKDOWN clindamycin AdvReac Gastrointestinal Verified 03/24/25 20:47 Upset SEASONAL ALLERGIES Allergy Unknown RUNNY Uncoded 03/24/25 20:47 NOSE, CONGESTION, WATERY EYES PMFSH Past Medical History Medical History Multiple sclerosis Tobacco abuse (06/30/22) Seasonal allergies Sacroiliitis (09/22/19) Depression ASCUS with positive high risk HPV cervical Anxiety (06/30/22) Right radial head fracture Left radial head fracture Skin lesion of back Multiple sclerosis No known health problems Surgical History History of cholecystectomy H/O removal of cyst Social History Social History Household Members: Spouse and Children Housing: House Alcohol intake: former Patient Tobacco Use Status: Current everyday Tobacco user Cigarettes Per Day: 20 Years Smoked: 20 Smoked in Last 30 Days: Yes Substance Use Type: Marijuana Substance Use Frequency: Occasionally Advance Directives: No Advance Directives Information Provided: No Do you have a plan to hurt others: No Plan Patient : No Current occupational status: employed 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, 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 Sexual orientation: Straight/Heterosexual Gender identity: Female Physical Exam ED Vital Signs: Vital Signs - 24 hr 03/22/25 15:49 03/22/25 21:28 03/22/25 23:03 Temperature 97.0 F 98.7 F 98.8 F Pulse Rate 119 H 88 67 Respiratory Rate 20 20 16 Blood Pressure 195/94 H 141/86 H 146/88 H Pulse Oximetry 98 99 98 Oxygen Delivery Method Room Air Room Air Room Air BMI result Body Mass Index 30.4 Const Other: Alert well-appearing Orientation/consciousness: patient oriented x3 Resp Effort & Inspection: normal respiratory effort Cardio Other: Normal peripheral perfusion GI Other: Soft, nondistended nontender no guarding Other: No lesions of external genitalia, no vaginal discharge, no CMT no adnexal tenderness, the cervix is pink it is not friable I do not see any evidence of lesions on the cervix, I also can not visualize the strings of the IUD Skin Other: Warm dry no rash Neuro General: patient oriented x3, gait normal, no focal motor deficits and CN's II-XI intact bilaterally Psych Other: Cooperative tearful at times Course Course Course Narrative: This is a Rapid Medical Exam performed in triage by Tari Montenegro PA-C. Full HPI, ROS and PE to be performed by primary ED provider. 40 yo F w/pmhx fabian, MS, presenting to the ED c/o abdominal pain and feels like my whole body is burning. Was seen the past 2 days in the ED for similar sx - Dx w/PID & started tx. US from yesterday shows IUD however patient states her IUD was removed about 5yrs ago PE: abdomen soft with RUQ/RLQ & suprapubic ttp. no rebound or guarding Plan: Labs, UA Medical Decision Making Medical Decision Making MDM Narrative: 40-year-old female presents with a ongoing abdominal pain for weeks. Patient states she was seen on March 19, had a negative CT scan. She returned on March 21, had a pelvic exam, was screened for gonorrhea chlamydia with a wet prep, had transvaginal ultrasound, she states she discovered she had a retained IUD. Patient states she was supposed to have had her IUD removed 5 years ago, she has been having ongoing pelvic pain since. 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 Patient also has ongoing dental infection, she has been on extended periods of antibiotics continually, she has not seen her dentist, because she states ?I can not see them because of my abdominal pain?. Problem: Retained IUD, chronic pelvic pain History: Per patient I have considered the following differential diagnoses: Abnormally placed IUD, chronic pelvic pain, constipation, Plan: Patient here with a very chronic symptoms, during her last visit she had a pelvic exam, again I confirmed she was screened for STDs, there was no evidence, she was empirically treated for potential PID because at her prior visit she had a leukocytosis, I believe the leukocytosis is secondary to her chronic dental infection which she is not a dressing. I repeated the pelvic exam to see if I could see the strings of the IUD, my plan was to remove it for her, I can not. Her exam was unremarkable, the cervix is not erythematous it was not friable, there was no vaginal discharge. I am having the patient discontinue the Flagyl and doxy, she clearly does not have PID. Especially based on my pelvic exam. I will transition her to Augmentin, to help her dental infection. I have also stressed that she needs to see her dentist, that has not of benefit to her to be on antibiotics unnecessarily. Adding on a KUB, she might be constipated, which might be adding to her pelvic pain. I have independently reviewed the following tests: Labs: No leukocytosis, not anemic, no electrolyte abnormality, not prior KUB:indings: No gas distended loops of small bowel. No air-fluid levels. Increased rectal and colonic stool burden. Cholecystectomy. No definite free air. No acute findings within visualized lung bases. No acute osseous abnormality. Impression: 1. Mild constipation. 2. Additional findings as above. Differential Diagnosis Differential Diagnoses: The differential diagnosis associated with the presentation includes See medical decision-making Admission/Observation Consideration of admission/observation: Escalation of care including admission/observation considered Not applicable Lab Data MDM Lab Attestation statement: I reviewed the patient's lab results. 03/22/25 16:25 03/22/25 16:25 Labs: Lab Results 03/22/25 03/22/25 Range/Units 16:25 16:37 WBC 11.8 H (4.8-10.8) X10*3/uL RBC 4.85 (4.20-5.50) X10*6/uL Hgb 14.9 (12.0-16.0) g/dl Hct 42.6 (37.0-47.0) % MCV 87.8 (80.0-98.0) fL MCH 30.7 (27.0-33.0) pg MCHC 35.0 (31.0-35.0) g/dl RDW 12.6 (11.0-16.0) % Plt Count 431 H (160-400) X10*3/uL MPV 8.3 L (9.4-12.3) fL Immature Gran % (Auto) 0.4 (0.0-0.4) % Neut % (Auto) 80.4 H (45-73) % Lymph % (Auto) 13.1 L (20-40) % Dixie % (Auto) 5.3 (2-11) % Eos % (Auto) 0.5 (0-4) % Baso % (Auto) 0.3 (0-2) % Lymph # (Auto) 1.5 (1.2-4.9) X10*3/uL Dixie # (Auto) 0.6 (0.1-1.2) X10*3/uL Eos # (Auto) 0.1 (0.0-0.4) X10*3/uL Baso # (Auto) 0.0 (0.0-0.2) X10*3/uL Abs Immat Gran (auto) 0.05 H (0.00-0.03) X10*3/uL Absolute Neuts (auto) 9.5 H (2.0-8.3) x10*3/uL Absolute Nucleated RBC 0.000 (0.0-0.012) X10*3/uL Nucleated RBC % (auto) 0.0 (0.0-0.2) /100WBC Sodium 138 (135-145) mmol/L Potassium 3.6 (3.3-5.1) mmol/L Chloride 106 (96-108) mmol/L Carbon Dioxide 23 (22-29) mmol/L Anion Gap 13 (12-20) BUN 6 L (9-16) mg/dL Creatinine 0.78 (0.5-1.4) mg/dL Estim Creat Clear Calc 90.1 Estimated GFR > 60 Random Glucose 115 (60-115) mg/dL Calcium 9.5 (8.4-10.2) mg/dL Magnesium 1.9 (1.6-2.6) mg/dL Total Bilirubin 0.7 (0.0-1.0) mg/dL Direct Bilirubin 0.2 (0.0-0.5) mg/dL AST 37 H (5-31) U/L ALT 50 H (0-31) U/L Alkaline Phosphatase 68 (39-117) U/L Total Protein 7.2 (6.5-8.0) g/dL Albumin 4.7 (3.5-5.0) g/dL Lipase 36 (8-78) U/L Urine Test NEGATIVE (NEGATIVE) Radiology Impression Discussion of test interpretation with radiology: I have reviewed the radiologist's reading. Medications Administered Discontinued Medications Generic Name Dose Route Start Last Admin Trade Name Freq PRN Reason Stop Dose Admin Amoxicillin/Clavulanate Potassium 875 mg 03/22/25 23:10 03/22/25 23:22 Amoxicillin/Potassium Clav 875 Mg Tablet PO 03/22/25 23:11 875 mg ONCE ONE Administration Diazepam 5 mg 03/22/25 20:18 03/22/25 20:29 Diazepam 10 Mg/2 Ml Cartridge IVPUSH 03/22/25 20:19 5 mg STAT STA Administration Sodium Chloride 1,000 mls @ 999 mls/hr 03/22/25 20:00 03/22/25 21:38 Ns IV 03/22/25 21:00 Infused .Q1H1M CARMEL Infusion Ketorolac Tromethamine 15 mg 03/22/25 20:11 03/22/25 20:13 Ketorolac Tromethamine 15 Mg/Ml Vial IM 03/22/25 20:12 Not Given ONCE ONE Ketorolac Tromethamine 15 mg 03/22/25 20:14 03/22/25 20:15 Ketorolac Tromethamine 15 Mg/Ml Vial IVPUSH 03/22/25 20:15 15 mg ONCE ONE Administration Ondansetron HCl 4 mg 03/22/25 15:56 03/22/25 15:58 Ondansetron Odt 4 Mg Tab.Rapdis TRANSLINGU 03/22/25 15:57 4 mg ONCE ONE Administration Discharge Plan Discharge Clinical Impression: Chronic dental infection, Retained intrauterine contraceptive device (IUD), Constipation Patient Disposition: Home, Self-Care Instructions: Constipation (ED), Dental Abscess (ED) Additional Instructions: The x-ray revealed that you have some degree of constipation. Your screening labs are normalizing, your urine is not infected, you were not . I was not able to visualize the strings from her IUD. You need to have the cervix dilated to retrieve the IUD. In the meantime. Stop the 2 antibiotics you received on your last emergency department visit. I am transitioning you to Augmentin, given you have the ongoing dental infection . You need to see your dentist. Take a probiotic to help prevent the onset of diarrhea from the Augmentin. You were given ketorolac at your last visit, this is an anti-inflammatory, continue to take it with food for your pelvic pain. Take the Valium as needed for further discomfort. The Valium will cause drowsiness, do not drive or operate machinery while taking this medication. You were provided with a disc of the imaging that was obtained on March 19 and on March 21. Reach out to your laundry supervisor to make an appointment. I am also providing you with a contact for our gynecology service, you can call to schedule an appointment with them as well , if you are not able to be seen by your own laundry supervisor. Prescriptions: No Action ibuprofen 600 mg tablet 600 mg PO Q6H PRN (Reason: pain) Qty: 30 0RF pantoprazole 40 mg tablet,delayed release (DR/EC) 40 mg PO DAILY Qty: 30 0RF ondansetron 4 mg tablet,disintegrating 4 mg PO Q8H PRN (Reason: nausea and vomiting) Qty: 20 0RF oxycodone 5 mg tablet 5 mg PO Q6H PRN (Reason: severe pain (scale score 7-10)) Qty: 8 0RF Rx Instructions: Partial Fill upon patient request. naproxen 500 mg tablet 500 mg PO BID 7 Days Qty: 14 0RF chlorhexidine gluconate [Peridex] 0.12 % mouthwash 15 ml buccal BID Qty: 118 0RF chlorhexidine gluconate [Peridex] 0.12 % mouthwash 15 ml buccal BID Qty: 118 0RF venlafaxine 75 mg capsule,extended release 24hr 75 mg PO DAILY colestipol 1 gram tablet 1 g PO BID norethindrone (contraceptive) 0.35 mg tablet 0.35 mg PO DAILY dicyclomine 20 mg tablet 20 mg PO BID PRN (Reason: abdominal pain) Qty: 7 0RF Referrals: Avtar Hawkins MD [Physician, BULK INTAKE WORKER] Referral Note: retained IUD, requests removal, could not visual strings on pelvic exam Interventions: ED Discharge Assessment Last Done: 03/23/25 00:06 Discharge Date/Time: 03/23/25 00:07 Print Language: Swedish
--- OUTSIDE RECORDS SUMMARY | 2025-03-22 16:30 | XMS_ITS | Clinical Summary ---
Author Organization [facility] it Address [address] [place] [address] Care Team Providers Care Rn Behavioral Health Name Role Phone Eleuterio Linares MD Primary Care Provider Surgical History Surgery Date Site/Laterality Comments OTHER SURGICAL HISTORY PROCEDURE: WI COLPOSCOPY CERVIX VAG ELTRD CONIZATION CERVIX; COMMENT: h/o HPV normal pap smears since CYST REMOVAL PROCEDURE: WI EXCISION PILONIDAL CYST/SINUS SIMPLE Medical History Medical [...] Mother Alive MS Sister Alive asthma Uncle [place] at 60's, CVA Social History Tobacco Use [...] age to complete this topic Care Teams Rn Behavioral Health Relationship Specialty Start Date End Date Eleuterio Linares MD [address] [place] [address] PCP - General 01/31/23
[2025-03-22 16:41] LABS: MANUAL DIFF FLAG NO
[2025-03-22 16:42] LABS: Hematocrit 42.6 % (37.0-47.0); Hemoglobin 14.9 g/dl (12.0-16.0); Imm Gran Abs Auto 0.05 X10*3/uL (0.00-0.03); Imm Gran Pct Auto 0.4 % (0.0-0.4); Lymphocytes Absolute Auto 1.5 X10*3/uL (1.2-4.9); Mean Corpuscular HGB Conc 35.0 g/dl (31.0-35.0); Mean Corpuscular Hemoglobin 30.7 pg (27.0-33.0); Mean Corpuscular Volume 87.8 fL (80.0-98.0); NRBC Abs Auto 0.000 X10*3/uL (0.0-0.012); NRBC Pct Auto 0.0 /100WBC (0.0-0.2); Platelet Count 431 X10*3/uL (160-400); Red Blood Count 4.85 X10*6/uL (4.20-5.50); White Blood Count 11.8 X10*3/uL (4.8-10.8)
[2025-03-22 16:45] LABS: UPreg QC Valid YES
[2025-03-22 16:57] LABS: Alanine Aminotransferase 50 U/L (0-31); Albumin Level 4.7 g/dL (3.5-5.0); Alkaline Phosphatase 68 U/L (39-117); Anion Gap 13 (12-20); Aspartate Amino Transferase 37 U/L (5-31); Blood Urea Nitrogen 6 mg/dL (9-16); Calcium 9.5 mg/dL (8.4-10.2); Carbon Dioxide 23 mmol/L (22-29); Chloride 106 mmol/L (96-108); Creatinine Clr Calc Pharmacy 90.1; Estimated Glomerular Filt Rate > 60; Lipase 36 U/L (8-78); Magnesium 1.9 mg/dL (1.6-2.6); Potassium 3.6 mmol/L (3.3-5.1); Sodium 138 mmol/L (135-145); Total Protein 7.2 g/dL (6.5-8.0)
--- NOTE | 2025-03-22 20:16 | PC.NURSE ---
FERNANDO at bedside discussing plan of care. IV established, pt medicated per JUL. Plan for KUB.
[2025-03-22] MEDS: diazePAM 10 MG/2 ML CARTRIDGE 5 MG IVPUSH (20:29)
--- NOTE | 2025-03-22 20:32 | PC.NURSE ---
Medicated per JUL. Pt resting in bed at this time.
[2025-03-22 21:28] VITALS: BP 141/86; PULSE 88; RESP 20; TEMP 37.1; O2SAT 99
--- NOTE | 2025-03-22 21:29 | PC.NURSE ---
FERNANDO and EDT at bedside for pelvic.
[2025-03-22 23:03] VITALS: BP 146/88; PULSE 67; RESP 16; TEMP 37.1; O2SAT 98
[2025-03-23 00:06] VITALS: BP 146/88; PULSE 67; RESP 16; TEMP 37.1; O2SAT 98
== END 2025-03-23 00:07 | disposition home or self-care (01) ==
PROVIDERS: Physician Assistant; Emergency Provider Emergency Medicine; PCP Family Medicine
DX: K04.7 Periapical abscess without sinus (principal); K59.00 Constipation, unspecified; R10.20 Pelvic and perineal pain unspecified side; R11.0 Nausea; Z30.432 Encounter for removal of intrauterine contraceptive device; Z79.899 Other long term (current) drug therapy
CPT/HCPCS: 36415; 74018; 80048; 80076; 81025; 83690; 83735; 85025; 96361; 96374; 96375; 99284; J1885; J3360

== ENCOUNTER → 2025-03-22 20:09 | Outpatient (BNV) | payer OTHER, SELFPAY | PROVIDERS: Emergency Provider Emergency Medicine; PCP Family Medicine; Visit Provider Radiology Diagnostic Radiology | DX: K59.00 Constipation, unspecified (principal) | CPT/HCPCS: 74018 ==

== ENCOUNTER 2025-03-23 20:08 | Emergency (ER) | payer OTHER, SELFPAY ==
--- NOTE | 2025-03-23 | ECG_ITS ---
Test Reason : cp Blood Pressure : */* mmHG Vent. Rate : 96 BPM Atrial Rate : 96 BPM P-R Int : 116 ms QRS Dur : 88 ms QT Int : 374 ms P-R-T Axes : 59 79 37 degrees QTcB Int : 472 ms Normal sinus rhythm Normal ECG When compared with ECG of 04-Jan-2023 03:35, No significant change was found Referred By: Generic ED Physician Electronically Signed By: Luis Jain
[2025-03-23 20:11] VITALS: BP 156/92; PULSE 98; RESP 16; TEMP 36.8; O2SAT 96; BMI 28.7
[2025-03-23 20:29] LABS: MANUAL DIFF FLAG NO
[2025-03-23 20:30] LABS: Hematocrit 41.0 % (37.0-47.0); Hemoglobin 14.4 g/dl (12.0-16.0); Imm Gran Abs Auto 0.03 X10*3/uL (0.00-0.03); Imm Gran Pct Auto 0.3 % (0.0-0.4); Lymphocytes Absolute Auto 1.8 X10*3/uL (1.2-4.9); Mean Corpuscular HGB Conc 35.1 g/dl (31.0-35.0); Mean Corpuscular Hemoglobin 30.6 pg (27.0-33.0); Mean Corpuscular Volume 87.2 fL (80.0-98.0); NRBC Abs Auto 0.000 X10*3/uL (0.0-0.012); NRBC Pct Auto 0.0 /100WBC (0.0-0.2); Platelet Count 410 X10*3/uL (160-400); Red Blood Count 4.70 X10*6/uL (4.20-5.50); White Blood Count 10.5 X10*3/uL (4.8-10.8)
[2025-03-23 20:45] LABS: Alanine Aminotransferase 49 U/L (0-31); Albumin Level 4.6 g/dL (3.5-5.0); Alkaline Phosphatase 61 U/L (39-117); Anion Gap 11 (12-20); Aspartate Amino Transferase 38 U/L (5-31); Blood Urea Nitrogen 5 mg/dL (9-16); Calcium 9.4 mg/dL (8.4-10.2); Carbon Dioxide 21 mmol/L (22-29); Chloride 110 mmol/L (96-108); Creatinine Clr Calc Pharmacy 105.2; Estimated Glomerular Filt Rate > 60; Potassium 3.9 mmol/L (3.3-5.1); Sodium 138 mmol/L (135-145); Total Protein 7.4 g/dL (6.5-8.0)
[2025-03-23 20:53] LABS: Troponin-I High Sensitivity < 2.7 ng/L (<3.5-17.0)
--- OUTSIDE RECORDS SUMMARY | 2025-03-23 21:23 | XMS_ITS | Clinical Summary ---
Author Organization [employer] [facility] it Address [address] [place] [address] Care Team Providers Care Mechanical Systems Design Engineer Name Role Phone Eleuterio Linares MD Primary Care Provider [phone] Surgical History Surgery Date Site/Laterality Comments OTHER SURGICAL HISTORY PROCEDURE: [place] COLPOSCOPY CERVIX VAG ELTRD CONIZATION CERVIX; COMMENT: h/o HPV normal pap smears since CYST REMOVAL PROCEDURE: [place] EXCISION PILONIDAL CYST/SINUS SIMPLE Medical History Medical [...] Mother Alive MS Sister Alive asthma Uncle [place] at 60's, CVA Social History Tobacco Use [...] age to complete this topic Care Teams Mechanical Systems Design Engineer Relationship Specialty Start Date End Date Eleuterio Linares MD [address] [place] [phone] PCP - General 01/31/23
[2025-03-23 22:00] VITALS: BP 146/93; PULSE 88; RESP 18; TEMP 36.8; O2SAT 96
--- NOTE | 2025-03-23 23:17 | ED.FEMALEGU ---
HPI - Female Genitourinary General Chief complaint: Urogenital-Female Stated complaint: stomach pain/chest pain Time Seen by Provider: 03/23/25 22:41 Source: patient, RN notes reviewed and old records reviewed Mode of arrival: ambulatory Limitations: no limitations History of Present Illness ED Provider: Rancho GAVIN Narrative: 40-year-old female presents for evaluation abdominal pain. Patient was seen here for the last 5 days for abdominal pain. She had a CT scan on 03/19/2025 which showed a large ovarian cyst. She had a pelvic ultrasound 2 days ago, she had a KUB yesterday. She was told she has an ovarian cyst, 2 days ago was told she had PID in yesterday constipation. She is due to see an OBGYN follow up tomorrow. She is also due to see her dentist tomorrow for chronic dental pain She was initially prescribed doxycycline and metronidazole 2 days ago but is currently on Augmentin She has seen GI in the past and had an endoscopy. She is status post cholecystectomy. Today she reports stabbing upper abdominal pain is intermittent lasts for a few hours at a time Related Data Home Medications ?Medication ?Instructions ?Recorded ?Confirmed colestipol 1 gram tablet 1 g PO BID 11/24/20 11/24/20 venlafaxine 75 mg capsule,extended 75 mg PO DAILY 11/24/20 11/24/20 release 24 hr norethindrone (contraceptive) 0.35 0.35 mg PO DAILY 10/31/21 mg tablet Previous Rx's ?Medication ?Instructions ?Recorded ibuprofen 600 mg tablet 600 mg PO Q6H PRN pain #30 tabs 10/11/21 meloxicam 15 mg tablet 15 mg PO DAILY #14 tabs 09/10/22 chlorhexidine gluconate 0.12 % 15 ml buccal BID #118 mL 10/14/22 mouthwash (Peridex) naproxen 500 mg tablet 500 mg PO BID 7 days #14 tabs 10/14/22 famotidine 20 mg tablet 20 mg PO BEDTIME #30 tabs 01/04/23 pantoprazole 40 mg tablet,delayed 40 mg PO DAILY #30 tabs 01/04/23 release chlorhexidine gluconate 0.12 % 15 ml buccal BID #118 mL 06/05/23 mouthwash (Peridex) naproxen 500 mg tablet 500 mg PO BID 7 days #14 tabs 06/05/23 penicillin V potassium 500 mg 500 mg PO BID 10 days #20 tabs 06/05/23 tablet prednisone 20 mg tablet 20 mg PO .COMPLEX 7 days #15 tabs 12/31/24 dicyclomine 20 mg tablet 20 mg PO BID PRN abdominal pain #7 02/23/25 tabs ondansetron 4 mg disintegrating 4 mg PO Q8H PRN nausea and 02/23/25 tablet vomiting #10 tabs doxycycline hyclate 100 mg tablet 100 mg PO BID 14 days #28 tabs 03/21/25 ketorolac 10 mg tablet 10 mg PO Q8H PRN pain #14 tabs 03/21/25 metronidazole 500 mg tablet 500 mg PO BID #14 tabs 03/21/25 amoxicillin 875 mg-potassium 1 tab PO Q12H #19 tabs 03/22/25 clavulanate 125 mg tablet diazepam 5 mg tablet (Valium) 5 mg PO TID PRN cramping #10 tabs 03/22/25 ondansetron 4 mg disintegrating 4 mg PO Q8H PRN nausea and 03/24/25 tablet vomiting #20 tabs oxycodone 5 mg tablet 5 mg PO Q6H PRN severe pain (scale 03/24/25 score 7-10) #8 tabs Allergies Allergy/AdvReac Type Severity Reaction Status Date / Time adhesive (ADHESIVE) Allergy Unknown RASH, SKIN Verified 03/23/25 20:11 BREAKDOWN clindamycin AdvReac Gastrointestinal Verified 03/23/25 20:11 Upset SEASONAL ALLERGIES Allergy Unknown RUNNY Uncoded 03/23/25 20:11 NOSE, CONGESTION, WATERY EYES Review of Systems Constitutional: Constitutional: Denies body ache(s), Denies chills, Denies fever(s) and Denies headache(s) Eyes: Eyes: Denies blurry vision ENT: Denies vertigo, Denies dizziness and Denies headache(s) Cardiovascular: Cardiovascular: Denies chest pain and Denies dyspnea on exertion Respiratory: Respiratory: Denies cough and Denies dyspnea on exertion Gastrointestinal: Gastrointestinal: Reports abdominal pain, Denies melena, Denies hematochezia, Reports diarrhea, Reports loose stools, Reports nausea and Denies vomiting Musculoskeletal: Musculoskeletal: Denies back pain Integumentary/Breasts: Skin/Breast: Denies rash Neurologic: Denies vertigo, Denies dizziness and Denies headache(s) Psychiatric: Psychiatric: Denies anxiety PMFSH Past Medical History Medical History Multiple sclerosis Tobacco abuse (06/30/22) Seasonal allergies Sacroiliitis (09/22/19) Depression ASCUS with positive high risk HPV cervical Anxiety (06/30/22) Right radial head fracture Left radial head fracture Skin lesion of back Multiple sclerosis No known health problems Surgical History History of cholecystectomy H/O removal of cyst Social History Social History Alcohol intake: former Patient Tobacco Use Status: Current everyday Tobacco user Smoked in Last 30 Days: Yes Use of substances other than those prescribed or required for medical reasons: Yes Substance Use Type: Marijuana Substance Use Frequency: Occasionally Advance Directives: No Advance Directives Information Provided: Yes Patient : No Current occupational status: employed 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, 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 Physical Exam Vital Signs: Vital Signs: Last Vital Signs Temp 98.2 F 03/23/25 22:00 Pulse 88 03/23/25 22:00 Resp 18 03/23/25 22:00 BP 146/93 H 03/23/25 22:00 Pulse Ox 96 03/23/25 22:00 O2 Del Method Room Air 03/23/25 22:00 BMI result Body Mass Index 28.7 Const: General: healthy appearing, comfortable, no acute distress, alert and awake Nutritional Appearance: well nourished Orientation/consciousness: patient oriented x3 HEENT: Head: Yes normocephalic and Yes atraumatic Eyes: Eyelids: Yes eyelids normal Conjunctivae: conjunctivae normal Sclerae: sclerae normal Corneas: corneas normal Pupils: Equal, round and reactive pupils present EOM: EOMs intact bilaterally Neck: Neck: Yes full ROM Resp: Effort & Inspection: normal respiratory effort, able to speak in complete sentences and not labored GI: Inspection: No distended Palpation (GI): Soft to palpation, not firm, Tenderness to palpation present (GI) in the epigastrum, no guarding and not rigid Skin: General skin exam: elasticity normal Neuro: General: patient oriented x3 Cranial nerves: Yes Equal, round and reactive pupils present and Yes Bilaterally intact EOM present Cognition (Neuro): normal cognition Medications Administered Discontinued Medications Generic Name Dose Route Start Last Admin Trade Name Yajaira PRN Reason Stop Dose Admin Ondansetron HCl 4 mg 03/23/25 23:14 03/23/25 23:20 Ondansetron Odt 4 Mg Tab.Zulydis TRANSLINGU 03/23/25 23:15 4 mg ONCE ONE Administration Oxycodone HCl 5 mg 03/23/25 23:14 03/23/25 23:20 Oxycodone Hcl Immed Release 5 Mg Tablet PO 03/23/25 23:15 5 mg ONCE ONE Administration Medical Decision Making Medical Decision Making [facility] Narrative: 40-year-old female presents for evaluation continued abdominal pain. This is her 4th visit in the last 5 days for similar complaints. I reviewed her recent workups. She reports that she is supposed to see her dentist today but could not go due to her abdominal pain being to severe. The patient repeat labs in his leukocytosis has resolved, no significant anemia. She does have a left shift that appears to be trending down. Chemistries did not show any significant concerning abnormalities, sodium potassium within normal limits. Chloride is elevated to 110 which may be due to decreased oral intake and dehydration. Carbon dioxide as this more normal at 21 which is likely due to hyperventilating. Renal function is within normal limits, she still has a slight elevation of AST and ALT which is consistent with where she has been. Today she had a troponin which was negative. EKG is nonischemic. I do not feel the patient is history and exam/workup warrant additional imaging at this time. She is due to see OBGYN tomorrow. She is also due to see your dentist tomorrow. I agreed to treat her symptoms with the oxycodone and Zofran. I warranting this may contribute to worsening constipation. Differential Diagnosis Differential Diagnoses: The differential diagnosis associated with the presentation includes Chronic abdominal pain GERD Ovarian cyst PID Constipation Lab Data [facility] Lab Attestation statement: I reviewed the patient's lab results. As above 03/23/25 20:25 03/23/25 20:25 Labs: Lab Results 03/23/25 Range/Units 20:25 WBC 10.5 (4.8-10.8) X10*3/uL RBC 4.70 (4.20-5.50) X10*6/uL Hgb 14.4 (12.0-16.0) g/dl Hct 41.0 (37.0-47.0) % MCV 87.2 (80.0-98.0) fL MCH 30.6 (27.0-33.0) pg MCHC 35.1 H (31.0-35.0) g/dl RDW 12.5 (11.0-16.0) % Plt Count 410 H (160-400) X10*3/uL MPV 8.3 L (9.4-12.3) fL Immature Gran % (Auto) 0.3 (0.0-0.4) % Neut % (Auto) 76.3 H (45-73) % Lymph % (Auto) 17.3 L (20-40) % Iron % (Auto) 5.6 (2-11) % Eos % (Auto) 0.2 (0-4) % Baso % (Auto) 0.3 (0-2) % Lymph # (Auto) 1.8 (1.2-4.9) X10*3/uL Iron # (Auto) 0.6 (0.1-1.2) X10*3/uL Eos # (Auto) 0.0 (0.0-0.4) X10*3/uL Baso # (Auto) 0.0 (0.0-0.2) X10*3/uL Abs Immat Gran (auto) 0.03 (0.00-0.03) X10*3/uL Absolute Neuts (auto) 8.0 (2.0-8.3) x10*3/uL Absolute Nucleated RBC 0.000 (0.0-0.012) X10*3/uL Nucleated RBC % (auto) 0.0 (0.0-0.2) /100WBC Sodium 138 (135-145) mmol/L Potassium 3.9 (3.3-5.1) mmol/L Chloride 110 H (96-108) mmol/L Carbon Dioxide 21 L (22-29) mmol/L Anion Gap 11 L (12-20) BUN 5 L (9-16) mg/dL Creatinine 0.65 (0.5-1.4) mg/dL Estim Creat Clear Calc 105.2 Estimated GFR > 60 Random Glucose 103 (60-115) mg/dL Calcium 9.4 (8.4-10.2) mg/dL Total Bilirubin 0.8 (0.0-1.0) mg/dL AST 38 H (5-31) U/L ALT 49 H (0-31) U/L Alkaline Phosphatase 61 (39-117) U/L Troponin I High Sens < 2.7 (<3.5-17.0) ng/L Total Protein 7.4 (6.5-8.0) g/dL Albumin 4.6 (3.5-5.0) g/dL Discharge Plan Discharge Clinical Impression: Abdominal pain Patient Disposition: Home, Self-Care Instructions: Abdominal Pain (ED) Additional Instructions: Your lab work today was reassuring. Your white blood cell count has returned to normal. You may use Zofran as needed for nausea and vomiting. You may take oxycodone up to every 6 hours as needed for the next 2 days. This may make you drowsy may worsen constipation. You may also take MiraLax to help prevent constipation. Follow up with your OBGYN and dentist tomorrow as discussed Prescriptions: New ondansetron 4 mg tablet,disintegrating 4 mg PO Q8H PRN (Reason: nausea and vomiting) Qty: 20 0RF oxycodone 5 mg tablet 5 mg PO Q6H PRN (Reason: severe pain (scale score 7-10)) Qty: 8 0RF Rx Instructions: Partial Fill upon patient request. No Action prednisone 20 mg tablet 20 mg PO .COMPLEX 7 Days Qty: 15 0RF Rx Instructions: 20 mg orally 3 tabs x3 days, 2 tabs x2 days, 1 tab x2 days; ibuprofen 600 mg tablet 600 mg PO Q6H PRN (Reason: pain) Qty: 30 0RF meloxicam 15 mg tablet 15 mg PO DAILY Qty: 14 0RF pantoprazole 40 mg tablet,delayed release (DR/EC) 40 mg PO DAILY Qty: 30 0RF famotidine 20 mg tablet 20 mg PO BEDTIME Qty: 30 0RF doxycycline hyclate 100 mg tablet 100 mg PO BID 14 Days Qty: 28 0RF metronidazole 500 mg tablet 500 mg PO BID Qty: 14 0RF ketorolac 10 mg tablet 10 mg PO Q8H PRN (Reason: pain) Qty: 14 0RF Rx Instructions: Do not take this medication with naproxen, ibuprofen, only Tylenol if needed. diazepam [Valium] 5 mg tablet 5 mg PO TID PRN (Reason: cramping) Qty: 10 0RF amoxicillin-pot clavulanate 875-125 mg tablet 1 tab PO Q12H Qty: 19 0RF naproxen 500 mg tablet 500 mg PO BID 7 Days Qty: 14 0RF chlorhexidine gluconate [Peridex] 0.12 % mouthwash 15 ml buccal BID Qty: 118 0RF penicillin V potassium 500 mg tablet 500 mg PO BID 10 Days Qty: 20 0RF naproxen 500 mg tablet 500 mg PO BID 7 Days Qty: 14 0RF chlorhexidine gluconate [Peridex] 0.12 % mouthwash 15 ml buccal BID Qty: 118 0RF ondansetron 4 mg tablet,disintegrating 4 mg PO Q8H PRN (Reason: nausea and vomiting) Qty: 10 0RF dicyclomine 20 mg tablet 20 mg PO BID PRN (Reason: abdominal pain) Qty: 7 0RF venlafaxine 75 mg capsule,extended release 24hr 75 mg PO DAILY colestipol 1 gram tablet 1 g PO BID norethindrone (contraceptive) 0.35 mg tablet 0.35 mg PO DAILY Print Language: Yakut
[2025-03-23] MEDS: oxyCODONE HCl Immed Release 5 MG TABLET PO (23:20)
[2025-03-24 00:09] VITALS: BP 146/93; PULSE 88; RESP 18; TEMP 36.8; O2SAT 96
== END 2025-03-24 00:09 | disposition home or self-care (01) ==
PROVIDERS: Emergency Provider Emergency Medicine
DX: R10.9 Unspecified abdominal pain (principal); G35.D Multiple sclerosis, unspecified; N83.209 Unspecified ovarian cyst, unspecified side; K08.89 Other specified disorders of teeth and supporting structures; Z79.899 Other long term (current) drug therapy
CPT/HCPCS: 36415; 80053; 84484; 85025; 93005; 99283; 99285

== ENCOUNTER → 2025-03-23 20:12 | Outpatient (BNV) | payer OTHER, SELFPAY | PROVIDERS: Emergency Provider Emergency Medicine; Visit Provider Internal Medicine Cardiovascular Disease | DX: R07.9 Chest pain, unspecified (principal) | CPT/HCPCS: 93010 ==

== ENCOUNTER 2025-03-24 10:08 | Outpatient (AMB) | payer OTHER, SELFPAY ==
--- NOTE | 2025-03-24 10:13 | MHC.OFFVIS ---
Vital Signs 03/24/25 10:18 Height 5 ft 2 in Weight 156 lb BMI 28.5 BP 138/92 H Intake Visit Reasons: Low IUD Director Of Testing Required: No Information Interpreted: non-clinical & clinical Ict Support Engineer: Ict Support Engineer Present (Serena ROCHE) Accompanied by: Self / Same As Patient Allergies adhesive (ADHESIVE) Allergy (Unknown, Verified 03/24/25 10:19) RASH, SKIN BREAKDOWN clindamycin Adverse Reaction (Verified 03/24/25 10:19) Gastrointestinal Upset SEASONAL ALLERGIES Allergy (Unknown, Uncoded 03/24/25 10:19) RUNNY NOSE, CONGESTION, WATERY EYES HPI Comments Details: Presenting referred from the ER for follow-up. 03/21/2025 pelvic ultrasound showed the following: IMPRESSION: 1. Simple right ovarian cyst. No suspicious features. No follow-up required. 2. No evidence of ovarian torsion bilaterally. 3. Low position of IUD within the cervix. The patient is not interested in another IUD insertion [facility] Medical History Multiple sclerosis Tobacco abuse (06/30/22) Seasonal allergies Sacroiliitis (09/22/19) Depression ASCUS with positive high risk HPV cervical Anxiety (06/30/22) Right radial head fracture Left radial head fracture Skin lesion of back Multiple sclerosis No known health problems Surgical History History of cholecystectomy H/O removal of cyst Social History Household Members: Spouse and Children Housing: House Alcohol intake: former Patient Tobacco Use Status: Current everyday Tobacco user Cigarettes Per Day: 20 Years Smoked: 20 Substance Use Type: Marijuana Current occupational status: employed 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, 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 Sexually active: Yes Sexual orientation: Straight/Heterosexual Gender identity: Female Female Reproductive History Menstrual Total pregnancies: 3 Full term: 3 Number of Living Children: 3 Review of Systems Const All systems reviewed & are unremarkable except as noted in HPI and below Card Reports as per HPI, Reports no additional complaints, Denies chest pain, Denies chest pain with activity, Denies dyspnea and Denies dyspnea on exertion Resp Reports as per HPI, Reports no additional complaints, Denies cough, Denies pain on inspiration, Denies pain with cough, Denies dyspnea, Denies dyspnea on exertion and Denies wheezing GI Reports as per HPI, Reports no additional complaints, Denies abdominal pain, Denies change in bowel habits, Denies change in stool character, Denies early satiety, Denies dyspepsia, Denies heartburn, Denies nausea and Denies vomiting Reports as per HPI, Denies hematuria and Denies dysuria Aller/Immun Denies wheezing Physical Exam Vital Signs: Last Vital Signs BP 138/92 H 03/24/25 10:18 BMI result Body Mass Index 28.5 Const General: cooperative, healthy appearing and comfortable Resp Effort & Inspection: normal respiratory effort Auscultation: clear to auscultation bilaterally Percussion: percussion normal Cardio Palpation: normal PMI Rate: regular rate Rhythm: regular rhythm Heart sounds: no murmurs and no rubs Peripheral pulses: Peripheral pulses 2+ throughout GI Inspection: Yes normal to inspection Palpation (GI): Soft to palpation, nontender, no guarding, not rigid and No hepatosplenomegaly present Percussion: Yes normal to percussion Auscultation: normal bowel sounds Rectal Exam - Female: deferred General: Yes no CVA tenderness External Female Exam: normal external appearance and normal appearance of the urethra Speculum Exam - Vagina: normal appearance of the vagina, normal palpation, no lesions and no masses Speculum Exam - Cervix: normal appearance of the cervix, normal palpation, no lesions, no masses, nontender and Other cervical findings present (IUD thread not seen in place) Bimanual exam- vagina & uterus: normal bimanual exam, normal palpation, uterine size normal, normal palpation, uterine shape normal, No Cervical tenderness present and non-tender Bimanual Exam- Adnexa, other: normal adnexae Back/Spine/Pelvis Back: no CVA tenderness Results AMB Test Urine AMB Test Urine Negative Last Edit by Serena Tobias CMA on 03/24/25 10:41 Assessment & Plan Assessment & Plan (1) Malpositioned IUD: Comment: Lost IUD string Code(s): T83.32XA - Displacement of intrauterine contraceptive device, initial encounter Category: Medical Plan: GC/C taken. Urine test done in the office was negative. Discussed with the patient the finding on ultrasound showing a low-lying IUD, recommended IUD removal Attempted IUD removal was unsuccessful. Speculum was inserted inside the patient vaginal cavity, anterior cervical lip was grasped with single-tooth tenaculum, the cervix was dilated with the cervical dilator, using hook, brush and Margi clamp , the IUD string was not identified. At this point in the procedure was aborted. Recommended hysteroscopic IUD removal Discussed with the patient the procedure , all benefits and risks including but not limited to inability to complete the procedure , insufficient endometrial tissue for a complete evaluation of the endometrial cavity , bleeding, infection, possible need for blood transfusion with all its risk ( HIV,syphilis, Hepatitis, anaphylaxis shock, others..), injury to bladder, rectum, possible need for laparoscopy/laparotomy or hysterectomy. The patient verbalized understanding and signed the consent. Instructions given the patient to stay NPO after midnight the day prior to the procedure and to take only the specific medication (s) discussed the morning of the surgical procedure and to schedule a 2 week postoperative appointment (2) Family planning: Code(s): Z30.09 - Encounter for other general counseling and advice on contraception Category: Social Hx Plan: Discussed with the patient the different options of control including control pills/Nuvaring, Depo Medroxy Progesterone Acetate, IUD ( levonorgestrel, Copper), sterilization. All the pros, cons, risks and benefits of each were discussed with the patient. The patient decided to stay on norethindrone p.o. q.d.. Explained to the patient that norethindrone is a progesterone only pill with a higher failure rate and recommended to the patient to discontinue norethindrone till IUD removal. All questions answered, the patient verbalized understanding Orders: Orders AMB HCG Urine Test Today Z32.02 - Encounter for test, result negative Medications: Refilled dicyclomine 20 mg PO BID PRN 7 tabs 0RF abdominal pain Coding Level of Care Code New Pt Level 3 (06069) Diagnoses Malpositioned IUD T83.32XA Family planning Z30.09
[2025-03-24 10:18] VITALS: BP 138/92; BMI 28.5
--- OUTSIDE RECORDS SUMMARY | 2025-03-24 11:50 | XMS_ITS | Clinical Summary ---
Author Organization [facility] it Address [address] [place] [address] Care Team Providers Care Sport Shoe Spike Assembler Name Role Phone Eleuterio Linares MD Primary Care Provider [phone] Surgical History Surgery Date Site/Laterality Comments OTHER SURGICAL HISTORY PROCEDURE: [place] COLPOSCOPY CERVIX VAG ELTRD CONIZATION CERVIX; COMMENT: h/o HPV normal pap smears since CYST REMOVAL PROCEDURE: [place] EXCISION PILONIDAL CYST/SINUS SIMPLE Medical History Medical [...] Mother Alive MS Sister Alive asthma Uncle [place] at 60's, CVA Social History Tobacco Use [...] age to complete this topic Care Teams Sport Shoe Spike Assembler Relationship Specialty Start Date End Date Eleuterio Linares MD [address] [place] [address] PCP - General 01/31/23
== END 2025-03-24 10:57 | disposition home or self-care (01) ==
LOC: HO.HWS 10:08
PROVIDERS: Visit Provider Obstetrics & Gynecology
DX: T83.32XA Displacement of intrauterine contraceptive device, initial encounter (principal); Z30.09 Encounter for other general counseling and advice on contraception; Z32.02 Encounter for pregnancy test, result negative
CPT/HCPCS: 99203

== ENCOUNTER 2025-03-24 10:08 | Outpatient (REF) | payer OTHER, SELFPAY ==
[2025-03-24 17:25] LABS: CT PCR NOT DETECTED (Not Detect.); NG PCR NOT DETECTED (Not Detect.)
== END 2025-03-24 10:09 | disposition home or self-care (01) ==
LOC: HO.LNP 10:08
PROVIDERS: Visit Provider Obstetrics & Gynecology
DX: T83.32XA Displacement of intrauterine contraceptive device, initial encounter (principal); Z20.2 Contact with and (suspected) exposure to infections with a predominantly sexual mode of transmission; Z32.02 Encounter for pregnancy test, result negative; Z30.09 Encounter for other general counseling and advice on contraception
CPT/HCPCS: 81025; 87491; 87591; 99202

== ENCOUNTER 2025-03-24 20:31 | Emergency (ER) | payer OTHER, SELFPAY ==
[2025-03-24 20:45] VITALS: BP 150/86; BP 170/100; PULSE 100; PULSE 88; RESP 20; TEMP 37; O2SAT 97; O2SAT 99; BMI 32.7
[2025-03-24 20:51] VITALS: BP 150/86; PULSE 88; RESP 20; TEMP 37; O2SAT 97
--- OUTSIDE RECORDS SUMMARY | 2025-03-24 20:57 | XMS_ITS | Clinical Summary ---
Author Organization [employer] [facility] it Address [address] [place] [address] Care Team Providers Care Subgrade Roller Operator Name Role Phone Eleuterio Linares MD Primary Care Provider [phone] Surgical History Surgery Date Site/Laterality Comments OTHER SURGICAL HISTORY PROCEDURE: [place] COLPOSCOPY CERVIX VAG ELTRD CONIZATION CERVIX; COMMENT: h/o HPV normal pap smears since CYST REMOVAL PROCEDURE: [place] EXCISION PILONIDAL CYST/SINUS SIMPLE Medical History Medical [...] Mother Alive MS Sister Alive asthma Uncle [place] at 60's, CVA Social History Tobacco Use [...] age to complete this topic Care Teams Subgrade Roller Operator Relationship Specialty Start Date End Date Eleuterio Linares MD [address] [place] [address] PCP - General 01/31/23
--- NOTE | 2025-03-24 21:35 | ED.ABDPAIN ---
HPI - Abdominal Pain General Chief Complaint: Abdominal Pain Stated Complaint: ab/ uterine/ ovary pain, n/v, worse Time Seen by Provider: 03/24/25 21:33 Source: patient Mode of arrival: ambulatory Limitations: no limitations History of Present Illness ED Provider: DR. Atkinson HPI narrative: This is a 40-year-old female return to the emergency department for evaluation of abdominal/pelvic pain for about 2 weeks now, this is the 5th visit to the emergency department in the last month for a complaint of abdominal pain, patient had CT abdomen and pelvis on 02/23 which was unremarkable except for a simple right ovarian cyst, repeat CT abdomen and pelvis on 03/19 which shows normal intra-abdominal findings with normal appendix, patient had pelvic ultrasound on 03/21 which showed retained IUD, had KUB on 03/22 which showed constipation. Patient was discharged on oxycodone that is not touching her abdominal pain, was seen and evaluated by Dr. Hawkins today for removal of IUD because absence of the thread patient is scheduled for the OR in 2 days to be removed surgically by Dr. Hawkins. Surgical history is significant for cholecystectomy, last bowel movement was this morning, patient is passing flatus. Patient returned today for persistent of right lower pelvic pain and suprapubic pain associated with nausea and vomiting pain is not controlled with oxycodone at home. Related Data Home Medications ?Medication ?Instructions ?Recorded ?Confirmed colestipol 1 gram tablet 1 g PO BID 11/24/20 11/24/20 venlafaxine 75 mg capsule,extended 75 mg PO DAILY 11/24/20 11/24/20 release 24 hr norethindrone (contraceptive) 0.35 0.35 mg PO DAILY 10/31/21 mg tablet Previous Rx's ?Medication ?Instructions ?Recorded ibuprofen 600 mg tablet 600 mg PO Q6H PRN pain #30 tabs 10/11/21 chlorhexidine gluconate 0.12 % 15 ml buccal BID #118 mL 10/14/22 mouthwash (Peridex) naproxen 500 mg tablet 500 mg PO BID 7 days #14 tabs 10/14/22 pantoprazole 40 mg tablet,delayed 40 mg PO DAILY #30 tabs 01/04/23 release chlorhexidine gluconate 0.12 % 15 ml buccal BID #118 mL 06/05/23 mouthwash (Peridex) dicyclomine 20 mg tablet 20 mg PO BID PRN abdominal pain #7 03/24/25 tabs ondansetron 4 mg disintegrating 4 mg PO Q8H PRN nausea and 03/24/25 tablet vomiting #20 tabs oxycodone 5 mg tablet 5 mg PO Q6H PRN severe pain (scale 03/24/25 score 7-10) #8 tabs Allergies Allergy/AdvReac Type Severity Reaction Status Date / Time adhesive (ADHESIVE) Allergy Unknown RASH, SKIN Verified 03/24/25 20:47 BREAKDOWN clindamycin AdvReac Gastrointestinal Verified 03/24/25 20:47 Upset SEASONAL ALLERGIES Allergy Unknown RUNNY Uncoded 03/24/25 20:47 NOSE, CONGESTION, WATERY EYES Review of Systems Review of Systems All other systems are reviewed and are negative Constitutional: Reports as per HPI and Reports no additional constitutional complaints Eyes: Reports as per HPI and Reports no additional eye complaints Reports system reviewed and no additional complaints, except as documented Cardiovascular: Reports as per HPI and Reports no additional cardiovascular complaints Respiratory: Reports as per HPI and Reports no additional respiratory complaints Gastrointestinal: Reports as per HPI and Reports no additional gastrointestinal complaints Genitourinary: Reports no additional female genitourinary complaints Musculoskeletal: Reports no additional musculoskeletal complaints Skin/Breast: Reports system reviewed and no additional complaints, except as docu Psychiatric: Reports no additional psychiatric complaints Endocrine: Reports no additional endocrine complaints Hematologic/Lymphatic: Reports no additional hematologic/lymphatic complaints Allergic/Immunologic: Reports no additional allergic/immunologic complaints Reports system reviewed and no additional complaints, except as documented and Reports Abnormal speech present [facility] Past Medical History Medical History Multiple sclerosis Tobacco abuse (06/30/22) Seasonal allergies Sacroiliitis (09/22/19) Depression ASCUS with positive high risk HPV cervical Anxiety (06/30/22) Right radial head fracture Left radial head fracture Skin lesion of back Multiple sclerosis No known health problems Surgical History History of cholecystectomy H/O removal of cyst Social History Social History Household Members: Spouse and Children Housing: House Alcohol intake: former Patient Tobacco Use Status: Current everyday Tobacco user Cigarettes Per Day: 20 Years Smoked: 20 Smoked in Last 30 Days: Yes Substance Use Type: Marijuana Substance Use Frequency: Occasionally Advance Directives: No Advance Directives Information Provided: No Do you have a plan to hurt others: No Plan Patient : No Current occupational status: employed 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 Blood pressure elevated. Heart rate normal. Respiratory rate normal. Temperature normal. Oxygen saturation normal. Appearance: Alert. Oriented X3. No acute distress. Head: Normal external exam. Normocephalic. Atraumatic. No Soliz signs noted. No raccoon eyes noted Eyes: PERRLA. EOMI. Conjunctiva and sclera normal. Eyelids normal. ENT: TM's Normal. Pharynx normal. Uvula midline. Moist mucous membranes. No trismus noted. No drooling noted. No muffled voice noted. Neck: Normal inspection. Neck supple. FROM. No adenopathy. Thyroid Normal. No meningeal signs. No neck mass noted. CVS: Normal heart rate and rhythm. Heart sound normal. No murmurs noted. Pulses normal throughout. Respiratory: No respiratory distress. Painless inspiration. Breath sounds normal. No wheezes/rales/rhonchi noted. Chest nontender. No accessory muscle usage noted or decreased air movement noted. Abdomen: Soft and nontender. Bowel sounds normal in all 4 quadrants. No distention noted. No organomegaly noted. No visible injury noted. Back: No CVA tenderness. Full range of motion noted. Skin: Skin warm and dry. Normal skin color. Normal skin turgor. No rashes/lesions/lacerations noted. Extremities: No lower extremity edema. Extremities exhibit normal range of motion. Extremities nontender. Neuro: Oriented X 3. Cranial nerve exam: II-XII are grossly intact No motor deficit. No sensory deficit. Reflexes normal. Course Reevaluation(s) Reevaluation #1: Patient feels much better after was given IV morphine and Toradol. Labs with a normal. Patient received multiple CTs of the abdomen and pelvis/ultrasound/KUB of the abdomen with no acute findings or pathology, felt repeating radiographic study is not necessary tonight with improvement of her symptoms. Patient feel much better and would like to be discharged home. Was instructed to follow-up with her appointment with Dr. Ross valdivia in 2 days. Time: 23:46 Medical Decision Making Differential Diagnosis Differential Diagnoses: The differential diagnosis associated with the presentation includes (Acute appendicitis, UTI, acute pyelonephritis, colitis, diverticulitis, retained IUD.) Admission/Observation Consideration of admission/observation: Escalation of care including admission/observation considered Lab Data MDM Lab Attestation statement: I reviewed the patient's lab results. 03/24/25 22:15 03/24/25 22:15 Labs: Lab Results 03/24/25 03/24/25 Range/Units 22:15 22:41 WBC 10.1 (4.8-10.8) X10*3/uL RBC 4.40 (4.20-5.50) X10*6/uL Hgb 13.4 (12.0-16.0) g/dl Hct 39.1 (37.0-47.0) % MCV 88.9 (80.0-98.0) fL MCH 30.5 (27.0-33.0) pg MCHC 34.3 (31.0-35.0) g/dl RDW 12.7 (11.0-16.0) % Plt Count 376 (160-400) X10*3/uL MPV 8.4 L (9.4-12.3) fL Immature Gran % (Auto) 0.3 (0.0-0.4) % Neut % (Auto) 71.0 (45-73) % Lymph % (Auto) 21.0 (20-40) % Davidson % (Auto) 6.8 (2-11) % Eos % (Auto) 0.6 (0-4) % Baso % (Auto) 0.3 (0-2) % Lymph # (Auto) 2.1 (1.2-4.9) X10*3/uL Davidson # (Auto) 0.7 (0.1-1.2) X10*3/uL Eos # (Auto) 0.1 (0.0-0.4) X10*3/uL Baso # (Auto) 0.0 (0.0-0.2) X10*3/uL Abs Immat Gran (auto) 0.03 (0.00-0.03) X10*3/uL Absolute Neuts (auto) 7.2 (2.0-8.3) x10*3/uL Absolute Nucleated RBC 0.000 (0.0-0.012) X10*3/uL Nucleated RBC % (auto) 0.0 (0.0-0.2) /100WBC Sodium 142 (135-145) mmol/L Potassium 3.8 (3.3-5.1) mmol/L Chloride 109 H (96-108) mmol/L Carbon Dioxide 26 (22-29) mmol/L Anion Gap 11 L (12-20) BUN 4 L (9-16) mg/dL Creatinine 0.71 (0.5-1.4) mg/dL Estim Creat Clear Calc 102.9 Estimated GFR > 60 Random Glucose 97 (60-115) mg/dL Calcium 8.9 (8.4-10.2) mg/dL Total Bilirubin 0.6 (0.0-1.0) mg/dL Direct Bilirubin 0.2 (0.0-0.5) mg/dL AST 31 (5-31) U/L ALT 44 H (0-31) U/L Alkaline Phosphatase 58 (39-117) U/L Total Protein 6.6 (6.5-8.0) g/dL Albumin 4.4 (3.5-5.0) g/dL Lipase 29 (8-78) U/L Beta HCG, Quant < 2 mIU/mL Urine Color Yellow Urine Appearance Cloudy Urine pH 5.5 (5.0-9.0) Ur Specific Eitzen 1.020 (1.005-1.025) Urine Protein Trace (Neg-Trace) mg/dL Urine Glucose (UA) Negative (Negative) mg/dL Urine Ketones Trace (Negative) mg/dL Urine Blood Moderate (2+) H (Negative) Urine Nitrite Negative (Negative) Ur Leukocyte Esterase Trace H (Negative) Urine RBC 6-10 H (0-2) /HPF Urine WBC 0-5 (0-5) /HPF Ur Squamous Epith Cells 11-20 (0-2) /HPF Urine Bacteria None Seen (None Seen) Hyaline Casts 0-2 (0-2) /LPF Medications Administered Discontinued Medications Generic Name Dose Route Start Last Admin Trade Name Freq PRN Reason Stop Dose Admin Ketorolac Tromethamine 15 mg 03/24/25 21:45 03/24/25 22:19 Ketorolac Tromethamine 15 Mg/Ml Vial IVPUSH 03/24/25 21:46 15 mg ONCE ONE Administration Morphine Sulfate 2 mg 03/24/25 21:45 03/24/25 22:19 Morphine Sulfate 4 Mg/Ml Cartridge IVPUSH 03/24/25 21:46 2 mg ONCE ONE Administration Protocol Discharge Plan Discharge Clinical Impression: Chronic abdominal pain, Malpositioned IUD Patient Disposition: Home, Self-Care Instructions: Abdominal Pain (ED) Prescriptions: No Action ibuprofen 600 mg tablet 600 mg PO Q6H PRN (Reason: pain) Qty: 30 0RF pantoprazole 40 mg tablet,delayed release (DR/EC) 40 mg PO DAILY Qty: 30 0RF ondansetron 4 mg tablet,disintegrating 4 mg PO Q8H PRN (Reason: nausea and vomiting) Qty: 20 0RF oxycodone 5 mg tablet 5 mg PO Q6H PRN (Reason: severe pain (scale score 7-10)) Qty: 8 0RF Rx Instructions: Partial Fill upon patient request. naproxen 500 mg tablet 500 mg PO BID 7 Days Qty: 14 0RF chlorhexidine gluconate [Peridex] 0.12 % mouthwash 15 ml buccal BID Qty: 118 0RF chlorhexidine gluconate [Peridex] 0.12 % mouthwash 15 ml buccal BID Qty: 118 0RF venlafaxine 75 mg capsule,extended release 24hr 75 mg PO DAILY colestipol 1 gram tablet 1 g PO BID norethindrone (contraceptive) 0.35 mg tablet 0.35 mg PO DAILY dicyclomine 20 mg tablet 20 mg PO BID PRN (Reason: abdominal pain) Qty: 7 0RF Referrals: Yesica Dodd PA [Primary Care Provider, Internal Medicine] Avtar Hawkins MD [Physician, SPACE TECHNOLOGIST] Print Language: Persian
[2025-03-24 22:20] LABS: MANUAL DIFF FLAG NO
[2025-03-24 22:22] LABS: Hematocrit 39.1 % (37.0-47.0); Hemoglobin 13.4 g/dl (12.0-16.0); Imm Gran Abs Auto 0.03 X10*3/uL (0.00-0.03); Imm Gran Pct Auto 0.3 % (0.0-0.4); Lymphocytes Absolute Auto 2.1 X10*3/uL (1.2-4.9); Mean Corpuscular HGB Conc 34.3 g/dl (31.0-35.0); Mean Corpuscular Hemoglobin 30.5 pg (27.0-33.0); Mean Corpuscular Volume 88.9 fL (80.0-98.0); NRBC Abs Auto 0.000 X10*3/uL (0.0-0.012); NRBC Pct Auto 0.0 /100WBC (0.0-0.2); Platelet Count 376 X10*3/uL (160-400); Red Blood Count 4.40 X10*6/uL (4.20-5.50); White Blood Count 10.1 X10*3/uL (4.8-10.8)
[2025-03-24 22:41] LABS: Alanine Aminotransferase 44 U/L (0-31); Albumin Level 4.4 g/dL (3.5-5.0); Alkaline Phosphatase 58 U/L (39-117); Anion Gap 11 (12-20); Aspartate Amino Transferase 31 U/L (5-31); Blood Urea Nitrogen 4 mg/dL (9-16); Calcium 8.9 mg/dL (8.4-10.2); Carbon Dioxide 26 mmol/L (22-29); Chloride 109 mmol/L (96-108); Creatinine Clr Calc Pharmacy 102.9; Estimated Glomerular Filt Rate > 60; Lipase 29 U/L (8-78); Potassium 3.8 mmol/L (3.3-5.1); Sodium 142 mmol/L (135-145); Total Protein 6.6 g/dL (6.5-8.0)
[2025-03-24 22:48] LABS: Appearance Urine Cloudy; Glucose Urine UA Negative (Negative); PH 5.5 (5.0-9.0); Specific Gravity - Urine 1.020 (1.005-1.025); UMIC TRIGGER UACC YES
[2025-03-24 23:50] VITALS: BP 132/91; PULSE 92; RESP 18; TEMP 37; O2SAT 94
[2025-03-25 00:27] LABS: CT PCR Urine NOT DETECTED (Not Detect.); NG PCR Urine NOT DETECTED (Not Detect.)
== END 2025-03-24 23:52 | disposition home or self-care (01) ==
PROVIDERS: Emergency Provider Emergency Medicine; PCP Physician Assistant
DX: R10.21 Pelvic and perineal pain right side (principal); G89.29 Other chronic pain; T83.32XA Displacement of intrauterine contraceptive device, initial encounter; Y76.1 Therapeutic (nonsurgical) and rehabilitative obstetric and gynecological devices associated with adverse incidents; Y92.9 Unspecified place or not applicable
CPT/HCPCS: 36415; 80048; 80076; 81001; 83690; 84702; 85025; 87491; 87591; 96374; 96375; 99284; J1885; J2270

== ENCOUNTER 2025-03-27 07:32 | Day surgery (SDC) | payer OTHER, SELFPAY ==
--- OUTSIDE RECORDS SUMMARY | 2025-03-25 15:58 | XMS_ITS | Clinical Summary ---
Author Organization [facility] it Address [address] [place] [address] Care Team Providers Care Passenger Car Cleaning Supervisor Name Role Phone Eleuterio Linares MD Primary Care Provider [phone] Surgical History Surgery Date Site/Laterality Comments OTHER SURGICAL HISTORY PROCEDURE: [place] COLPOSCOPY CERVIX VAG ELTRD CONIZATION CERVIX; COMMENT: h/o HPV normal pap smears since CYST REMOVAL PROCEDURE: [place] EXCISION PILONIDAL CYST/SINUS SIMPLE Medical History Medical [...] Mother Alive MS Sister Alive asthma Uncle [place] at 60's, CVA Social History Tobacco Use [...] age to complete this topic Care Teams Passenger Car Cleaning Supervisor Relationship Specialty Start Date End Date Eleuterio Linares MD [phone] [place] [address] PCP - General 01/31/23
--- NOTE | 2025-03-26 09:04 | HO.ANESPROP2 ---
Documented by User: Hansa Clark NP 03/26/25 09:05 HPI - Anesthesia Eval Consult details Narrative: 40yo F for Hysteroscopy IUD REMOVAL PMFSH Active Problems Active Problems: All Active Problems Family planning (Acute) Malpositioned IUD (Acute) Multiple sclerosis (Acute) Tobacco abuse (Acute 06/30/22) Seasonal allergies (Acute) Sacroiliitis (Acute 09/22/19) Depression (Acute) ASCUS with positive high risk HPV cervical (Acute) Anxiety (Acute 06/30/22) Past Medical History Medical History (Updated 03/27/25 @ 07:48 by Dior Dwyer RN) Pilonidal abscess of zenia cleft Multiple sclerosis Tobacco abuse (06/30/22) Seasonal allergies Sacroiliitis (09/22/19) Depression ASCUS with positive high risk HPV cervical Anxiety (06/30/22) Right radial head fracture Left radial head fracture Skin lesion of back Multiple sclerosis No known health problems Surgical History Surgical History (Updated 03/27/25 @ 07:48 by Dior Dwyer RN) H/O LEEP History of cholecystectomy H/O removal of cyst Social History Social History Household Members: Spouse and Children Housing: House Alcohol intake: former Patient Tobacco Use Status: Current everyday Tobacco user Tobacco use type: Cigarette Cigarettes Per Day: 10 Years Smoked: 20 Use of substances other than those prescribed or required for medical reasons: Yes Substance Use Type: Marijuana Are you DNR?: No Advance Directives: No Advance Directives Information Provided: Yes Patient : No (urine sent) : No Current occupational status: employed 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, 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 Sexual orientation: Straight/Heterosexual Gender identity: Female Meds Allergies Allergy/AdvReac Type Severity Reaction Status Date / Time adhesive (ADHESIVE) Allergy Unknown RASH, SKIN Verified 03/24/25 20:47 BREAKDOWN clindamycin AdvReac Gastrointestinal Verified 03/24/25 20:47 Upset SEASONAL ALLERGIES Allergy Unknown RUNNY Uncoded 03/24/25 20:47 NOSE, CONGESTION, WATERY EYES Home Medications ?Medication ?Instructions ?Recorded ?Confirmed ?Last Taken ?Type colestipol 1 gram tablet 1 g PO BID 11/24/20 11/24/20 Unknown History venlafaxine 75 mg capsule,extended 75 mg PO DAILY 11/24/20 11/24/20 Unknown History release 24 hr norethindrone (contraceptive) 0.35 0.35 mg PO DAILY 10/31/21 Unknown History mg tablet losartan 25 mg tablet 25 mg PO DAILY 03/27/25 03/27/25 03/27/25 History Assessment and Plan Assessment Anesthesia Assessment: Chart Reviewed Documented by User: Leta Hernandez MD 03/27/25 08:14 PMF Past Medical History Medical History (Updated 03/27/25 @ 07:48 by Dior Dwyer RN) Pilonidal abscess of cleft Multiple sclerosis Tobacco abuse (06/30/22) Seasonal allergies Sacroiliitis (09/22/19) Depression ASCUS with positive high risk HPV cervical Anxiety (06/30/22) Right radial head fracture Left radial head fracture Skin lesion of back Multiple sclerosis No known health problems Family History Family history of problems with anesthesia: No Surgical History Surgical History (Updated 03/27/25 @ 07:48 by Dior Dwyer RN) H/O LEEP History of cholecystectomy H/O removal of cyst History of Problems with Anesthesia: No Social History Social History Household Members: Spouse and Children Housing: House Alcohol intake: former Patient Tobacco Use Status: Current everyday Tobacco user Tobacco use type: Cigarette Cigarettes Per Day: 10 Years Smoked: 20 Use of substances other than those prescribed or required for medical reasons: Yes Substance Use Type: Marijuana Are you DNR?: No Advance Directives: No Advance Directives Information Provided: Yes Patient : No (urine sent) : No Current occupational status: employed 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, 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 Sexual orientation: Straight/Heterosexual Gender identity: Female Meds Allergies Allergy/AdvReac Type Severity Reaction Status Date / Time adhesive (ADHESIVE) Allergy Unknown RASH, SKIN Verified 03/24/25 20:47 BREAKDOWN clindamycin AdvReac Gastrointestinal Verified 03/24/25 20:47 Upset SEASONAL ALLERGIES Allergy Unknown RUNNY Uncoded 03/24/25 20:47 NOSE, CONGESTION, WATERY EYES Home Medications ?Medication ?Instructions ?Recorded ?Confirmed ?Last Taken ?Type colestipol 1 gram tablet 1 g PO BID 11/24/20 11/24/20 Unknown History venlafaxine 75 mg capsule,extended 75 mg PO DAILY 11/24/20 11/24/20 Unknown History release 24 hr norethindrone (contraceptive) 0.35 0.35 mg PO DAILY 10/31/21 Unknown History mg tablet losartan 25 mg tablet 25 mg PO DAILY 03/27/25 03/27/25 03/27/25 History Exam Airway Mallampati Class: II (dentition poor top right, nothing loose) TM Dist: >3cm Neck ROM: Full Heart: rrr Lungs: cta Assessment and Plan Assessment Anesthesia Assessment: Anesthesia Plan Discussed Final Anesthetic Review Family History of Problems with Anesthesia: No History of Problems with Anesthesia: No NPO: Yes ASA Class: III Final Preanesthetic Review: No Changes in Pt Med Stat, Meds/Allgs Chart Reviewed and Consent Obtained/Reviewed Patient Risk: Intermediate Procedure Risk: Low Anesthetic Plan Anesthetic Plan: GA Disposition: Standard PACU
[2025-03-27 07:50] VITALS: BMI 29.8
[2025-03-27 07:55] LABS: UPreg QC Valid YES
[2025-03-27 08:03] VITALS: BP 136/87; PULSE 95; RESP 16; TEMP 36.6; O2SAT 98
[2025-03-27] MEDS: Lactated Ringers 1,000 ML 100 ML IVCONT (08:11)
--- NOTE | 2025-03-27 08:51 | MHC.SHP ---
Pre-Procedural Eval Section A - 24 Hr Update-Section A only Date of Service: 03/27/25 The patient is an INPATIENT: No Changes since office visit: No Cold of Flu in the past 2 weeks, No New Medical Problems, No Changes in Medication and No Patient answered all questions The patient has been examined within 24 hours of the surgical procedure. The History & Physical has been completed within 30 days and I have reviewed it.: Yes Section B - Complete if H&P > 30 days Chief Complaint: Displacement of intrauterine contraceptive device, Allergies: Allergies Allergy/AdvReac Type Severity Reaction Status Date / Time adhesive (ADHESIVE) Allergy Unknown RASH, SKIN Verified 03/24/25 20:47 BREAKDOWN clindamycin AdvReac Gastrointestinal Verified 03/24/25 20:47 Upset SEASONAL ALLERGIES Allergy Unknown RUNNY Uncoded 03/24/25 20:47 NOSE, CONGESTION, WATERY EYES Plan Diagnosis/Plan: Unchanged I have reviewed the history and physical and performed a pertinent physical examination on my patient. No changes have occurred unless specified. Time Spent With Patient Time: Total time managing care of this patient today ____ minutes.
[2025-03-27 09:53] VITALS: BP 131/86; PULSE 91; RESP 16; TEMP 36.1; O2SAT 93
--- NOTE | 2025-03-27 09:54 | PM.OP ---
Brief Operative Note Date of Service: 03/27/25 Pre-op diagnosis: Retained IUD Post-op diagnosis: same (Retained Mirena reservoir in uterine) Procedure: Hysteroscopic IUD levo norgestrel reservoir removal Surgeon: Avtar Hawkins MD Anesthesia: GLMA Was an Textile Clothing And Footwear Mechanic used for this Procedure?: No Estimated blood loss (mL): 0 Pathology: other (Mirena IUD levo norgestrel reservoir) Condition: stable
--- NOTE | 2025-03-27 09:56 | W.PM.OPN ---
Operative Note Operative Note Date of Service: 03/27/25 Narrative: Preop Diagnosis: History of IUD removal few years ago, IUD in utero by ultrasound, lost string Operation: Diagnostic Hysteroscopic IUD levo norgestrel reservoir removal Post Op Diagnosis: Retained levo norgestrel IUD reservoir in utero without the remaining of IUD components QBL: Minimal Anesthesia: MAC Surgeon: Avtar Hawkins MD Merchant Miller: None Complication: None Pathology: None Procedure: The patient was put in the dorsal lithotomy position, scrubbed, and draped in the usual manner. A sterile speculum was inserted in the patient's vagina. The anterior lip of the cervix was grasped with a single tooth tenaculum. The cervix was dilated up to 5 mm, then the scope was inserted in the patient's uterus. Inspection revealed Mirena IUD levo norgestrel razor for in utero without the remaining component of the IUD. A hysteroscopic grasper was introduced through the operative channel, the string grasped and IUD pulled out of the uterine cavity with no complications. The cavity was inspected carefully there was no evidence of any remaining IUD components in utero. At the end of the procedure, all instruments were taken out of the patient uterine and vaginal cavity. The single tooth tenaculum was removed and homeostasis was assured using pressure. The patient tolerated the procedure well and was transferred to the PACU in a stable condition.
[2025-03-27 09:58] VITALS: BP 131/79; PULSE 82; RESP 15; O2SAT 95
[2025-03-27 10:00] VITALS: BP 132/83; PULSE 83; RESP 12; O2SAT 96
[2025-03-27 10:05] VITALS: BP 137/78; PULSE 88; RESP 13; O2SAT 98
[2025-03-27 10:10] VITALS: BP 119/65; PULSE 83; RESP 14; TEMP 36.3; O2SAT 97
== END 2025-03-27 10:41 | disposition home or self-care (01) ==
PROVIDERS: Visit Provider Obstetrics & Gynecology
PROC: 0UJD8ZZ Inspection of Uterus and Cervix, Via Natural or Artificial Opening Endoscopic (ICD-10-PCS; CPT 58555; principal; 2025-03-27 09:30)
DX: T83.32XA Displacement of intrauterine contraceptive device, initial encounter (principal); T83.39XA Other mechanical complication of intrauterine contraceptive device, initial encounter; Y76.2 Prosthetic and other implants, materials and accessory obstetric and gynecological devices associated with adverse incidents; Z30.09 Encounter for other general counseling and advice on contraception; J30.2 Other seasonal allergic rhinitis; N83.201 Unspecified ovarian cyst, right side; G35.D Multiple sclerosis, unspecified; M46.1 Sacroiliitis, not elsewhere classified; F41.9 Anxiety disorder, unspecified; F32.A Depression, unspecified; Z88.1 Allergy status to other antibiotic agents; L23.1 Allergic contact dermatitis due to adhesives; Z90.49 Acquired absence of other specified parts of digestive tract; F17.210 Nicotine dependence, cigarettes, uncomplicated
CPT/HCPCS: 58555; 58301; 81025; 88300; J2003; J2250; J2704; J3010

== ENCOUNTER → 2025-03-27 07:32 | Outpatient (BNV) | payer OTHER, SELFPAY | PROVIDERS: Visit Provider Obstetrics & Gynecology | DX: T83.32XA Displacement of intrauterine contraceptive device, initial encounter (principal) | CPT/HCPCS: 58301; 58555 ==

== ENCOUNTER 2025-03-29 18:41 | Emergency (ER) | payer OTHER, SELFPAY ==
--- OUTSIDE RECORDS SUMMARY | 2025-03-27 23:59 | XMS_ITS | Continuity of Care Document ---
Author Organization [facility] Trae lt Address [address] [place] [address]- Care Team Providers Care Farm Tractor Operator Name Role Phone Yesica Castillo Primary Care Phys[id number] - 03/27/25 [facility] Adult [address] [place] [address]- Encounter Type: Triage Allergies, Adverse Reactions, Alerts Substance Criticality Severity Reaction Reaction Severity Status Adhesive Bandage HIVES Act janet Fish Active Immunizations Given and Recorded Vaccine Date Status Refusal Reason tetanus/diphtheria/pertussis, acel(Tdap) 08/10/14 Given Medications cholecalciferol 50,000 intl units oral capsule 1 capsule = 1,250 mcg, By Mouth, Every week, # 12 capsule, 0 Refills, Maintenance, 05/13/24 8:53:00AM EST, Capsule, [id number], Partial fill upon patient request if the [...] 3 Refills, Maintenance, 03/12/25 10:33:00 AM EDT, [id number], 158, cm, 06/12/24 9:21:00 EST, Height Start Date: 03/12/25 Status: Ordered Medication Dispense Status: Completed Quantity: 720.0 Unit: tablet Total Allowed Fills: 1 Fills Dispensed: 0 cyclobenzaprine 5 mg oral tablet See Instructions, Take 1 tablet every 8 hours as needed for muscle spasm, # 21 capsule, 0 Refills, Maintenance, 05/02/23 10:18:00 AM EST, Tablet, [facility]/pharmacy #[id number], Partial fill upon patient requestif the prescription is for a schedule II opioid drug., 158, cm, 03/16/23 13:26:00 EDT, Height Start Date: 05/02/23 Status: Ordered Medication Dispense Status: Completed Quantity: 21.0 Unit: capsule Total Allowed Fills: 1 Fills Dispensed: 0 Indications: Dorsalgia, unspecified; Daily Tamir oral tablet 1 tablet, By Mouth, Daily, # 90 tablet, 3 Refills, Maintenance, 03/09/25 3:56:00 PM EDT, [facility] [id number], 90, TAKE 1 TABLET BY MOUTH EVERY DAY, 158, cm, 06/12/24 9:21:00 EST, Height Start Date: 03/09/25 Status: Ordered Medication Dispense Status: Completed Quantity: 90.0 Unit: tablet Total Allowed Fills: 1 Fills Dispensed: 0 famotidine 20 mg oral tablet 1, tablet, By Mouth, Daily at bedtime, # 90 tablet, Refills 0, Maintenance, 03/06/24 11:07:00 AM EDT, Route to Pharmacy Electronically, [facility] [id number], 158, cm, 10/04/23 12:42:00 EDT, Height Start [...] 12:08:00 PM EST, Route to Pharmacy Electronically, [facility]/pharmacy #[id number], Partial fill upon patient [...] Total Allowed Fills: 4 Fills Dispensed: 0 omeprazole 40 mg oral enteric coated capsule 1 capsule = 40 mg, By Mouth, Daily, # 30 capsule, 6 Refills, Maintenance, 03/25/25 9:17:00 AM EST, [facility]/pharmacy #[id number], Partial fill upon patient request if the prescription is for a schedule II opioiddrug., 158, cm, 03/25/25 8:59:00 EST, Height Start Date: 03/25/25 Status: Ordered Medication Dispense Status: Completed Quantity: 30.0 Unit: capsule Total Allowed Fills: 7 Fills Dispensed: 0 traZODone 50 mg oral tablet 25 mg, 0.5, tablet, By Mouth, Daily at bedtime, Can increase to 1 tablet after 3 days if needed, # 15 tablet, Refills 3, Tot. Refills 3, Maintenance, 07/31/23 1:22:00 PM EDT, Route to Pharmacy Electronically, [facility]/pharmacy #[id number], Partial fill upon patient [...] 0 Refills, Maintenance, 05/29/24 6:51:00 AM EST, [facility] STORE [id number], 158, cm, 05/13/24 8:47:00 EST, Height Start Date: 05/29/24 Status: Ordered Medication Dispense Status: Completed Quantity: 53.0 Unit: each Total Allowed Fills: 1 Fills Dispensed: 0 venlafaxine 37.5 mg oral capsule, extended release See Instructions, TAKE 1 CAPSULE BY MOUTH DAILY, TAKE TOGETHER WITH 75MG FOR TOTAL DOSE OF 112.5MG,# 90 capsule, 0 Refills, Maintenance, 02/25/25 4:28:00 PM EDT, [facility]/pharmacy #[id number], Refills require visit. Please contact office [...] Team Personnel Name: Anh Victoria RN Position: [facility] RN Member Role: Primary Care Nurse Name: Yesica Castillo Position: [facility] PCO Associate Professional Member Role: PCP Address: [address] [place] [id number] Telecom: Name: Maggie Rogel RN Position: [facility] AMB Nurse Member Role: Primary Care Nurse Name: Merna Manzano RN Position: [facility] RN Member Role: Primary Care Nurse Name: Iva Martinez RN Position: [facility] RN Member Role: Primary Care Nurse Care Team Related Persons Name: HALIMA JARAMILLO Name: LISA LETY Name: NONE, NONE Name: CHATA EATON Name: REBECCA EATON Insurance Providers Guarantor name: [facility] [place] [facility] Plan Information #: 1 Payer: [facility] Payer Identifier: NA Member Number: [id number] Group Number: [id number] Subscriber Identifier: NA Relationship to Subscriber: self Coverage Type: Medicaid (Managed Care) Coverage Verification Date: Telecom: NA Address:
[2025-03-29 18:55] VITALS: BP 140/78; PULSE 100; O2SAT 98
[2025-03-29 19:02] VITALS: BP 142/89; PULSE 100; RESP 18; TEMP 37; O2SAT 96
[2025-03-29 19:18] VITALS: BP 142/89; PULSE 100; RESP 16; TEMP 36.9; O2SAT 94; BMI 29.4
--- OUTSIDE RECORDS SUMMARY | 2025-03-29 19:51 | XMS_ITS | Clinical Summary ---
Author Organization [employer] [facility] it Address [address] [place] [address] Care Team Providers Care Plastic Process Technician Name Role Phone Eleuterio Linares MD Primary Care Provider [phone] Surgical History Surgery Date Site/Laterality Comments OTHER [...] Mother Alive MS Sister Alive asthma Uncle IA at 60's, CVA Social History Tobacco Use [...] age to complete this topic Care Teams Plastic Process Technician Relationship Specialty Start Date End Date Eleuterio Linares MD [address] [place] [address] PCP - General 01/31/23
[2025-03-29 20:10] LABS: Hematocrit 42.3 % (37.0-47.0); Hemoglobin 14.6 g/dl (12.0-16.0); Imm Gran Abs Auto 0.03 X10*3/uL (0.00-0.03); Imm Gran Pct Auto 0.3 % (0.0-0.4); Lymphocytes Absolute Auto 1.8 X10*3/uL (1.2-4.9); MANUAL DIFF FLAG NO; Mean Corpuscular HGB Conc 34.5 g/dl (31.0-35.0); Mean Corpuscular Hemoglobin 30.7 pg (27.0-33.0); Mean Corpuscular Volume 89.1 fL (80.0-98.0); NRBC Abs Auto 0.000 X10*3/uL (0.0-0.012); NRBC Pct Auto 0.0 /100WBC (0.0-0.2); Platelet Count 405 X10*3/uL (160-400); Red Blood Count 4.75 X10*6/uL (4.20-5.50); White Blood Count 10.9 X10*3/uL (4.8-10.8)
[2025-03-29 20:13] LABS: Appearance Urine Clear; Glucose Urine UA Negative (Negative); PH 6.0 (5.0-9.0); Specific Gravity - Urine 1.025 (1.005-1.025); UMIC TRIGGER UACC YES
[2025-03-29 20:14] LABS: UPreg QC Valid YES
[2025-03-29 20:22] LABS: Alanine Aminotransferase 42 U/L (0-31); Albumin Level 4.5 g/dL (3.5-5.0); Alkaline Phosphatase 62 U/L (39-117); Anion Gap 13 (12-20); Aspartate Amino Transferase 28 U/L (5-31); Blood Urea Nitrogen 4 mg/dL (9-16); Calcium 9.4 mg/dL (8.4-10.2); Carbon Dioxide 25 mmol/L (22-29); Chloride 104 mmol/L (96-108); Creatinine Clr Calc Pharmacy 106.5; Estimated Glomerular Filt Rate > 60; Potassium 3.7 mmol/L (3.3-5.1); Sodium 138 mmol/L (135-145); Total Protein 6.8 g/dL (6.5-8.0)
--- NOTE | 2025-03-29 22:26 | ED.ABDPAIN ---
HPI - Abdominal Pain General Chief Complaint: Abdominal Pain Stated Complaint: Low R abd pain, recent surgery, known ovarian cyst Time Seen by Provider: 03/29/25 22:15 Source: patient and EMS Mode of arrival: EMS Limitations: no limitations History of Present Illness ED Provider: DR. Atkinson HPI narrative: 40-year-old female returned to the emergency department via EMS for evaluation of multiple symptoms including abdominal / pelvic pain for about a 3 weeks, feeling tired, nonbloody watery diarrhea since yesterday, otherwise no nausea, vomiting, no fever, no chills, this is the 6th visit to the emergency department in the past 5 weeks complaining of abdominal pain, had CT abdomen pelvis on 02/23 which was unremarkable except for simple right ovarian cyst and patient was seen by Dr. Hawkins who was not concerned about the ovarian cyst and also removed her IUD last Sunday, CT was repeated on 03/19 the confirmed normal appendix, and also had unremarkable pelvic ultrasound on 03/21 which showed retained IUD that was removed surgically on Sunday. Patient admit to using leftover Augmentin yesterday because she was feeling tired and fatigued. No fever, no chills, no nausea, no vomiting. Patient was given fentanyl EN route by EMS. Related Data Home Medications ?Medication ?Instructions ?Recorded ?Confirmed colestipol 1 gram tablet 1 g PO BID 11/24/20 11/24/20 venlafaxine 75 mg capsule,extended 75 mg PO DAILY 11/24/20 11/24/20 release 24 hr norethindrone (contraceptive) 0.35 0.35 mg PO DAILY 10/31/21 mg tablet losartan 25 mg tablet 25 mg PO DAILY 03/27/25 03/27/25 Previous Rx's ?Medication ?Instructions ?Recorded ibuprofen 600 mg tablet 600 mg PO Q6H PRN pain #30 tabs 10/11/21 chlorhexidine gluconate 0.12 % 15 ml buccal BID #118 mL 10/14/22 mouthwash (Peridex) naproxen 500 mg tablet 500 mg PO BID 7 days #14 tabs 10/14/22 pantoprazole 40 mg tablet,delayed 40 mg PO DAILY #30 tabs 01/04/23 release chlorhexidine gluconate 0.12 % 15 ml buccal BID #118 mL 06/05/23 mouthwash (Peridex) dicyclomine 20 mg tablet 20 mg PO BID PRN abdominal pain #7 03/24/25 tabs ondansetron 4 mg disintegrating 4 mg PO Q8H PRN nausea and 03/24/25 tablet vomiting #20 tabs oxycodone 5 mg tablet 5 mg PO Q6H PRN severe pain (scale 03/24/25 score 7-10) #8 tabs loperamide 2 mg capsule (Imodium 2 mg PO Q6H PRN loose stool #10 03/29/25 A-D) caps Allergies Allergy/AdvReac Type Severity Reaction Status Date / Time adhesive (ADHESIVE) Allergy Unknown RASH, SKIN Verified 03/29/25 19:23 BREAKDOWN clindamycin AdvReac Gastrointestinal Verified 03/29/25 19:23 Upset SEASONAL ALLERGIES Allergy Unknown RUNNY Uncoded 03/29/25 19:23 NOSE, CONGESTION, WATERY EYES Review of Systems Review of Systems All other systems are reviewed and are negative Constitutional: Reports as per HPI and Reports no additional constitutional complaints Eyes: Reports as per HPI and Reports no additional eye complaints Reports system reviewed and no additional complaints, except as documented Cardiovascular: Reports as per HPI and Reports no additional cardiovascular complaints Respiratory: Reports as per HPI and Reports no additional respiratory complaints Gastrointestinal: Reports as per HPI and Reports no additional gastrointestinal complaints Genitourinary: Reports no additional female genitourinary complaints Musculoskeletal: Reports no additional musculoskeletal complaints Skin/Breast: Reports system reviewed and no additional complaints, except as docu Psychiatric: Reports no additional psychiatric complaints Endocrine: Reports no additional endocrine complaints Hematologic/Lymphatic: Reports no additional hematologic/lymphatic complaints Allergic/Immunologic: Reports no additional allergic/immunologic complaints Reports system reviewed and no additional complaints, except as documented and Reports Abnormal speech present [facility] Past Medical History Medical History Pilonidal abscess of zenia cleft Multiple sclerosis Tobacco abuse (06/30/22) Seasonal allergies Sacroiliitis (09/22/19) Depression ASCUS with positive high risk HPV cervical Anxiety (06/30/22) Right radial head fracture Left radial head fracture Skin lesion of back Multiple sclerosis No known health problems Surgical History H/O LEEP History of cholecystectomy H/O removal of cyst Social History Social History Household Members: Spouse and Children Housing: House Alcohol intake: former Patient Tobacco Use Status: Current everyday Tobacco user Tobacco use type: Cigarette Cigarettes Per Day: 10 Years Smoked: 20 Substance Use Type: Marijuana Advance Directives: No Advance Directives Information Provided: Yes Current occupational status: employed 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 Blood pressure elevated. Heart rate normal. Respiratory rate normal. Temperature normal. Oxygen saturation normal. Appearance: Alert. Oriented X3. No acute distress. Head: Normal external exam. Normocephalic. Atraumatic. No Soliz signs noted. No raccoon eyes noted Eyes: PERRLA. EOMI. Conjunctiva and sclera normal. Eyelids normal. ENT: TM's Normal. Pharynx normal. Uvula midline. Moist mucous membranes. No trismus noted. No drooling noted. No muffled voice noted. Neck: Normal inspection. Neck supple. FROM. No adenopathy. Thyroid Normal. No meningeal signs. No neck mass noted. CVS: Normal heart rate and rhythm. Heart sound normal. No murmurs noted. Pulses normal throughout. Respiratory: No respiratory distress. Painless inspiration. Breath sounds normal. No wheezes/rales/rhonchi noted. Chest nontender. No accessory muscle usage noted or decreased air movement noted. Abdomen: Soft and nontender. Bowel sounds normal in all 4 quadrants. No distention noted. No organomegaly noted. No visible injury noted. Back: No CVA tenderness. Full range of motion noted. Skin: Skin warm and dry. Normal skin color. Normal skin turgor. No rashes/lesions/lacerations noted. Extremities: No lower extremity edema. Extremities exhibit normal range of motion. Extremities nontender. Neuro: Oriented X 3. Cranial nerve exam: II-XII are grossly intact No motor deficit. No sensory deficit. Reflexes normal. Course Reevaluation(s) Reevaluation #1: chronic abdominal pain, diarrhea after using Augmentin. Patient exam showed no intra-abdominal tenderness, patient had multiple CTs last month and there is no indication today to repeat the CT. Discussed with the patient of random use of antibiotic and can cause side-effect of C diff. Patient will be referred to supply tech for further endoscopic evaluation. Time: 22:33 Medical Decision Making Differential Diagnosis Differential Diagnoses: The differential diagnosis associated with the presentation includes ( Acute on chronic abdominal pain, drug-seeking behavior, colitis, diverticulitis, C diff.) Admission/Observation Consideration of admission/observation: Escalation of care including admission/observation considered Lab Data MDM Lab Attestation statement: I reviewed the patient's lab results. 03/29/25 19:55 03/29/25 19:55 Labs: Lab Results 03/29/25 Range/Units 19:55 WBC 10.9 H (4.8-10.8) X10*3/uL RBC 4.75 (4.20-5.50) X10*6/uL Hgb 14.6 (12.0-16.0) g/dl Hct 42.3 (37.0-47.0) % MCV 89.1 (80.0-98.0) fL MCH 30.7 (27.0-33.0) pg MCHC 34.5 (31.0-35.0) g/dl RDW 12.8 (11.0-16.0) % Plt Count 405 H (160-400) X10*3/uL MPV 8.6 L (9.4-12.3) fL Immature Gran % (Auto) 0.3 (0.0-0.4) % Neut % (Auto) 75.4 H (45-73) % Lymph % (Auto) 16.8 L (20-40) % [place] % (Auto) 7.0 (2-11) % Eos % (Auto) 0.2 (0-4) % Baso % (Auto) 0.3 (0-2) % Lymph # (Auto) 1.8 (1.2-4.9) X10*3/uL [place] # (Auto) 0.8 (0.1-1.2) X10*3/uL Eos # (Auto) 0.0 (0.0-0.4) X10*3/uL Baso # (Auto) 0.0 (0.0-0.2) X10*3/uL Abs Immat Gran (auto) 0.03 (0.00-0.03) X10*3/uL Absolute Neuts (auto) 8.2 (2.0-8.3) x10*3/uL Absolute Nucleated RBC 0.000 (0.0-0.012) X10*3/uL Nucleated RBC % (auto) 0.0 (0.0-0.2) /100WBC Sodium 138 (135-145) mmol/L Potassium 3.7 (3.3-5.1) mmol/L Chloride 104 (96-108) mmol/L Carbon Dioxide 25 (22-29) mmol/L Anion Gap 13 (12-20) BUN 4 L (9-16) mg/dL Creatinine 0.65 (0.5-1.4) mg/dL Estim Creat Clear Calc 106.5 Estimated GFR > 60 Random Glucose 105 (60-115) mg/dL Calcium 9.4 (8.4-10.2) mg/dL Total Bilirubin 0.6 (0.0-1.0) mg/dL AST 28 (5-31) U/L ALT 42 H (0-31) U/L Alkaline Phosphatase 62 (39-117) U/L Total Protein 6.8 (6.5-8.0) g/dL Albumin 4.5 (3.5-5.0) g/dL Urine Color Dark Yellow Urine Appearance Clear Urine pH 6.0 (5.0-9.0) Ur Specific [place] 1.025 (1.005-1.025) Urine Protein Trace (Neg-Trace) mg/dL Urine Glucose (UA) Negative (Negative) mg/dL Urine Ketones Trace (Negative) mg/dL Urine Blood Negative (Negative) Urine Nitrite Negative (Negative) Ur Leukocyte Esterase Trace H (Negative) Urine RBC 0-2 (0-2) /HPF Urine WBC 0-5 (0-5) /HPF Ur Squamous Epith Cells 6-10 (0-2) /HPF Urine Bacteria None Seen (None Seen) Hyaline Casts 0-2 (0-2) /LPF Urine Test NEGATIVE (NEGATIVE) Discharge Plan Discharge Clinical Impression: Chronic abdominal pain, Diarrhea Patient Disposition: Home, Self-Care Instructions: Abdominal Pain (ED) Prescriptions: New loperamide [Imodium A-D] 2 mg capsule 2 mg PO Q6H PRN (Reason: loose stool) Qty: 10 0RF No Action ibuprofen 600 mg tablet 600 mg PO Q6H PRN (Reason: pain) Qty: 30 0RF pantoprazole 40 mg tablet,delayed release (DR/EC) 40 mg PO DAILY Qty: 30 0RF ondansetron 4 mg tablet,disintegrating 4 mg PO Q8H PRN (Reason: nausea and vomiting) Qty: 20 0RF oxycodone 5 mg tablet 5 mg PO Q6H PRN (Reason: severe pain (scale score 7-10)) Qty: 8 0RF Rx Instructions: Partial Fill upon patient request. naproxen 500 mg tablet 500 mg PO BID 7 Days Qty: 14 0RF chlorhexidine gluconate [Peridex] 0.12 % mouthwash 15 ml buccal BID Qty: 118 0RF chlorhexidine gluconate [Peridex] 0.12 % mouthwash 15 ml buccal BID Qty: 118 0RF losartan 25 mg tablet 25 mg PO DAILY venlafaxine 75 mg capsule,extended release 24hr 75 mg PO DAILY colestipol 1 gram tablet 1 g PO BID norethindrone (contraceptive) 0.35 mg tablet 0.35 mg PO DAILY dicyclomine 20 mg tablet 20 mg PO BID PRN (Reason: abdominal pain) Qty: 7 0RF Referrals: Yesica Dodd PA [Primary Care Provider, Internal Medicine] Print Language: Bengali
[2025-03-29 22:42] VITALS: BP 142/89; PULSE 100; RESP 16; TEMP 36.9; O2SAT 94
== END 2025-03-29 22:47 | disposition home or self-care (01) ==
PROVIDERS: Emergency Provider Emergency Medicine; PCP Physician Assistant
DX: R10.31 Right lower quadrant pain (principal); R53.83 Other fatigue; R19.7 Diarrhea, unspecified; F17.210 Nicotine dependence, cigarettes, uncomplicated; Z79.899 Other long term (current) drug therapy
CPT/HCPCS: 36415; 80053; 81001; 81025; 85025; 99283

== ENCOUNTER 2025-04-02 09:51 | Outpatient (AMB) | payer OTHER, SELFPAY ==
--- OUTSIDE RECORDS SUMMARY | 2025-03-29 23:59 | XMS_ITS | Continuity of Care Document ---
Author Organization [facility] Tra[facility] lt Address [address] [place] [address]- Care Team Providers Care Parts Counter Specialist Name Role Phone Yesica Castillo Primary Care Physician Encounter [facility] Date(s): 02/27/25 - 03/29/25 [facility] [address] [place] [address]- Encounter Type: Triage Allergies, Adverse Reactions, Alerts Substance Criticality Severity Reaction Reaction Severity Status Adhesive Bandage HIVES Act janet Fish Active Immunizations Given and Recorded Vaccine Date Status Refusal Reason tetanus/diphtheria/pertussis, acel(Tdap) 08/10/14 Given Medications cholecalciferol 50,000 intl units oral capsule 1 capsule = 1,250 mcg, By Mouth, Every week, # 12 capsule, 0 Refills, Maintenance, 05/13/24 8:53:00AM EST, Capsule, [id number], Partial fill upon patient request if the [...] 3 Refills, Maintenance, 03/12/25 10:33:00 AM EDT, [id number], 158, cm, 06/12/24 9:21:00 EST, Height Start Date: 03/12/25 Status: Ordered Medication Dispense Status: Completed Quantity: 720.0 Unit: tablet Total Allowed Fills: 1 Fills Dispensed: 0 cyclobenzaprine 5 mg oral tablet See Instructions, Take 1 tablet every 8 hours as needed for muscle spasm, # 21 capsule, 0 Refills, Maintenance, 05/02/23 10:18:00 AM EST, Tablet, [facility]/pharmacy #[id number], Partial fill upon patient requestif [...] 3 Refills, Maintenance, 03/09/25 3:56:00 PM EDT, [facility] [id number], 90, TAKE 1 TABLET BY MOUTH EVERY DAY, 158, cm, 06/12/24 9:21:00 EST, Height Start Date: 03/09/25 Status: Ordered Medication Dispense Status: Completed Quantity: 90.0 Unit: tablet Total Allowed Fills: 1 Fills Dispensed: 0 famotidine 20 mg oral tablet 1, tablet, By Mouth, Daily at bedtime, # 90 tablet, Refills 0, Maintenance, 03/06/24 11:07:00 AM EDT, Route to Pharmacy Electronically, [facility] [id number], 158, cm, 10/04/23 12:42:00 EDT, Height Start [...] 12:08:00 PM EST, Route to Pharmacy Electronically, [facility]/pharmacy #[id number], Partial fill upon patient request [...] 6 Refills, Maintenance, 03/25/25 9:17:00 AM EST, [facility]/pharmacy #[id number], Partial fill upon patient request [...] 1:22:00 PM EDT, Route to Pharmacy Electronically, [facility]/pharmacy #[id number], Partial fill upon patient request [...] 0 Refills, Maintenance, 05/29/24 6:51:00 AM EST, [facility] STORE [id number], 158, cm, 05/13/24 8:47:00 EST, Height Start Date: 05/29/24 Status: Ordered Medication Dispense Status: Completed Quantity: 53.0 Unit: each Total Allowed Fills: 1 Fills Dispensed: 0 venlafaxine 37.5 mg oral capsule, extended release See Instructions, TAKE 1 CAPSULE BY MOUTH DAILY, TAKE TOGETHER WITH 75MG FOR TOTAL DOSE OF 112.5MG,# 90 capsule, 0 Refills, Maintenance, 02/25/25 4:28:00 PM EDT, [facility]/pharmacy #[id number], Refills require visit. Please contact [...] Team Personnel Name: Anh Victoria RN Position: [facility] RN Member Role: Primary Care Nurse Name: Yesica Castillo Position: [facility] PCO Associate Professional Member Role: PCP Address: [address] [place] [id number] Telecom: Name: Maggie Rogel RN Position: [facility] AMB Nurse Member Role: Primary Care Nurse Name: Merna Manzano RN Position: [facility] RN Member Role: Primary Care Nurse Name: Iva Martinez RN Position: [facility] RN Member Role: Primary Care Nurse Care Team Related Persons Name: HALIMA JARAMILLO Name: August Name: NONE, NONE Name: CHATA EATON Name: REBECCA EATON Insurance Providers Guarantor [facility]: [facility] Plan Information #: 1 Payer: [employer] Payer Identifier: NA Member Number: [id number] Group Number: [id number] Subscriber Identifier: NA Relationship to Subscriber: self Coverage Type: Medicaid (Managed Care) Coverage Verification Date: Telecom: NA Address:
--- OUTSIDE RECORDS SUMMARY | 2025-04-01 00:59 | XMS_ITS | Continuity of Care Document ---
Author Organization [facility] Address [address] [place] [address]- Care Team Providers Care Powder Carrier Name Role Phone Yesica Castillo Primary [id number] Date(s): 03/31/25 - 04/01/[address] [address]- Discharge Disposition: A-D/C Walkout Attending Physician: Not on Staff, Attending MD Admitting Physician: Not on Staff, Admitting MD Referring Physician: Not on Staff, Referring MD Encounter Type: Disch ES Allergies, Adverse Reactions, Alerts Substance Criticality Severity Reaction Reaction Severity Status clindamycin Vomiting Nausea Stomach pain Active Adhesive Bandage HIVES Act janet Fish Active Immunizations Given and Recorded Vaccine Date Status Refusal Reason tetanus/diphtheria/pertussis, acel(Tdap) 08/10/14 Given Medications Carafate 1 gm/10 ml oral suspension 10 mL = 1 Gm, By Mouth, 3 times a day before meals and bedtime, PRN Dyspepsia, # 600 mL, 0 Refills,Maintenance, 04/01/25 12:04:00 PM EST, [id number], Partial fill upon patient request if theprescription is for a schedule II opioid drug., 158, cm, 04/01/25 11:14:00 EST, Height, 71.4, kg, 03/31/25 20:12:00 EST, Dry Weight Start Date: 04/01/25 Status: Ordered Medication Dispense Status: Completed Quantity: 600.0 Unit: mL Total Allowed Fills: 1 Fills Dispensed: 0 colestipol 1 gm oral tablet 4 tablet, By Mouth, 2 times a day, WITH A FULL GLASS OF WATER., # 720 tablet, 3 Refills, Maintenance, 03/12/25 10:33:00 AM EDT, [id number], 158, cm, 06/12/24 9:21:00 EST, Height Start Date: 03/12/25 Status: Ordered Medication Dispense Status: Completed Quantity: 720.0 Unit: tablet Total Allowed Fills: 1 Fills Dispensed: 0 Daily Tamir oral tablet 1 tablet, By Mouth, Daily, # 90 tablet, 3 Refills, Maintenance, 03/09/25 3:56:00 PM EDT, [id number], 90, TAKE 1 TABLET BY MOUTH EVERY DAY, 158, cm, 06/12/24 9:21:00 EST, Height Start Date: 03/09/25 Status: Ordered Medication Dispense Status: Completed Quantity: 90.0 Unit: tablet Total Allowed Fills: 1 Fills Dispensed: 0 famotidine 20 mg oral tablet 1, tablet, By Mouth, Daily at bedtime, # 90 tablet, Refills 0, Maintenance, 03/06/24 11:07:00 AM EDT, Route to Pharmacy Electronically, [id number], 158, cm, 10/04/23 12:42:00 EDT, Height Start [...] Dispensed: 0 LORazepam 0.5 mg oral tablet 1 tablet = 0.5 mg, By Mouth, Daily, PRN as needed for anxiety, # 30 tablet, 1 Refills, Soft Stop, 04/01/25 12:03:00 PM EST, Tablet, [id number], Partial fill upon patient request if the prescription is for a schedule II opioid drug., 158, cm, 04/01/25 11:14:00 EST, Height, 71.4, kg, 03/31/2520:12:00 EST, Dry Weight Start Date: 04/01/25 Stop Date: 05/31/25 Status: Ordered Medication Dispense Status: Completed Quantity: 30.0 Unit: tablet Total Allowed Fills: 2 Fills Dispensed: 0 Indications: Panic disorder [episodic paroxysmal anxiety]; losartan 25 mg oral tablet 25 mg, 1, tablet, By Mouth, Daily, # 90 tablet, Refills 3, Tot. Refills 3, Maintenance, 06/04/24 12:08:00 PM EST, Route to Pharmacy Electronically, [facility] #[id number], Partial fill [...] Refills, Maintenance, 03/25/25 9:17:00 AM EST, [facility]pharm[facility] #[id number], Partial fill upon patient request if the prescription is for a schedule II opioiddrug., 158, cm, 03/25/25 8:59:00 EST, Height Start Date: 03/25/25 Status: Ordered Medication Dispense Status: Completed Quantity: 30.0 Unit: capsule Total Allowed Fills: 7 Fills Dispensed: 0 venlafaxine 37.5 mg oral capsule, extended release See Instructions, TAKE 1 CAPSULE BY MOUTH DAILY, TAKE TOGETHER WITH 75MG FOR TOTAL DOSE OF 112.5MG,# 90 capsule, 0 Refills, Maintenance, 02/25/25 4:28:00 PM EDT, [facility]pharm[facility] #[id number], Refills require visit. Please contact office [...] smoker Confirmed Active Sore throat Confirmed Active Vital Signs Most recent to oldest [Reference Range]: 1 2 3 Height 158 cm (03/31/25 8:12 PM) Weight 71.4 kg (03/31/25 8:12 PM) Oxygen Saturation [94-100 %] 100 % (04/01/25 12:29 AM) 98 % (03/31/25 9:57 PM) 99 % (03/31/25 8:12 PM) Pulse Rate [55-90 bpm] 92 bpm *H* (04/01/25 12:29 AM) 99 bpm *H* (03/31/25 9:57 PM) 98 bpm *H* (03/31/25 8:12 PM) Body Mass Index [18.5-24.99 kg/m2] 28.6 kg/m2 *H* (03/31/25 8:12 PM) Blood Pressure [90-138/55-84 mm Hg] 127/89mm Hg (04/01/25 12:29 AM) 146/91mm Hg *H* (03/31/25 9:57 PM) 147/101mm Hg *H* (03/31/25 8:12 PM) Respiratory Rate [16-30 br/min] 17 br/min (04/01/25 12:29 AM) 17 br/min (03/31/25 9:57 PM) 17 br/min (03/31/25 8:12 PM) Temperature [96.8-100.4 DegF] 98.2 DegF (04/01/25 12:29 AM) 97.9 DegF (03/31/25 9:57 PM) 97.9 DegF (03/31/25 8:12 PM) Mode of Delivery (Oxygen) Room air (04/01/25 12:29 AM) Room air (03/31/25 9:57 PM) Room air (03/31/25 8:12 PM) Blood pressure sites Arm, left (04/01/25 12:29 AM) Arm, left (03/31/25 9:57 PM) Arm, right (03/31/25 8:12 PM) Temperature Route Oral (04/01/25 12:29 AM) Oral (03/31/25 9:57 PM) Oral (03/31/25 8:12 PM) Dry Weight 71.4 kg (03/31/25 8:12 PM) Weight Obtained Via Patient/family state d (03/31/25 8:12 PM) Dry Weight Obtained Via Patient/family s tated (03/31/25 8:12 PM) Social History Social History Type Response Smoking Status 10 or more cigarette s (1/2 pack or more)/day in last 30 days; Tobacco user in household: Yes; Tobacco use times per day: 1ppd; entered on: 04/01/25 Sex Female Sex Representation Female (finding) Status Not Patient Care team information Care Team Personnel Name: Anh Victoria RN Position: [facility] RN Member Role: Primary Care Nurse Name: Yesica Castillo Position: [facility] PCO Associate Professional Member Role: PCP Address: [address] [place] [id number] Telecom: Name: Maggie Rogel RN Position: [facility] AMB Nurse Member Role: Primary Care Nurse Name: Merna Manzano RN Position: [facility] RN Member Role: Primary Care Nurse Name: Iva Martinez RN Position: [facility] RN Member Role: Primary Care Nurse Care Team Related Persons Name: HALIMA JARAMILLO Name: AUGUST Name: NONE, NONE Name: CHATA EATON Name: REBECCA EATON Insurance Providers Guarantor name: [facility] Health Plan Information #: 1 Payer: [employer] [place] [place] Payer Identifier: NA Member Number: [id number] Group Number: [id number] Subscriber Identifier: NA Relationship to Subscriber: self Coverage Type: Medicaid (Managed Care) Coverage Verification Date: Telecom: NA Address:
--- OUTSIDE RECORDS SUMMARY | 2025-04-01 23:59 | XMS_ITS | Continuity of Care Document ---
Author Organization [facility] Address [address] [place] [address]- Care Team Providers Care Cottage Attendant Name Role Phone Yesica Castillo Primary [facility] Phys[id number] Date(s): 03/25/25 - 04/01/25 [facility] [address] [place] [address]- Encounter Diagnosis GERD (gastroesophageal reflux disease)(Discharge Diagnosis) - 03/25/25 Lower abdominal pain(Discharge Diagnosis) - 03/25/25 Attending Physician: Ian Bates MD Encounter Type: Office Visit Allergies, Adverse Reactions, Alerts Substance Criticality Severity Reaction Reaction Severity Status clindamycin Vomiting Nausea Stomach pain Active Adhesive Bandage HIVES Act janet Fish Active Functional Status Functional Status Assessment Assessment Assessment Component Result Effecti ve Date Disability status [CUBS] I'm Thriving - no identified disability 03/25/25 Do you have difficul ty dressing or bathing No 03/25/25 Do you need any daina tional assistance or accommodations during your visit No 03/25/25 Do you have serious difficulty walking or climbing stairs No 03/25/25 Because of a physica l, mental, or emotional condition, do you have serious difficulty concentrating, remembering, or making decisions No 03/25/25 Difficulty Reading O r Writing No 03/25/25 Are you blind, or do you have serious difficulty seeing, even when wearing glasses No 03/25/25 Difficulty communica ting in usual language No 03/25/25 Are you deaf, or do you have serious difficulty hearing No 03/25/25 Because of a physica l, mental, or emotional condition, do you have difficulty doing errands alone such as visiting a physician's office or shopping No 03/25/25 Immunizations Given and Recorded Vaccine Date Status Refusal Reason tetanus/diphtheria/pertussis, acel(Tdap) 08/10/14 Given Medications Carafate 1 gm/10 ml oral suspension 10 mL = 1 Gm, By Mouth, 3 times a day before meals and bedtime, PRN Dyspepsia, # 600 mL, 0 Refills,Maintenance, 04/01/25 12:04:00 PM EST, [facility]/pharmacy #[id number], Partial fill upon patient request if theprescription [...] 3 Refills, Maintenance, 03/12/25 10:33:00 AM EDT, [id number], 158, cm, 06/12/24 9:21:00 EST, Height Start Date: 03/12/25 Status: Ordered Medication Dispense Status: Completed Quantity: 720.0 Unit: tablet Total Allowed Fills: 1 Fills Dispensed: 0 Daily Tamir oral tablet 1 tablet, By Mouth, Daily, # 90 tablet, 3 Refills, Maintenance, 03/09/25 3:56:00 PM EDT, [id number], 90, TAKE 1 TABLET BY MOUTH EVERY DAY, 158, cm, 06/12/24 9:21:00 EST, Height Start Date: 03/09/25 Status: Ordered Medication Dispense Status: Completed Quantity: 90.0 Unit: tablet Total Allowed Fills: 1 Fills Dispensed: 0 famotidine 20 mg oral tablet 1, tablet, By Mouth, Daily at bedtime, # 90 tablet, Refills 0, Maintenance, 03/06/24 11:07:00 AM EDT, Route to Pharmacy Electronically, [id number], 158, cm, 10/04/23 12:42:00 EDT, Height Start [...] Soft Stop, 04/01/25 12:03:00 PM EST, Tablet, [facility]/pharmacy #[id number], Partial fill upon patient [...] 12:08:00 PM EST, Route to Pharmacy Electronically, [facility]pharm[facility] #[id number], Partial fill upon patient [...] 6 Refills, Maintenance, 03/25/25 9:17:00 AM EST, [id number], Partial fill upon patient request if the prescription is for a schedule II opioiddrug., 158, jyoti, 03/25/25 8:59:00 EST, Height Start Date: 03/25/25 Status: Ordered Medication Dispense Status: Completed Quantity: 30.0 Unit: capsule Total Allowed Fills: 7 Fills Dispensed: 0 venlafaxine 37.5 mg oral capsule, extended release See Instructions, TAKE 1 CAPSULE BY MOUTH DAILY, TAKE TOGETHER WITH 75MG FOR TOTAL DOSE OF 112.5MG,# 90 capsule, 0 Refills, Maintenance, 02/25/25 4:28:00 PM EDT, [id number], Refills require visit. Please contact office [...] Total Allowed Fills: 6 Fills Dispensed: 0 Mental Status Mental Status Assessment Assessment Assessment Component Result Effecti ve Date Patient Health Questionnaire 2 item (PHQ-2) total score [Reported] 0 03/25/25 Problem List Condition Confirmation Course Effective Dates [...] smoker Confirmed Active Sore throat Confirmed Active Diagnosis Diagnosis Type Effective Dates Health Status Cl inical Service Informant GERD (gastroesophagea l reflux disease) Discharge Diagnosis 03/25/25 Lower abdominal pain Discharge Diagnosis 03/25/25 Vital Signs Most recent to oldest [Reference Range]: 1 Height 158 cm (03/25/25 8:59 AM) Social History Social History Type Response Smoking Status 10 or more cigarette s (1/2 pack or more)/day in last 30 days; Tobacco user in household: Yes; Tobacco use times per day: 1ppd; entered on: 04/01/25 Sex Female Sex Representation Female (finding) Patient Care team information Care Team Personnel Name: Anh Victoria RN Position: [facility] RN Member Role: Primary Care Nurse Name: Yesica Catsillo Position: [facility] PCO Associate Professional Member Role: PCP Address: [address] [place] [phone]- Telecom: Name: Maggie Rogel RN Position: [facility] AMB Nurse Member Role: Primary Care Nurse Name: Merna Manzano RN Position: [facility] RN Member Role: Primary Care Nurse Name: Iva Martinez RN Position: [facility] RN Member Role: Primary Care Nurse Care Team Related Persons Name: HALIMA JARAMILLO Name: LETY GONZALEZ Name: NONE, NONE Name: CHATA EATON Name: REBECCA EATON Insurance Providers Guarantor name: [facility] Plan Information #: 1 Payer: [employer] Payer Identifier: NA Member Number: [id number] Group Number: [id number] Subscriber Identifier: [id number] Relationship to Subscriber: self Coverage Type: Medicaid (Managed Care) Coverage Verification Date: NA Telecom: NA Address: NA
--- NOTE | 2025-04-02 09:52 | A.OFFVIS_ITS ---
Intake Visit Reasons: Post op Operating Room Orderly Required: No Information Interpreted: non-clinical & clinical Allergies adhesive (ADHESIVE) Allergy (Unknown, Verified 04/02/25 09:52) RASH, SKIN BREAKDOWN clindamycin Adverse Reaction (Verified 04/02/25 09:52) Gastrointestinal Upset SEASONAL ALLERGIES Allergy (Unknown, Uncoded 04/02/25 09:52) RUNNY NOSE, CONGESTION, WATERY EYES HPI Comments Details: The patient is schedule a telehealth visit post hysteroscopic removal of levo norgestrel Mirena IUD and reservoir. The patient is doing well with no complaints in her pelvic pain/cramping has improved. Intraoperative findings :levo norgestrel IUD reservoir in utero removed, no residual IUD parts inside the uterus. [facility] Medical History Pilonidal abscess of cleft Multiple sclerosis Tobacco abuse (06/30/22) Seasonal allergies Sacroiliitis (09/22/19) Depression ASCUS with positive high risk HPV cervical Anxiety (06/30/22) Right radial head fracture Left radial head fracture Skin lesion of back Multiple sclerosis No known health problems Surgical History H/O LEEP History of cholecystectomy H/O removal of cyst Social History Household Members: Spouse and Children Housing: House Alcohol intake: former Patient Tobacco Use Status: Current everyday Tobacco user Tobacco use type: Cigarette Cigarettes Per Day: 10 Years Smoked: 20 Substance Use Type: Marijuana Current occupational status: employed 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, 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 Sexual orientation: Straight/Heterosexual Gender identity: Female Telehealth Telehealth Telehealth Platform: [employer] Location of provider rendering services: practice address Location of patient: address on file Patient Identification confirmed using: Name, : Yes Telehealth method: video Patient verbally consented to treatment: Yes Patient verbally consented to billing insurance company: Yes Patient informed of any privacy concerns related to visit: Yes Minutes spent on Phone/Video with Pt.: 6 Assessment & Plan Assessment & Plan (1) Malpositioned IUD: Comment: Lost IUD string Code(s): T83.32XA - Displacement of intrauterine contraceptive device, initial encounter Category: Medical Plan: Discussed with the patient the intraoperative findings, Mirena IUD reservoir in utero taken out with empty uterine cavity afterwards. Since the patient is gives a history of IUD removal few years ago, Mirena IUD levo norgestrel reservoir in utero makes sense but will rule out retained IUD/parts in the pelvis Recommended KUB to rule out any retained IUD in the pelvis. All questions answered, the patient verbalized understanding I spent a total of 20 minutes reviewing the chart, talking to the patient via video and documenting in the medical record. Orders: Orders XR KUB Today T83.32XA - Displacement of intrauterine contraceptive device, initial encounter Coding Level of Care Code Tele Est Pt Level 3 (70988) Diagnoses Malpositioned IUD T83.32XA
--- OUTSIDE RECORDS SUMMARY | 2025-04-02 11:39 | XMS_ITS | Clinical Summary ---
Author Organization [facility] it Address [address] [place] [address] Care Team Providers Care Record Librarian Name Role Phone Eleuterio Linares MD Primary Care Provider [phone] Surgical History Surgery Date Site/Laterality Comments OTHER SURGICAL HISTORY PROCEDURE: DE COLPOSCOPY CERVIX VAG ELTRD CONIZATION CERVIX; COMMENT: h/o HPV normal pap smears since CYST REMOVAL PROCEDURE: DE EXCISION PILONIDAL CYST/SINUS SIMPLE Medical History Medical [...] Mother Alive MS Sister Alive asthma Uncle [place] at 60's, CVA Social History Tobacco Use [...] Depression Screening 05/21/2024 COVID-19 Vaccine (1 - 2024-2 6 season) 2025 Influenza Vaccine (#1) 2025 RSV [...] age to complete this topic Care Teams Record Librarian Relationship Specialty Start Date End Date Eleuterio Linares MD [address] [place] [address] PCP - General 01/31/23
== END 2025-04-02 10:37 | disposition home or self-care (01) ==
LOC: HO.HWS 09:51
PROVIDERS: PCP Physician Assistant; Visit Provider Obstetrics & Gynecology
DX: T83.32XA Displacement of intrauterine contraceptive device, initial encounter (principal)
CPT/HCPCS: 99213

== ENCOUNTER 2025-04-03 19:22 | Emergency (ER) | payer OTHER, SELFPAY ==
--- NOTE | 2025-04-03 | ECG_ITS ---
Test Reason : ABD pain Blood Pressure : */* mmHG Vent. Rate : 92 BPM Atrial Rate : 92 BPM P-R Int : 124 ms QRS Dur : 92 ms QT Int : 364 ms P-R-T Axes : 51 73 38 degrees QTcB Int : 450 ms Normal sinus rhythm Normal ECG When compared with ECG of 23-Mar-2025 20:12, No significant change was found Referred By: Generic ED Physician Electronically Signed By: JACQUES CANDELARIA MD
--- NOTE | ~2025-04-03 | CT_ITS ---
CLINICAL HISTORY: lower abd pain, recent iud removal CT abdomen and pelvis with contrast Comparison: CT/REG/SR - CT ABDOMEN PELVIS W IV CON - 03/19/25 21:59 EDT Findings: No consolidation or effusion. Previous cholecystectomy. No biliary ductal dilatation. Low-attenuation of liver parenchyma suggestive of steatosis. The spleen, pancreas, adrenal glands and kidneys are unremarkable. No ureteral stones and no hydronephrosis or hydroureter. No perinephric stranding. No bowel obstruction, pneumoperitoneum, or pneumatosis. No free fluid. Appendix is unremarkable. Urinary bladder within normal limits and only mildly filled. Retroverted uterus. 3.1 cm right ovarian cyst and 1.9 cm right ovarian likely corpus luteum cyst. 1.8 cm left ovarian cyst. Mild atherosclerotic vascular disease with no aneurysm of abdominal aorta. The bones are intact. IMPRESSION: 1. No acute findings. This document has been electronically signed by: Adilene Wolff MD on 04/03/2025 22:43:12
[2025-04-03 19:30] VITALS: BP 140/81; BP 157/92; PULSE 102; PULSE 96; RESP 16; TEMP 36.7; O2SAT 98; O2SAT 99; BMI 29.3
[2025-04-03 19:31] VITALS: BP 140/81; PULSE 96; RESP 16; TEMP 36.7; O2SAT 99
[2025-04-03 19:45] LABS: MANUAL DIFF FLAG NO
[2025-04-03 19:46] LABS: Hematocrit 43.6 % (37.0-47.0); Hemoglobin 15.4 g/dl (12.0-16.0); Imm Gran Abs Auto 0.01 X10*3/uL (0.00-0.03); Imm Gran Pct Auto 0.2 % (0.0-0.4); Lymphocytes Absolute Auto 1.8 X10*3/uL (1.2-4.9); Mean Corpuscular HGB Conc 35.3 g/dl (31.0-35.0); Mean Corpuscular Hemoglobin 30.9 pg (27.0-33.0); Mean Corpuscular Volume 87.4 fL (80.0-98.0); NRBC Abs Auto 0.000 X10*3/uL (0.0-0.012); NRBC Pct Auto 0.0 /100WBC (0.0-0.2); Platelet Count 384 X10*3/uL (160-400); Red Blood Count 4.99 X10*6/uL (4.20-5.50); White Blood Count 6.6 X10*3/uL (4.8-10.8)
[2025-04-03 20:00] LABS: Alanine Aminotransferase 31 U/L (0-31); Albumin Level 4.7 g/dL (3.5-5.0); Alkaline Phosphatase 64 U/L (39-117); Anion Gap 14 (12-20); Aspartate Amino Transferase 31 U/L (5-31); Blood Urea Nitrogen 6 mg/dL (9-16); Calcium 9.8 mg/dL (8.4-10.2); Carbon Dioxide 22 mmol/L (22-29); Chloride 108 mmol/L (96-108); Creatinine Clr Calc Pharmacy 90.9; Estimated Glomerular Filt Rate > 60; Lipase 34 U/L (8-78); Potassium 3.7 mmol/L (3.3-5.1); Sodium 140 mmol/L (135-145); Total Protein 7.2 g/dL (6.5-8.0)
[2025-04-03 20:16] LABS: Appearance Urine Cloudy; Glucose Urine UA Negative (Negative); PH 5.0 (5.0-9.0); Specific Gravity - Urine 1.025 (1.005-1.025); UMIC TRIGGER UACC YES
[2025-04-03 20:33] LABS: COVID-19 Test Negative (Negative); IDNOW Serial# 55D5AD1C; IDNOW Serial# 58CA691E; Influenza B2 Negative (Negative)
--- NOTE | 2025-04-03 21:20 | ED.ABDPAIN ---
HPI - Abdominal Pain General Chief Complaint: Abdominal Pain Stated Complaint: SEVERE ABD PAIN X 2 WEEKS Time Seen by Provider: 04/03/25 21:04 Source: patient and EMS Mode of arrival: EMS Limitations: no limitations History of Present Illness ED Provider: Dr. Ana Freed HPI narrative: patient comes to the emergency room complaining of lower abdominal pain. Patient states it has been intermittent for 2 months. Patient was recently seen by OBGYN, an IUD arousable were was removed. Per patient's notes it says it was done yesterday. Patient states it was on a week ago. Patient denies vomiting or diarrhea, denies fever, denies hematuria or dysuria. Related Data Home Medications ?Medication ?Instructions ?Recorded ?Confirmed colestipol 1 gram tablet 1 g PO BID 11/24/20 11/24/20 venlafaxine 75 mg capsule,extended 75 mg PO DAILY 11/24/20 11/24/20 release 24 hr norethindrone (contraceptive) 0.35 0.35 mg PO DAILY 10/31/21 mg tablet losartan 25 mg tablet 25 mg PO DAILY 03/27/25 03/27/25 Previous Rx's ?Medication ?Instructions ?Recorded ibuprofen 600 mg tablet 600 mg PO Q6H PRN pain #30 tabs 10/11/21 naproxen 500 mg tablet 500 mg PO BID 7 days #14 tabs 10/14/22 pantoprazole 40 mg tablet,delayed 40 mg PO DAILY #30 tabs 01/04/23 release chlorhexidine gluconate 0.12 % 15 ml buccal BID #118 mL 06/05/23 mouthwash (Peridex) dicyclomine 20 mg tablet 20 mg PO BID PRN abdominal pain #7 03/24/25 tabs ondansetron 4 mg disintegrating 4 mg PO Q8H PRN nausea and 03/24/25 tablet vomiting #20 tabs oxycodone 5 mg tablet 5 mg PO Q6H PRN severe pain (scale 03/24/25 score 7-10) #8 tabs loperamide 2 mg capsule (Imodium 2 mg PO Q6H PRN loose stool #10 03/29/25 A-D) caps acetaminophen-pamabrom 500 mg-25 1 tab PO Q4-6H PRN menstrual pain 04/03/25 mg tablet (Midol) #16 tabs Allergies Allergy/AdvReac Type Severity Reaction Status Date / Time adhesive (ADHESIVE) Allergy Unknown RASH, SKIN Verified 04/03/25 19:41 BREAKDOWN clindamycin AdvReac Gastrointestinal Verified 04/03/25 19:41 Upset SEASONAL ALLERGIES Allergy Unknown RUNNY Uncoded 04/03/25 19:41 NOSE, CONGESTION, WATERY EYES Review of Systems Review of Systems Constitutional : No Weight loss, No Fever, No Chills, No Night Sweats, No Fatigue, No Malaise ENT/Mouth : No Hearing loss, No Ear Pain, No Nasal Congestion, No Sinus Pain, No Hoarseness, No sore throat, No Rhinorrhea, No Swallowing Difficulty Eyes: No Eye Pain, No Swelling, No Redness, No Foreign Body, No Discharge, No Vision Changes Cardiovascular : No Chest Pain, No SOB, No Dyspnea on Exertion, No Orthopnea, No Edema, No Palpitations Respiratory : No Cough, No Sputum, No Wheezing, No Smoke Exposure, No Dyspnea Gastrointestinal : No Nausea, No Vomiting, No Diarrhea, No Constipation, Complaining of lower abdominal pain, no hematochezia or melena Genitourinary : no irregular bleeding, No Dysuria, No Urinary Frequency, No Hematuria, No Urinary Incontinence, No Urgency, No Flank Pain, No Urinary Flow Changes, No Hesitancy Musculoskeletal : No joint pain, No Myalgias, No Joint Swelling Skin : No Skin Lesions, No rash Neuro : No Weakness, No Numbness, No Paresthesias, No Loss of Consciousness, No Dizziness, No Headache Psych : No Anxiety/Panic, No Depression, No SI/HI/AH/VH, No Social Issues, Heme/Lymph: No Bruising, No Bleeding,No Lymphadenopathy Endocrine : No Polyuria, No Polydipsia, No Temperature Intolerance [facility] Past Medical History Medical History Pilonidal abscess of cleft Multiple sclerosis Tobacco abuse (06/30/22) Seasonal allergies Sacroiliitis (09/22/19) Depression ASCUS with positive high risk HPV cervical Anxiety (06/30/22) Right radial head fracture Left radial head fracture Skin lesion of back Multiple sclerosis No known health problems Surgical History H/O LEEP History of cholecystectomy H/O removal of cyst Social History Social History Household Members: Spouse and Children Housing: House Alcohol intake: former Patient Tobacco Use Status: Current everyday Tobacco user Tobacco use type: Cigarette Cigarettes Per Day: 10 Years Smoked: 20 Smoked in Last 30 Days: Yes Substance Use Type: Marijuana Substance Use Frequency: Occasionally Advance Directives: No Advance Directives Information Provided: No Patient : No Current occupational status: employed 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 Oriented X3. No acute distress. Eyes: Pupils equal, round and reactive to light. ENT: Pharynx normal. Neck: Normal inspection. Neck supple. No lymph nodes noted. No crepitus CVS: Normal heart rate and rhythm. Pulses normal. Normal S1 and S2 Respiratory: No respiratory distress. Breath sounds normal. No Wheezing. No rales Abdomen: Soft , discomfort to palpation in bilateral lower quadrants, no rebound or bloating,No rigidity. No distention. Skin: Skin warm and dry. Normal skin color. Normal skin turgor. Extremities: No lower extremity edema. No Lacerations. No Rash Neuro: Oriented X 3. No motor deficit. No sensory deficit. Moving all extremities. No slurred speech. CN 2 through 12 grossly intact Psych: calm, cooperative, normal affect Vital Signs: Vital Signs - 24 hr 04/03/25 19:30 04/03/25 19:31 04/03/25 22:49 Temperature 98.0 F 98.0 F 98.4 F Pulse Rate 96 96 80 Respiratory Rate 16 16 16 Blood Pressure 140/81 H 140/81 H 134/87 Pulse Oximetry 99 99 99 Oxygen Delivery Method Room Air Room Air Room Air BMI result Body Mass Index 29.3 Medical Decision Making Medical Decision Making [facility] Narrative: My interpretation of labs: No significant abnormality in patient's hematology and chemistry, normal LFTs, urinalysis has a contaminant, has numerous epithelial cells. Patient denies hematuria dysuria. , serology negative CT scan did not show any acute abnormality after discussing the results with the patient, patient feels more reassured. Patient did not receive any pain medication but feeling better Differential Diagnosis Differential Diagnoses: The differential diagnosis associated with the presentation includes ( abdominal cramping, chronic abdominal pain) Lab Data [facility] Lab Attestation statement: I reviewed the patient's lab results. 04/03/25 19:38 04/03/25 19:38 Labs: Lab Results 04/03/25 04/03/25 Range/Units 19:38 20:03 WBC 6.6 (4.8-10.8) X10*3/uL RBC 4.99 (4.20-5.50) X10*6/uL Hgb 15.4 (12.0-16.0) g/dl Hct 43.6 (37.0-47.0) % MCV 87.4 (80.0-98.0) fL MCH 30.9 (27.0-33.0) pg MCHC 35.3 H (31.0-35.0) g/dl RDW 12.8 (11.0-16.0) % Plt Count 384 (160-400) X10*3/uL MPV 8.5 L (9.4-12.3) fL Immature Gran % (Auto) 0.2 (0.0-0.4) % Neut % (Auto) 64.9 (45-73) % Lymph % (Auto) 26.7 (20-40) % [place] % (Auto) 6.5 (2-11) % Eos % (Auto) 1.4 (0-4) % Baso % (Auto) 0.3 (0-2) % Lymph # (Auto) 1.8 (1.2-4.9) X10*3/uL [place] # (Auto) 0.4 (0.1-1.2) X10*3/uL Eos # (Auto) 0.1 (0.0-0.4) X10*3/uL Baso # (Auto) 0.0 (0.0-0.2) X10*3/uL Abs Immat Gran (auto) 0.01 (0.00-0.03) X10*3/uL Absolute Neuts (auto) 4.3 (2.0-8.3) x10*3/uL Absolute Nucleated RBC 0.000 (0.0-0.012) X10*3/uL Nucleated RBC % (auto) 0.0 (0.0-0.2) /100WBC Sodium 140 (135-145) mmol/L Potassium 3.7 (3.3-5.1) mmol/L Chloride 108 (96-108) mmol/L Carbon Dioxide 22 (22-29) mmol/L Anion Gap 14 (12-20) BUN 6 L (9-16) mg/dL Creatinine 0.76 (0.5-1.4) mg/dL Estim Creat Clear Calc 90.9 Estimated GFR > 60 Random Glucose 116 H (60-115) mg/dL Calcium 9.8 (8.4-10.2) mg/dL Total Bilirubin 0.7 (0.0-1.0) mg/dL AST 31 (5-31) U/L ALT 31 (0-31) U/L Alkaline Phosphatase 64 (39-117) U/L Total Protein 7.2 (6.5-8.0) g/dL Albumin 4.7 (3.5-5.0) g/dL Lipase 34 (8-78) U/L Urine Color Dark Yellow Urine Appearance Cloudy Urine pH 5.0 (5.0-9.0) Ur Specific [place] 1.025 (1.005-1.025) Urine Protein 30 (1+) H (Neg-Trace) mg/dL Urine Glucose (UA) Negative (Negative) mg/dL Urine Ketones 40 (Negative) mg/dL Urine Blood Small (1+) H (Negative) Urine Nitrite Negative (Negative) Ur Leukocyte Esterase Trace H (Negative) Urine RBC 0-2 (0-2) /HPF Urine WBC 0-5 (0-5) /HPF Ur Squamous Epith Cells 6-10 (0-2) /HPF Urine Bacteria 2+ (None Seen) Hyaline Casts 0-2 (0-2) /LPF COVID-19 (RICARDO) Negative (Negative) COVID-19 Clin Com See Note Influenza Type A (SILVINO) Negative (Negative) Influenza Type B (SILVINO) Negative (Negative) Influenza A & B Note See Note Independent Interpretation I performed an independent interpretation of an: CT Scan Interpretation: No consolidation or effusion. Previous cholecystectomy. No biliary ductal dilatation. Low-attenuation of liver parenchyma suggestive of steatosis. The spleen, pancreas, adrenal glands and kidneys are unremarkable. No ureteral stones and no hydronephrosis or hydroureter. No perinephric stranding. No bowel obstruction, pneumoperitoneum, or pneumatosis. No free fluid. Appendix is unremarkable. Urinary bladder within normal limits and only mildly filled. Retroverted uterus. 3.1 cm right ovarian cyst and 1.9 cm right ovarian likely corpus luteum cyst. 1.8 cm left ovarian cyst. Mild atherosclerotic vascular disease with no aneurysm of abdominal aorta. The bones are intact. IMPRESSION: 1. No acute findings. Medications Administered Discontinued Medications Generic Name Dose Route Start Last Admin Trade Name Freq PRN Reason Stop Dose Admin Iohexol 85 ml 04/03/25 22:02 04/03/25 22:02 Iohexol 350 Mg/Ml 100 Ml Infus..Btl IV 04/03/25 22:03 85 ml ONCE ONE Administration Discharge Plan Discharge Clinical Impression: Chronic abdominal pain Patient Disposition: Home, Self-Care Instructions: Abdominal Pain (ED) Additional Instructions: Please follow-up with your primary care physician tomorrow. If you have any worsening or new symptoms, please return to the emergency room or call 911 Prescriptions: New Midol 500-25 mg tablet 1 tab PO Q4-6H PRN (Reason: menstrual pain) Qty: 16 0RF Rx Instructions: PRN cramps No Action ibuprofen 600 mg tablet 600 mg PO Q6H PRN (Reason: pain) Qty: 30 0RF pantoprazole 40 mg tablet,delayed release (DR/EC) 40 mg PO DAILY Qty: 30 0RF ondansetron 4 mg tablet,disintegrating 4 mg PO Q8H PRN (Reason: nausea and vomiting) Qty: 20 0RF oxycodone 5 mg tablet 5 mg PO Q6H PRN (Reason: severe pain (scale score 7-10)) Qty: 8 0RF Rx Instructions: Partial Fill upon patient request. naproxen 500 mg tablet 500 mg PO BID 7 Days Qty: 14 0RF chlorhexidine gluconate [Peridex] 0.12 % mouthwash 15 ml buccal BID Qty: 118 0RF losartan 25 mg tablet 25 mg PO DAILY loperamide [Imodium A-D] 2 mg capsule 2 mg PO Q6H PRN (Reason: loose stool) Qty: 10 0RF venlafaxine 75 mg capsule,extended release 24hr 75 mg PO DAILY colestipol 1 gram tablet 1 g PO BID norethindrone (contraceptive) 0.35 mg tablet 0.35 mg PO DAILY dicyclomine 20 mg tablet 20 mg PO BID PRN (Reason: abdominal pain) Qty: 7 0RF Print Language: Divehi
[2025-04-03] MEDS: iohexoL 350 MG/ML 100 ML INFUS..BTL 85 ML IV (22:02)
[2025-04-03 22:49] VITALS: BP 134/87; PULSE 80; RESP 16; TEMP 36.9; O2SAT 99
[2025-04-03 23:34] VITALS: BP 134/87; PULSE 80; RESP 16; TEMP 36.9; O2SAT 99
== END 2025-04-03 23:35 | disposition home or self-care (01) ==
PROVIDERS: Emergency Provider Emergency Medicine
DX: R10.30 Lower abdominal pain, unspecified (principal); R00.0 Tachycardia, unspecified; Z79.899 Other long term (current) drug therapy; G35.D Multiple sclerosis, unspecified; Z03.818 Encounter for observation for suspected exposure to other biological agents ruled out
CPT/HCPCS: 36415; 74177; 80053; 81001; 83690; 85025; 87502; 87635; 93005; 99284; Q9967

== ENCOUNTER → 2025-04-03 19:34 | Outpatient (BNV) | payer OTHER, SELFPAY | PROVIDERS: Emergency Provider Emergency Medicine; Visit Provider Internal Medicine Cardiovascular Disease | DX: R00.0 Tachycardia, unspecified (principal) | CPT/HCPCS: 93010 ==

== ENCOUNTER → 2025-04-03 21:16 | Outpatient (BNV) | payer OTHER, SELFPAY | PROVIDERS: Emergency Provider Emergency Medicine; Visit Provider Specialist | DX: R10.30 Lower abdominal pain, unspecified (principal) | CPT/HCPCS: 74177 ==

== ENCOUNTER 2025-04-06 19:32 | Emergency (ER) | payer OTHER, SELFPAY ==
[2025-04-06 19:37] VITALS: BP 159/88; PULSE 95; O2SAT 99
[2025-04-06 19:41] VITALS: BP 127/86; PULSE 88; RESP 18; TEMP 36.7; O2SAT 97; BMI 29.3
[2025-04-06 20:43] LABS: MANUAL DIFF FLAG NO
[2025-04-06 20:44] LABS: Hematocrit 42.8 % (37.0-47.0); Hemoglobin 14.9 g/dl (12.0-16.0); Imm Gran Abs Auto 0.02 X10*3/uL (0.00-0.03); Imm Gran Pct Auto 0.3 % (0.0-0.4); Lymphocytes Absolute Auto 1.6 X10*3/uL (1.2-4.9); Mean Corpuscular HGB Conc 34.8 g/dl (31.0-35.0); Mean Corpuscular Hemoglobin 30.7 pg (27.0-33.0); Mean Corpuscular Volume 88.2 fL (80.0-98.0); NRBC Abs Auto 0.000 X10*3/uL (0.0-0.012); NRBC Pct Auto 0.0 /100WBC (0.0-0.2); Platelet Count 386 X10*3/uL (160-400); Red Blood Count 4.85 X10*6/uL (4.20-5.50); White Blood Count 7.7 X10*3/uL (4.8-10.8)
[2025-04-06 20:45] LABS: Appearance Urine Clear; Glucose Urine UA Negative (Negative); PH 5.0 (5.0-9.0); Specific Gravity - Urine 1.025 (1.005-1.025); UMIC TRIGGER UACC YES
[2025-04-06 20:59] LABS: Alanine Aminotransferase 37 U/L (0-31); Albumin Level 4.7 g/dL (3.5-5.0); Alkaline Phosphatase 64 U/L (39-117); Anion Gap 15 (12-20); Aspartate Amino Transferase 30 U/L (5-31); Blood Urea Nitrogen 5 mg/dL (9-16); Calcium 10.0 mg/dL (8.4-10.2); Carbon Dioxide 26 mmol/L (22-29); Chloride 104 mmol/L (96-108); Creatinine Clr Calc Pharmacy 92.1; Estimated Glomerular Filt Rate > 60; Potassium 4.7 mmol/L (3.3-5.1); Sodium 140 mmol/L (135-145); Total Protein 7.1 g/dL (6.5-8.0)
[2025-04-06 22:37] VITALS: BP 147/87; PULSE 84; RESP 18; TEMP 36.6; O2SAT 98
--- NOTE | 2025-04-06 23:22 | ED.FEMALEGU ---
HPI - Female Genitourinary General Chief complaint: Urogenital-Female Stated complaint: abd pain x1 week after iud removal Time Seen by Provider: 04/06/25 23:22 History of Present Illness ED Provider: Maggi GAVIN Narrative: The patient is a 40-year-old female who has been having problems with the abdominal pain for some time. Recently she has been in the emergency room several times For abdominal pain. She was here on February 23 and March 19 and also on March 21, March 22, March 23 of March 24, March 29, and April 03. Today's visit would be the patient's 7th ER visit in the month of March. The patient has a CAT scan of the abdomen and pelvis on February 23 and again on March 19. She had a pelvic ultrasound on March 21. it was thought that perhaps her abdominal pain was being caused by an IUD. On March 27 she was taken to the operating room by Dr. Ross valdivia for removal of her IUD. Apparently there has been a retained levonorgestrel IUD reservoir in the uterus without the remaining IUD components. Despite this procedure the patient has continued to have pain and she returned the emergency room 3 days ago on April [address] scan of the abdomen and pelvis. This showed no acute findings. She returns today with the same pain. She says that she gets episodes of pain that are associated with a sense of nausea and sweats and the symptoms can be so severe that she feels she can do nothing else but call 911. She says she was recently prescribed sucralfate which was partially helpful. She has had no fever, sweats, chills. No vaginal discharge. No vomiting. She has been having bowel movements. When I asked her overall how long she has been dealing with symptoms like this she ultimately answered 4 years. She says that the first intervention to try to help with these symptoms was a cholecystectomy. Related Data Home Medications ?Medication ?Instructions ?Recorded ?Confirmed colestipol 1 gram tablet 1 g PO BID 11/24/20 11/24/20 venlafaxine 75 mg capsule,extended 75 mg PO DAILY 11/24/20 11/24/20 release 24 hr norethindrone (contraceptive) 0.35 0.35 mg PO DAILY 10/31/21 mg tablet losartan 25 mg tablet 25 mg PO DAILY 03/27/25 03/27/25 Previous Rx's ?Medication ?Instructions ?Recorded ibuprofen 600 mg tablet 600 mg PO Q6H PRN pain #30 tabs 10/11/21 naproxen 500 mg tablet 500 mg PO BID 7 days #14 tabs 10/14/22 pantoprazole 40 mg tablet,delayed 40 mg PO DAILY #30 tabs 01/04/23 release chlorhexidine gluconate 0.12 % 15 ml buccal BID #118 mL 06/05/23 mouthwash (Peridex) dicyclomine 20 mg tablet 20 mg PO BID PRN abdominal pain #7 03/24/25 tabs ondansetron 4 mg disintegrating 4 mg PO Q8H PRN nausea and 03/24/25 tablet vomiting #20 tabs oxycodone 5 mg tablet 5 mg PO Q6H PRN severe pain (scale 03/24/25 score 7-10) #8 tabs loperamide 2 mg capsule (Imodium 2 mg PO Q6H PRN loose stool #10 03/29/25 A-D) caps acetaminophen-pamabrom 500 mg-25 1 tab PO Q4-6H PRN menstrual pain 04/03/25 mg tablet (Midol) #16 tabs ofatumumab 20 mg/0.4 mL 20 mg (0.4 mL) subcut QMONTH 30 04/06/25 subcutaneous pen injector days #0.4 mL (Kesimpta Pen) acetaminophen 500 mg capsule 1,000 mg (2 x 500 mg) PO Q8H PRN 04/07/25 fever or pain #18 caps famotidine 40 mg tablet 40 mg PO BID #60 tabs 04/07/25 Allergies Allergy/AdvReac Type Severity Reaction Status Date / Time adhesive (ADHESIVE) Allergy Unknown RASH, SKIN Verified 04/06/25 19:42 BREAKDOWN clindamycin AdvReac Gastrointestinal Verified 04/06/25 19:42 Upset SEASONAL ALLERGIES Allergy Unknown RUNNY Uncoded 04/06/25 19:42 NOSE, CONGESTION, WATERY EYES Review of Systems Review of Systems: Yes all other systems are reviewed and are negative PMFSH Past Medical History Medical History Pilonidal abscess of cleft Multiple sclerosis Tobacco abuse (06/30/22) Seasonal allergies Sacroiliitis (09/22/19) Depression ASCUS with positive high risk HPV cervical Anxiety (06/30/22) Right radial head fracture Left radial head fracture Skin lesion of back Multiple sclerosis No known health problems Surgical History H/O LEEP History of cholecystectomy H/O removal of cyst Social History Social History Household Members: Spouse and Children Housing: House Alcohol intake: former Patient Tobacco Use Status: Current everyday Tobacco user Tobacco use type: Cigarette Cigarettes Per Day: 10 Years Smoked: 20 Substance Use Type: Marijuana Advance Directives: No Advance Directives Information Provided: No Current occupational status: employed 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 The patient did not appear in overt distress or seem obviously uncomfortable. Orientation/consciousness: patient oriented x3 HEENT: Other: The face is symmetrical. Mucous membranes moist. Eyes: Other: Pupils are round equal, conjunctivae are clear, extraocular movements intact Neck: Neck: Yes normal visual inspection Resp: Effort & Inspection: normal respiratory effort Auscultation: clear to auscultation bilaterally Cardio: Rate: regular rate Rhythm: regular rhythm Heart sounds: S1 normal heart sound present and S2 normal heart sound present GI: Other: The patient's abdomen seemed soft and without significant tenderness. Overall I did not really feel there was any significant tenderness at all and the abdomen seemed quite benign. Skin: Other: The skin is dry and unremarkable Neuro: General: patient oriented x3, tone normal, moves all extremities, no focal motor deficits and CN's II-XI intact bilaterally Extrem: Other: no peripheral edema Medical Decision Making Medical Decision Making MDM Narrative: the patient is a 40-year-old female who comes to the emergency room by ambulance complaining of abdominal pain. She has been in the emergency room multiple times in the last several weeks in his had CAT scans and ultrasounds. She also had her IUD removed [address] Hawkins of gynecology. Her symptoms continue. Although the patient came to the emergency room by ambulance today her abdomen seems entirely benign. She has a normal white count and differential and an undetectable C-reactive protein. I do not think there is an indication for additional imaging at this point. Perhaps the patient has some unusual gastrointestinal disorder such as a gluten intolerance.. The patient says that she was reasonably prescribed sucralfate with possibly some mild benefit. I will tell her to increase june sucralfate to 4 times a day and she can take famotidine twice a day. She should follow up with her regular doctors. Lab Data 04/06/25 20:35 04/06/25 20:35 Labs: Lab Results 04/06/25 Range/Units 20:35 WBC 7.7 (4.8-10.8) X10*3/uL RBC 4.85 (4.20-5.50) X10*6/uL Hgb 14.9 (12.0-16.0) g/dl Hct 42.8 (37.0-47.0) % MCV 88.2 (80.0-98.0) fL MCH 30.7 (27.0-33.0) pg MCHC 34.8 (31.0-35.0) g/dl RDW 12.7 (11.0-16.0) % Plt Count 386 (160-400) X10*3/uL MPV 8.7 L (9.4-12.3) fL Immature Gran % (Auto) 0.3 (0.0-0.4) % Neut % (Auto) 70.7 (45-73) % Lymph % (Auto) 21.0 (20-40) % [place] % (Auto) 6.9 (2-11) % Eos % (Auto) 0.5 (0-4) % Baso % (Auto) 0.6 (0-2) % Lymph # (Auto) 1.6 (1.2-4.9) X10*3/uL [place] # (Auto) 0.5 (0.1-1.2) X10*3/uL Eos # (Auto) 0.0 (0.0-0.4) X10*3/uL Baso # (Auto) 0.1 (0.0-0.2) X10*3/uL Abs Immat Gran (auto) 0.02 (0.00-0.03) X10*3/uL Absolute Neuts (auto) 5.5 (2.0-8.3) x10*3/uL Absolute Nucleated RBC 0.000 (0.0-0.012) X10*3/uL Nucleated RBC % (auto) 0.0 (0.0-0.2) /100WBC Sodium 140 (135-145) mmol/L Potassium 4.7 D (3.3-5.1) mmol/L Chloride 104 (96-108) mmol/L Carbon Dioxide 26 (22-29) mmol/L Anion Gap 15 (12-20) BUN 5 L (9-16) mg/dL Creatinine 0.75 (0.5-1.4) mg/dL Estim Creat Clear Calc 92.1 Estimated GFR > 60 Random Glucose 108 (60-115) mg/dL Calcium 10.0 (8.4-10.2) mg/dL Total Bilirubin 0.8 (0.0-1.0) mg/dL AST 30 (5-31) U/L ALT 37 H (0-31) U/L Alkaline Phosphatase 64 (39-117) U/L C-Reactive Protein < 0.10 (< or = 0.50) mg/dL Total Protein 7.1 (6.5-8.0) g/dL Albumin 4.7 (3.5-5.0) g/dL Urine Color Dark Yellow Urine Appearance Clear Urine pH 5.0 (5.0-9.0) Ur Specific [place] 1.025 (1.005-1.025) Urine Protein 30 (1+) H (Neg-Trace) mg/dL Urine Glucose (UA) Negative (Negative) mg/dL Urine Ketones 40 (Negative) mg/dL Urine Blood Negative (Negative) Urine Nitrite Negative (Negative) Ur Leukocyte Esterase Negative (Negative) Urine RBC 0-2 (0-2) /HPF Urine WBC 0-5 (0-5) /HPF Ur Squamous Epith Cells 11-20 (0-2) /HPF Urine Bacteria 1+ (None Seen) Hyaline Casts 0-2 (0-2) /LPF Discharge Plan Discharge Clinical Impression: Abdominal pain Patient Disposition: Home, Self-Care Additional Instructions: At this point I think it is unlikely that additional testing in the emergency department will be helpful. I think you may increase famotidine to 2 times a day. I have sent a prescription to your pharmacy for this purpose. Additionally you may take the sucralfate you have as often as 4 times a day. Continue your omeprazole. Please follow up soon again with your regular doctor and follow up with your parent partner as soon as you are able to. In the meantime I would try eliminating gluten from your diet. Perhaps you may have developed some kind of gluten intolerance. Return to the emergency room if worse. Prescriptions: New acetaminophen 500 mg capsule 1,000 mg PO Q8H PRN (Reason: fever or pain) Qty: 18 0RF famotidine 40 mg tablet 40 mg PO BID Qty: 60 0RF No Action Kesimpta Pen 20 mg/0.4 mL pen injector 20 mg subcut QMONTH 30 Days Qty: 0.4 11RF ibuprofen 600 mg tablet 600 mg PO Q6H PRN (Reason: pain) Qty: 30 0RF pantoprazole 40 mg tablet,delayed release (DR/EC) 40 mg PO DAILY Qty: 30 0RF ondansetron 4 mg tablet,disintegrating 4 mg PO Q8H PRN (Reason: nausea and vomiting) Qty: 20 0RF oxycodone 5 mg tablet 5 mg PO Q6H PRN (Reason: severe pain (scale score 7-10)) Qty: 8 0RF Rx Instructions: Partial Fill upon patient request. Midol 500-25 mg tablet 1 tab PO Q4-6H PRN (Reason: menstrual pain) Qty: 16 0RF Rx Instructions: PRN cramps naproxen 500 mg tablet 500 mg PO BID 7 Days Qty: 14 0RF chlorhexidine gluconate [Peridex] 0.12 % mouthwash 15 ml buccal BID Qty: 118 0RF losartan 25 mg tablet 25 mg PO DAILY loperamide [Imodium A-D] 2 mg capsule 2 mg PO Q6H PRN (Reason: loose stool) Qty: 10 0RF venlafaxine 75 mg capsule,extended release 24hr 75 mg PO DAILY colestipol 1 gram tablet 1 g PO BID norethindrone (contraceptive) 0.35 mg tablet 0.35 mg PO DAILY dicyclomine 20 mg tablet 20 mg PO BID PRN (Reason: abdominal pain) Qty: 7 0RF Referrals: Yesica Dodd PA [Primary Care Provider, Internal Medicine] Interventions: ED Discharge Assessment Last Done: 04/07/25 00:15 Discharge Date/Time: 04/07/25 00:17 Print Language: Mongolian
--- NOTE | 2025-04-06 23:29 | PC.NURSE ---
pt resting comfortably in room, no apparent distress noted at this time. pt ambulating with steady gait to bathroom x2. call juanpablo w/in reach
[2025-04-07 00:15] VITALS: BP 138/85; PULSE 93; RESP 18; TEMP 36.7; O2SAT 97
--- OUTSIDE RECORDS SUMMARY | 2025-04-07 07:45 | XMS_ITS | Clinical Summary ---
Author Organization [facility] it Address [address] [place] [address] Care Team Providers Care Injection Molding Operator Name Role Phone Eleuterio Linares MD Primary Care Provider [phone] Surgical History Surgery Date Site/Laterality Comments OTHER SURGICAL HISTORY PROCEDURE: [place] COLPOSCOPY CERVIX VAG ELTRD CONIZATION CERVIX; COMMENT: h/o HPV normal pap smears since CYST REMOVAL PROCEDURE: [place] EXCISION PILONIDAL CYST/SINUS SIMPLE Medical History Medical [...] Mother Alive MS Sister Alive asthma Uncle [place] at 60's, CVA Social History Tobacco Use [...] age to complete this topic Care Teams Injection Molding Operator Relationship Specialty Start Date End Date Eleuterio Linares MD [address] [place] [address] PCP - General 01/31/23
== END 2025-04-07 00:17 | disposition home or self-care (01) ==
PROVIDERS: Emergency Provider Emergency Medicine; PCP Physician Assistant
DX: R10.9 Unspecified abdominal pain (principal); F17.200 Nicotine dependence, unspecified, uncomplicated; G35.D Multiple sclerosis, unspecified; F41.9 Anxiety disorder, unspecified; Z71.6 Tobacco abuse counseling; Z79.899 Other long term (current) drug therapy
CPT/HCPCS: 36415; 80053; 81001; 85025; 86140; 99283

== ENCOUNTER 2025-04-08 15:59 | Emergency (ER) | payer OTHER, SELFPAY ==
--- OUTSIDE RECORDS SUMMARY | 2025-04-04 23:59 | XMS_ITS | Continuity of Care Document ---
Author Organization [facility] [address] Address [address] [place] [address]- Care Team Providers Care Yardage Estimator Name Role Phone Yesica Castillo Primary Care Physician Encounter [facility] Date(s): 03/05/25 - 04/04/25 [facility] Adult [address] [place] [address]- Encounter Type: Triage Allergies, Adverse Reactions, Alerts [...] mL, 0 Refills,Maintenance, 04/01/25 12:04:00 PM EST, [facility]/pharmacy #[id number], Partial fill upon [...] Maintenance, 03/12/25 10:33:00 AM EDT, [id number], 158, cm, 06/12/24 9:21:00 EST, Height Start Date: 03/12/25 Status: Ordered Medication Dispense Status: Completed Quantity: 720.0 Unit: tablet Total Allowed Fills: 1 Fills Dispensed: 0 Daily Tamir oral tablet 1 tablet, By Mouth, Daily, # 90 tablet, 3 Refills, Maintenance, 03/09/25 3:56:00 PM EDT, [id number], 90, TAKE 1 TABLET BY MOUTH EVERY DAY, 158, cm, 06/12/24 9:21:00 EST, Height Start Date: 03/09/25 Status: Ordered Medication Dispense Status: Completed Quantity: 90.0 Unit: tablet Total Allowed Fills: 1 Fills Dispensed: 0 famotidine 20 mg oral tablet 1, tablet, By Mouth, Daily at bedtime, # 90 tablet, Refills 0, Maintenance, 03/06/24 11:07:00 AM EDT, Route to Pharmacy Electronically, [id number], 158, cm, 10/04/23 12:42:00 EDT, Height Start [...] Soft Stop, 04/01/25 12:03:00 PM EST, Tablet, [facility]/pharmacy #[id number], Partial fill [...] 12:08:00 PM EST, Route to Pharmacy Electronically, [facility]/pharmacy #[id number], Partial fill upon [...] 6 Refills, Maintenance, 03/25/25 9:17:00 AM EST, [facility]/pharmacy #[id number], Partial fill upon [...] 0 Refills, Maintenance, 02/25/25 4:28:00 PM EDT, [facility]/pharmacy #[id number], Refills require visit. Please contact office [...] Team Personnel Name: Anh Victoria RN Position: Shira RN Member Role: Primary Care Nurse Name: Yesica Castillo Position: [facility] PCO Associate Professional Member Role: PCP Address: [address] [place] [phone]- Telecom: Name: Maggie Rogel RN Position: [facility] AMB Nurse Member Role: Primary Care Nurse Name: Merna Manzano RN Position: [facility] RN Member Role: Primary Care Nurse Name: Iva Martinez RN Position: [facility] RN Member Role: Primary Care Nurse Care Team Related Persons Name: HALIMA JARAMILLO Name: ILSAAugust Name: NONE, NONE Name: CHATA EATON Name: REBECCA EATON Insurance Providers [facility] Information #: 1 Payer: [facility] Payer Identifier: NA Member Number: [id number] Group Number: [id number] Subscriber Identifier: NA Relationship to Subscriber: self Coverage Type: Medicaid (Managed Care) Coverage Verification Date: HOSSEIN Telecom: NA Address: NA
[2025-04-08 16:15] VITALS: BP 120/72; BP 145/90; PULSE 100; PULSE 76; RESP 20; TEMP 36.8; O2SAT 100; O2SAT 97; BMI 29.4
--- NOTE | 2025-04-08 16:52 | ED.ABDPAIN ---
HPI - Abdominal Pain General Chief Complaint: Abdominal Pain Stated Complaint: ABD PAIN Time Seen by Provider: 04/08/25 16:24 History of Present Illness ED Provider: NACHO HPI narrative: 40 F s/p IUD removal 03/27, prior cholecystecomy, chronic gastritis comes with heavy intermittent menstrual bleeding, 7 times today in the toilet only , not dripping in pad. Not sexually active. +cramping, feels dehydrated and nauseated. Related Data Home Medications ?Medication ?Instructions ?Recorded ?Confirmed colestipol 1 gram tablet 1 g PO BID 11/24/20 11/24/20 venlafaxine 75 mg capsule,extended 75 mg PO DAILY 11/24/20 11/24/20 release 24 hr norethindrone (contraceptive) 0.35 0.35 mg PO DAILY 10/31/21 mg tablet losartan 25 mg tablet 25 mg PO DAILY 03/27/25 03/27/25 Previous Rx's ?Medication ?Instructions ?Recorded ibuprofen 600 mg tablet 600 mg PO Q6H PRN pain #30 tabs 10/11/21 naproxen 500 mg tablet 500 mg PO BID 7 days #14 tabs 10/14/22 pantoprazole 40 mg tablet,delayed 40 mg PO DAILY #30 tabs 01/04/23 release chlorhexidine gluconate 0.12 % 15 ml buccal BID #118 mL 06/05/23 mouthwash (Peridex) dicyclomine 20 mg tablet 20 mg PO BID PRN abdominal pain #7 03/24/25 tabs ondansetron 4 mg disintegrating 4 mg PO Q8H PRN nausea and 03/24/25 tablet vomiting #20 tabs oxycodone 5 mg tablet 5 mg PO Q6H PRN severe pain (scale 03/24/25 score 7-10) #8 tabs loperamide 2 mg capsule (Imodium 2 mg PO Q6H PRN loose stool #10 03/29/25 A-D) caps acetaminophen-pamabrom 500 mg-25 1 tab PO Q4-6H PRN menstrual pain 04/03/25 mg tablet (Midol) #16 tabs ofatumumab 20 mg/0.4 mL 20 mg (0.4 mL) subcut QMONTH 30 04/06/25 subcutaneous pen injector days #0.4 mL (Kesimpta Pen) acetaminophen 500 mg capsule 1,000 mg (2 x 500 mg) PO Q8H PRN 04/07/25 fever or pain #18 caps famotidine 40 mg tablet 40 mg PO BID #60 tabs 04/07/25 ketorolac 10 mg tablet 10 mg PO Q8H PRN pain #7 tabs 04/08/25 Allergies Allergy/AdvReac Type Severity Reaction Status Date / Time adhesive (ADHESIVE) Allergy Unknown RASH, SKIN Verified 04/08/25 16:22 BREAKDOWN clindamycin AdvReac Gastrointestinal Verified 04/08/25 16:22 Upset SEASONAL ALLERGIES Allergy Unknown RUNNY Uncoded 04/08/25 16:22 NOSE, CONGESTION, WATERY EYES PMFSH Past Medical History Medical History Pilonidal abscess of zenia cleft Multiple sclerosis Tobacco abuse (06/30/22) Seasonal allergies Sacroiliitis (09/22/19) Depression ASCUS with positive high risk HPV cervical Anxiety (06/30/22) Right radial head fracture Left radial head fracture Skin lesion of back Multiple sclerosis No known health problems Surgical History H/O LEEP History of cholecystectomy H/O removal of cyst Social History Social History Household Members: Spouse and Children Housing: House Alcohol intake: former Patient Tobacco Use Status: Current everyday Tobacco user Tobacco use type: Cigarette Cigarettes Per Day: 10 Years Smoked: 20 Substance Use Type: Marijuana Advance Directives: Yes Advance Directives Information Provided: No Advance Directives on File: No Do you have a plan to hurt others: No Plan Current occupational status: employed 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 Head: Atraumatic Eyes: Anicteric, Normal conjunctiva. ENT: Moist mucosa, no pallor. ? Neck: Supple. Skin: ?No observable rash or bruising on exposed or examined skin Respiratory: Breathing comfortably, No distress.Clear to auscultation bilaterally, symmetric chest expansion, No wheeze, rales, ronchi. Cardiovascular: Regular rate and rhythm. No murmurs or rub. Well perfused periphery, warm extremities. No edema. ? Abdominal: No focal tenderness. Soft, no objective distension. No palpable masses or obvious organomegaly. ?No guarding, no rebound tenderness or other peritoneal findings. : Chaperoned by PCT, pelvic unremarkable with minimal scant vaginal blood in the vault no trauma noted Neuro: Alert. Gross movement of all extremities intact. ? Psych: Calm. Cooperative. MSK: No grossly visible deformity. Vital signs: See flowsheet Vital Signs: Vital Signs - 24 hr 04/08/25 16:15 Temperature 98.2 F Pulse Rate 76 Respiratory Rate 20 Blood Pressure 120/72 Pulse Oximetry 97 Oxygen Delivery Method Room Air BMI result Body Mass Index 29.4 Medical Decision Making Medical Decision Making MDM Narrative: Medical Decision Making: [age] female with lower abdominal cramping and vaginal bleeding nearly 2 weeks after IUD removal. This could be 1st time menses, procedural cervical or uterine trauma, or hormonal withdrawal from removal of IUD. Pelvic is reassuring no active bleeding or trauma noted Preliminary Favored Differential Diagnosis: [ ] among additional considered etiologies Testing Interpreted Independently: ?See below for details Radiology or Lab testing Results Reviewed: ?See below for details Consults: ?See below for details Independent Historians/External Chart Reviews: ?See below for details Social Determinants of Health Impacting MDM/Planning: ?See below for details Lab Data 04/08/25 17:10 04/08/25 17:10 Labs: Lab Results 04/08/25 Range/Units 17:10 WBC 6.9 (4.8-10.8) X10*3/uL RBC 4.98 (4.20-5.50) X10*6/uL Hgb 15.4 (12.0-16.0) g/dl Hct 44.0 (37.0-47.0) % MCV 88.4 (80.0-98.0) fL MCH 30.9 (27.0-33.0) pg MCHC 35.0 (31.0-35.0) g/dl RDW 12.7 (11.0-16.0) % Plt Count 400 (160-400) X10*3/uL MPV 8.7 L (9.4-12.3) fL Immature Gran % (Auto) 0.3 (0.0-0.4) % Neut % (Auto) 69.0 (45-73) % Lymph % (Auto) 21.9 (20-40) % [place] % (Auto) 7.5 (2-11) % Eos % (Auto) 0.7 (0-4) % Baso % (Auto) 0.6 (0-2) % Lymph # (Auto) 1.5 (1.2-4.9) X10*3/uL [place] # (Auto) 0.5 (0.1-1.2) X10*3/uL Eos # (Auto) 0.1 (0.0-0.4) X10*3/uL Baso # (Auto) 0.0 (0.0-0.2) X10*3/uL Abs Immat Gran (auto) 0.02 (0.00-0.03) X10*3/uL Absolute Neuts (auto) 4.8 (2.0-8.3) x10*3/uL Absolute Nucleated RBC 0.000 (0.0-0.012) X10*3/uL Nucleated RBC % (auto) 0.0 (0.0-0.2) /100WBC PT 12.6 (11.2-13.5) SEC INR 1.0 (0.9-1.1) APTT 28.2 (26.7-34.1) SEC Sodium 140 (135-145) mmol/L Potassium 3.3 D (3.3-5.1) mmol/L Chloride 104 (96-108) mmol/L Carbon Dioxide 28 (22-29) mmol/L Anion Gap 11 L (12-20) BUN 4 L (9-16) mg/dL Creatinine 0.71 (0.5-1.4) mg/dL Estim Creat Clear Calc 97.5 Estimated GFR > 60 Random Glucose 107 (60-115) mg/dL Calcium 9.9 (8.4-10.2) mg/dL Beta HCG, Quant < 2 mIU/mL Medications Administered Discontinued Medications Generic Name Dose Route Start Last Admin Trade Name Freq PRN Reason Stop Dose Admin Sodium Chloride 1,000 mls @ 999 mls/hr 04/08/25 17:00 04/08/25 18:50 Ns IV 04/08/25 18:00 Infused .Q1H1M CARMEL Infusion Ketorolac Tromethamine 15 mg 04/08/25 16:48 04/08/25 17:02 Ketorolac Tromethamine 15 Mg/Ml Vial IVPUSH 04/08/25 16:49 15 mg ONCE ONE Administration Ondansetron HCl 4 mg 04/08/25 16:47 04/08/25 17:02 Ondansetron Odt 4 Mg Tab.Rapdis TRANSLINGU 04/08/25 16:48 4 mg ONCE ONE Administration Discharge Plan Discharge Clinical Impression: Abnormal vaginal bleeding Patient Disposition: Home, Self-Care Instructions: Abnormal (Dysfunctional) Uterine Bleeding (ED) Additional Instructions: You were evaluated for vaginal bleeding after IUD was removed nearly 12 days ago. We do not find any concerning lab findings and your pain was relieved with intravenous ketorolac we have tried to prescribe you that. You also received IV fluids. Call OBGYN for follow up Prescriptions: New ketorolac 10 mg tablet 10 mg PO Q8H PRN (Reason: pain) Qty: 7 0RF Rx Instructions: maximum total duration of 5 days from all oral, intranasal, or parenteral formulations. Tolerated in the ED with significant pain relief No Action Kesimpta Pen 20 mg/0.4 mL pen injector 20 mg subcut QMONTH 30 Days Qty: 0.4 11RF ibuprofen 600 mg tablet 600 mg PO Q6H PRN (Reason: pain) Qty: 30 0RF pantoprazole 40 mg tablet,delayed release (DR/EC) 40 mg PO DAILY Qty: 30 0RF ondansetron 4 mg tablet,disintegrating 4 mg PO Q8H PRN (Reason: nausea and vomiting) Qty: 20 0RF oxycodone 5 mg tablet 5 mg PO Q6H PRN (Reason: severe pain (scale score 7-10)) Qty: 8 0RF Rx Instructions: Partial Fill upon patient request. Midol 500-25 mg tablet 1 tab PO Q4-6H PRN (Reason: menstrual pain) Qty: 16 0RF Rx Instructions: PRN cramps naproxen 500 mg tablet 500 mg PO BID 7 Days Qty: 14 0RF chlorhexidine gluconate [Peridex] 0.12 % mouthwash 15 ml buccal BID Qty: 118 0RF losartan 25 mg tablet 25 mg PO DAILY loperamide [Imodium A-D] 2 mg capsule 2 mg PO Q6H PRN (Reason: loose stool) Qty: 10 0RF acetaminophen 500 mg capsule 1,000 mg PO Q8H PRN (Reason: fever or pain) Qty: 18 0RF famotidine 40 mg tablet 40 mg PO BID Qty: 60 0RF venlafaxine 75 mg capsule,extended release 24hr 75 mg PO DAILY colestipol 1 gram tablet 1 g PO BID norethindrone (contraceptive) 0.35 mg tablet 0.35 mg PO DAILY dicyclomine 20 mg tablet 20 mg PO BID PRN (Reason: abdominal pain) Qty: 7 0RF Print Language: Kiswahili
[2025-04-08 17:17] LABS: MANUAL DIFF FLAG NO
[2025-04-08 17:18] LABS: Hematocrit 44.0 % (37.0-47.0); Hemoglobin 15.4 g/dl (12.0-16.0); Imm Gran Abs Auto 0.02 X10*3/uL (0.00-0.03); Imm Gran Pct Auto 0.3 % (0.0-0.4); Lymphocytes Absolute Auto 1.5 X10*3/uL (1.2-4.9); Mean Corpuscular HGB Conc 35.0 g/dl (31.0-35.0); Mean Corpuscular Hemoglobin 30.9 pg (27.0-33.0); Mean Corpuscular Volume 88.4 fL (80.0-98.0); NRBC Abs Auto 0.000 X10*3/uL (0.0-0.012); NRBC Pct Auto 0.0 /100WBC (0.0-0.2); Platelet Count 400 X10*3/uL (160-400); Red Blood Count 4.98 X10*6/uL (4.20-5.50); White Blood Count 6.9 X10*3/uL (4.8-10.8)
[2025-04-08 17:27] LABS: INTERNATIONAL NORM RATIO 1.0 (0.9-1.1); Prothrombin Time 12.6 SEC (11.2-13.5)
[2025-04-08 17:30] LABS: Partial Thromboplastin Time 28.2 SEC (26.7-34.1)
[2025-04-08 17:39] LABS: Anion Gap 11 (12-20); Blood Urea Nitrogen 4 mg/dL (9-16); Calcium 9.9 mg/dL (8.4-10.2); Carbon Dioxide 28 mmol/L (22-29); Chloride 104 mmol/L (96-108); Creatinine Clr Calc Pharmacy 97.5; Estimated Glomerular Filt Rate > 60; Potassium 3.3 mmol/L (3.3-5.1); Sodium 140 mmol/L (135-145)
[2025-04-08 19:36] VITALS: BP 128/68; PULSE 77; RESP 16; TEMP 36.7; O2SAT 96
[2025-04-08 19:38] VITALS: BP 128/68; PULSE 77; RESP 16; TEMP 36.7; O2SAT 96
--- OUTSIDE RECORDS SUMMARY | 2025-04-08 23:59 | XMS_ITS | Continuity of Care Document ---
Author Organization [facility] Address [address] [place] [address]- Care Team Providers Care Employment Clerk Name Role Phone Yesica Castillo Primary Care Physician Encounter [facility] Date([facility]): 03/09/25 - 04/08/25 [facility] [address] [place] [address]- Encounter Type: Triage Allergies, Adverse Reactions, Alerts [...] mL, 0 Refills,Maintenance, 04/01/25 12:04:00 PM EST, [facility]/pharmacy #[id number], Partial fill upon patient [...] Maintenance, 03/12/25 10:33:00 AM EDT, [id number], 158, cm, 06/12/24 9:21:00 EST, Height Start Date: 03/12/25 Status: Ordered Medication Dispense Status: Completed Quantity: 720.0 Unit: tablet Total Allowed Fills: 1 Fills Dispensed: 0 Daily Tamir oral tablet 1 tablet, By Mouth, Daily, # 90 tablet, 3 Refills, Maintenance, 03/09/25 3:56:00 PM EDT, [id number], 90, TAKE 1 TABLET BY MOUTH EVERY DAY, 158, cm, 06/12/24 9:21:00 EST, Height Start Date: 03/09/25 Status: Ordered Medication Dispense Status: Completed Quantity: 90.0 Unit: tablet Total Allowed Fills: 1 Fills Dispensed: 0 famotidine 20 mg oral tablet 1, tablet, By Mouth, Daily at bedtime, # 90 tablet, Refills 0, Maintenance, 03/06/24 11:07:00 AM EDT, Route to Pharmacy Electronically, [id number], 158, cm, 10/04/23 12:42:00 EDT, Height Start [...] Soft Stop, 04/01/25 12:03:00 PM EST, Tablet, [facility]/pharmacy #[id number], Partial fill upon patient [...] 12:08:00 PM EST, Route to Pharmacy Electronically, [facility]/pharmacy #[id number], Partial fill upon patient [...] 6 Refills, Maintenance, 03/25/25 9:17:00 AM EST, [facility]/pharmacy #[id number], Partial fill upon patient [...] 0 Refills, Maintenance, 02/25/25 4:28:00 PM EDT, [facility]/pharmacy #[id number], Refills require visit. Please contact [...] Primary Care Nurse Name: Yesica Castillo Position: [facility] PCO Associate Professional Member Role: PCP Address: [address] [place] [address]- Telecom: Name: Maggie Rogel RN Position: [facility] AMB Nurse Member Role: Primary Care Nurse Name: Merna Manzano RN Position: [facility] RN Member Role: Primary Care Nurse Name: Iva Martinez RN Position: [facility] RN Member Role: Primary Care Nurse Care Team Related Persons Name: HALIMA JARAMILLO Name: LISAAugust Name: NONE, NONE Name: CHATA EATON Name: REBECCA EATON Insurance Providers [facility] Information #: 1 Payer: [facility] Payer Identifier: NA Member Number: [id number] Group Number: [id number] Subscriber Identifier: NA Relationship to Subscriber: self Coverage Type: Medicaid (Managed Care) Coverage Verification Date: HOSSEIN Telecom: NA Address: NA
== END 2025-04-08 19:40 | disposition home or self-care (01) ==
PROVIDERS: Emergency Provider Emergency Medicine; PCP Physician Assistant
DX: N93.9 Abnormal uterine and vaginal bleeding, unspecified (principal); R10.20 Pelvic and perineal pain unspecified side; F17.200 Nicotine dependence, unspecified, uncomplicated; Z71.6 Tobacco abuse counseling
CPT/HCPCS: 36415; 80048; 84702; 85025; 85610; 85730; 96361; 96374; 99284; J1885

== ENCOUNTER 2025-04-09 12:25 | Outpatient (AMB) | payer OTHER, SELFPAY ==
--- OUTSIDE RECORDS SUMMARY | 2025-04-08 23:59 | XMS_ITS | Continuity of Care Document ---
Author Organization [facility] Clay Trae lt Address [address] [place] [address]- Care Team Providers Care Cryptologic Technician Operator/Analyst Name Role Phone Yesica Castillo Primary Care Physician [phone] Encounter [facility] [id number] Date(s): 04/01/25 - 04/08/25 [facility] Adult [address] [place] [address]- Attending Physician: Ian Bates MD Encounter Type: Office Visit Allergies, Adverse Reactions, Alerts Substance Criticality Severity Reaction Reaction Severity Status clindamycin Vomiting Nausea Stomach pain Active Adhesive Bandage HIVES Act janet Fish Active Functional Status Functional Status Assessment Assessment Assessment Component Result Effecti ve Date Disability status [CUBS] I'm in Crisis - acute or chronic symptoms affecting housing, employment, social interactions, etc. 04/01/25 Do you need any daina tional assistance or accommodations during your visit No 04/01/25 Are you deaf, or do you have serious difficulty hearing No 04/01/25 Are you blind, or do you have serious difficulty seeing, even when wearing glasses No 04/01/25 Because of a physica l, mental, or emotional condition, do you have serious difficulty concentrating, remembering, or making decisions No 04/01/25 Do you have serious difficulty walking or climbing stairs No 04/01/25 Do you have difficul ty dressing or bathing No 04/01/25 Because of a physica l, mental, or emotional condition, do you have difficulty doing errands alone such as visiting a physician's office or shopping Yes 04/01/25 Difficulty communica ting in usual language No 04/01/25 Difficulty Reading O r Writing No 04/01/25 Immunizations Given and Recorded Vaccine Date Status Refusal Reason tetanus/diphtheria/pertussis, acel(Tdap) 08/10/14 Given Medications Carafate 1 gm/10 ml oral suspension 10 mL = 1 Gm, By Mouth, 3 times a day before meals and bedtime, PRN Dyspepsia, # 600 mL, 0 Refills,Maintenance, 04/01/25 12:04:00 PM EST, [facility]/pharmacy #[id number], Partial fill upon patient request if [...] 3 Refills, Maintenance, 03/12/25 10:33:00 AM EDT, [facility] STORE [id number], 158, cm, 06/12/24 9:21:00 EST, Height Start Date: 03/12/25 Status: Ordered Medication Dispense Status: Completed Quantity: 720.0 Unit: tablet Total Allowed Fills: 1 Fills Dispensed: 0 Daily Tamir oral tablet 1 tablet, By Mouth, Daily, # 90 tablet, 3 Refills, Maintenance, 03/09/25 3:56:00 PM EDT, [facility] STORE [facility], 90, TAKE 1 TABLET BY MOUTH EVERY DAY, 158, cm, 06/12/24 9:21:00 EST, Height Start Date: 03/09/25 Status: Ordered Medication Dispense Status: Completed Quantity: 90.0 Unit: tablet Total Allowed Fills: 1 Fills Dispensed: 0 famotidine 20 mg oral tablet 1, tablet, By Mouth, Daily at bedtime, # 90 tablet, Refills 0, Maintenance, 03/06/24 11:07:00 AM EDT, Route to Pharmacy Electronically, [facility] STORE [id number], 158, cm, 10/04/23 12:42:00 EDT, Height Start [...] Stop, 04/01/25 12:03:00 PM EST, Tablet, [facility]/pharmacy #[id number], Partial fill upon patient request if [...] EST, Route to Pharmacy Electronically, [facility]/pharmacy #[id number], Partial fill upon patient request if [...] prescription is for a schedule II opioiddrug., [email or web address], 03/25/25 8:59:00 EST, Height Start Date: 03/25/25 [...] if you have not already done so., [email or web address], 06/12/24 9:21:00 EST, Height Start Date: 02/25/25 Status: Ordered Medication Dispense Status: Completed Quantity: 90.0 Unit: capsule Total Allowed Fills: 1 Fills Dispensed: 0 venlafaxine 75 mg oral capsule, extended release See Instructions, TAKE 1 CAPSULE BY MOUTH DAILY, TAKE TOGETHER WITH 37.5MG FOR TOTAL DOSE OF 112.5MG, # 90 capsule, 0 Refills, Maintenance, 02/25/25 4:28:00 PM EDT, [facility]/pharmacy #[id number], Refills requirevisit. Please contact office to schedule it if you have not already done so., [email or web address], 06/12/24 9:21:00 EST, Height Start Date: 02/25/25 [...] is for a schedule II opioid drug., [email or web address], 06/12/24 9:21:00 EST, Height Start Date: 01/15/25 Stop Date: 07/14/25 Status: Ordered Medication Dispense Status: Completed Quantity: 30.0 Unit: capsule Total Allowed Fills: 6 Fills Dispensed: 0 Mental Status Mental Status Assessment Assessment Assessment Component Result Effecti ve Date Patient Health Questionnaire 2 item (PHQ-2) total score [Reported] 6 04/01/25 Mental Status Assessment Assessment Assessment Component Result Effecti ve Date Patient Health Questionnaire 9 item (PHQ-9) total score [Reported] 16 04/01/25 Problem List Condition Confirmation Course Effective Dates [...] [Reference Range]: 1 2 Height 158 cm (04/01/25 11:14 AM) 158 cm (04/01/25 11:02 AM) Weight 73.8 kg (04/01/25 11:02 AM) Oxygen Saturation [94-100 %] 98 % (04/01/25 11:02 AM) Pulse Rate [55-90 bpm] 96 bpm *H* (04/01/25 11:02 AM) Body Mass Index [18.5-24.99 kg/m2] 29.56 kg/m2 *H* (04/01/25 11:02 AM) Blood Pressure [90-138/55-84 mm Hg] 129/ 91mm Hg (04/01/25 11:14 AM) 139/94mm Hg *H* (04/01/25 11:02 AM) Mode of Delivery (Oxygen) Room air (04/01/25 11:02 AM) Blood pressure sites Arm, left (04/01/25 11:14 AM) Arm, left (04/01/25 11:02 AM) Weight Obtained Via Standing scale (04/01/25 11:02 AM) Social History Social History Type Response Smoking Status 10 or more cigarette s (1/2 pack or more)/day in last 30 days; Tobacco user in household: Yes; Tobacco use times per day: 1ppd; entered on: 04/01/25 Sex Female Sex Representation Female (finding) Patient Care team information Care Team Personnel Name: Anh Victoria RN Position: [facility] RN Member Role: Primary Care Nurse Name: Yesica Castillo Position: [facility] PCO Associate Professional Member Role: PCP Address: [address] [place] [id number] Telecom: Name: Maggie Rogel RN Position: [facility] AMB Nurse Member Role: Primary Care Nurse Name: Merna Manzano RN Position: [facility] RN Member Role: Primary Care Nurse Name: Iva Martinez RN Position: [facility] RN Member Role: Primary Care Nurse Care Team Related Persons Name: HALIMA JARAMILLO Name: LISA LETY Name: NONE, NONE Name: CHATA EATON Name: REBECCA EATON Insurance Providers [facility] Plan Information #: 1 Payer: [facility] Payer Identifier: HOSSEIN Member Number: [id number] Group Number: [id number] Subscriber Identifier: [id number] Relationship to Subscriber: self Coverage Type: Medicaid (Managed Care) Coverage Verification Date: Telecom: NA Address:
--- NOTE | 2025-04-09 12:25 | MHC.OFFVIS ---
Intake Visit Reasons: post op f/u bleeding Allergies adhesive (ADHESIVE) Allergy (Unknown, Verified 04/08/25 16:22) RASH, SKIN BREAKDOWN clindamycin Adverse Reaction (Verified 04/08/25 16:22) Gastrointestinal Upset SEASONAL ALLERGIES Allergy (Unknown, Uncoded 04/08/25 16:22) RUNNY NOSE, CONGESTION, WATERY EYES HPI Comments Details: The patient is scheduled a telehealth visit for ER follow-up. Was offered in person visit but does not have transportation. N pain, vagginal bleeding has shameka Hysteroscopic IUD removal of levo norgestrel reservoir on 03/27/2025 The patient went to the emergency room because of vaginal bleeding. The following workup was done: CBC within normal HCG less than [address] of abdomen and pelvis showed the following: No consolidation or effusion. Previous cholecystectomy. No biliary ductal dilatation. Low-attenuation of liver parenchyma suggestive of steatosis. The spleen, pancreas, adrenal glands and kidneys are unremarkable. No ureteral stones and no hydronephrosis or hydroureter. No perinephric stranding. No bowel obstruction, pneumoperitoneum, or pneumatosis. No free fluid. Appendix is unremarkable. Urinary bladder within normal limits and only mildly filled. Retroverted uterus. 3.1 cm right ovarian cyst and 1.9 cm right ovarian likely corpus luteum cyst. 1.8 cm left ovarian cyst. Mild atherosclerotic vascular disease with no aneurysm of abdominal aorta. The bones are intact. IMPRESSION: 1. No acute findings. ER physician exam noted the following: Abdominal: No focal tenderness. Soft, no objective distension. No palpable masses or obvious organomegaly. ?No guarding, no rebound tenderness or other peritoneal findings. : Chaperoned by PCT, pelvic unremarkable with minimal scant vaginal blood in the vault no trauma noted [facility] Medical History Pilonidal abscess of cleft Multiple sclerosis Tobacco abuse (06/30/22) Seasonal allergies Sacroiliitis (09/22/19) Depression ASCUS with positive high risk HPV cervical Anxiety (06/30/22) Right radial head fracture Left radial head fracture Skin lesion of back Multiple sclerosis No known health problems Surgical History H/O LEEP History of cholecystectomy H/O removal of cyst Social History Household Members: Spouse and Children Housing: House Alcohol intake: former Patient Tobacco Use Status: Current everyday Tobacco user Tobacco use type: Cigarette Cigarettes Per Day: 10 Years Smoked: 20 Substance Use Type: Marijuana Current occupational status: employed 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, 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 Sexual orientation: Straight/Heterosexual Gender identity: Female Review of Systems Const All systems reviewed & are unremarkable except as noted in HPI and below Reports as per HPI and Reports no additional complaints GI Reports no additional complaints Reports no additional complaints Telehealth Telehealth Telehealth Platform: Applifier Location of provider rendering services: practice address Location of patient: address on file Patient Identification confirmed using: Name, : Yes Telehealth method: video Patient verbally consented to treatment: Yes Patient verbally consented to billing insurance company: Yes Minutes spent on Phone/Video with Pt.: 6 Assessment & Plan Assessment & Plan (1) Abnormal uterine bleeding (AUB): Code(s): N93.9 - Abnormal uterine and vaginal bleeding, unspecified Category: Medical Plan: Discussed with the patient the workup done in the emergency room and the physical exam done by the emergency room, explained to the patient that my evaluation might be inaccurate since the visit is in not person and I did not perform the exam myself but reviewing the workup done in the emergency room and the physical exam of the emergency room physician, recommended follow-up within 2 weeks for re-evaluation of AUB, discussion with family planning meanwhile use backup method for control to prevent and annual exam. Instructions given the patient to call or go to emergency room in case of fever, abdominal pain, vaginal bleeding. All questions answered, the patient verbalized understanding I spent a total of 20 minutes reviewing the chart, talking to the patient via video and documenting in the medical record. Coding Level of Care Code Tele Est Pt Level 3 (66486) Diagnoses Abnormal uterine bleeding (AUB) N93.9
== END 2025-04-09 13:11 | disposition home or self-care (01) ==
LOC: HO.HWS 12:25
PROVIDERS: PCP Physician Assistant; Visit Provider Obstetrics & Gynecology
DX: N93.9 Abnormal uterine and vaginal bleeding, unspecified (principal)
CPT/HCPCS: 99213

== ENCOUNTER 2025-04-10 19:15 | Emergency (ER) | payer OTHER, SELFPAY ==
--- OUTSIDE RECORDS SUMMARY | 2025-04-09 23:59 | XMS_ITS | Continuity of Care Document ---
[facility] Address [address] [place] [address]- Care Team Providers Care Patient Support Specialist Name Role Phone Yesica Castillo Primary Care Physician [phone] En[facility] Date(s): 03/10/25 - 04/09/25 [facility] Adult [address] [place] [address]- Encounter Type: Triage Allergies, Adverse Reactions, Alerts [...] mL, 0 Refills,Maintenance, 04/01/25 12:04:00 PM EST, [facility] [...] Maintenance, 03/12/25 10:33:00 AM EDT, [facility], 158, cm, 06/12/24 9:21:00 EST, Height Start Date: 03/12/25 Status: Ordered Medication Dispense Status: Completed Quantity: 720.0 Unit: tablet Total Allowed Fills: 1 Fills Dispensed: 0 Daily Tamir oral tablet 1 tablet, By Mouth, Daily, # 90 tablet, 3 Refills, Maintenance, 03/09/25 3:56:00 PM EDT, [facility], 90, TAKE 1 TABLET BY MOUTH EVERY DAY, 158, cm, 06/12/24 9:21:00 EST, Height Start Date: 03/09/25 Status: Ordered Medication Dispense Status: Completed Quantity: 90.0 Unit: tablet Total Allowed Fills: 1 Fills Dispensed: 0 famotidine 20 mg oral tablet 1, tablet, By Mouth, Daily at bedtime, # 90 tablet, Refills 0, Maintenance, 03/06/24 11:07:00 AM EDT, Route to Pharmacy Electronically, [facility], 158, cm, 10/04/23 12:42:00 EDT, Height Start [...] Soft Stop, 04/01/25 12:03:00 PM EST, Tablet, [facility] [...] 12:08:00 PM EST, [facility] 6 Refills, Maintenance, 03/25/25 9:17:00 AM EST, [facility] [...] 0 Refills, Maintenance, 02/25/25 4:28:00 PM EDT, [facility]/pharmacy #[id number], Refills require visit. Please [...] Primary Care Nurse Name: Yesica Castillo Position: [facility] PCO Associate Professional Member Role: PCP Address: [address] [place] [address]- Telecom: Name: Maggie Rogel RN Position: [facility] AMB Nurse Member Role: Primary Care Nurse Name: Merna Manzano RN Position: [facility] RN Member Role: Primary Care Nurse Name: Iva Martinez RN Position: [facility] RN Member Role: Primary Care Nurse Care Team Related Persons Name: HALIMA JARAMILLO Name: LISAAugust Name: NONE, NONE Name: CHATA EATON Name: REBECCA EATON Insurance Providers [facility]or [facility] Information #: 1 Payer: [facility] Payer Identifier: NA Member Number: [id number] Group Number: [id number] Subscriber Identifier: NA Relationship to Subscriber: self Coverage Type: Medicaid (Managed Care) Coverage Verification Date: HOSSEIN Telecom: NA Address: NA
--- NOTE | 2025-04-10 | ECG_ITS ---
Test Reason : CHEST PAIN Blood Pressure : */* mmHG Vent. Rate : 86 BPM Atrial Rate : 86 BPM P-R Int : 138 ms QRS Dur : 88 ms QT Int : 376 ms P-R-T Axes : 40 55 25 degrees QTcB Int : 449 ms Normal sinus rhythm Normal ECG When compared with ECG of 03-Apr-2025 19:34, No significant change was found Referred By: Generic ED Physician Electronically Signed By: MALDONADO CLARK
--- NOTE | ~2025-04-10 | XR_ITS ---
CLINICAL HISTORY: Cough 1 view chest x-ray Comparison: CT/REG/SR - CT ABDOMEN PELVIS W IV CON - 04/03/25 21:59 EST Findings: The lungs are clear. Heart size is normal. No acute fracture. IMPRESSION: 1. No acute findings. This document has been electronically signed by: Mundo Carrasco MD on 04/10/2025 23:09:49
[2025-04-10 19:17] VITALS: BP 162/99; PULSE 105; O2SAT 97
[2025-04-10 19:20] VITALS: BP 183/103; PULSE 94; RESP 18; TEMP 36.8; O2SAT 96
--- OUTSIDE RECORDS SUMMARY | 2025-04-10 19:50 | XMS_ITS | Clinical Summary ---
Author Organization [facility] it Address [address] [place] [address] Care Team Providers Care Hat Band Attacher Name Role Phone Eleuterio Linares MD Primary Care Provider [phone] Surgical History Surgery Date Site/Laterality Comments OTHER SURGICAL HISTORY PROCEDURE: MS COLPOSCOPY CERVIX VAG ELTRD CONIZATION CERVIX; COMMENT: h/o HPV normal pap smears since CYST REMOVAL PROCEDURE: MS EXCISION PILONIDAL CYST/SINUS SIMPLE Medical History Medical [...] Mother Alive [place] Sister Alive asthma Uncle [place] at 60's, CVA Social History Tobacco Use [...] age to complete this topic Care Teams Hat Band Attacher Relationship Specialty Start Date End Date Eleuterio Linares MD [address] [place] [address] PCP - General 01/31/23
[2025-04-10 21:47] LABS: MANUAL DIFF FLAG NO
[2025-04-10 21:48] LABS: Hematocrit 40.8 % (37.0-47.0); Hemoglobin 14.4 g/dl (12.0-16.0); Imm Gran Abs Auto 0.03 X10*3/uL (0.00-0.03); Imm Gran Pct Auto 0.4 % (0.0-0.4); Lymphocytes Absolute Auto 1.9 X10*3/uL (1.2-4.9); Mean Corpuscular HGB Conc 35.3 g/dl (31.0-35.0); Mean Corpuscular Hemoglobin 30.8 pg (27.0-33.0); Mean Corpuscular Volume 87.4 fL (80.0-98.0); NRBC Abs Auto 0.000 X10*3/uL (0.0-0.012); NRBC Pct Auto 0.0 /100WBC (0.0-0.2); Platelet Count 386 X10*3/uL (160-400); Red Blood Count 4.67 X10*6/uL (4.20-5.50); White Blood Count 7.8 X10*3/uL (4.8-10.8)
[2025-04-10 22:00] VITALS: BP 145/88; PULSE 77; RESP 15; TEMP 36.7; O2SAT 97
[2025-04-10 22:02] LABS: Alanine Aminotransferase 45 U/L (0-31); Albumin Level 4.6 g/dL (3.5-5.0); Alkaline Phosphatase 61 U/L (39-117); Anion Gap 11 (12-20); Aspartate Amino Transferase 30 U/L (5-31); Blood Urea Nitrogen 5 mg/dL (9-16); Calcium 9.4 mg/dL (8.4-10.2); Carbon Dioxide 27 mmol/L (22-29); Chloride 108 mmol/L (96-108); Creatinine Clr Calc Pharmacy 97.2; Estimated Glomerular Filt Rate > 60; Lipase 30 U/L (8-78); Potassium 3.6 mmol/L (3.3-5.1); Sodium 142 mmol/L (135-145); Total Protein 6.8 g/dL (6.5-8.0)
--- NOTE | 2025-04-10 22:03 | ED.ABDPAIN ---
HPI - Abdominal Pain General Chief Complaint: Abdominal Pain Stated Complaint: abd pain x3 weeks Time Seen by Provider: 04/10/25 20:56 History of Present Illness ED Provider: Irene Wood HPI narrative: 40-year-old female with medical history significant for depression, anxiety, MS, abnormal uterine bleeding status post IUD removal due to malpositioning complicated by retained fragments of the IUD within the uterus, s/p removal intraoperatively by OBGYN on 03/27/25 presents to the ED reporting her abdomen and feels very acidy . This has been ongoing for several weeks since the procedure. She is currently on omeprazole, Pepcid, and Carafate. She does not feel this is helping very much. She endorses some nausea, denies any vomiting. Reports that she only ate a yogurt today, and feels as though she may have some fear of eating. She is tearful. Denies any chest pain or pressure, shortness of breath. No fever, chills. Reports that she feels very fatigued, and it experiencing difficulty doing her regular daily activities due to this fatigue. She endorses some anxiety related to her health. She also reports right ear fullness. No drainage, bleeding. No tinnitus. Related Data Home Medications ?Medication ?Instructions ?Recorded ?Confirmed colestipol 1 gram tablet 1 g PO BID 11/24/20 11/24/20 venlafaxine 75 mg capsule,extended 75 mg PO DAILY 11/24/20 11/24/20 release 24 hr norethindrone (contraceptive) 0.35 0.35 mg PO DAILY 10/31/21 mg tablet losartan 25 mg tablet 25 mg PO DAILY 03/27/25 03/27/25 Previous Rx's ?Medication ?Instructions ?Recorded ibuprofen 600 mg tablet 600 mg PO Q6H PRN pain #30 tabs 10/11/21 naproxen 500 mg tablet 500 mg PO BID 7 days #14 tabs 10/14/22 pantoprazole 40 mg tablet,delayed 40 mg PO DAILY #30 tabs 01/04/23 release chlorhexidine gluconate 0.12 % 15 ml buccal BID #118 mL 06/05/23 mouthwash (Peridex) dicyclomine 20 mg tablet 20 mg PO BID PRN abdominal pain #7 03/24/25 tabs ondansetron 4 mg disintegrating 4 mg PO Q8H PRN nausea and 03/24/25 tablet vomiting #20 tabs oxycodone 5 mg tablet 5 mg PO Q6H PRN severe pain (scale 03/24/25 score 7-10) #8 tabs loperamide 2 mg capsule (Imodium 2 mg PO Q6H PRN loose stool #10 03/29/25 A-D) caps acetaminophen-pamabrom 500 mg-25 1 tab PO Q4-6H PRN menstrual pain 04/03/25 mg tablet (Midol) #16 tabs ofatumumab 20 mg/0.4 mL 20 mg (0.4 mL) subcut QMONTH 30 04/06/25 subcutaneous pen injector days #0.4 mL (Kesimpta Pen) acetaminophen 500 mg capsule 1,000 mg (2 x 500 mg) PO Q8H PRN 04/07/25 fever or pain #18 caps famotidine 40 mg tablet 40 mg PO BID #60 tabs 04/07/25 ketorolac 10 mg tablet 10 mg PO Q8H PRN pain #7 tabs 04/08/25 prochlorperazine maleate 10 mg 10 mg PO BID PRN nausea and 04/10/25 tablet (Compazine) vomiting 7 days #14 tabs Allergies Allergy/AdvReac Type Severity Reaction Status Date / Time adhesive (ADHESIVE) Allergy Unknown RASH, SKIN Verified 04/10/25 19:21 BREAKDOWN clindamycin AdvReac Gastrointestinal Verified 04/10/25 19:21 Upset SEASONAL ALLERGIES Allergy Unknown RUNNY Uncoded 04/10/25 19:21 NOSE, CONGESTION, WATERY EYES Review of Systems Review of Systems ROS is otherwise negative unless mentioned in HPI. [facility] Past Medical History Medical History Pilonidal abscess of zenia cleft Multiple sclerosis Tobacco abuse (06/30/22) Seasonal allergies Sacroiliitis (09/22/19) Depression ASCUS with positive high risk HPV cervical Anxiety (06/30/22) Right radial head fracture Left radial head fracture Skin lesion of back Multiple sclerosis No known health problems Surgical History H/O LEEP History of cholecystectomy H/O removal of cyst Social History Social History Household Members: Spouse and Children Housing: House Alcohol intake: former Patient Tobacco Use Status: Current everyday Tobacco user Tobacco use type: Cigarette Cigarettes Per Day: 10 Years Smoked: 20 Smoked in Last 30 Days: No Substance Use Type: Marijuana Advance Directives: No Advance Directives Information Provided: No Patient : No Current occupational status: employed 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 Constitutional: Well-appearing, NAD. Alert. Oriented X3. Eyes: EOMI. ENT: Pharynx normal. Neck: Normal inspection. Neck supple. CVS: Normal heart rate and rhythm. Pulses normal. Respiratory: No respiratory distress. Breath sounds normal. Abdomen: Soft and nontender. +BSx4. Skin: Skin warm and dry. Normal skin color. Extremities: No lower extremity edema. Neuro: Oriented X 3. No motor deficit. Psych: Anxious. Tearful. Vital Signs: Vital Signs - 24 hr 04/10/25 19:20 04/10/25 22:00 Temperature 98.2 F 98.0 F Pulse Rate 94 77 Respiratory Rate 18 15 Blood Pressure 183/103 H 145/88 H Pulse Oximetry 96 97 Oxygen Delivery Method Room Air Room Air BMI result Body Mass Index 30.0 Medical Decision Making Medical Decision Making MDM Narrative: This is a well-appearing, though tearful and anxious female, in no acute distress and answering all my questions appropriately. Upon chart review, she has had some health issues recently after a malpositioned IUD was noted, she then had the IUD removed however retained fragments were noted. She then had the IUD removed intraoperatively on 03/27/2025. Since then she has experienced some abdominal pain, and has also had 4, now 5 ER visits for this abdominal pain. She has had very extensive workups as well. She most recently had an abdominal CT 04/03/2025, showing no acute findings. There is no indication to repeat this imaging, as she has a benign abdominal exam, and lab work is overall reassuring it is similar to previous. I considered a pelvic ultrasound however there is no pelvic pain on exam. There is no vaginal bleeding or discharge. She appears very anxious, she is very tearful. We discussed her health related anxiety, and this appears to be likely the root cause. She is scared to eat because of the previous abdominal pain, which is likely now attributing to her nausea, because she is not taking enough food in. She likely feels very tired because she is not eating. There may be a component of depression. She is not on any antidepressants at this time. We will administer a dose of Compazine for her nausea, IV fluids. We will then p.o. trial the patient in the ED, and discuss possibly initiating antidepressants in the ED, or following up outpatient with PCP to discuss this further. She is agreeable to this. pending remainder of labs, reassessment. 2330-- reporting significant improvement after the Compazine. Her total bili is mildly elevated at 1.1 in comparison to 0.8, nonspecific. LFTs remain roughly the same. Urinalysis does show large blood, she has had blood previously, no signs of infection. Nonspecific. She is tolerating p.o.. We discussed extensively that she needs to eat frequent meals to help with energy levels and fatigue, there is no evidence of anemia on H&H, 14.4 and 40.8. There is no indication for additional workup, no for admission to the hospital. She is agreeable with the plan of care. I will prescribe her Compazine for nausea and I have recommended she follows up with PCP outpatient within the next 1 week. Agreeable and expressed understanding. Differential Diagnosis Differential Diagnoses: The differential diagnosis associated with the presentation includes chronic abdominal pain, electrolye abnormalities, viral illness, cystitis, anxiety, anemia Admission/Observation Consideration of admission/observation: Escalation of care including admission/observation considered (not indicated) Lab Data MDM Lab Attestation statement: I reviewed the patient's lab results. (reassuring, similar to previous) 04/10/25 21:40 04/10/25 21:40 Labs: Lab Results 04/10/25 04/10/25 Range/Units 21:40 21:58 WBC 7.8 (4.8-10.8) X10*3/uL RBC 4.67 (4.20-5.50) X10*6/uL Hgb 14.4 (12.0-16.0) g/dl Hct 40.8 (37.0-47.0) % MCV 87.4 (80.0-98.0) fL MCH 30.8 (27.0-33.0) pg MCHC 35.3 H (31.0-35.0) g/dl RDW 12.8 (11.0-16.0) % Plt Count 386 (160-400) X10*3/uL MPV 8.7 L (9.4-12.3) fL Immature Gran % (Auto) 0.4 (0.0-0.4) % Neut % (Auto) 67.6 (45-73) % Lymph % (Auto) 24.4 (20-40) % [place] % (Auto) 6.7 (2-11) % Eos % (Auto) 0.4 (0-4) % Baso % (Auto) 0.5 (0-2) % Lymph # (Auto) 1.9 (1.2-4.9) X10*3/uL [place] # (Auto) 0.5 (0.1-1.2) X10*3/uL Eos # (Auto) 0.0 (0.0-0.4) X10*3/uL Baso # (Auto) 0.0 (0.0-0.2) X10*3/uL Abs Immat Gran (auto) 0.03 (0.00-0.03) X10*3/uL Absolute Neuts (auto) 5.3 (2.0-8.3) x10*3/uL Absolute Nucleated RBC 0.000 (0.0-0.012) X10*3/uL Nucleated RBC % (auto) 0.0 (0.0-0.2) /100WBC Sodium 142 (135-145) mmol/L Potassium 3.6 (3.3-5.1) mmol/L Chloride 108 (96-108) mmol/L Carbon Dioxide 27 (22-29) mmol/L Anion Gap 11 L (12-20) BUN 5 L (9-16) mg/dL Creatinine 0.72 (0.5-1.4) mg/dL Estim Creat Clear Calc 97.2 Estimated GFR > 60 Random Glucose 95 (60-115) mg/dL Calcium 9.4 (8.4-10.2) mg/dL Total Bilirubin 1.1 H (0.0-1.0) mg/dL Direct Bilirubin 0.3 (0.0-0.5) mg/dL AST 30 (5-31) U/L ALT 45 H (0-31) U/L Alkaline Phosphatase 61 (39-117) U/L Total Protein 6.8 (6.5-8.0) g/dL Albumin 4.6 (3.5-5.0) g/dL Lipase 30 (8-78) U/L Urine Color Yellow Urine Appearance Cloudy Urine pH 5.5 (5.0-9.0) Ur Specific [place] 1.010 (1.005-1.025) Urine Protein Trace (Neg-Trace) mg/dL Urine Glucose (UA) Negative (Negative) mg/dL Urine Ketones 15 (Negative) mg/dL Urine Blood Large (3+) H (Negative) Urine Nitrite Negative (Negative) Ur Leukocyte Esterase Negative (Negative) Urine RBC >20 H (0-2) /HPF Urine WBC 0-5 (0-5) /HPF Ur Squamous Epith Cells 11-20 (0-2) /HPF Urine Bacteria None Seen (None Seen) Hyaline Casts 0-2 (0-2) /LPF Independent Interpretation I performed an independent interpretation of an: EKG and Plain X-Ray Interpretation: Rate: 86 Rhythm: NSR [place]: 40/55/25 Normal P waves. Normal SHARON. Normal QRS complex. ST T wave : no depressions, elevations qTC: 449 prior studies:similar The study has been interpreted contemporaneously by me. I have reviewed the patient's imaging and agree with the radiologist's findings. Radiology Impression Discussion of test interpretation with radiology: I have reviewed the radiologist's reading. Radiologist Impression: CXR: IMPRESSION: 1. No acute findings. Independent Historian None External Record Review External record reviewed: Inpatient record, Office record, Outpatient record, Outside ED record and Other (ER visits) Tests considered The following testing was considered but not selected: None Prescription Management Antidepressant -- patient with f/u with PCP for further discussion Chronic Conditions Patient?s care impacted by: Other (anxiety, depression) Social Determinants Patient?s care significantly limited by Social Determinants of Health including: Problems related to primary support group Medications Administered Discontinued Medications Generic Name Dose Route Start Last Admin Trade Name Freq PRN Reason Stop Dose Admin Sodium Chloride 1,000 mls @ 999 mls/hr 04/10/25 21:26 04/10/25 22:43 Ns IV 04/10/25 22:26 Infused .Q1H1M ONE Infusion Loratadine 10 mg 04/10/25 21:28 04/10/25 21:46 Loratadine 10 Mg Tablet PO 04/10/25 21:29 10 mg ONCE ONE Administration Pantoprazole Sodium 40 mg 04/10/25 21:26 04/10/25 21:42 Pantoprazole Sodium 40 Mg/10 Ml Vial IVPUSH 04/10/25 21:27 40 mg ONCE ONE Administration Prochlorperazine Edisylate 10 mg 04/10/25 21:26 04/10/25 21:46 Prochlorperazine Edisylate 10 Mg/2 Ml Vial IVPUSH 04/10/25 21:27 10 mg ONCE ONE Administration Discharge Plan Discharge Clinical Impression: Nausea, Anxiety Patient Disposition: Home, Self-Care Instructions: Acute Nausea and Vomiting (DC), Anxiety (ED) Additional Instructions: As we discussed, your workup today was overall reassuring. Your lab work was very similar to previous. We discussed extensively your chronic abdominal pain, as it is very important that you eat nutritious meals regularly. If you do not eat, you will not feel energized. We also recommend that you follow up outpatient with your PCP regarding possibly initiating antidepressant/antianxiety medication, as you report excessive fatigue and anxiety related to eating food due to recent pain. We have given you a prescription for Compazine, the medication that we gave you in the ED, to help with your nausea. Please use this medication as prescribed. With any worsening complaints at any time, seek re-evaluation in the ED. Prescriptions: New prochlorperazine maleate [Compazine] 10 mg tablet 10 mg PO BID PRN (Reason: nausea and vomiting) 7 Days Qty: 14 0RF No Action Kesimpta Pen 20 mg/0.4 mL pen injector 20 mg subcut QMONTH 30 Days Qty: 0.4 11RF ibuprofen 600 mg tablet 600 mg PO Q6H PRN (Reason: pain) Qty: 30 0RF pantoprazole 40 mg tablet,delayed release (DR/EC) 40 mg PO DAILY Qty: 30 0RF ondansetron 4 mg tablet,disintegrating 4 mg PO Q8H PRN (Reason: nausea and vomiting) Qty: 20 0RF oxycodone 5 mg tablet 5 mg PO Q6H PRN (Reason: severe pain (scale score 7-10)) Qty: 8 0RF Rx Instructions: Partial Fill upon patient request. Midol 500-25 mg tablet 1 tab PO Q4-6H PRN (Reason: menstrual pain) Qty: 16 0RF Rx Instructions: PRN cramps naproxen 500 mg tablet 500 mg PO BID 7 Days Qty: 14 0RF chlorhexidine gluconate [Peridex] 0.12 % mouthwash 15 ml buccal BID Qty: 118 0RF losartan 25 mg tablet 25 mg PO DAILY loperamide [Imodium A-D] 2 mg capsule 2 mg PO Q6H PRN (Reason: loose stool) Qty: 10 0RF acetaminophen 500 mg capsule 1,000 mg PO Q8H PRN (Reason: fever or pain) Qty: 18 0RF famotidine 40 mg tablet 40 mg PO BID Qty: 60 0RF ketorolac 10 mg tablet 10 mg PO Q8H PRN (Reason: pain) Qty: 7 0RF Rx Instructions: maximum total duration of 5 days from all oral, intranasal, or parenteral formulations. Tolerated in the ED with significant pain relief venlafaxine 75 mg capsule,extended release 24hr 75 mg PO DAILY colestipol 1 gram tablet 1 g PO BID norethindrone (contraceptive) 0.35 mg tablet 0.35 mg PO DAILY dicyclomine 20 mg tablet 20 mg PO BID PRN (Reason: abdominal pain) Qty: 7 0RF Referrals: Yesica Dodd PA [Primary Care Provider, Internal Medicine] Print Language: Maltese
[2025-04-10 22:07] LABS: Appearance Urine Cloudy; Glucose Urine UA Negative (Negative); PH 5.5 (5.0-9.0); Specific Gravity - Urine 1.010 (1.005-1.025); UMIC TRIGGER UACC YES
[2025-04-10 23:38] VITALS: BP 144/90; PULSE 82; RESP 18; TEMP 36.8; O2SAT 97
[2025-04-10 23:42] VITALS: BP 144/90; PULSE 82; RESP 18; TEMP 36.8; O2SAT 97
== END 2025-04-10 23:43 | disposition home or self-care (01) ==
PROVIDERS: Nurse Practitioner; Emergency Provider Emergency Medicine; PCP Physician Assistant
DX: R10.20 Pelvic and perineal pain unspecified side (principal); R11.2 Nausea with vomiting, unspecified; F41.1 Generalized anxiety disorder; R07.89 Other chest pain; Z79.899 Other long term (current) drug therapy
CPT/HCPCS: 36415; 71045; 80053; 81001; 82248; 83690; 85025; 93005; 96361; 96374; 96375; 99285; J0737; J2470

== ENCOUNTER → 2025-04-10 21:14 | Outpatient (BNV) | payer OTHER, SELFPAY | PROVIDERS: Emergency Provider Emergency Medicine; PCP Physician Assistant; Visit Provider Internal Medicine | DX: R07.9 Chest pain, unspecified (principal) | CPT/HCPCS: 93010 ==

== ENCOUNTER → 2025-04-10 21:27 | Outpatient (BNV) | payer OTHER, SELFPAY | PROVIDERS: Emergency Provider Emergency Medicine; PCP Physician Assistant; Visit Provider Radiology Diagnostic Radiology | DX: R05.9 Cough, unspecified (principal) | CPT/HCPCS: 71045 ==

== ENCOUNTER 2025-04-12 18:31 | Emergency (ER) | payer OTHER, SELFPAY ==
--- OUTSIDE RECORDS SUMMARY | 2025-04-10 23:59 | XMS_ITS | Continuity of Care Document ---
Author Organization [facility] Trae [address] Address [address] [place] [address]- Care Team Providers Care Separator Operator Name Role Phone Yesica Castillo Primary Care Physician [phone] [id number]10[facility] Adult [address] [place] [address]- Encounter Type: Triage Allergies, Adverse Reactions, Alerts [...] 04/01/25 12:04:00 PM EST, [facility]/pharmacy #[id number], Partial fill upon patient request if [...] Maintenance, 03/12/25 10:33:00 AM EDT, [id number], 158, cm, 06/12/24 9:21:00 EST, Height Start Date: 03/12/25 Status: Ordered Medication Dispense Status: Completed Quantity: 720.0 Unit: tablet Total Allowed Fills: 1 Fills Dispensed: 0 Daily Tamir oral tablet 1 tablet, By Mouth, Daily, # 90 tablet, 3 Refills, Maintenance, 03/09/25 3:56:00 PM EDT, [id number], 90, TAKE 1 TABLET BY MOUTH EVERY DAY, 158, cm, 06/12/24 9:21:00 EST, Height Start Date: 03/09/25 Status: Ordered Medication Dispense Status: Completed Quantity: 90.0 Unit: tablet Total Allowed Fills: 1 Fills Dispensed: 0 famotidine 20 mg oral tablet 1, tablet, By Mouth, Daily at bedtime, # 90 tablet, Refills 0, Maintenance, 03/06/24 11:07:00 AM EDT, Route to Pharmacy Electronically, [id number], 158, cm, 10/04/23 12:42:00 EDT, Height Start [...] 12:03:00 PM EST, Tablet, [facility]/pharmacy #[id number], Partial fill upon patient request if [...] Route to Pharmacy Electronically, [facility]/pharmacy #[id number], Partial fill upon patient request if [...] Maintenance, 03/25/25 9:17:00 AM EST, [facility]/pharmacy #[id number], Partial fill upon patient request if [...] 02/25/25 4:28:00 PM EDT, [facility]/pharmacy #[id number], Refills require visit. Please contact office [...] Team Personnel Name: Anh Victoria RN Position: [facility] RN Member Role: Primary Care Nurse Name: Yesica Castillo Position: [facility] PCO Associate Professional Member Role: PCP Address: [address] [place] [address] [place] [address]- Telecom: Name: Maggie Rogel RN Position: [facility] AMB Nurse Member Role: Primary Care Nurse Name: Merna Manzano RN Position: [facility] RN Member Role: Primary Care Nurse Name: Iva Martinez RN Position: [facility] RN Member Role: Primary Care Nurse Care Team Related Persons Name: HALIMA JARAMILLO Name: LISA, APRIL Name: NONE, NONE Name: CHATA EATON Name: REBECCA EATON Insurance Providers Guarantor name: [facility]–1983 Information #: 1 Payer: [facility] Payer Identifier: HOSSEIN Member Number: [id number] Group Number: [id number] Subscriber Identifier: HOSSEIN Relationship to Subscriber: self Coverage Type: Medicaid (Managed Care) Coverage Verification Date: HOSSEIN Telecom: NA Address:
--- OUTSIDE RECORDS SUMMARY | 2025-04-11 23:59 | XMS_ITS | Continuity of Care Document ---
Author Organization [facility] [address] Address [address] [place] [address]- Care Team Providers Care Senior Recruiter Name Role Phone Yesica Castillo Primary [id number]11[facility]25 [facility] Adult [address] [place] [address]- Encounter Type: Triage Allergies, Adverse Reactions, Alerts [...] 0 Refills,Maintenance, 04/01/25 12:04:00 PM EST, [facility]/pharmacy #[id number], Partial fill upon patient request [...] Maintenance, 03/12/25 10:33:00 AM EDT, [facility], 158, cm, 06/12/24 9:21:00 EST, Height Start Date: 03/12/25 Status: Ordered Medication Dispense Status: Completed Quantity: 720.0 Unit: tablet Total Allowed Fills: 1 Fills Dispensed: 0 Daily Tamir oral tablet 1 tablet, By Mouth, Daily, # 90 tablet, 3 Refills, Maintenance, 03/09/25 3:56:00 PM EDT, [facility], 90, TAKE 1 TABLET BY MOUTH EVERY DAY, 158, cm, 06/12/24 9:21:00 EST, Height Start Date: 03/09/25 Status: Ordered Medication Dispense Status: Completed Quantity: 90.0 Unit: tablet Total Allowed Fills: 1 Fills Dispensed: 0 famotidine 20 mg oral tablet 1, tablet, By Mouth, Daily at bedtime, # 90 tablet, Refills 0, Maintenance, 03/06/24 11:07:00 AM EDT, Route to Pharmacy Electronically, [facility], 158, cm, 10/04/23 12:42:00 EDT, Height Start [...] Stop, 04/01/25 12:03:00 PM EST, Tablet, [facility]/pharmacy #[id number], Partial fill upon patient request [...] PM EST, Route to Pharmacy Electronically, [facility]/pharmacy #[id number], Partial fill upon patient request [...] Refills, Maintenance, 03/25/25 9:17:00 AM EST, [facility]/pharmacy #[id number], Partial fill upon patient request [...] Refills, Maintenance, 02/25/25 4:28:00 PM EDT, [facility]/pharmacy #[id number], Refills require visit. Please contact [...] Team Personnel Name: Anh Victoria RN Position: [facility] RN Member Role: Primary Care Nurse Name: Yesica Castillo Position: [facility] PCO Associate Professional Member Role: PCP Address: [address] [place] [address] Adult [facility] [place] [address]- Telecom: Name: Maggie Rogel RN Position: [facility] AMB Nurse Member Role: Primary Care Nurse Name: Merna Manzano RN Position: [facility] RN Member Role: Primary Care Nurse Name: Iva Martinez RN Position: [facility] RN Member Role: Primary Care Nurse Care Team Related Persons Name: HALIMA JARAMILLO Name: LISA, APRIL Name: NONE, NONE Name: CHATA EATON Name: REBECCA EATON Insurance Providers Guarantor name: [facility] Plan Information #: 1 Payer: [facility] Payer Identifier: HOSSEIN Member Number: [id number] Group Number: [id number] Subscriber Identifier: HOSSEIN Relationship to Subscriber: self Coverage Type: Medicaid (Managed Care) Coverage Verification Date: HOSSEIN Telecom: NA Address:
[2025-04-12 18:36] VITALS: BP 160/90; PULSE 90; O2SAT 96
[2025-04-12 18:40] VITALS: BP 155/92; PULSE 100; RESP 16; TEMP 36.6; O2SAT 98; BMI 28.7
--- NOTE | 2025-04-12 18:48 | PC.NURSE ---
This patient presents to ED via EM for left facial pain also endorsing left migraine. Denies any relief from toradol, ibuprofen, tylenol or zofran. States also has left jaw/tooth pain. Left face note to be swollen. VSS.
--- OUTSIDE RECORDS SUMMARY | 2025-04-12 19:17 | XMS_ITS | Clinical Summary ---
Author Organization [facility] it Address [address] [place] [address] Care Team Providers Care Healthcare Manager Name Role Phone Eleuterio Linares MD Primary Care Provider [phone] Surgical History Surgery Date Site/Laterality Comments OTHER SURGICAL HISTORY PROCEDURE: [place] COLPOSCOPY CERVIX VAG ELTRD CONIZATION CERVIX; COMMENT: h/o HPV normal pap smears since CYST REMOVAL PROCEDURE: [place] EXCISION PILONIDAL CYST/SINUS SIMPLE Medical History Medical [...] Mother Alive MS Sister Alive asthma Uncle [place] at 60's, CVA Social History Tobacco Use [...] age to complete this topic Care Teams Healthcare Manager Relationship Specialty Start Date End Date Eleuterio Linares MD [address] [place] [address] PCP - General 01/31/23
[2025-04-12 20:16] LABS: Hematocrit 40.2 % (37.0-47.0); Hemoglobin 14.1 g/dl (12.0-16.0); Imm Gran Abs Auto 0.04 X10*3/uL (0.00-0.03); Imm Gran Pct Auto 0.4 % (0.0-0.4); Lymphocytes Absolute Auto 1.7 X10*3/uL (1.2-4.9); MANUAL DIFF FLAG NO; Mean Corpuscular HGB Conc 35.1 g/dl (31.0-35.0); Mean Corpuscular Hemoglobin 30.5 pg (27.0-33.0); Mean Corpuscular Volume 86.8 fL (80.0-98.0); NRBC Abs Auto 0.000 X10*3/uL (0.0-0.012); NRBC Pct Auto 0.0 /100WBC (0.0-0.2); Platelet Count 384 X10*3/uL (160-400); Red Blood Count 4.63 X10*6/uL (4.20-5.50); White Blood Count 11.2 X10*3/uL (4.8-10.8)
[2025-04-12 20:22] LABS: Appearance Urine Clear; Glucose Urine UA Negative (Negative); PH 6.5 (5.0-9.0); Specific Gravity - Urine <= 1.005 (1.005-1.025)
[2025-04-12 20:33] LABS: Alanine Aminotransferase 43 U/L (0-31); Albumin Level 4.5 g/dL (3.5-5.0); Alkaline Phosphatase 60 U/L (39-117); Anion Gap 14 (12-20); Aspartate Amino Transferase 26 U/L (5-31); Blood Urea Nitrogen 3 mg/dL (9-16); Calcium 9.5 mg/dL (8.4-10.2); Carbon Dioxide 25 mmol/L (22-29); Chloride 108 mmol/L (96-108); Creatinine Clr Calc Pharmacy 96.3; Estimated Glomerular Filt Rate > 60; Magnesium 1.9 mg/dL (1.6-2.6); Potassium 3.6 mmol/L (3.3-5.1); Sodium 143 mmol/L (135-145); Total Protein 6.6 g/dL (6.5-8.0)
[2025-04-12 20:52] LABS: Resp Syncy Virus RNA Qual PCR NEGATIVE (Negative); SARS COV2 PCR INHOUSE NEGATIVE (Negative)
--- NOTE | 2025-04-12 21:25 | ED.GENADULT ---
HPI - General Adult General Chief complaint: General Medical Stated complaint: Headache all day, ?mouth abscess Time Seen by Provider: 04/12/25 21:25 Source: patient Mode of arrival: ambulatory Limitations: no limitations History of Present Illness ED Provider: Dr. Keila Aguilar HPI narrative: 40-year-old female with history of anxiety, dental caries presenting with left lower jaw pain and swelling ongoing for the last couple of days and worsening over the last several hours. Has been using ketorolac and acetaminophen at home without relief. Reports that she has ?bad teeth? and has been to the dentist several times over the last few months. Has had multiple fillings as well as pulled teeth on the right side. Denies associated fevers but admits that she ?feels hot all the time?. Admits to some nausea but no vomiting. No skin rashes. No difficulty swallowing or chewing. Related Data Home Medications ?Medication ?Instructions ?Recorded ?Confirmed colestipol 1 gram tablet 1 g PO BID 11/24/20 11/24/20 venlafaxine 75 mg capsule,extended 75 mg PO DAILY 11/24/20 11/24/20 release 24 hr norethindrone (contraceptive) 0.35 0.35 mg PO DAILY 10/31/21 mg tablet losartan 25 mg tablet 25 mg PO DAILY 03/27/25 03/27/25 Previous Rx's ?Medication ?Instructions ?Recorded ibuprofen 600 mg tablet 600 mg PO Q6H PRN pain #30 tabs 10/11/21 naproxen 500 mg tablet 500 mg PO BID 7 days #14 tabs 10/14/22 pantoprazole 40 mg tablet,delayed 40 mg PO DAILY #30 tabs 01/04/23 release chlorhexidine gluconate 0.12 % 15 ml buccal BID #118 mL 06/05/23 mouthwash (Peridex) dicyclomine 20 mg tablet 20 mg PO BID PRN abdominal pain #7 03/24/25 tabs ondansetron 4 mg disintegrating 4 mg PO Q8H PRN nausea and 03/24/25 tablet vomiting #20 tabs oxycodone 5 mg tablet 5 mg PO Q6H PRN severe pain (scale 03/24/25 score 7-10) #8 tabs loperamide 2 mg capsule (Imodium 2 mg PO Q6H PRN loose stool #10 03/29/25 A-D) caps acetaminophen-pamabrom 500 mg-25 1 tab PO Q4-6H PRN menstrual pain 04/03/25 mg tablet (Midol) #16 tabs ofatumumab 20 mg/0.4 mL 20 mg (0.4 mL) subcut QMONTH 30 04/06/25 subcutaneous pen injector days #0.4 mL (Kesimpta Pen) acetaminophen 500 mg capsule 1,000 mg (2 x 500 mg) PO Q8H PRN 04/07/25 fever or pain #18 caps famotidine 40 mg tablet 40 mg PO BID #60 tabs 04/07/25 ketorolac 10 mg tablet 10 mg PO Q8H PRN pain #7 tabs 04/08/25 prochlorperazine maleate 10 mg 10 mg PO BID PRN nausea and 04/10/25 tablet (Compazine) vomiting 7 days #14 tabs amoxicillin 875 mg-potassium 1 tab PO BID 10 days #20 tabs 04/12/25 clavulanate 125 mg tablet hydrocodone 5 mg-acetaminophen 325 1 tab PO Q6H PRN severe pain 04/12/25 mg tablet (scale score 7-10) #10 tabs Allergies Allergy/AdvReac Type Severity Reaction Status Date / Time adhesive (ADHESIVE) Allergy Unknown RASH, SKIN Verified 04/12/25 18:43 BREAKDOWN clindamycin AdvReac Gastrointestinal Verified 04/12/25 18:43 Upset SEASONAL ALLERGIES Allergy Unknown RUNNY Uncoded 04/12/25 18:43 NOSE, CONGESTION, WATERY EYES Review of Systems Review of Systems: As per HPI, full review of systems performed and negative but for the above mentioned pertinent positives and negatives. [facility] Past Medical History Medical History Pilonidal abscess of cleft Multiple sclerosis Tobacco abuse (06/30/22) Seasonal allergies Sacroiliitis (09/22/19) Depression ASCUS with positive high risk HPV cervical Anxiety (06/30/22) Right radial head fracture Left radial head fracture Skin lesion of back Multiple sclerosis No known health problems Surgical History H/O LEEP History of cholecystectomy H/O removal of cyst Social History Social History (Reviewed 04/13/25 @ 00:14 by PHILLY Kendall Household Members: Spouse and Children Housing: House Alcohol intake: former Patient Tobacco Use Status: Current everyday Tobacco user Tobacco use type: Cigarette Cigarettes Per Day: 10 Years Smoked: 20 Smoked in Last 30 Days: No Use of substances other than those prescribed or required for medical reasons: No Substance Use Type: Marijuana Advance Directives: No Advance Directives Information Provided: No Do you have a plan to hurt others: No Plan Patient : No Current occupational status: employed 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 SKIN: Normal skin color for ethnicity, warm, dry, no rashes noted. HEENT:? Normocephalic, atraumatic, no stridor, posterior oropharynx nonerythematous, EOMI, poor wrangell dentition, tenderness along the posterior molars, no fluctuance in the gums, mild erythema overlying the apices of the anterior molars, no broken teeth. NECK: Soft, supple, full ROM, midline structures nontender, no step-offs, no deformities, no lymphadenopathy. CHEST: Heart regular rate and rhythm, no murmurs, symmetric chest rise and fall. PULMONARY: Clear to auscultation bilaterally, no labored breathing, no wheezes/rhales/rhonchi. ABDOMINAL: Soft, nondistended, nontender, positive bowel sounds in all quadrants. : Deferred. MUSCULOSKELETAL: Normal tone, full range of motion, no deformities, no peripheral edema. NEURO: Alert and oriented x3, CN II through XII intact, equal strength and sensation bilateral upper and lower extremities, no focal neurologic deficits.? PSYCHIATRIC: Normal affect, fluid speech, good eye contact and appropriate demeanor. Vital Signs: Vital Signs - 24 hr 04/12/25 18:40 04/12/25 22:17 04/12/25 23:36 Temperature 98 F 98.1 F 98.1 F Pulse Rate 100 99 99 Respiratory Rate 16 18 18 Blood Pressure 155/92 H 155/89 H 155/89 H Pulse Oximetry 98 97 97 Oxygen Delivery Method Room Air Room Air Room Air BMI result Body Mass Index 28.7 Medications Administered Discontinued Medications Generic Name Dose Route Start Last Admin Trade Name Freq PRN Reason Stop Dose Admin Hydrocodone Bitart/Acetaminophen 1 tab 04/12/25 22:22 04/12/25 22:35 Hydrocodone Bit/Acetam 5/325 Tablet PO 04/12/25 22:23 1 tab ONCE ONE Administration Amoxicillin/Clavulanate Potassium 875 mg 04/12/25 22:22 04/12/25 22:35 Amoxicillin/Potassium Clav 875 Mg Tablet PO 04/12/25 22:23 875 mg ONCE ONE Administration Medical Decision Making Medical Decision Making [facility] Narrative: 40-year-old female with a history of dental caries presenting with dental pain. Patient presents today with a chief complaint of dental pain. Differential diagnosis includes dental caries, periapical abscess, apical abscess, deep space infection such as facial cellulitis or even Remy's angina. This patient does not show any evidence of acute ENT emergency. Patient will be prescribed antibiotics and anti-inflammatory with close follow-up with Dentistry in the next 24 hours. Return precautions, specifically of any type of neck swelling, difficulty swallowing or difficulty breathing were given. Differential Diagnosis Differential Diagnoses: The differential diagnosis associated with the presentation includes (As above) Admission/Observation Consideration of admission/observation: Escalation of care including admission/observation considered Lab Data [facility] Lab Attestation statement: I reviewed the patient's lab results. 04/12/25 20:04 04/12/25 20:04 Labs: Lab Results 04/12/25 Range/Units 20:04 WBC 11.2 H (4.8-10.8) X10*3/uL RBC 4.63 (4.20-5.50) X10*6/uL Hgb 14.1 (12.0-16.0) g/dl Hct 40.2 (37.0-47.0) % MCV 86.8 (80.0-98.0) fL MCH 30.5 (27.0-33.0) pg MCHC 35.1 H (31.0-35.0) g/dl RDW 12.6 (11.0-16.0) % Plt Count 384 (160-400) X10*3/uL MPV 8.8 L (9.4-12.3) fL Immature Gran % (Auto) 0.4 (0.0-0.4) % Neut % (Auto) 77.8 H (45-73) % Lymph % (Auto) 15.0 L (20-40) % Webb % (Auto) 6.0 (2-11) % Eos % (Auto) 0.4 (0-4) % Baso % (Auto) 0.4 (0-2) % Lymph # (Auto) 1.7 (1.2-4.9) X10*3/uL Webb # (Auto) 0.7 (0.1-1.2) X10*3/uL Eos # (Auto) 0.0 (0.0-0.4) X10*3/uL Baso # (Auto) 0.0 (0.0-0.2) X10*3/uL Abs Immat Gran (auto) 0.04 H (0.00-0.03) X10*3/uL Absolute Neuts (auto) 8.8 H (2.0-8.3) x10*3/uL Absolute Nucleated RBC 0.000 (0.0-0.012) X10*3/uL Nucleated RBC % (auto) 0.0 (0.0-0.2) /100WBC Sodium 143 (135-145) mmol/L Potassium 3.6 (3.3-5.1) mmol/L Chloride 108 (96-108) mmol/L Carbon Dioxide 25 (22-29) mmol/L Anion Gap 14 (12-20) BUN 3 L (9-16) mg/dL Creatinine 0.71 (0.5-1.4) mg/dL Estim Creat Clear Calc 96.3 Estimated GFR > 60 Random Glucose 99 (60-115) mg/dL Calcium 9.5 (8.4-10.2) mg/dL Magnesium 1.9 (1.6-2.6) mg/dL Total Bilirubin 0.8 (0.0-1.0) mg/dL AST 26 (5-31) U/L ALT 43 H (0-31) U/L Alkaline Phosphatase 60 (39-117) U/L Total Protein 6.6 (6.5-8.0) g/dL Albumin 4.5 (3.5-5.0) g/dL Urine Color Yellow Urine Appearance Clear Urine pH 6.5 (5.0-9.0) Ur Specific [place] <= 1.005 (1.005-1.025) Urine Protein Negative (Neg-Trace) mg/dL Urine Glucose (UA) Negative (Negative) mg/dL Urine Ketones Negative (Negative) mg/dL Urine Blood Negative (Negative) Urine Nitrite Negative (Negative) Ur Leukocyte Esterase Negative (Negative) Influenza Type A (PCR) NEGATIVE (Negative) Influenza Type B (PCR) NEGATIVE (Negative) RSV RNA Qual (PCR) NEGATIVE (Negative) SARS-CoV-2 RNA (RT-PCR) NEGATIVE (Negative) External Record Review External record reviewed: Inpatient record Prescription Management I considered prescription management with: Pain Medication and Antibiotic Chronic Conditions Patient?s care impacted by: Other (Anxiety) Social Determinants Patient?s care significantly limited by Social Determinants of Health including: Other Social Determinant of Health Discharge Plan Discharge Clinical Impression: Abscess of apex of dental root complicating chronic inflammation, Dental caries Patient Disposition: Home, Self-Care Instructions: Dental Abscess (ED) Additional Instructions: Take your antibiotic as prescribed until the course is completed. Do not stop this medication early if you start to feel better. Return to the emergency department with any new or worsening symptoms including: Worsening pain, fevers greater than 100? despite antibiotic treatment, vomiting, or any new symptom that concerns you. Call 911 with any medical emergency. Prescriptions: New hydrocodone-acetaminophen 5-325 mg tablet 1 tab PO Q6H PRN (Reason: severe pain (scale score 7-10)) Qty: 10 0RF Rx Instructions: Partial Fill upon patient request. amoxicillin-pot clavulanate 875-125 mg tablet 1 tab PO BID 10 Days Qty: 20 0RF No Action Kesimpta Pen 20 mg/0.4 mL pen injector 20 mg subcut QMONTH 30 Days Qty: 0.4 11RF ibuprofen 600 mg tablet 600 mg PO Q6H PRN (Reason: pain) Qty: 30 0RF pantoprazole 40 mg tablet,delayed release (DR/EC) 40 mg PO DAILY Qty: 30 0RF ondansetron 4 mg tablet,disintegrating 4 mg PO Q8H PRN (Reason: nausea and vomiting) Qty: 20 0RF oxycodone 5 mg tablet 5 mg PO Q6H PRN (Reason: severe pain (scale score 7-10)) Qty: 8 0RF Rx Instructions: Partial Fill upon patient request. Midol 500-25 mg tablet 1 tab PO Q4-6H PRN (Reason: menstrual pain) Qty: 16 0RF Rx Instructions: PRN cramps naproxen 500 mg tablet 500 mg PO BID 7 Days Qty: 14 0RF chlorhexidine gluconate [Peridex] 0.12 % mouthwash 15 ml buccal BID Qty: 118 0RF losartan 25 mg tablet 25 mg PO DAILY loperamide [Imodium A-D] 2 mg capsule 2 mg PO Q6H PRN (Reason: loose stool) Qty: 10 0RF acetaminophen 500 mg capsule 1,000 mg PO Q8H PRN (Reason: fever or pain) Qty: 18 0RF famotidine 40 mg tablet 40 mg PO BID Qty: 60 0RF ketorolac 10 mg tablet 10 mg PO Q8H PRN (Reason: pain) Qty: 7 0RF Rx Instructions: maximum total duration of 5 days from all oral, intranasal, or parenteral formulations. Tolerated in the ED with significant pain relief prochlorperazine maleate [Compazine] 10 mg tablet 10 mg PO BID PRN (Reason: nausea and vomiting) 7 Days Qty: 14 0RF venlafaxine 75 mg capsule,extended release 24hr 75 mg PO DAILY colestipol 1 gram tablet 1 g PO BID norethindrone (contraceptive) 0.35 mg tablet 0.35 mg PO DAILY dicyclomine 20 mg tablet 20 mg PO BID PRN (Reason: abdominal pain) Qty: 7 0RF Interventions: ED Discharge Assessment Last Done: 04/12/25 23:36 Discharge Date/Time: 04/12/25 23:36 Print Language: Estonian
[2025-04-12 22:17] VITALS: BP 155/89; PULSE 99; RESP 18; TEMP 36.7; O2SAT 97
[2025-04-12] MEDS: HYDROcodone Bit/Acetam 5/325 TABLET 1 TAB PO (22:35)
[2025-04-12 23:36] VITALS: BP 155/89; PULSE 99; RESP 18; TEMP 36.7; O2SAT 97
== END 2025-04-12 23:36 | disposition home or self-care (01) ==
PROVIDERS: Physician Assistant Medical; Emergency Provider Emergency Medicine
DX: K04.7 Periapical abscess without sinus (principal); K02.9 Dental caries, unspecified; R51.9 Headache, unspecified; Z03.818 Encounter for observation for suspected exposure to other biological agents ruled out
CPT/HCPCS: 80053; 81003; 83735; 85025; 87637; 99283; 99284

== ENCOUNTER 2025-04-13 19:57 | Emergency (ER) | payer OTHER, SELFPAY ==
[2025-04-13 20:06] VITALS: BP 138/89; BP 142/80; PULSE 80; PULSE 89; RESP 18; TEMP 36.4; O2SAT 97; O2SAT 99; BMI 29.5
--- OUTSIDE RECORDS SUMMARY | 2025-04-13 20:40 | XMS_ITS | Clinical Summary ---
Author Organization [employer] [facility] it Address [address] [place] [address] Care Team Providers Care Java Technical Architect Name Role Phone Eleuterio Linares MD Primary Care Provider [phone] Surgical History Surgery Date Site/Laterality Comments OTHER SURGICAL HISTORY PROCEDURE: [place] COLPOSCOPY CERVIX VAG ELTRD CONIZATION CERVIX; COMMENT: h/o HPV normal pap smears since CYST REMOVAL PROCEDURE: [place] EXCISION PILONIDAL CYST/SINUS SIMPLE Medical History Medical [...] age to complete this topic Care Teams Java Technical Architect Relationship Specialty Start Date End Date Eleuterio Linares MD [id number] [place] [address] PCP - General 01/31/23
[2025-04-13 21:54] VITALS: BP 136/84; PULSE 88; RESP 12; TEMP 36.7; O2SAT 99
--- NOTE | 2025-04-13 22:07 | ED_ITS ---
HPI - Abdominal Pain General Chief Complaint: Abdominal Pain Stated Complaint: abd pain 4 months Time Seen by Provider: 04/13/25 20:35 History of Present Illness ED Provider: Irene Wood HPI narrative: 40-year-old female PMH significant for depression, anxiety, MS, abnormal uterine bleeding s/p IUD removal due to malpositioning complicated by retained fragments of the IUD within the uterus, status post removal intraoperatively by OBGYN on 03/27/2025 presents to the ED for evaluation of generalized abdominal pain. Patient reports that her abdomen feels very acidity . She was seen in this ED for similar complaints on 04/10/2025. Which has been ongoing for several weeks. She has a scheduled visit with Gastroenterology on 04/23/2025. Denies any nausea, vomiting, diarrhea, constipation. Currently on omeprazole, Pepcid, Carafate. Denies any urinary complaints. No fever, chills. No chest pain or pressure, shortness of breath. Patient reports that she was seen in our ED yesterday evening for similar complaints but was diagnosed with a tooth infe ction and is currently on Augmentin. Related Data Home Medications ?Medication ?Instructions ?Recorded ?Confirmed colestipol 1 gram tablet 1 g PO BID 11/24/20 11/24/20 venlafaxine 75 mg capsule,extended 75 mg PO DAILY 12/0811/24/20 release 24 hr norethindrone (contraceptive) 0.35 0.35 mg PO DAILY mg tablet losartan 25 mg tablet 25 mg PO DAILY 03/27/2512/12 Previous Rx's ?Medication ?Instructions ?Recorded ibuprofen 600 mg tablet 600 mg PO Q6H PRN pain #30 t abs 10/11/21 naproxen 500 mg tablet 500 mg PO BID 7 days #14 tab s 10/14/22 pantoprazole 40 mg tablet,delayed 40 mg PO DAILY #30 t abs 01/04/23 release chlorhexidine gluconate 0.12 % 15 ml buccal BID #118 m L 06/05/23 mouthwash (Peridex) dicyclomine 20 mg tablet 20 mg PO BID PRN abdominal p ain #7 03/24/25 tabs ondansetron 4 mg disintegrating 4 mg PO Q8H PRN nausea and 03/24/25 tablet vomiting #20 tabs oxycodone 5 mg tablet 5 mg PO Q6H PRN severe pain (scale 03/24/25 score 7-10) #8 tabs loperamide 2 mg capsule (Imodium 2 mg PO Q6H PRN loose stool #10 03/29/25 A-D) caps acetaminophen-pamabrom 500 mg-25 1 tab PO Q4-6H PRN me nstrual pain 04/03/25 mg tablet (Midol) #16 tabs ofatumumab 20 mg/0.4 mL 20 mg (0.4 mL) subcut QMONTH 30 04/06/25 subcutaneous pen injector days #0.4 mL (Kesimpta Pen) acetaminophen 500 mg capsule 1,000 mg (2 x 500 mg) PO Q8H PRN 04/07/25 fever or pain #18 caps famotidine 40 mg tablet 40 mg PO BID #60 tabs ketorolac 10 mg tablet 10 mg PO Q8H PRN pain #7 tab s 04/08/25 prochlorperazine maleate 10 mg 10 mg PO BID PRN nausea and 04/10/25 tablet (Compazine) vomiting 7 days #14 tabs amoxicillin 875 mg-potassium 1 tab PO BID 10 days #20 tabs 04/12/25 clavulanate 125 mg tablet hydrocodone 5 mg-acetaminophen 325 1 tab PO Q6H PRN se rohan pain 04/12/25 mg tablet (scale score 7-10) #10 tabs Allergies Allergy/AdvReac Type Severity Reaction Status Date / Time adhesive (ADHESIVE) Allergy Unknown RASH, SKIN Verified 04/13/25 20:12 BREAKDOWN clindamycin AdvReac Gastrointestinal Verified 04/13/25 20:12 Upset SEASONAL ALLERGIES Allergy Unknown RUNNY Uncoded 04/12/25 18:43 NOSE, CONGESTION, WATERY EYES tuna Allergy Itching Uncoded 04/13/25 20:12 Review of Systems Review of Systems ROS is otherwise negative unless mentioned in HPI. [facility] Past Medical History Medical History Pilonidal abscess of cleft Multiple sclerosis Tobacco abuse (06/30/22) Seasonal allergies Sacroiliitis (09/22/19) Depression ASCUS with positive high risk HPV cervical Anxiety (06/30/22) Right radial head fracture Left radial head fracture Skin lesion of back Multiple sclerosis No known health problems Surgical History H/O LEEP History of cholecystectomy H/O removal of cyst Social History Social History Household Members: Spouse and Children Housing: House Alcohol intake: former Patient Tobacco Use Status: Current everyday Tobacco user Tobacco use type: Cigarette Cigarettes Per Day: 10 Years Smoked: 20 Smoked in Last 30 Days: Yes Substance Use Type: Marijuana Advance Directives: No Advance Directives Information Provided: No Current occupational status: employed 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 Constitutional: Well-appearing, NAD. Alert. Oriented X3. Eyes: EOMI. ENT: Pharynx normal. Neck: Normal inspection. Neck supple. CVS: Pulses normal. Respiratory: No respiratory distress. Abdomen: Soft and nontender. Skin: Skin warm and dry. Normal skin color. Extremities: No lower extremity edema. Neuro: Oriented X 3. No motor deficit. Vital Signs: Vital Signs - 24 hr 04/13/25 20:06 04/13/25 21:54 Temperature 97.6 F 98.1 F Pulse Rate 89 88 Respiratory Rate 18 12 Blood Pressure 138/89 136/84 Pulse Oximetry 97 99 Oxygen Delivery Method Room Air Room Air BMI result Body Mass Index 29.5 Medical Decision Making Medical Decision Making MDM Narrative: She overall appears well. I personally evaluated this patient on 04/10/2025, 3 days ago. She is here for similar complaints. I reviewed her lab work from yesterday, it is overall reassuring. She additionally had a urinalysis, as well as viral panel both of which were negative for infection. It appears that she typically presents to the ED in the evening. She is persi stently complaining of gastric acidity despite being on several PPIs including omeprazole, Pepcid, and Carafate. When we discussed treatment for GERD, she mentioned having a GI cocktail in the past with Maalox. She would like to try this again, therefore I have ordered a here. We also discussed extensively repeating imaging, as her most recent CT of the abdomen and pelvis was done on 04/03/2025, and at that time showed bilateral ovarian cysts, but no acute findings. She has had lab work that has been grossly normal several times over the past 2-3 weeks. Therefore, we discussed the radiation effect, and how given the benign abdominal exam today repeating imaging is not indicated. She is agreeable with this. We also discussed repeating lab work, however her lab work was from roughly 24 hours prior. She has a scheduled outpatient visit with GI in the next 1 week. We discussed if she followed up with her primary care, she has not. She has not seen GI outpatient either yet, despite her several ER presentations. We further discussed the she was started on antibiotics yesterday evening for a dental infection, which is likely causing some GI upset today as expected. She was previously told to take probiotics but has not been taking that. We discussed the importance of this. She is agreeable to try oral antibiotics, an oral dose of a GI cocktail and reassessment. 2233-- I was informed by nursing staff with the patient reportedly was feeling much better, and when I reassessed her she was sitting in the bed we will her jacket on, requesting discharge reportedly feeling much better. We discussed again the importance of calling Gastroenterology outpatient to move her appointment earlier. She tells me she will try and do this. There is no indication for further workup in the ED. Provided return precautions to the ED. Differential Diagnosis Differential Diagnoses: The differential diagnosis associated with the presentation includes GERD, electrolyte abnormalities, chronic abdominal pain Admission/Observation Consideration of admission/observation: Escalation of care including admission/observation considered (Not indicated) Independent Historian None External Record Review External record reviewed: Inpatient record and Other (Several ED visits) Lab work from yesterday overall reassuring. Negative viral panel. Negative urinalysis. Lab work similar to previous labs performed on 04/10/2025. Tests considered The following testing was considered but not selected: Repeat lab work, CT imaging of the abdomen and pelvis--see MDM Chronic Conditions Patient?s care impacted by: Other (Cardiac abdominal pain, anxiety, depression) Social Determinants Patient?s care significantly limited by Social Determinants of Health including: Problems related to primary support group Medications Administered Discontinued Medications Generic Name Dose Route Start Last Admin Trade Name Freq PRN Reason Stop Dose Admin Al Hydroxide/Mg Hydroxide 15 ml 04/13/25 21:24 04/13/25 22:14 Magnesium Hydrox/Alum Hydrox 30 Ml Oral.Susp PO 04/13/25 21:25 15 ml ONCE ONE Administration Lidocaine HCl 15 ml 04/13/25 21:24 04/13/25 22:14 Lidocaine Hcl Viscous 2 % 15 Ml Solution MUCOUS MEM 04/13/25 21:25 15 ml ONCE ONE Administration Discharge Plan Discharge Clinical Impression: Chronic GERD, Abdominal pain, chronic, epigastric Patient Disposition: Home, Self-Care Instructions: Diet for Stomach Ulcers and Gastritis (ED) Additional Instructions: In the ER today, we engaged in shared decision-making and we did not repeat lab work, as you had lab work done yesterday evening, 24 hours prior. We also did not repeat CT imaging as your CT scan was with your last 2 weeks, and these were all reassuring. We did give you a GI cocktail, as you requested, with signif icant improvement. Please try and move your gastroenterology consultation appointment earlier if possible. He had received with any worsening complaints at any time, please seek re-evaluation in the ED. Prescriptions: No Action Kesimpta Pen 20 mg/0.4 mL pen injector 20 mg subcut QMONTH 30 Days Qty: 0.4 11RF ibuprofen 600 mg tablet 600 mg PO Q6H PRN (Reason: pain) Qty: 30 0RF pantoprazole 40 mg tablet,delayed release (DR/EC) 40 mg PO DAILY Qty: 30 0RF ondansetron 4 mg tablet,disintegrating 4 mg PO Q8H PRN (Reason: nausea and vomiting) Qty: 20 0RF oxycodone 5 mg tablet 5 mg PO Q6H PRN (Reason: severe pain (scale score 7-10)) Qty: 8 0RF Rx Instructions: Partial Fill upon patient request. Midol 500-25 mg tablet 1 tab PO Q4-6H PRN (Reason: menstrual pain) Qty: 16 0RF Rx Instructions: PRN cramps hydrocodone-acetaminophen 5-325 mg tablet 1 tab PO Q6H PRN (Reason: severe pain (scale score 7-10)) Qty: 10 0RF Rx Instructions: Partial Fill upon patient request. amoxicillin-pot clavulanate 875-125 mg tablet 1 tab PO BID 10 Days Qty: 20 0RF naproxen 500 mg tablet 500 mg PO BID 7 Days Qty: 14 0RF chlorhexidine gluconate [Peridex] 0.12 % mouthwash 15 ml buccal BID Qty: 118 0RF losartan 25 mg tablet 25 mg PO DAILY loperamide [Imodium A-D] 2 mg capsule 2 mg PO Q6H PRN (Reason: loose stool) Qty: 10 0RF acetaminophen 500 mg capsule 1,000 mg PO Q8H PRN (Reason: fever or pain) Qty: 18 0RF famotidine 40 mg tablet 40 mg PO BID Qty: 60 0RF ketorolac 10 mg tablet 10 mg PO Q8H PRN (Reason: pain) Qty: 7 0RF Rx Instructions: maximum total duration of 5 days from all oral, intranasal, or parenteral formulations. Tolerated in the ED with significant pain relief prochlorperazine maleate [Compazine] 10 mg tablet 10 mg PO BID PRN (Reason: nausea and vomiting) 7 Days Qty: 14 0RF venlafaxine 75 mg capsule,extended release 24hr 75 mg PO DAILY colestipol 1 gram tablet 1 g PO BID norethindrone (contraceptive) 0.35 mg tablet 0.35 mg PO DAILY dicyclomine 20 mg tablet 20 mg PO BID PRN (Reason: abdominal pain) Qty: 7 0RF Referrals: Yesica Fox NP [Primary Care Provider, Internal Medicine] [facility] [Provider Group, Gastroenterology] Print Language: Tongan
[2025-04-13] MEDS: Lidocaine HCl Viscous 2 % 15 ML SOLUTION MUCOUS MEM (22:14)
[2025-04-13] MEDS: Magnesium Hydrox/Alum Hydrox 30 ML ORAL.SUSP 15 ML PO (22:14)
[2025-04-13 22:40] VITALS: BP 136/84; PULSE 88; RESP 12; TEMP 36.7; O2SAT 99
== END 2025-04-13 22:42 | disposition home or self-care (01) ==
PROVIDERS: Emergency Provider Emergency Medicine; PCP Registered Nurse
DX: K21.9 Gastro-esophageal reflux disease without esophagitis (principal); R10.13 Epigastric pain; R10.9 Unspecified abdominal pain; F17.200 Nicotine dependence, unspecified, uncomplicated; Z71.6 Tobacco abuse counseling; Z79.899 Other long term (current) drug therapy
CPT/HCPCS: 99283; 99284

== ENCOUNTER 2025-04-15 19:28 | Emergency (ER) | payer OTHER, SELFPAY ==
[2025-04-15 19:56] VITALS: BP 124/82; BP 132/79; PULSE 78; PULSE 89; RESP 16; TEMP 37.2; O2SAT 96; O2SAT 97; BMI 29.8
--- NOTE | 2025-04-15 20:05 | ECG_ITS ---
Test Reason : CHEST TIGHTNESS Blood Pressure : */* mmHG Vent. Rate : 88 BPM Atrial Rate : 88 BPM P-R Int : 128 ms QRS Dur : 92 ms QT Int : 386 ms P-R-T Axes : 48 59 36 degrees QTcB Int : 467 ms Normal sinus rhythm Normal ECG When compared with ECG of 10-Apr-2025 21:14, No significant change was found Referred By: Generic ED Physician Electronically Signed By: Luis Jain
[2025-04-15 20:40] LABS: MANUAL DIFF FLAG NO
[2025-04-15 20:43] LABS: Hematocrit 41.9 % (37.0-47.0); Hemoglobin 14.7 g/dl (12.0-16.0); Imm Gran Abs Auto 0.01 X10*3/uL (0.00-0.03); Imm Gran Pct Auto 0.1 % (0.0-0.4); Lymphocytes Absolute Auto 1.7 X10*3/uL (1.2-4.9); Mean Corpuscular HGB Conc 35.1 g/dl (31.0-35.0); Mean Corpuscular Hemoglobin 30.8 pg (27.0-33.0); Mean Corpuscular Volume 87.7 fL (80.0-98.0); NRBC Abs Auto 0.000 X10*3/uL (0.0-0.012); NRBC Pct Auto 0.0 /100WBC (0.0-0.2); Platelet Count 389 X10*3/uL (160-400); Red Blood Count 4.78 X10*6/uL (4.20-5.50); White Blood Count 7.7 X10*3/uL (4.8-10.8)
[2025-04-15 20:55] LABS: Alanine Aminotransferase 34 U/L (0-31); Albumin Level 4.6 g/dL (3.5-5.0); Alkaline Phosphatase 60 U/L (39-117); Anion Gap 11 (12-20); Aspartate Amino Transferase 22 U/L (5-31); Blood Urea Nitrogen 3 mg/dL (9-16); Calcium 9.6 mg/dL (8.4-10.2); Carbon Dioxide 28 mmol/L (22-29); Chloride 106 mmol/L (96-108); Creatinine Clr Calc Pharmacy 98.0; Estimated Glomerular Filt Rate > 60; Magnesium 2.0 mg/dL (1.6-2.6); Potassium 4.0 mmol/L (3.3-5.1); Sodium 141 mmol/L (135-145); Total Protein 6.7 g/dL (6.5-8.0)
--- OUTSIDE RECORDS SUMMARY | 2025-04-15 21:12 | XMS_ITS | Clinical Summary ---
Author Organization [facility] it Address [address] [place] [address] Care Team Providers Care Weather Stripper Name Role Phone Eleuterio Linares MD Primary Care Provider [phone] Surgical History Surgery Date Site/Laterality Comments OTHER SURGICAL HISTORY PROCEDURE: VA COLPOSCOPY CERVIX VAG ELTRD CONIZATION CERVIX; COMMENT: h/o HPV normal pap smears since CYST REMOVAL PROCEDURE: VA EXCISION PILONIDAL CYST/SINUS SIMPLE Medical History Medical [...] Mother Alive MS Sister Alive asthma Uncle [place] at 60's, CVA Social History Tobacco Use [...] age to complete this topic Care Teams Weather Stripper Relationship Specialty Start Date End Date Eleuterio Linares MD [address] [place] [address] PCP - General 01/31/23
--- NOTE | 2025-04-15 21:59 | ED_ITS ---
HPI - Weakness General Chief complaint: Weakness Stated complaint: WEAKNESS Time Seen by Provider: 04/15/25 21:41 Source: patient Mode of arrival: ambulatory Limitations: no limitations History of Present Illness ED Provider: Dr. Ana Freed HPI Narrative: Patient comes to the emergency room complaining of chronic abdominal pain. Patient complaining of burning sensation, it has been going on for several weeks. Of note, this is the patient's 11th visit this month for similar complaints. No new symptoms at this time. Patient denies fever chills Related Data Home Medications ?Medication ?Instructions ?Recorded ?Confirmed colestipol 1 gram tablet 1 g PO BID 11/24/20 11/24/20 venlafaxine 75 mg capsule,extended 75 mg PO DAILY 12/0811/24/20 release 24 hr norethindrone (contraceptive) 0.35 0.35 mg PO DAILY mg tablet losartan 25 mg tablet 25 mg PO DAILY 03/27/2512/12 Previous Rx's ?Medication ?Instructions ?Recorded ibuprofen 600 mg tablet 600 mg PO Q6H PRN pain #30 t abs 10/11/21 naproxen 500 mg tablet 500 mg PO BID 7 days #14 tab s 10/14/22 pantoprazole 40 mg tablet,delayed 40 mg PO DAILY #30 t abs 01/04/23 release chlorhexidine gluconate 0.12 % 15 ml buccal BID #118 m L 06/05/23 mouthwash (Peridex) dicyclomine 20 mg tablet 20 mg PO BID PRN abdominal p ain #7 03/24/25 tabs ondansetron 4 mg disintegrating 4 mg PO Q8H PRN nausea and 03/24/25 tablet vomiting #20 tabs oxycodone 5 mg tablet 5 mg PO Q6H PRN severe pain (scale 03/24/25 score 7-10) #8 tabs loperamide 2 mg capsule (Imodium 2 mg PO Q6H PRN loose stool #10 03/29/25 A-D) caps acetaminophen-pamabrom 500 mg-25 1 tab PO Q4-6H PRN me nstrual pain 04/03/25 mg tablet (Midol) #16 tabs ofatumumab 20 mg/0.4 mL 20 mg (0.4 mL) subcut QMONTH 30 04/06/25 subcutaneous pen injector days #0.4 mL (Kesimpta Pen) acetaminophen 500 mg capsule 1,000 mg (2 x 500 mg) PO Q8H PRN 04/07/25 fever or pain #18 caps famotidine 40 mg tablet 40 mg PO BID #60 tabs ketorolac 10 mg tablet 10 mg PO Q8H PRN pain #7 tab s 04/08/25 prochlorperazine maleate 10 mg 10 mg PO BID PRN nausea and 04/10/25 tablet (Compazine) vomiting 7 days #14 tabs amoxicillin 875 mg-potassium 1 tab PO BID 10 days #20 tabs 04/12/25 clavulanate 125 mg tablet hydrocodone 5 mg-acetaminophen 325 1 tab PO Q6H PRN se rohan pain 04/12/25 mg tablet (scale score 7-10) #10 tabs sucralfate 1 gram tablet (Carafate) 1 g PO BID #60 tab s 04/15/25 Allergies Allergy/AdvReac Type Severity Reaction Status Date / Time adhesive (ADHESIVE) Allergy Unknown RASH, SKIN Verified 04/15/25 19:57 BREAKDOWN clindamycin AdvReac Gastrointestinal Verified 04/15/25 19:57 Upset SEASONAL ALLERGIES Allergy Unknown RUNNY Uncoded 04/15/25 19:57 NOSE, CONGESTION, WATERY EYES tuna Allergy Itching Uncoded 04/15/25 19:57 Review of Systems 2 Review of Systems: Constitutional : No Weight loss, No Fever, No Chills, No Night Sweats, No Fatigue, No Malaise ENT/Mouth : No Hearing loss, No Ear Pain, No Nasal Congestion, No Sinus Pain, No Hoarseness, No sore throat, No Rhinorrhea, No Swallowing Difficulty Eyes: No Eye Pain, No Swelling, No Redness, No Foreign Body, No Discharge, No Vision Changes Cardiovascular : No Chest Pain, No SOB, No Dyspnea on Exertion, No Orthopnea, No Edema, No Palpitations Respiratory : No Cough, No Sputum, No Wheezing, No Smoke Exposure, No Dyspnea Gastrointestinal : No Nausea, No Vomiting, No Diarrhea, No Constipation, chronic GERD like sensation, No abdominal Pain, No Hematochezia, No Melena Genitourinary : no irregular bleeding, No Dysuria, No Urinary Frequency, No Hematuria, No Urinary Incontinence, No Urgency, No Flank Pain, No Urinary Flow Changes, No Hesitancy Musculoskeletal : No joint pain, No Myalgias, No Joint Swelling Skin : No Skin Lesions, No rash Neuro : No Weakness, No Numbness, No Paresthesias, No Loss of Consciousness, No Dizziness, No Headache Psych : No Anxiety/Panic, No Depression, No SI/HI/AH/VH, No Social Issues, Heme/Lymph: No Bruising, No Bleeding,No Lymphadenopathy Endocrine : No Polyuria, No Polydipsia, No Temperature Intolerance [facility] Past Medical History Medical History Pilonidal abscess of cleft Multiple sclerosis Tobacco abuse (06/30/22) Seasonal allergies Sacroiliitis (09/22/19) Depression ASCUS with positive high risk HPV cervical Anxiety (06/30/22) Right radial head fracture Left radial head fracture Skin lesion of back Multiple sclerosis No known health problems Surgical History H/O LEEP History of cholecystectomy H/O removal of cyst Social History Social History Household Members: Spouse and Children Housing: House Alcohol intake: former Patient Tobacco Use Status: Current everyday Tobacco user Tobacco use type: Cigarette Cigarettes Per Day: 10 Years Smoked: 20 Substance Use Type: Marijuana Advance Directives: No Advance Directives Information Provided: No Do you have a plan to hurt others: No Plan Current occupational status: employed 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 Oriented X3. No acute distress. Well-appearing Eyes: Pupils equal, round and reactive to light. ENT: Pharynx normal. Neck: Normal inspection. Neck supple. No lymph nodes noted. No crepitus CVS: Normal heart rate and rhythm. Pulses normal. Normal S1 and S2 Respiratory: No respiratory distress. Breath sounds normal. No Wheezing. No rales Abdomen: Soft and nontender. No rigidity. No distention. Skin: Skin warm and dry. Normal skin color. Normal skin turgor. Extremities: No lower extremity edema. No Lacerations. No Rash Neuro: Oriented X 3. No motor deficit. No sensory deficit. Moving all extremities. No slurred speech. CN 2 through 12 grossly intact Psych: calm, cooperative, a bit anxious Vital Signs: Vital Signs: Last Vital Signs Temp 98.9 F 04/15/25 19:56 Pulse 89 04/15/25 19:56 Resp 16 04/15/25 19:56 BP 132/79 04/15/25 19:56 Pulse Ox 96 04/15/25 19:56 O2 Del Method Room Air 04/15/25 19:56 BMI result Body Mass Index 29.8 Medical Decision Making Medical Decision Making [facility] Narrative: No significant abnormality in patient's hematology or chemistry EKG my interpretation: Normal sinus rhythm, heart rate 80, no ST segment depression or elevation, no T-wave inversion, QTC 467 I had a prolonged conversation with the patient. This being the 11th visit in the month with similar complaints, it is likely that patient has significant underlying anxiety. Patient admits that she does feel anxious. Patient has not been on any medication for anxiety. Patient states that she has a Gastroenterology appointment pending and no so a PCP a pointing pending after Thanksgi. She will discuss her anxiety symptoms with her PCP. At this time, CT scan is not indicated. Physical exam is reassuring. Differential Diagnosis Differential Diagnoses: The differential diagnosis associated with the presentation includes (Gastritis, GERD, peptic ulcer, anxiety) Lab Data [facility] Lab Attestation statement: I reviewed the patient's lab results. 04/15/25 20:37 04/15/25 20:37 Labs: Lab Results 04/15/25 Range/Units 20:37 WBC 7.7 (4.8-10.8) X10*3/uL RBC 4.78 (4.20-5.50) X10*6/uL Hgb 14.7 (12.0-16.0) g/dl Hct 41.9 (37.0-47.0) % MCV 87.7 (80.0-98.0) fL MCH 30.8 (27.0-33.0) pg MCHC 35.1 H (31.0-35.0) g/dl RDW 12.9 (11.0-16.0) % Plt Count 389 (160-400) X10*3/uL MPV 8.7 L (9.4-12.3) fL Immature Gran % (Auto) 0.1 (0.0-0.4) % Neut % (Auto) 69.7 (45-73) % Lymph % (Auto) 21.6 (20-40) % [place] % (Auto) 7.2 (2-11) % Eos % (Auto) 1.0 (0-4) % Baso % (Auto) 0.4 (0-2) % Lymph # (Auto) 1.7 (1.2-4.9) X10*3/uL [place] # (Auto) 0.6 (0.1-1.2) X10*3/uL Eos # (Auto) 0.1 (0.0-0.4) X10*3/uL Baso # (Auto) 0.0 (0.0-0.2) X10*3/uL Abs Immat Gran (auto) 0.01 (0.00-0.03) X10*3/uL Absolute Neuts (auto) 5.4 (2.0-8.3) x10*3/uL Absolute Nucleated RBC 0.000 (0.0-0.012) X10*3/uL Nucleated RBC % (auto) 0.0 (0.0-0.2) /100WBC Sodium 141 (135-145) mmol/L Potassium 4.0 (3.3-5.1) mmol/L Chloride 106 (96-108) mmol/L Carbon Dioxide 28 (22-29) mmol/L Anion Gap 11 L (12-20) BUN 3 L (9-16) mg/dL Creatinine 0.71 (0.5-1.4) mg/dL Estim Creat Clear Calc 98.0 Estimated GFR > 60 Random Glucose 122 H (60-115) mg/dL Calcium 9.6 (8.4-10.2) mg/dL Magnesium 2.0 (1.6-2.6) mg/dL Total Bilirubin 0.7 (0.0-1.0) mg/dL AST 22 (5-31) U/L ALT 34 H (0-31) U/L Alkaline Phosphatase 60 (39-117) U/L Total Protein 6.7 (6.5-8.0) g/dL Albumin 4.6 (3.5-5.0) g/dL Discharge Plan Discharge Clinical Impression: Chronic abdominal pain Patient Disposition: Home, Self-Care Instructions: Abdominal Pain (ED) Additional Instructions: Please follow-up with your primary care physician tomorrow. Also, please consider discussing with your primary care physician that you may have some underlying anxiety. If you have any worsening or new symptoms, please return to the emergency room or call 911 Prescriptions: New sucralfate [Carafate] 1 gram tablet 1 g PO BID Qty: 60 0RF No Action Kesimpta Pen 20 mg/0.4 mL pen injector 20 mg subcut QMONTH 30 Days Qty: 0.4 11RF ibuprofen 600 mg tablet 600 mg PO Q6H PRN (Reason: pain) Qty: 30 0RF pantoprazole 40 mg tablet,delayed release (DR/EC) 40 mg PO DAILY Qty: 30 0RF ondansetron 4 mg tablet,disintegrating 4 mg PO Q8H PRN (Reason: nausea and vomiting) Qty: 20 0RF oxycodone 5 mg tablet 5 mg PO Q6H PRN (Reason: severe pain (scale score 7-10)) Qty: 8 0RF Rx Instructions: Partial Fill upon patient request. Midol 500-25 mg tablet 1 tab PO Q4-6H PRN (Reason: menstrual pain) Qty: 16 0RF Rx Instructions: PRN cramps hydrocodone-acetaminophen 5-325 mg tablet 1 tab PO Q6H PRN (Reason: severe pain (scale score 7-10)) Qty: 10 0RF Rx Instructions: Partial Fill upon patient request. amoxicillin-pot clavulanate 875-125 mg tablet 1 tab PO BID 10 Days Qty: 20 0RF naproxen 500 mg tablet 500 mg PO BID 7 Days Qty: 14 0RF chlorhexidine gluconate [Peridex] 0.12 % mouthwash 15 ml buccal BID Qty: 118 0RF losartan 25 mg tablet 25 mg PO DAILY loperamide [Imodium A-D] 2 mg capsule 2 mg PO Q6H PRN (Reason: loose stool) Qty: 10 0RF acetaminophen 500 mg capsule 1,000 mg PO Q8H PRN (Reason: fever or pain) Qty: 18 0RF famotidine 40 mg tablet 40 mg PO BID Qty: 60 0RF ketorolac 10 mg tablet 10 mg PO Q8H PRN (Reason: pain) Qty: 7 0RF Rx Instructions: maximum total duration of 5 days from all oral, intranasal, or parenteral formulations. Tolerated in the ED with significant pain relief prochlorperazine maleate [Compazine] 10 mg tablet 10 mg PO BID PRN (Reason: nausea and vomiting) 7 Days Qty: 14 0RF venlafaxine 75 mg capsule,extended release 24hr 75 mg PO DAILY colestipol 1 gram tablet 1 g PO BID norethindrone (contraceptive) 0.35 mg tablet 0.35 mg PO DAILY dicyclomine 20 mg tablet 20 mg PO BID PRN (Reason: abdominal pain) Qty: 7 0RF Print Language: Bahamian
[2025-04-15 22:23] VITALS: BP 133/81; PULSE 95; RESP 16; TEMP 37.1; O2SAT 98
[2025-04-15 22:25] VITALS: BP 133/81; PULSE 95; RESP 16; TEMP 37.1; O2SAT 98
== END 2025-04-15 22:26 | disposition home or self-care (01) ==
PROVIDERS: Emergency Provider Emergency Medicine
DX: R10.9 Unspecified abdominal pain (principal); G89.29 Other chronic pain; R53.1 Weakness; R07.89 Other chest pain; F17.200 Nicotine dependence, unspecified, uncomplicated; Z71.6 Tobacco abuse counseling
CPT/HCPCS: 36415; 80053; 83735; 85025; 93005; 99283; 99284

== ENCOUNTER → 2025-04-15 20:05 | Outpatient (BNV) | payer OTHER, SELFPAY | PROVIDERS: Emergency Provider Emergency Medicine; Visit Provider Internal Medicine Cardiovascular Disease | DX: R07.89 Other chest pain (principal) | CPT/HCPCS: 93010 ==

== ENCOUNTER 2025-05-01 01:34 | Emergency (ER) | payer OTHER, SELFPAY ==
--- NOTE | 2025-05-01 | ECG_ITS ---
Test Reason : ABDOMINAL PAIN Blood Pressure : */* mmHG Vent. Rate : 84 BPM Atrial Rate : 84 BPM P-R Int : 122 ms QRS Dur : 90 ms QT Int : 368 ms P-R-T Axes : 59 82 33 degrees QTcB Int : 434 ms Normal sinus rhythm Normal ECG When compared with ECG of 15-Apr-2025 20:20, No significant change was found Referred By: Generic ED Physician Electronically Signed By: JACQUES CANDELARIA MD
--- NOTE | ~2025-05-01 | XR_ITS ---
CLINICAL HISTORY: chronic pain, constipation 1 view abdomen Comparison: CR - XR KUB - 03/22/25 20:29 EST Findings: No pneumoperitoneum or pneumatosis. No abnormal calcifications. No acute fractures. IMPRESSION: The bowel gas pattern is normal This document has been electronically signed by: Tod Nickerson MD, PHD on 05/01/2025 04:56:43
[2025-05-01 01:41] VITALS: BP 123/82; BP 150/92; PULSE 84; RESP 20; TEMP 36.8; O2SAT 95; BMI 27.7
--- NOTE | 2025-05-01 01:54 | PC.NURSE ---
pt jessica from home complaining of LUQ radiaiting to RUQ and R flank, 10/10 pain described as someone ripping out her insides secondary complaint of nausea onset 2 months ago. ABD is soft non-tender with no distention.
--- OUTSIDE RECORDS SUMMARY | 2025-05-01 02:24 | XMS_ITS | Clinical Summary ---
Author Organization [facility] it Address [address] [place] [address] Care Team Providers Care Edge Setter Name Role Phone Eleuterio Linares MD Primary Care Provider [phone] Surgical History Surgery Date Site/Laterality Comments OTHER [...] Mother Alive MS Sister Alive asthma Uncle DE at 60's, CVA Social History Tobacco Use [...] on file Sexual Orientation Not on file Plan of Treatment Health Maintenance Due Date [...] age to complete this topic Care Teams Edge Setter Relationship Specialty Start Date End Date Eleuterio Linares MD [address] [place] [id number] PCP - General 01/31/23
[2025-05-01 02:25] LABS: Hematocrit 43.8 % (37.0-47.0); Hemoglobin 15.1 g/dl (12.0-16.0); Imm Gran Abs Auto 0.02 X10*3/uL (0.00-0.03); Imm Gran Pct Auto 0.3 % (0.0-0.4); Lymphocytes Absolute Auto 1.4 X10*3/uL (1.2-4.9); MANUAL DIFF FLAG NO; Mean Corpuscular HGB Conc 34.5 g/dl (31.0-35.0); Mean Corpuscular Hemoglobin 30.6 pg (27.0-33.0); Mean Corpuscular Volume 88.7 fL (80.0-98.0); NRBC Abs Auto 0.000 X10*3/uL (0.0-0.012); NRBC Pct Auto 0.0 /100WBC (0.0-0.2); Platelet Count 344 X10*3/uL (160-400); Red Blood Count 4.94 X10*6/uL (4.20-5.50); White Blood Count 7.4 X10*3/uL (4.8-10.8)
[2025-05-01 02:42] LABS: Alanine Aminotransferase 60 U/L (0-31); Albumin Level 4.6 g/dL (3.5-5.0); Alkaline Phosphatase 63 U/L (39-117); Anion Gap 14 (12-20); Aspartate Amino Transferase 38 U/L (5-31); Blood Urea Nitrogen 7 mg/dL (9-16); Calcium 9.9 mg/dL (8.4-10.2); Carbon Dioxide 25 mmol/L (22-29); Chloride 106 mmol/L (96-108); Creatinine Clr Calc Pharmacy 88.5; Estimated Glomerular Filt Rate > 60; Lipase 29 U/L (8-78); Potassium 4.5 mmol/L (3.3-5.1); Sodium 140 mmol/L (135-145); Total Protein 7.0 g/dL (6.5-8.0)
[2025-05-01 03:26] VITALS: BP 113/80; PULSE 80; RESP 20; TEMP 36.8; O2SAT 98
--- NOTE | 2025-05-01 05:11 | ED.GENADULT ---
HPI - General Adult General Chief complaint: Abdominal Pain Stated complaint: ABD PAIN ALL DAY PER EMS Time Seen by Provider: 05/01/25 04:35 Source: patient Limitations: no limitations History of Present Illness ED Provider: Edel Ibrahim PA-C HPI narrative: 40-year-old female with a history of anxiety, depression, MS, chronic abdominal pain, presents with the abdominal pain for months. Patient here with generalized abdominal discomfort, she thinks she may still be constipated, denies distention, inability to pass flatus. Associated intermittent nausea. No new symptoms, no fevers. Related Data Home Medications ?Medication ?Instructions ?Recorded ?Confirmed colestipol 1 gram tablet 1 g PO BID 11/24/20 11/24/20 venlafaxine 75 mg capsule,extended 75 mg PO DAILY 11/24/20 11/24/20 release 24 hr norethindrone (contraceptive) 0.35 0.35 mg PO DAILY 10/31/21 mg tablet losartan 25 mg tablet 25 mg PO DAILY 03/27/25 03/27/25 Previous Rx's ?Medication ?Instructions ?Recorded ibuprofen 600 mg tablet 600 mg PO Q6H PRN pain #30 tabs 10/11/21 naproxen 500 mg tablet 500 mg PO BID 7 days #14 tabs 10/14/22 pantoprazole 40 mg tablet,delayed 40 mg PO DAILY #30 tabs 01/04/23 release chlorhexidine gluconate 0.12 % 15 ml buccal BID #118 mL 06/05/23 mouthwash (Peridex) dicyclomine 20 mg tablet 20 mg PO BID PRN abdominal pain #7 03/24/25 tabs ondansetron 4 mg disintegrating 4 mg PO Q8H PRN nausea and 03/24/25 tablet vomiting #20 tabs oxycodone 5 mg tablet 5 mg PO Q6H PRN severe pain (scale 03/24/25 score 7-10) #8 tabs loperamide 2 mg capsule (Imodium 2 mg PO Q6H PRN loose stool #10 03/29/25 A-D) caps acetaminophen-pamabrom 500 mg-25 1 tab PO Q4-6H PRN menstrual pain 04/03/25 mg tablet (Midol) #16 tabs acetaminophen 500 mg capsule 1,000 mg (2 x 500 mg) PO Q8H PRN 04/07/25 fever or pain #18 caps famotidine 40 mg tablet 40 mg PO BID #60 tabs 04/07/25 ketorolac 10 mg tablet 10 mg PO Q8H PRN pain #7 tabs 04/08/25 prochlorperazine maleate 10 mg 10 mg PO BID PRN nausea and 04/10/25 tablet (Compazine) vomiting 7 days #14 tabs amoxicillin 875 mg-potassium 1 tab PO BID 10 days #20 tabs 04/12/25 clavulanate 125 mg tablet hydrocodone 5 mg-acetaminophen 325 1 tab PO Q6H PRN severe pain 04/12/25 mg tablet (scale score 7-10) #10 tabs sucralfate 1 gram tablet (Carafate) 1 g PO BID #60 tabs 04/15/25 ofatumumab 20 mg/0.4 mL 20 mg (0.4 mL) subcut QMONTH 30 04/30/25 subcutaneous pen injector days #0.4 mL (Kesimpta Pen) ondansetron 4 mg disintegrating 4 mg PO Q8H PRN nausea and 05/01/25 tablet vomiting #10 tabs sucralfate 1 gram tablet (Carafate) 1 g PO TID PRN dyspepsia #15 tabs 05/01/25 Allergies Allergy/AdvReac Type Severity Reaction Status Date / Time adhesive (ADHESIVE) Allergy Unknown RASH, SKIN Verified 05/01/25 01:44 BREAKDOWN clindamycin AdvReac Gastrointestinal Verified 05/01/25 01:44 Upset SEASONAL ALLERGIES Allergy Unknown RUNNY Uncoded 05/01/25 01:44 NOSE, CONGESTION, WATERY EYES tuna Allergy Itching Uncoded 05/01/25 01:44 Review of Systems Review of Systems: Yes all other systems are reviewed and are negative Constitutional: Constitutional: Denies fatigue and Denies fever(s) Cardiovascular: Cardiovascular: Denies chest pain and Denies dyspnea Respiratory: Respiratory: Denies dyspnea Gastrointestinal: Gastrointestinal: Reports constipation, Reports nausea and Denies vomiting Genitourinary: Genitourinary: Denies dysuria Musculoskeletal: Musculoskeletal: Denies back pain Endocrine: Endocrine: Denies fatigue PMFSH Past Medical History Attestation statement: The following information was validated with the patient. Medical History Pilonidal abscess of zenia cleft Multiple sclerosis Tobacco abuse (06/30/22) Seasonal allergies Sacroiliitis (09/22/19) Depression ASCUS with positive high risk HPV cervical Anxiety (06/30/22) Right radial head fracture Left radial head fracture Skin lesion of back Multiple sclerosis No known health problems Surgical History H/O LEEP History of cholecystectomy H/O removal of cyst Social History Social History Household Members: Spouse and Children Housing: House Alcohol intake: never Patient Tobacco Use Status: Current everyday Tobacco user Tobacco use type: Cigarette Cigarettes Per Day: 10 Years Smoked: 20 Substance Use Type: Marijuana Current occupational status: employed 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, 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 Sexual orientation: Straight/Heterosexual Gender identity: Female Physical Exam ED Vital Signs: Vital Signs - 24 hr 05/01/25 01:41 05/01/25 03:26 Temperature 98.3 F 98.2 F Pulse Rate 84 80 Respiratory Rate 20 20 Blood Pressure 150/92 H 113/80 Pulse Oximetry 95 98 Oxygen Delivery Method Room Air Room Air BMI result Body Mass Index 27.7 Const Other: Alert Orientation/consciousness: patient oriented x3 Resp Effort & Inspection: normal respiratory effort Cardio Other: Normal peripheral perfusion GI Other: Soft, nondistended, nontender no guarding Skin Other: Warm dry no rash Neuro General: patient oriented x3, gait normal, no focal motor deficits and CN's II-XI intact bilaterally Psych Other: Cooperative Medical Decision Making Medical Decision Making MDM Narrative: 40-year-old female with a history of anxiety, depression, MS, chronic abdominal pain, presents with the abdominal pain for months. Patient here with generalized abdominal discomfort, she thinks she may still be constipated, denies distention, inability to pass flatus. Associated intermittent nausea. No new symptoms, no fevers. Problem: Anxiety, chronic abdominal pain History: Per patient I have considered the following differential diagnoses: Bowel obstruction, constipation, fecal impaction, chronic pain Plan: Since February, this is the patient's 12th visit to our emergency department for abdominal pain alone, she has also been seen for numerous dental pain related complaints. Her labs were at baseline, she does struggle with constipation, she is likely still constipated to some degree, adding on a KUB. She is not having obstructive symptoms, there was no indication for advanced imaging, she has had multiple imaging modalities that have been negative for any acute pathology. I have independently reviewed the following tests: Labs: No leukocytosis, not anemic, no electrolyte abnormality, LFTs at baseline KUB:Findings: No pneumoperitoneum or pneumatosis. No abnormal calcifications. No acute fractures. IMPRESSION: The bowel gas pattern is normal This document has been electronically.... I have viewed the imaging myself, she does still have stool burden Differential Diagnosis Differential Diagnoses: The differential diagnosis associated with the presentation includes See [facility] Admission/Observation Consideration of admission/observation: Escalation of care including admission/observation considered Not applicable Lab Data [facility] Lab Attestation statement: I reviewed the patient's lab results. 05/01/25 02:17 05/01/25 02:17 Labs: Lab Results 05/01/25 Range/Units 02:17 WBC 7.4 (4.8-10.8) X10*3/uL RBC 4.94 (4.20-5.50) X10*6/uL Hgb 15.1 (12.0-16.0) g/dl Hct 43.8 (37.0-47.0) % MCV 88.7 (80.0-98.0) fL MCH 30.6 (27.0-33.0) pg MCHC 34.5 (31.0-35.0) g/dl RDW 12.6 (11.0-16.0) % Plt Count 344 (160-400) X10*3/uL MPV 9.0 L (9.4-12.3) fL Immature Gran % (Auto) 0.3 (0.0-0.4) % Neut % (Auto) 72.1 (45-73) % Lymph % (Auto) 19.1 L (20-40) % Elk % (Auto) 7.4 (2-11) % Eos % (Auto) 0.8 (0-4) % Baso % (Auto) 0.3 (0-2) % Lymph # (Auto) 1.4 (1.2-4.9) X10*3/uL Elk # (Auto) 0.6 (0.1-1.2) X10*3/uL Eos # (Auto) 0.1 (0.0-0.4) X10*3/uL Baso # (Auto) 0.0 (0.0-0.2) X10*3/uL Abs Immat Gran (auto) 0.02 (0.00-0.03) X10*3/uL Absolute Neuts (auto) 5.4 (2.0-8.3) x10*3/uL Absolute Nucleated RBC 0.000 (0.0-0.012) X10*3/uL Nucleated RBC % (auto) 0.0 (0.0-0.2) /100WBC Sodium 140 (135-145) mmol/L Potassium 4.5 (3.3-5.1) mmol/L Chloride 106 (96-108) mmol/L Carbon Dioxide 25 (22-29) mmol/L Anion Gap 14 (12-20) BUN 7 L (9-16) mg/dL Creatinine 0.76 (0.5-1.4) mg/dL Estim Creat Clear Calc 88.5 Estimated GFR > 60 Random Glucose 101 (60-115) mg/dL Calcium 9.9 (8.4-10.2) mg/dL Total Bilirubin 1.1 H (0.0-1.0) mg/dL AST 38 H (5-31) U/L ALT 60 H (0-31) U/L Alkaline Phosphatase 63 (39-117) U/L Total Protein 7.0 (6.5-8.0) g/dL Albumin 4.6 (3.5-5.0) g/dL Lipase 29 (8-78) U/L Radiology Impression Discussion of test interpretation with radiology: I have reviewed the radiologist's reading. Discharge Plan Discharge Clinical Impression: Constipation Patient Disposition: Home, Self-Care Instructions: Constipation (ED) Additional Instructions: All of your screening labs were normal, the x-ray of the abdomen revealed that you still have stool burden. See home care instructions. Use [id number] Colace, this is a stool softener, twice a day. Use [id number] MiraLax, multiple times a day, until you begin having multiple large volume bowel movements. Use the Zofran as needed for nausea, use the Carafate as needed for acid reflux symptoms. 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 Prescriptions: New ondansetron 4 mg tablet,disintegrating 4 mg PO Q8H PRN (Reason: nausea and vomiting) Qty: 10 0RF sucralfate [Carafate] 1 gram tablet 1 g PO TID PRN (Reason: dyspepsia) Qty: 15 0RF No Action Kesimpta Pen 20 mg/0.4 mL pen injector 20 mg subcut QMONTH 30 Days Qty: 0.4 11RF ibuprofen 600 mg tablet 600 mg PO Q6H PRN (Reason: pain) Qty: 30 0RF pantoprazole 40 mg tablet,delayed release (DR/EC) 40 mg PO DAILY Qty: 30 0RF ondansetron 4 mg tablet,disintegrating 4 mg PO Q8H PRN (Reason: nausea and vomiting) Qty: 20 0RF oxycodone 5 mg tablet 5 mg PO Q6H PRN (Reason: severe pain (scale score 7-10)) Qty: 8 0RF Rx Instructions: Partial Fill upon patient request. Midol 500-25 mg tablet 1 tab PO Q4-6H PRN (Reason: menstrual pain) Qty: 16 0RF Rx Instructions: PRN cramps hydrocodone-acetaminophen 5-325 mg tablet 1 tab PO Q6H PRN (Reason: severe pain (scale score 7-10)) Qty: 10 0RF Rx Instructions: Partial Fill upon patient request. amoxicillin-pot clavulanate 875-125 mg tablet 1 tab PO BID 10 Days Qty: 20 0RF sucralfate [Carafate] 1 gram tablet 1 g PO BID Qty: 60 0RF naproxen 500 mg tablet 500 mg PO BID 7 Days Qty: 14 0RF chlorhexidine gluconate [Peridex] 0.12 % mouthwash 15 ml buccal BID Qty: 118 0RF losartan 25 mg tablet 25 mg PO DAILY loperamide [Imodium A-D] 2 mg capsule 2 mg PO Q6H PRN (Reason: loose stool) Qty: 10 0RF acetaminophen 500 mg capsule 1,000 mg PO Q8H PRN (Reason: fever or pain) Qty: 18 0RF famotidine 40 mg tablet 40 mg PO BID Qty: 60 0RF ketorolac 10 mg tablet 10 mg PO Q8H PRN (Reason: pain) Qty: 7 0RF Rx Instructions: maximum total duration of 5 days from all oral, intranasal, or parenteral formulations. Tolerated in the ED with significant pain relief prochlorperazine maleate [Compazine] 10 mg tablet 10 mg PO BID PRN (Reason: nausea and vomiting) 7 Days Qty: 14 0RF venlafaxine 75 mg capsule,extended release 24hr 75 mg PO DAILY colestipol 1 gram tablet 1 g PO BID norethindrone (contraceptive) 0.35 mg tablet 0.35 mg PO DAILY dicyclomine 20 mg tablet 20 mg PO BID PRN (Reason: abdominal pain) Qty: 7 0RF Interventions: ED Discharge Assessment Last Done: 05/01/25 05:24 Discharge Date/Time: 05/01/25 05:25 Print Language: French
[2025-05-01 05:24] VITALS: BP 131/83; PULSE 88; RESP 18; TEMP 36.6; O2SAT 96
== END 2025-05-01 05:25 | disposition home or self-care (01) ==
PROVIDERS: Emergency Provider Emergency Medicine; PCP Physician Assistant
DX: K59.00 Constipation, unspecified (principal); R10.84 Generalized abdominal pain; G35.D Multiple sclerosis, unspecified; F17.210 Nicotine dependence, cigarettes, uncomplicated; Z79.899 Other long term (current) drug therapy
CPT/HCPCS: 36415; 74018; 80053; 83690; 85025; 93005; 99283; 99285

== ENCOUNTER → 2025-05-01 02:25 | Outpatient (BNV) | payer OTHER, SELFPAY | PROVIDERS: Emergency Provider Emergency Medicine; PCP Physician Assistant; Visit Provider Internal Medicine Cardiovascular Disease | DX: R10.9 Unspecified abdominal pain (principal) | CPT/HCPCS: 93010 ==

== ENCOUNTER → 2025-05-01 04:36 | Outpatient (BNV) | payer OTHER, SELFPAY | PROVIDERS: Emergency Provider Emergency Medicine; PCP Physician Assistant; Visit Provider General Practice | DX: K59.00 Constipation, unspecified (principal) | CPT/HCPCS: 74018 ==

== ENCOUNTER 2025-05-13 17:51 | Emergency (ER) | payer OTHER, SELFPAY ==
--- OUTSIDE RECORDS SUMMARY | 2025-05-08 23:59 | XMS_ITS | Continuity of Care Document ---
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 Name Role Phone Yesica Castillo Primary Care Physician Encounter [facility] [id number] Date(s): 04/08/25 - 05/08/25 [facility] [address] [place] [address] Encounter Type: Triage Allergies, Adverse Reactions, Alerts [...] and bedtime, PRN Dyspepsia, # 600 mL, 2 Refills,Maintenance, 04/12/25 6:32:00 AM EST, [facility]/pharmacy #[id number], Partial fill upon patient request if the prescription is for a schedule II opioid drug., 158, cm, 04/01/25 11:14:00 EST, Height, 71.4, kg, 03/31/25 20:12:00 EST, Dry Weight Start Date: 04/12/25 Status: Ordered Medication Dispense Status: Completed Quantity: 600.0 Unit: mL Total Allowed Fills: 3 Fills Dispensed: 0 Colace sodium 100 mg oral capsule 100 mg, 1, capsule, By Mouth, 2 times a day, PRN, # 20 capsule, Refills 0, Tot. Refills 0, Maintenance, for constipation, 05/08/25 10:04:00 AM EST, Route to Pharmacy Electronically, [facility]/pharmacy #[id number], Partial fill upon patient request if the prescription is for a schedule II opioid drug., 158, cm,05/08/25 9:52:00 EST, Height, 71.4, kg, 03/31/25 20:12:00 EST, Dry Weight Start Date: 05/08/25 Status: Ordered Medication Dispense Status: Completed Quantity: 20.0 Unit: capsule Total Allowed Fills: 1 Fills Dispensed: 0 Indications: Constipation, unspecified; colestipol 1 gm oral tablet 4 tablet, By Mouth, 2 times a day, WITH A FULL GLASS OF WATER., # 720 tablet, 3 Refills, Maintenance, 03/12/25 10:33:00 AM EDT, [facility] STORE [id number], 158, cm, 06/12/24 9:21:00 EST, Height Start Date: 03/12/25 Status: Ordered Medication Dispense Status: Completed Quantity: 720.0 Unit: tablet Total Allowed Fills: 1 Fills Dispensed: 0 Daily Tamir oral tablet 1 tablet, By Mouth, Daily, # 90 tablet, 3 Refills, Maintenance, 03/09/25 3:56:00 PM EDT, [id number], 90, TAKE 1 TABLET BY MOUTH EVERY DAY, 158, cm, 06/12/24 9:21:00 EST, Height Start Date: 03/09/25 Status: Ordered Medication Dispense Status: Completed Quantity: 90.0 Unit: tablet Total Allowed Fills: 1 Fills Dispensed: 0 dicyclomine 20 mg oral tablet 1 tablet = 20 mg, By Mouth, 4 times a day, PRN abdominal cramping, # 60 tablet, 0 Refills, Maintenance, 04/24/25 6:01:00 PM EST, [facility]/pharmacy #[id number], Partial fill upon patient request if the prescription is for a schedule II opioid drug., 158, cm, 04/24/25 13:31:00 EST, Height, 71.4, kg, 03/31/25 20:12:00 EST, Dry Weight Start Date: 04/24/25 Status: Ordered Medication Dispense Status: Completed Quantity: 60.0 Unit: tablet Total Allowed Fills: 1 Fills Dispensed: 0 Indications: Unspecified abdominal pain; famotidine 20 mg oral tablet 1, tablet, By Mouth, 2 times a day, # 60 tablet, Refills 5, Tot. Refills 5, Maintenance, 04/12/25 6:31:00 AM EST, Route to Pharmacy Electronically, [facility]/pharmacy #[id number], 158, cm, 04/01/25 11:14:00 EST,Height, 71.4, kg, 03/31/25 20:12:00 EST, Dry Weight Start Date: 04/12/25 Status: Ordered Medication Dispense Status: Completed Quantity: 60.0 Unit: tablet Total Allowed Fills: 6 Fills Dispensed: 0 Kesimpta 20 mg/0.4 mL [...] Stop, 04/01/25 12:03:00 PM EST, Tablet, [facility]/pharmacy #[id number], Partial fill [...] PM EST, Route to Pharmacy Electronically, [facility]/pharmacy #[id number], Partial fill upon patient request if the prescription is for a schedule II opioid drug., 158, cm, 06/04/24 11:56:00 EST, Height Start Date: 06/04/24 Status: Ordered Medication Dispense Status: Completed Quantity: 90.0 Unit: tablet Total Allowed Fills: 4 Fills Dispensed: 0 MiraLax oral powder for reconstitution = 17 Gm, By Mouth, Daily, dissolve in 4 to 8 oz of beverage, # 238 Gm, 0 Refills, Acute 10/17/25 9:00:00 PM EDT, 05/08/25 10:04:00 AM EST, REC Powder, [facility]/pharmacy #[id number], Partial fill upon patient request if the prescription is for a schedule II opioid drug., 17 Gm By Mouth Daily,Instr:dissolve in 4to 8 oz of beverage, 158, cm, 05/08/25 9:52:00 EST, Height, 71.4, kg, 03/31/25 20:12:00 EST, Dry Weight Start Date: 05/08/25 Stop Date: 10/17/25 Status: Ordered Medication Dispense Status: Completed Quantity: 238.0 Unit: g Total Allowed Fills: 1 Fills Dispensed: 0 Indications: Constipation, unspecified; nicotine 4 mg oral transmucosal gum 1 each = 4 mg, Chew, Every 2 hours, PRN for smoking cessation, # 120 each, 0 Refills, Acute :00:00 PM EST, 05/08/25 10:10:00 AM EST, Gum, [id number], Partial fill upon patient request if the prescription is for a schedule II opioid drug., 158, cm, 05/08/25 9:52:00 EST, Height, 71.4, kg, 03/31/25 20:12:00 EST, Dry Weight Start Date: 05/08/25 Stop Date: 06/08/25 Status: Ordered Medication Dispense Status: Completed Quantity: 120.0 Unit: each Total Allowed Fills: 1 Fills Dispensed: 0 Indications: Tobacco use; omeprazole 40 mg oral enteric coated capsule [...] Active Low HDL (under 40) Confirmed Active Panic attacks Confirmed Active Seasonal allergies Confirmed Active Current smoker Confirmed Active Sore throat Confirmed Active Social History Social History Type Response Smoking Status 10 or more cigarette s (1/2 pack or more)/day in last 30 days; Tobacco user in household: Yes; Other: 1 pack daily; Tobacco use times per day: 1ppd; entered on: 04/24/25 Sex Female Sex Representation Female (finding) Patient Care team information Care Team Personnel Name: Anh Victoria RN Position: [facility] RN Member Role: Primary Care Nurse Name: Yesica Castillo Position: [facility] PCO Associate Professional Member Role: PCP Address: [address] [place] [address] Telecom: Name: Maggie Rogel RN Position: [facility] AMB Nurse Member Role: Primary Care Nurse Name: Merna Manzano RN Position: [facility] RN Member Role: Primary Care Nurse Name: Iva Martinez RN Position: [facility] RN Member Role: Primary Care Nurse Care Team Related Persons Name: HALIMA JARAMILLO Name: August Name: NONE, NONE Name: CHATA EATON Name: REBECCA EATON Insurance Providers [facility] Information #: 1 Payer: [facility] Payer Identifier: NA Member Number: [id number] Group Number: [id number] Subscriber Identifier: NA Relationship to Subscriber: self Coverage Type: Medicaid (Managed Care) Coverage Verification Date: NA Telecom: NA Address:
--- OUTSIDE RECORDS SUMMARY | 2025-05-09 23:59 | XMS_ITS | Continuity of Care Document ---
Author Organization [facility] Address [address] [place] [address]- Care Team Providers Care Project Administrative Assistant Name Role Phone Yesica Castillo Primary Care Physician [phone] [place] [facility] [place]09[place]25 [place] 05/09/25 [facility] [address] [place] [address]- Encounter Type: Triage Allergies, Adverse Reactions, Alerts [...] mL, 2 Refills,Maintenance, 04/12/25 6:32:00 AM EST, [facility]/pharmacy #[id number], Partial fill upon [...] 10:04:00 AM EST, Route to Pharmacy Electronically, [facility]/pharmacy #[id number], Partial fill upon [...] 3 Refills, Maintenance, 03/12/25 10:33:00 AM EDT, [id number], 158, cm, 06/12/24 9:21:00 EST, Height Start Date: 03/12/25 Status: Ordered Medication Dispense Status: Completed Quantity: 720.0 Unit: tablet Total Allowed Fills: 1 Fills Dispensed: 0 Daily Tamir oral tablet 1 tablet, By Mouth, Daily, # 90 tablet, 3 Refills, Maintenance, 03/09/25 3:56:00 PM EDT, [facility]ORE [id number], 90, TAKE 1 TABLET BY MOUTH EVERY DAY, 158, cm, 06/12/24 9:21:00 EST, Height Start Date: 03/09/25 Status: Ordered Medication Dispense Status: Completed Quantity: 90.0 Unit: tablet Total Allowed Fills: 1 Fills Dispensed: 0 dicyclomine 20 mg oral tablet 1 tablet = 20 mg, By Mouth, 4 times a day, PRN abdominal cramping, # 60 tablet, 0 Refills, Maintenance, 04/24/25 6:01:00 PM EST, [facility]/pharmacy #[id number], Partial fill upon [...] 6:31:00 AM EST, Route to Pharmacy Electronically, [facility]/pharmacy #[id number], 158, cm, 04/01/25 11:14:00 EST,Height, 71.4, [...] Soft Stop, 04/01/25 12:03:00 PM EST, Tablet, [facility]/pharmacy #[id number], Partial fill upon [...] 12:08:00 PM EST, Route to Pharmacy Electronically, [id number], Partial [...] EDT, 05/08/25 10:04:00 AM EST, REC Powder, [facility]/pharmacy #[id number], Partial fill upon [...] PM EST, 05/08/25 10:10:00 AM EST, Gum, [facility]/pharmacy #[id number], Partial fill upon [...] 6 Refills, Maintenance, 03/25/25 9:17:00 AM EST, [facility]/pharmacy #[id number], Partial fill upon patient request if the prescription is for a schedule II opioiddrug.Autumn cm, 03/25/25 8:59:00 EST, Height Start Date: [...] it if you have not already done so.Autumn cm, 06/12/24 9:21:00 EST, Height Start Date: [...] it if you have not already done so.Autumn cm, 06/12/24 9:21:00 EST, Height Start Date: [...] is for a schedule II opioid drug., jyoti Leyva, 06/12/24 9:21:00 EST, Height Start Date: 01/15/25 [...] Team Personnel Name: Anh Victoria RN Position: [facility] RN Member Role: Primary Care Nurse Name: Yseica Castillo Position: [facility] PCO Associate Professional Member Role: PCP Address: [address] [place] [id number] Telecom: Name: Maggie Rogel RN Position: [facility] AMB Nurse Member Role: Primary Care Nurse Name: Merna Manzano RN Position: [facility] RN Member Role: Primary Care Nurse Name: Iva Martinez RN Position: [facility] RN Member Role: Primary Care Nurse Care Team Related Persons Name: HALIMA JARAMILLO Name: August Name: NONE, NONE Name: CHATA EATON Name: REBECCA EATON Insurance Providers Guarantor name: EL [facility] Plan Information #: 1 Payer: [employer] Payer Identifier: NA Member Number: [id number] Group Number: [id number] Subscriber Identifier: NA Relationship to Subscriber: self Coverage Type: Medicaid (Managed Care) Coverage Verification Date: NA Telecom: NA Address:
--- OUTSIDE RECORDS SUMMARY | 2025-05-10 23:59 | XMS_ITS | Continuity of Care Document ---
Author Organization [facility] Clay Trae lt Address [address] [place] [address]- Care Team Providers Care Fourth Grade Teacher Name Role Phone Yesica Castillo Primary Care Physician Encounter [facility] Date(s): 04/10/25 - 05/10/25 [facility] Adult [address] [place] [address]- Encounter Type: Triage Allergies, Adverse Reactions, Alerts [...] mL, 2 Refills,Maintenance, 04/12/25 6:32:00 AM EST, [facility]/pharmacy #[id number], Partial fill upon [...] 10:04:00 AM EST, [facility] Electronically, [facility] 3 Refills, Maintenance, 03/12/25 10:33:00 AM EDT, [facility] STORE [id number], 158, cm, 06/12/24 9:21:00 EST, Height Start Date: 03/12/25 Status: Ordered Medication Dispense Status: Completed Quantity: 720.0 Unit: tablet Total Allowed Fills: 1 Fills Dispensed: 0 Daily Tamri oral tablet 1 tablet, By Mouth, Daily, # 90 tablet, 3 Refills, Maintenance, 03/09/25 3:56:00 PM EDT, [facility] STORE [id number], 90, TAKE 1 TABLET BY MOUTH EVERY DAY, 158, cm, 06/12/24 9:21:00 EST, Height Start Date: 03/09/25 Status: Ordered Medication Dispense Status: Completed Quantity: 90.0 Unit: tablet Total Allowed Fills: 1 Fills Dispensed: 0 dicyclomine 20 mg oral tablet 1 tablet = 20 mg, By Mouth, 4 times a day, PRN abdominal cramping, # 60 tablet, 0 Refills, Maintenance, 04/24/25 6:01:00 PM EST, [facility]/pharmacy #[id number], Partial fill upon [...] 6:31:00 AM EST, Route to Pharmacy Electronically, [facility]/pharmacy #[id number], 158, cm, 04/01/25 11:14:00 EST,Height, 71.4, [...] Soft Stop, 04/01/25 12:03:00 PM EST, Tablet, [facility]/pharmacy #[id number], Partial [...] EDT, 05/08/25 10:04:00 AM EST, REC Powder, [facility]/pharmacy #[id number], Partial fill upon [...] cessation, # 120 each, 0 Refills, Acute 269:00:00 PM EST, 05/08/25 10:10:00 AM EST, Gum, [facility]/pharmacy #[id number], Partial fill upon [...] 6 Refills, Maintenance, 03/25/25 9:17:00 AM EST, [facility]/pharmacy #[id number], Partial fill upon [...] Team Personnel Name: Anh Victoria RN Position: [facility] RN Member Role: Primary Care Nurse Name: Yesica Castillo Position: [facility] PCO Associate Professional Member Role: PCP Address: [address] [place] [id number] Telecom: Name: Maggie Rogel RN Position: [facility] AMB Nurse Member Role: Primary Care Nurse Name: Merna Manzano RN Position: [facility] RN Member Role: Primary Care Nurse Name: Iva Martinez RN Position: [facility] RN Member Role: Primary Care Nurse Care Team Related Persons Name: HALIMA JARAMILLO Name: August Name: NONE, NONE Name: CHATA EATON Name: REBECCA EATON Insurance Providers Guarantor name: [facility] Plan Information #: 1 Payer: [employer] MCNEIL Payer Identifier: NA Member Number: [id number] Group Number: [id number] Subscriber Identifier: NA Relationship to Subscriber: self Coverage Type: Medicaid (Managed Care) Coverage Verification Date: NA Telecom: NA Address:
--- OUTSIDE RECORDS SUMMARY | 2025-05-10 23:59 | XMS_ITS | Continuity of Care Document ---
Author Organization [facility] Clay Trae lt Address [address] [place] [address]- Care Team Providers Care Power Line Lineman Name Role Phone Yesica Castillo Primary Care Physician Encounter [facility] Date(s): 04/10/25 - 05/10/25 [facility] Adult [address] [place] [address]- Encounter Type: Triage Allergies, Adverse Reactions, Alerts [...] mL, 2 Refills,Maintenance, 04/12/25 6:32:00 AM EST, [facility]/pharmacy #[id number], Partial fill upon patient request if [...] 10:04:00 AM EST, Route to Pharmacy Electronically, [facility]/pharmacy #[id number], Partial fill upon patient request if [...] 3 Refills, Maintenance, 03/12/25 10:33:00 AM EDT, [facility] STORE [id number], 158, cm, 06/12/24 9:21:00 EST, Height Start Date: 03/12/25 Status: Ordered Medication Dispense Status: Completed Quantity: 720.0 Unit: tablet Total Allowed Fills: 1 Fills Dispensed: 0 Daily Tamir oral tablet 1 tablet, By Mouth, Daily, # 90 tablet, 3 Refills, Maintenance, 03/09/25 3:56:00 PM EDT, [facility] STORE [id number], 90, TAKE 1 TABLET BY MOUTH EVERY DAY, 158, cm, 06/12/24 9:21:00 EST, Height Start Date: 03/09/25 Status: Ordered Medication Dispense Status: Completed Quantity: 90.0 Unit: tablet Total Allowed Fills: 1 Fills Dispensed: 0 dicyclomine 20 mg oral tablet 1 tablet = 20 mg, By Mouth, 4 times a day, PRN abdominal cramping, # 60 tablet, 0 Refills, Maintenance, 04/24/25 6:01:00 PM EST, [facility]/pharmacy #[id number], Partial fill upon patient request if [...] 6:31:00 AM EST, Route to Pharmacy Electronically, [facility]/pharmacy #[id number], 158, cm, 04/01/25 11:14:00 EST,Height, 71.4, [...] Soft Stop, 04/01/25 12:03:00 PM EST, Tablet, [facility]/pharmacy #[id number], Partial fill upon patient request if [...] 12:08:00 PM EST, Route to Pharmacy Electronically, [facility]/pharmacy #[id number], Partial fill upon patient request if [...] EDT, 05/08/25 10:04:00 AM EST, REC Powder, [facility]/pharmacy #[id number], Partial fill upon patient request if [...] PM EST, 05/08/25 10:10:00 AM EST, Gum, [facility]/pharmacy #[id number], Partial fill upon patient request if [...] 6 Refills, Maintenance, 03/25/25 9:17:00 AM EST, [facility]/pharmacy #[id number], Partial fill upon patient request if [...] PCO Associate Professional Member Role: PCP Address: [address] [place] [id number] Telecom: Name: Maggie Rogel RN [...] REBECCA EATON Insurance Providers Guarantor name: [facility] Plan Information #: 1 Payer: [employer] Payer Identifier: NA Member Number: [id number] Group Number: [id number] Subscriber Identifier: NA Relationship to Subscriber: self Coverage Type: Medicaid (Managed Care) Coverage Verification Date: NA Telecom: NA Address:
[2025-05-13 18:09] VITALS: BP 128/79; BP 138/84; PULSE 79; PULSE 88; RESP 19; TEMP 36.7; O2SAT 98; O2SAT 99; BMI 28.4
[2025-05-13 18:15] VITALS: BP 128/79; PULSE 79; RESP 19; TEMP 36.7; O2SAT 99
--- NOTE | 2025-05-13 18:37 | ECG_ITS ---
Test Reason : dizzy Blood Pressure : */* mmHG Vent. Rate : 81 BPM Atrial Rate : 81 BPM P-R Int : 146 ms QRS Dur : 90 ms QT Int : 406 ms P-R-T Axes : 49 69 41 degrees QTcB Int : 471 ms Normal sinus rhythm Normal ECG When compared with ECG of 01-May-2025 02:25, No significant change was found Referred By: William Vickers Electronically Signed By: JACQUES CANDELARIA MD
--- OUTSIDE RECORDS SUMMARY | 2025-05-13 18:37 | XMS_ITS | Clinical Summary ---
Author Organization [employer] [facility] it Address [address] [place] [address] Care Team Providers Care Senior Hr Generalist Name Role Phone Eleuterio Linares MD Primary Care Provider [phone] Surgical History Surgery Date Site/Laterality Comments OTHER [...] Mother Alive MS Sister Alive asthma Uncle [place] at 60's, CVA Social History Tobacco Use [...] age to complete this topic Care Teams Senior Hr Generalist Relationship Specialty Start Date End Date Eleuterio Linares MD [address] [place] [address] PCP - General 01/31/23
--- NOTE | 2025-05-13 18:49 | ED_ITS ---
HPI - General Adult General Chief complaint: Dental/Oral Stated complaint: dizzy, nausea, face pain started tonight EKG sinus Time Seen by Provider: 05/13/25 17:55 Source: patient, RN notes reviewed and old records reviewed Mode of arrival: EMS Limitations: no limitations History of Present Illness ED Provider: Rancho HPI narrative: 40-year-old female with past medical history significant for anxiety, depression, MS, chronic abdominal pain, poor dentition presents for evaluation of left-sided facial pain and swelling. patient reports that her symptoms started last week, she talked to her primary doctor 5 days ago due to left-sided upper dental pain. It was felt a that time that she would not have any evidence of infection. She reports in his symptoms have been gradually worsening now she has severe left-sided facial pain up under her left eye. She reports that her face was swollen this afternoon. She is due to see a dentist on Sunday and at 9:30 a.m. in the morning for her poor dentition she had an episode of dizziness prior to arrival which prompted her ER visit today. Denies any chest pain, palpitations, shortness of breath pain Denies any difficulty swallowing Related Data Home Medications ?Medication ?Instructions ?Recorded ?Confirmed colestipol 1 gram tablet 1 g PO BID 11/24/20 11/24/20 venlafaxine 75 mg capsule,extended 75 mg PO DAILY 12/0811/24/20 release 24 hr norethindrone (contraceptive) 0.35 0.35 mg PO DAILY mg tablet losartan 25 mg tablet 25 mg PO DAILY 03/27/2512/12 Previous Rx's ?Medication ?Instructions ?Recorded ibuprofen 600 mg tablet 600 mg PO Q6H PRN pain #30 t abs 10/11/21 naproxen 500 mg tablet 500 mg PO BID 7 days #14 tab s 10/14/22 pantoprazole 40 mg tablet,delayed 40 mg PO DAILY #30 t abs 01/04/23 release chlorhexidine gluconate 0.12 % 15 ml buccal BID #118 m L 06/05/23 mouthwash (Peridex) dicyclomine 20 mg tablet 20 mg PO BID PRN abdominal p ain #7 03/24/25 tabs ondansetron 4 mg disintegrating 4 mg PO Q8H PRN nausea and 03/24/25 tablet vomiting #20 tabs oxycodone 5 mg tablet 5 mg PO Q6H PRN severe pain (scale 03/24/25 score 7-10) #8 tabs loperamide 2 mg capsule (Imodium 2 mg PO Q6H PRN loose stool #10 03/29/25 A-D) caps acetaminophen-pamabrom 500 mg-25 1 tab PO Q4-6H PRN me nstrual pain 04/03/25 mg tablet (Midol) #16 tabs acetaminophen 500 mg capsule 1,000 mg (2 x 500 mg) PO Q8H PRN 04/07/25 fever or pain #18 caps famotidine 40 mg tablet 40 mg PO BID #60 tabs ketorolac 10 mg tablet 10 mg PO Q8H PRN pain #7 tab s 04/08/25 prochlorperazine maleate 10 mg 10 mg PO BID PRN nausea and 04/10/25 tablet (Compazine) vomiting 7 days #14 tabs amoxicillin 875 mg-potassium 1 tab PO BID 10 days #20 tabs 04/12/25 clavulanate 125 mg tablet hydrocodone 5 mg-acetaminophen 325 1 tab PO Q6H PRN se rohan pain 04/12/25 mg tablet (scale score 7-10) #10 tabs sucralfate 1 gram tablet (Carafate) 1 g PO BID #60 tab s 04/15/25 ofatumumab 20 mg/0.4 mL 20 mg (0.4 mL) subcut QMONTH 30 04/30/25 subcutaneous pen injector days #0.4 mL (Kesimpta Pen) ondansetron 4 mg disintegrating 4 mg PO Q8H PRN nausea and 05/01/25 tablet vomiting #10 tabs sucralfate 1 gram tablet (Carafate) 1 g PO TID PRN dys pepsia #15 tabs 05/01/25 chlorhexidine gluconate 0.12 % 15 ml buccal BID #473 m L 05/13/25 mouthwash Allergies Allergy/AdvReac Type Severity Reaction Status Date / Time adhesive (ADHESIVE) Allergy Unknown RASH, SKIN Verified 05/13/25 18:14 BREAKDOWN clindamycin AdvReac Gastrointestinal Verified 05/13/25 18:14 Upset SEASONAL ALLERGIES Allergy Unknown RUNNY Uncoded 05/13/25 18:14 NOSE, CONGESTION, WATERY EYES tuna Allergy Itching Uncoded 05/13/25 18:14 Review of Systems 2 Constitutional: Constitutional: Denies body ache(s), Denies chills and Denies fever(s) Eyes: Eyes: Denies blurry vision ENT: Denies vertigo, Reports dizziness, Reports otalgia, Reports facial pain, Denies epistaxis, Reports mouth pain, Denies nasal congestion and Denies nasal discharge Cardiovascular: Cardiovascular: Denies chest pain and Denies dyspnea on exertion Respiratory: Respiratory: Denies cough and Denies dyspnea on exertion Gastrointestinal: Gastrointestinal: Denies abdominal pain, Denies nausea and Denies vomiting Musculoskeletal: Musculoskeletal: Denies back pain Integumentary/Breasts: Skin/Breast: Denies rash Neurologic: Denies vertigo and Reports dizziness Psychiatric: Psychiatric: Denies anxiety PMFSH Past Medical History Medical History Pilonidal abscess of zenia cleft Multiple sclerosis Tobacco abuse (06/30/22) Seasonal allergies Sacroiliitis (09/22/19) Depression ASCUS with positive high risk HPV cervical Anxiety (06/30/22) Right radial head fracture Left radial head fracture Skin lesion of back Multiple sclerosis No known health problems Surgical History H/O LEEP History of cholecystectomy H/O removal of cyst Social History Social History Household Members: Spouse and Children Housing: House Alcohol intake: never Patient Tobacco Use Status: Current everyday Tobacco user Tobacco use type: Cigarette Cigarettes Per Day: 10 Years Smoked: 20 Use of substances other than those prescribed or required for medical reasons: Yes Substance Use Type: Marijuana Substance Use Frequency: Occasionally Advance Directives: No Advance Directives Information Provided: No Do you have a plan to hurt others: No Plan Patient : No Current occupational status: employed 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 No sinus tenderness. The patient has very poor dentition throughout. There was no gingival edema or evidence of dental abscess. No purulence. There was an ulcer to the right lower lip consistent with an aphthous ulcer. Head: Yes normocephalic and Yes atraumatic Teeth and gingiva: abnormal dentition, gingiva normal and caries Eyes Eyelids: Yes eyelids normal Conjunctivae: conjunctivae normal Sclerae: sclerae normal Corneas: corneas normal Pupils: Equal, round and reactive pupils present EOM: EOMs intact bilaterally Neck Neck: Yes full ROM Resp Effort & Inspection: normal respiratory effort, able to speak in complete sentences and not labored Cardio Rate: regular rate Rhythm: regular rhythm Skin General skin exam: elasticity normal Neuro General: patient oriented x3 Cranial nerves: Yes Equal, round and reactive pupils present and Yes Bilaterally intact EOM present Cognition (Neuro): normal cognition Extrem Other: Moving all extremities well without any obvious deformities Medications Administered Discontinued Medications Generic Name Dose Route Start Last Admin Trade Name Freq PRN Reason Stop Dose Admin Ketorolac Tromethamine 30 mg 05/13/25 18:37 05/13/25 18:43 Ketorolac Tromethamine 30 Mg/Ml Vial IVPUSH 05/13/25 18:38 30 mg ONCE ONE Administration Medical Decision Making Medical Decision Making [facility] Narrative: 40-year-old female presents for evaluation of left facial pain. She does not have any objective swelling on exam. She is quite well appearing. Abdomen is see any evidence of dental abscess. Given her reported dizziness we will get basic labs and an EKG. She has been seen numerous times in the past for poor dentition as well as chronic abdominal pain. She then had concerns of C diff due to her frequent antibiotic use. Given that I do not see any obvious abscess or infection I do not feel it is appropriate to treat with oral antibiotics at time. The patient is due to follow up with her dentist in 2 days. If the patient is medically cleared at fair labs and EKG, I feel it is appropriate to discharge the patient with a chlorhexidine mouthwash Differential Diagnosis Differential Diagnoses: The differential diagnosis associated with the presentation includes dental caries Poor dentition Dental abscess Facial pain Sinusitis Orthostasis RICCO Dehydration Lab Data 05/13/25 19:20 05/13/25 19:20 Labs: Lab Results 05/13/25 Range/Units 19:20 WBC 9.8 (4.8-10.8) X10*3/uL RBC 4.79 (4.20-5.50) X10*6/uL Hgb 14.6 (12.0-16.0) g/dl Hct 42.1 (37.0-47.0) % MCV 87.9 (80.0-98.0) fL MCH 30.5 (27.0-33.0) pg MCHC 34.7 (31.0-35.0) g/dl RDW 12.3 (11.0-16.0) % Plt Count 366 (160-400) X10*3/uL MPV 8.8 L (9.4-12.3) fL Immature Gran % (Auto) 0.2 (0.0-0.4) % Neut % (Auto) 69.1 (45-73) % Lymph % (Auto) 22.9 (20-40) % [place] % (Auto) 6.6 (2-11) % Eos % (Auto) 0.9 (0-4) % Baso % (Auto) 0.3 (0-2) % Lymph # (Auto) 2.2 (1.2-4.9) X10*3/uL [place] # (Auto) 0.7 (0.1-1.2) X10*3/uL Eos # (Auto) 0.1 (0.0-0.4) X10*3/uL Baso # (Auto) 0.0 (0.0-0.2) X10*3/uL Abs Immat Gran (auto) 0.02 (0.00-0.03) X10*3/uL Absolute Neuts (auto) 6.8 (2.0-8.3) x10*3/uL Absolute Nucleated RBC 0.000 (0.0-0.012) X10*3/uL Nucleated RBC % (auto) 0.0 (0.0-0.2) /100WBC Sodium 140 (135-145) mmol/L Potassium 3.8 (3.3-5.1) mmol/L Chloride 105 (96-108) mmol/L Carbon Dioxide 25 (22-29) mmol/L Anion Gap 14 (12-20) BUN 5 L (9-16) mg/dL Creatinine 0.74 (0.5-1.4) mg/dL Estim Creat Clear Calc 91.9 Estimated GFR > 60 Random Glucose 86 (60-115) mg/dL Calcium 9.9 (8.4-10.2) mg/dL Beta HCG, Quant < 2 mIU/mL Discharge Plan Discharge Clinical Impression: Atypical face pain Patient Disposition: Home, Self-Care Instructions: Atypical Facial Pain (ED) Additional Instructions: your workup in the ER today was reassuring. You may use chlorhexidine mouthwash to help kill bacteria. I do not see any obvious sign of infection or dental abscess. Follow up with your dentist on Sunday as planned you may use ibuprofen or Tylenol for pain Prescriptions: New chlorhexidine gluconate 0.12 % mouthwash 15 ml buccal BID Qty: 473 0RF Rx Instructions: swish and spit No Action Kesimpta Pen 20 mg/0.4 mL pen injector 20 mg subcut QMONTH 30 Days Qty: 0.4 11RF ibuprofen 600 mg tablet 600 mg PO Q6H PRN (Reason: pain) Qty: 30 0RF pantoprazole 40 mg tablet,delayed release (DR/EC) 40 mg PO DAILY Qty: 30 0RF ondansetron 4 mg tablet,disintegrating 4 mg PO Q8H PRN (Reason: nausea and vomiting) Qty: 20 0RF oxycodone 5 mg tablet 5 mg PO Q6H PRN (Reason: severe pain (scale score 7-10)) Qty: 8 0RF Rx Instructions: Partial Fill upon patient request. Midol 500-25 mg tablet 1 tab PO Q4-6H PRN (Reason: menstrual pain) Qty: 16 0RF Rx Instructions: PRN cramps hydrocodone-acetaminophen 5-325 mg tablet 1 tab PO Q6H PRN (Reason: severe pain (scale score 7-10)) Qty: 10 0RF Rx Instructions: Partial Fill upon patient request. amoxicillin-pot clavulanate 875-125 mg tablet 1 tab PO BID 10 Days Qty: 20 0RF sucralfate [Carafate] 1 gram tablet 1 g PO BID Qty: 60 0RF naproxen 500 mg tablet 500 mg PO BID 7 Days Qty: 14 0RF chlorhexidine gluconate [Peridex] 0.12 % mouthwash 15 ml buccal BID Qty: 118 0RF losartan 25 mg tablet 25 mg PO DAILY loperamide [Imodium A-D] 2 mg capsule 2 mg PO Q6H PRN (Reason: loose stool) Qty: 10 0RF acetaminophen 500 mg capsule 1,000 mg PO Q8H PRN (Reason: fever or pain) Qty: 18 0RF famotidine 40 mg tablet 40 mg PO BID Qty: 60 0RF ketorolac 10 mg tablet 10 mg PO Q8H PRN (Reason: pain) Qty: 7 0RF Rx Instructions: maximum total duration of 5 days from all oral, intranasal, or parenteral formulations. Tolerated in the ED with significant pain relief prochlorperazine maleate [Compazine] 10 mg tablet 10 mg PO BID PRN (Reason: nausea and vomiting) 7 Days Qty: 14 0RF ondansetron 4 mg tablet,disintegrating 4 mg PO Q8H PRN (Reason: nausea and vomiting) Qty: 10 0RF sucralfate [Carafate] 1 gram tablet 1 g PO TID PRN (Reason: dyspepsia) Qty: 15 0RF venlafaxine 75 mg capsule,extended release 24hr 75 mg PO DAILY colestipol 1 gram tablet 1 g PO BID norethindrone (contraceptive) 0.35 mg tablet 0.35 mg PO DAILY dicyclomine 20 mg tablet 20 mg PO BID PRN (Reason: abdominal pain) Qty: 7 0RF Print Language: Portuguese
[2025-05-13 19:27] LABS: Hematocrit 42.1 % (37.0-47.0); Hemoglobin 14.6 g/dl (12.0-16.0); Imm Gran Abs Auto 0.02 X10*3/uL (0.00-0.03); Imm Gran Pct Auto 0.2 % (0.0-0.4); Lymphocytes Absolute Auto 2.2 X10*3/uL (1.2-4.9); MANUAL DIFF FLAG NO; Mean Corpuscular HGB Conc 34.7 g/dl (31.0-35.0); Mean Corpuscular Hemoglobin 30.5 pg (27.0-33.0); Mean Corpuscular Volume 87.9 fL (80.0-98.0); NRBC Abs Auto 0.000 X10*3/uL (0.0-0.012); NRBC Pct Auto 0.0 /100WBC (0.0-0.2); Platelet Count 366 X10*3/uL (160-400); Red Blood Count 4.79 X10*6/uL (4.20-5.50); White Blood Count 9.8 X10*3/uL (4.8-10.8)
[2025-05-13 19:46] LABS: Anion Gap 14 (12-20); Blood Urea Nitrogen 5 mg/dL (9-16); Calcium 9.9 mg/dL (8.4-10.2); Carbon Dioxide 25 mmol/L (22-29); Chloride 105 mmol/L (96-108); Creatinine Clr Calc Pharmacy 91.9; Estimated Glomerular Filt Rate > 60; Potassium 3.8 mmol/L (3.3-5.1); Sodium 140 mmol/L (135-145)
[2025-05-13 20:10] VITALS: BP 128/79; PULSE 79; RESP 19; TEMP 36.7; O2SAT 99
== END 2025-05-13 20:10 | disposition home or self-care (01) ==
PROVIDERS: Physician Assistant; Emergency Provider Emergency Medicine
DX: G50.1 Atypical facial pain (principal); K08.89 Other specified disorders of teeth and supporting structures; R42 Dizziness and giddiness; F17.210 Nicotine dependence, cigarettes, uncomplicated; Z79.899 Other long term (current) drug therapy
CPT/HCPCS: 36415; 80048; 84702; 85025; 93005; 96374; 99284; 99285; J1885

== ENCOUNTER → 2025-05-13 18:37 | Outpatient (BNV) | payer OTHER, SELFPAY | PROVIDERS: Emergency Provider Emergency Medicine; Visit Provider Internal Medicine Cardiovascular Disease | DX: R42 Dizziness and giddiness (principal) | CPT/HCPCS: 93010 ==

== ENCOUNTER 2025-05-18 13:06 | Outpatient (AMB) | payer OTHER, SELFPAY ==
--- OUTSIDE RECORDS SUMMARY | 2025-05-13 23:59 | XMS_ITS | Continuity of Care Document ---
Author Organization [facility] Address [address] [place] [address]- Care Team Providers Care Physicist Cryogenics Name Role Phone Yesica Castillo Primary Care Physician Encounter [facility] Date(s): 04/13/25 - 05/13/[address] [id number] Encounter Type: Triage Allergies, Adverse Reactions, Alerts [...] mL, 2 Refills,Maintenance, 04/12/25 6:32:00 AM EST, [facility]/pharmacy #[id number], Partial fill upon [...] 10:04:00 AM EST, Route to Pharmacy Electronically, [facility]/pharmacy [...] 3 Refills, Maintenance, 03/12/25 10:33:00 AM EDT, [facility] STORE [id number], 158, cm, 06/12/24 9:21:00 EST, Height Start Date: 03/12/25 Status: Ordered Medication Dispense Status: Completed Quantity: 720.0 Unit: tablet Total Allowed Fills: 1 Fills Dispensed: 0 Daily Tamir oral tablet 1 tablet, By Mouth, Daily, # 90 tablet, 3 Refills, Maintenance, 03/09/25 3:56:00 PM EDT, [facility] STORE 93413, 90, TAKE 1 TABLET BY MOUTH EVERY DAY, 158, cm, 06/12/24 9:21:00 EST, Height Start Date: 03/09/25 Status: Ordered Medication Dispense Status: Completed Quantity: 90.0 Unit: tablet Total Allowed Fills: 1 Fills Dispensed: 0 dicyclomine 20 mg oral tablet 1 tablet = 20 mg, By Mouth, 4 times a day, PRN abdominal cramping, # 60 tablet, 0 Refills, Maintenance, 04/24/25 6:01:00 PM EST, [facility]/pharmacy #[id number], Partial fill upon patient [...] 6:31:00 AM EST, Route to Pharmacy Electronically, [facility]/pharmacy #[id number], 158, cm, 04/01/25 11:14:00 [...] Soft Stop, 04/01/25 12:03:00 PM EST, Tablet, [facility]/pharmacy #[id number], Partial fill [...] 12:08:00 PM EST, Route to Pharmacy Electronically, [facility]/pharmacy [...] Team Personnel Name: Anh Victoria RN Position: [facility] RN Member Role: Primary Care Nurse Name: Yesica Castillo Position: [facility] PCO Associate Professional Member Role: PCP Address: [address] [place] [address] Telecom: Name: Maggie Rogel RN Position: [facility] AMB Nurse Member Role: Primary Care Nurse Name: Merna Manzano RN Position: [facility] RN Member Role: Primary Care Nurse Name: Iva Martinez RN Position: [facility] RN Member Role: Primary Care Nurse Care Team Related Persons Name: HALIMA JARAMILLO Name: AUGUST Name: NONE, NONE Name: CHATA EATON Name: REBECCA EATON Insurance Providers [facility] Plan Information #: 1 Payer: [id number] [place] Payer Identifier: NA Member Number: [id number] Group Number: [id number] Subscriber Identifier: NA Relationship to Subscriber: self Coverage Type: Medicaid (Managed Care) Coverage Verification Date: NA Telecom: NA Address:
--- OUTSIDE RECORDS SUMMARY | 2025-05-14 23:59 | XMS_ITS | Continuity of Care Document ---
Author Organization [facility] Trae [address] Address [address] [place] [address]- Care Team Providers Care Truss Maker Name Role Phone Yesica Castillo Primary Care Physician [phone] Encounter [facility] [id number] Date(s): 04/01/25 - 05/14/25 [facility] Adult [address] [place] [address]- Attending Physician: Yesica Castillo Encounter Type: Pre Office Visit Allergies, Adverse Reactions, Alerts Substance [...] mL, 2 Refills,Maintenance, 04/12/25 6:32:00 AM EST, [facility]/pharmacy #[id number], Partial fill upon [...] 10:04:00 AM EST, Route to Pharmacy Electronically, [facility]/pharmacy #[id number], Partial fill upon [...] 3 Refills, Maintenance, 03/12/25 10:33:00 AM EDT, [facility] STORE [id number], 158, cm, 06/12/24 9:21:00 EST, Height Start Date: 03/12/25 Status: Ordered Medication Dispense Status: Completed Quantity: 720.0 Unit: tablet Total Allowed Fills: 1 Fills Dispensed: 0 Daily Tamir oral tablet 1 tablet, By Mouth, Daily, # 90 tablet, 3 Refills, Maintenance, 03/09/25 3:56:00 PM EDT, [facility] STORE [address]22, 90, TAKE 1 TABLET BY MOUTH EVERY DAY, 158, cm, 06/12/24 9:21:00 EST, Height Start Date: 03/09/25 Status: Ordered Medication Dispense Status: Completed Quantity: 90.0 Unit: tablet Total Allowed Fills: 1 Fills Dispensed: 0 dicyclomine 20 mg oral tablet 1 tablet = 20 mg, By Mouth, 4 times a day, PRN abdominal cramping, # 60 tablet, 0 Refills, Maintenance, 04/24/25 6:01:00 PM EST, [facility]/pharmacy #[id number], Partial fill upon [...] 6:31:00 AM EST, Route to Pharmacy Electronically, [facility]/pharmacy #[id number], 158, cm, 04/01/25 11:14:00 EST,Height, [...] Soft Stop, 04/01/25 12:03:00 PM EST, Tablet, [facility]/pharmacy #[id number], Partial fill upon [...] 12:08:00 PM EST, Route to Pharmacy Electronically, [facility]/pharmacy #[id number], Partial fill upon [...] EDT, 05/08/25 10:04:00 AM EST, REC Powder, [facility]/pharmacy #[id number], Partial fill upon [...] PM EST, 05/08/25 10:10:00 AM EST, Gum, [facility]/pharmacy #[id number], Partial fill upon [...] 6 Refills, Maintenance, 03/25/25 9:17:00 AM EST, [facility]/pharmacy #[id number], Partial fill upon [...] if you have not already done so., jyoti Leyva, 06/12/24 9:21:00 EST, Height Start Date: 02/25/25 [...] if you have not already done so., jyoti Leyva, 06/12/24 9:21:00 EST, Height Start Date: 02/25/25 [...] Team Personnel Name: Anh Victoria RN Position: [facility] RN Member Role: Primary Care Nurse Name: Yesica Castillo Position: [facility] PCO Associate Professional Member Role: PCP Address: [address] [place] [id number] Telecom: Name: Maggie Rogel RN Position: [facility] AMB Nurse Member Role: Primary Care Nurse Name: Merna Manzano RN Position: [facility] RN Member Role: Primary Care Nurse Name: Iva Martinez RN Position: [facility] RN Member Role: Primary Care Nurse Care Team Related Persons Name: HALIMA JARAMILLO Name: AUGUST Name: NONE, NONE Name: CHATA EATON Name: REBECCA EATON Insurance Providers Guarantor name: [employer] Health Plan Information #: 1 Payer: [employer] [place] Payer Identifier: NA Member Number: [id number] Group Number: [id number] Subscriber Identifier: [id number] Relationship to Subscriber: self Coverage Type: Medicaid (Managed Care) Coverage Verification Date: NA Telecom: NA Address:
--- OUTSIDE RECORDS SUMMARY | 2025-05-15 23:59 | XMS_ITS | Continuity of Care Document ---
Author Organization [facility] Tra[address] Address [address] [place] [address]- Care Team Providers Care Generation Mechanic Helper Name Role Phone Yesica Castillo Primary Care Physician [phone] Encounter [facility] [id number] Date(s): 04/13/25 - 05/15/25 [facility] Adult [address] [place] [address]- Attending Physician: Jana MUNGUIA, Ian Mae Encounter Type: Pre Office Visit Allergies, Adverse [...] mL, 2 Refills,Maintenance, 04/12/25 6:32:00 AM EST, [facility]/pharmacy #[id number], Partial fill upon patient [...] 10:04:00 AM EST, Route to Pharmacy Electronically, [facility]/pharmacy #[id number], Partial fill upon patient [...] 3 Refills, Maintenance, 03/12/25 10:33:00 AM EDT, [facility] STORE [id number], 158, cm, 06/12/24 9:21:00 EST, Height Start Date: 03/12/25 Status: Ordered Medication Dispense Status: Completed Quantity: 720.0 Unit: tablet Total Allowed Fills: 1 Fills Dispensed: 0 Daily Tamir oral tablet 1 tablet, By Mouth, Daily, # 90 tablet, 3 Refills, Maintenance, 03/09/25 3:56:00 PM EDT, [facility] STORE [address]9044, 90, TAKE 1 TABLET BY MOUTH EVERY DAY, 158, cm, 06/12/24 9:21:00 EST, Height Start Date: 03/09/25 Status: Ordered Medication Dispense Status: Completed Quantity: 90.0 Unit: tablet Total Allowed Fills: 1 Fills Dispensed: 0 dicyclomine 20 mg oral tablet 1 tablet = 20 mg, By Mouth, 4 times a day, PRN abdominal cramping, # 60 tablet, 0 Refills, Maintenance, 04/24/25 6:01:00 PM EST, [facility]/pharmacy #[id number], Partial fill upon patient [...] 6:31:00 AM EST, Route to Pharmacy Electronically, [facility]/pharmacy #[id number], 158, cm, 04/01/25 11:14:00 [...] Soft Stop, 04/01/25 12:03:00 PM EST, Tablet, [facility]/pharmacy #[id number], Partial fill upon patient [...] 12:08:00 PM EST, Route to Pharmacy Electronically, [facility]/pharmacy #[id number], Partial fill upon patient [...] EDT, 05/08/25 10:04:00 AM EST, REC Powder, [facility]/pharmacy #[id number], Partial fill upon patient [...] PM EST, 05/08/25 10:10:00 AM EST, Gum, [facility]/pharmacy #[id number], Partial fill upon patient [...] 6 Refills, Maintenance, 03/25/25 9:17:00 AM EST, [facility]/pharmacy #[id number], Partial fill upon patient [...] Primary Care Nurse Name: Yesica Castillo Position: [facility] PCO Associate Professional Member Role: PCP Address: [address] [place] [id number] Telecom: Name: Maggie Rogel RN Position: [facility] Health Plan Information #: 1 Payer: [employer] Payer Identifier: NA Member Number: [id number] Group Number: [id number] Subscriber Identifier: [id number] Relationship to Subscriber: self Coverage Type: Medicaid (Managed Care) Coverage Verification Date: NA Telecom: NA Address:
--- OUTSIDE RECORDS SUMMARY | 2025-05-15 23:59 | XMS_ITS | Continuity of Care Document ---
Author Organization [facility] Trae [address] Address [address] [place] [address]- Care Team Providers Care Manager Marketing Communications Name Role Phone Yesica Castillo Primary [facility] Phys[id number]15/25 [facility] Adult [address] [place] [address]- Encounter Type: Triage Allergies, Adverse Reactions, Alerts [...] mL, 2 Refills,Maintenance, 04/12/25 6:32:00 AM EST, [facility]/pharmacy #[id number], Partial fill upon patient request [...] 10:04:00 AM EST, Route to Pharmacy Electronically, [facility]/pharmacy #[id number], Partial fill upon patient request [...] 3 Refills, Maintenance, 03/12/25 10:33:00 AM EDT, [facility] STORE [address]406, 158, cm, 06/12/24 9:21:00 EST, Height Start Date: 03/12/25 Status: Ordered Medication Dispense Status: Completed Quantity: 720.0 Unit: tablet Total Allowed Fills: 1 Fills Dispensed: 0 Daily Tamir oral tablet 1 tablet, By Mouth, Daily, # 90 tablet, 3 Refills, Maintenance, 03/09/25 3:56:00 PM EDT, [facility] STORE 70925, 90, TAKE 1 TABLET BY MOUTH EVERY DAY, 158, cm, 06/12/24 9:21:00 EST, Height Start Date: 03/09/25 Status: Ordered Medication Dispense Status: Completed Quantity: 90.0 Unit: tablet Total Allowed Fills: 1 Fills Dispensed: 0 dicyclomine 20 mg oral tablet 1 tablet = 20 mg, By Mouth, 4 times a day, PRN abdominal cramping, # 60 tablet, 0 Refills, Maintenance, 04/24/25 6:01:00 PM EST, [facility]/pharmacy #[id number], Partial fill upon patient request [...] 6:31:00 AM EST, Route to Pharmacy Electronically, [facility]/pharmacy #[id number], 158, cm, 04/01/25 11:14:00 EST,Height, [...] Soft Stop, 04/01/25 12:03:00 PM EST, Tablet, [facility]/pharmacy #[id number], Partial fill upon patient request [...] 12:08:00 PM EST, Route to Pharmacy Electronically, [facility]/pharmacy #[id number], Partial fill upon patient request [...] EDT, 05/08/25 10:04:00 AM EST, REC Powder, [facility]/pharmacy #[id number], Partial fill upon patient request [...] PM EST, 05/08/25 10:10:00 AM EST, Gum, [facility]/pharmacy #[id number], Partial fill upon patient request [...] Associate Professional Member Role: PCP Address: [address] [place] [address] Telecom: Name: Maggie Rogel RN Position: [facility] [...] Providers Guarantor [facility]: [facility] Plan Information #: 1 Payer: [employer] Payer Identifier: NA Member Number: [id number] Group Number: [id number] Subscriber Identifier: NA Relationship to Subscriber: self Coverage Type: Medicaid (Managed Care) Coverage Verification Date: NA Telecom: NA Address:
--- OUTSIDE RECORDS SUMMARY | 2025-05-15 23:59 | XMS_ITS | Continuity of Care Document ---
Author Organization [facility] Trae [address] Address [address] [place] [address]- Care Team Providers Care Hair Cutter Name Role Phone Yesica Castillo [id number] Adult [address] [place] [address]- Encounter Diagnosis Hypertension(Discharge Diagnosis) - 05/08/25 Tooth infection(Discharge Diagnosis) - 05/08/25 Attending Physician: Ian Bates MD Referring Physician: Yesica Castillo Encounter Type: Office Visit Allergies, Adverse Reactions, Alerts Substance Criticality Severity Reaction Reaction Severity Status clindamycin Vomiting Nausea Stomach pain Active Adhesive Bandage HIVES Act janet Fish Active Functional Status Functional Status Assessment Assessment Assessment Component Result Effecti ve Date Disability status [CUBS] I'm Thriving - no identified disability 05/08/25 Do you need any daina tional assistance or accommodations during your visit No 05/08/25 Do you have difficul ty dressing or bathing No 05/08/25 Do you have serious difficulty walking or climbing stairs No 05/08/25 Because of a physica l, mental, or emotional condition, do you have serious difficulty concentrating, remembering, or making decisions No 05/08/25 Are you blind, or do you have serious difficulty seeing, even when wearing glasses No 05/08/25 Difficulty Reading O r Writing No 05/08/25 Are you deaf, or do you have serious difficulty hearing No 05/08/25 Difficulty communica ting in usual language No 05/08/25 Because of a physica l, mental, or emotional condition, do you have difficulty doing errands alone such as visiting a physician's office or shopping No 05/08/25 Immunizations Given and Recorded Vaccine Date Status Refusal Reason tetanus/diphtheria/pertussis, acel(Tdap) 08/10/14 Given Medications Carafate 1 gm/10 ml oral suspension 10 mL = 1 Gm, By Mouth, 3 times a day before meals and bedtime, PRN Dyspepsia, # 600 mL, 2 Refills,Maintenance, 04/12/25 6:32:00 AM EST, [facility]/pharmacy #[id number], Partial fill upon [...] 10:04:00 AM EST, Route to Pharmacy Electronically, [facility]/pharmacy [...] 3 Refills, Maintenance, 03/12/25 10:33:00 AM EDT, [facility] STORE 91617, 158, cm, 06/12/24 9:21:00 EST, Height Start Date: 03/12/25 Status: Ordered Medication Dispense Status: Completed Quantity: 720.0 Unit: tablet Total Allowed Fills: 1 Fills Dispensed: 0 Daily Tamir oral tablet 1 tablet, By Mouth, Daily, # 90 tablet, 3 Refills, Maintenance, 03/09/25 3:56:00 PM EDT, [facility] STORE 20401, 90, TAKE 1 TABLET BY MOUTH EVERY DAY, 158, cm, 06/12/24 9:21:00 EST, Height Start Date: 03/09/25 Status: Ordered Medication Dispense Status: Completed Quantity: 90.0 Unit: tablet Total Allowed Fills: 1 Fills Dispensed: 0 dicyclomine 20 mg oral tablet 1 tablet = 20 mg, By Mouth, 4 times a day, PRN abdominal cramping, # 60 tablet, 0 Refills, Maintenance, 04/24/25 6:01:00 PM EST, [facility]/pharmacy #[id number], Partial fill upon [...] 6:31:00 AM EST, Route to Pharmacy Electronically, [facility]/pharmacy #[id number], 158, cm, 04/01/25 11:14:00 [...] Soft Stop, 04/01/25 12:03:00 PM EST, Tablet, [facility]/pharmacy #[id number], Partial fill [...] PM EST, 05/08/25 10:10:00 AM EST, Gum, [facility]/pharmacy #[id number], Partial fill upon [...] 6 Refills, Maintenance, 03/25/25 9:17:00 AM EST, [facility]/pharmacy #[id number], Partial fill upon [...] 0 Refills, Maintenance, 02/25/25 4:28:00 PM EDT, [facility]/pharmacy #[id number], Refills require visit. Please [...] Dates Health Status Cl inical Service Informant Hypertension Discharge Diagnosis 05/08/25 Tooth infection Discharge Diagnosis 05/08/25 Vital Signs Most recent to oldest [Reference Range]: 1 Height 158 cm (05/08/25 9:52 AM) Weight 69.8 kg (05/08/25 9:52 AM) Oxygen Saturation [94-100 %] 98 % (05/08/25 9:52 AM) Pulse Rate [55-90 bpm] 110 bpm *H* (05/08/25 9:52 AM) Body Mass Index [18.5-24.99 kg/m2] 27.96 kg/m2 *H* (05/08/25 9:52 AM) Blood Pressure [90-138/55-84 mm Hg] 136/ 85mm Hg (05/08/25 9:52 AM) Blood pressure sites Arm, right (05/08/25 9:52 AM) Weight Obtained Via Standing scale (05/08/25 9:52 AM) Social History Social History Type Response Smoking Status 10 or more cigarette s (1/2 pack or more)/day in last 30 days; Tobacco user in household: Yes; Other: 1 pack daily; Tobacco use times per day: 1ppd; entered on: 04/24/25 Sex Female Sex Representation Female (finding) Patient Care team information Care Team Personnel Name: Anh Victoria RN Position: [facility] RN Member Role: Primary Care Nurse Name: Yesica Castillo Position: [facility] PCO Associate Professional Member Role: PCP Address: [address] [place] [address] Telecom: Name: Maggie Rogel RN Position: [facility] AMB Nurse Member Role: Primary Care Nurse Name: Merna Manzano RN Position: [facility] RN Member Role: Primary Care Nurse Name: Iva Martinez RN Position: [facility] RN Member Role: Primary Care Nurse Care Team Related Persons Name: HALIMA JARAMILLO Name: August Name: NONE, NONE Name: CHATA EATON Name: REBECCA EATON Insurance Providers [facility] Plan Information #: 1 Payer: [facility] Payer Identifier: NA Member Number: [id number] Group Number: [id number] Subscriber Identifier: [id number] Relationship to Subscriber: self Coverage Type: Medicaid (Managed Care) Coverage Verification Date: [facility] Telecom: NA Address:
--- NOTE | 2025-05-18 13:06 | MHC.OFFVIS ---
Intake Visit Reasons: Control Consult Allergies adhesive (ADHESIVE) Allergy (Unknown, Verified 05/13/25 18:14) RASH, SKIN BREAKDOWN clindamycin Adverse Reaction (Verified 05/13/25 18:14) Gastrointestinal Upset SEASONAL ALLERGIES Allergy (Unknown, Uncoded 05/13/25 18:14) RUNNY NOSE, CONGESTION, WATERY EYES tuna Allergy (Uncoded 05/13/25 18:14) Itching HPI Comments Details: The patient is scheduled a telehealth visit to discuss different options of contraception PFSH Medical History Pilonidal abscess of cleft Multiple sclerosis Tobacco abuse (06/30/22) Seasonal allergies Sacroiliitis (09/22/19) Depression ASCUS with positive high risk HPV cervical Anxiety (06/30/22) Right radial head fracture Left radial head fracture Skin lesion of back Multiple sclerosis No known health problems Surgical History H/O LEEP History of cholecystectomy H/O removal of cyst Social History Household Members: Spouse and Children Housing: House Alcohol intake: never Patient Tobacco Use Status: Current everyday Tobacco user Tobacco use type: Cigarette Cigarettes Per Day: 10 Years Smoked: 20 Substance Use Type: Marijuana Current occupational status: employed 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, 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 Sexual orientation: Straight/Heterosexual Gender identity: Female Review of Systems Const All systems reviewed & are unremarkable except as noted in HPI and below Reports as per HPI and Reports no additional complaints GI Reports no additional complaints Reports no additional complaints Telehealth Telehealth Telehealth Platform: [facility] Location of provider rendering services: practice address Location of patient: address on file Patient Identification confirmed using: Name, : Yes Telehealth method: video Patient verbally consented to treatment: Yes Patient verbally consented to billing insurance company: Yes Patient informed of any privacy concerns related to visit: Yes Minutes spent on Phone/Video with Pt.: 10 Assessment & Plan Assessment & Plan (1) Family planning: Code(s): Z30.09 - Encounter for other general counseling and advice on contraception Category: Social Hx Plan: Discussed with the patient the different options of control including control pills/Nuvaring, DMPA, different types of IUD ?s, sterilization. All the pros, cons, risks and benefits of each were discussed with the patient. The patient decided to go ahead with an IUD, so a more detailed discussion was carried on including types (Progesterone, Copper), mechanism of action, risks (infection, uterine perforation, failure with ectopic , septic AB, dysmenorrhea with Paraguard, others) benefits (efficient contraceptive method, hypo menorrhea with Progesterone IUD, others) GC/CG will be taken and the patient was asked to call day one of next cycle for IUD insertion. I spent a total of 20 minutes reviewing the chart, talking to the patient via video and documenting in the medical record. Coding Level of Care Code Tele Est Pt Level 3 (50500) Diagnoses Family planning Z30.09
--- OUTSIDE RECORDS SUMMARY | 2025-05-18 15:02 | XMS_ITS | Clinical Summary ---
Author Organization [facility] it Address [address] [place] [address] Care Team Providers Care Marine Consultant Name Role Phone Eleuterio Linares MD Primary Care Provider [phone] Surgical History Surgery Date Site/Laterality Comments OTHER SURGICAL HISTORY PROCEDURE: CA COLPOSCOPY CERVIX VAG ELTRD CONIZATION CERVIX; COMMENT: h/o HPV normal pap smears since CYST REMOVAL PROCEDURE: CA EXCISION PILONIDAL CYST/SINUS SIMPLE Medical History Medical [...] Mother Alive MS Sister Alive asthma Uncle CA at 60's, CVA Social History Tobacco Use [...] age to complete this topic Care Teams Marine Consultant Relationship Specialty Start Date End Date Eleuteroi Linares MD [address] [place] [phone] PCP - General 01/31/23
== END 2025-05-18 13:58 | disposition home or self-care (01) ==
LOC: HO.HWS 13:06
PROVIDERS: Visit Provider Obstetrics & Gynecology
DX: Z30.09 Encounter for other general counseling and advice on contraception (principal)
CPT/HCPCS: 99213